=== PATIENT | male | born 1955 | race Caucasian/White ===

== ENCOUNTER 2018-04-26 10:58 | Inpatient (IN) | payer MEDICARE ==
[~2018-04-26] VITALS: Ht 180.3 cm; Wt 103.9 kg
[2018-04-26 11:40] LABS: BASOPHILS % (AUTO) 0.3 % (0.0-5.0); EOSINOPHILS % (AUTO) 1.6 % (0.0-8.0); LYMPHOCYTES % (AUTO) 14.8 % (21.0-51.0); MEAN CORPUSCULAR HGB CONC 33.1 g/dL (32.0-36.0); MEAN CORPUSCULAR VOLUME 93.8 fL (79-99); MONOCYTES % (AUTO) 8.9 % (3.0-13.0); NEUTROPHILS % (AUTO) 74.4 % (40.0-77.0); PLATELET COUNT (AUTO) 225 K/uL (130-400); RED BLOOD CELL COUNT(AUTO) 3.84 MIL/uL (4.50-6.20); RED CELL DISTRIBUTION WIDTH 13.3 % (11.0-15.5); WHITE BLOOD COUNT (AUTO) 8.2 K/uL (4.8-10.8)
[2018-04-26 11:49] LABS: CREATININE 1.5 mg/dL (0.5-1.5); POTASSIUM 4.6 mmol/L (3.5-5.1)
[2018-04-26 11:54] LABS: ALBUMIN 2.6 g/dL (3.5-5.0); BILIRUBIN,TOTAL 0.5 mg/dL (0.2-1.0); TOTAL PROTEIN, SERUM 6.3 g/dL (6.0-8.3)
[2018-04-26] MEDS ORDERED: SODIUM CHLORIDE 0.9% 1000ML 1,000 ML IV ONE ×2 (12:11→16:13)
[2018-04-26] MEDS ORDERED: LEVOFLOXACIN 750 MG/D5W 150 ML 150 ML ONE (13:32)
[2018-04-26 14:21] LABS: PROTHROMBIN TIME 10.5 SEC (9.6-11.6)
[2018-04-26] MEDS ORDERED: ACETAMINOPHEN 325 MG TAB PO PRN ×2 (14:45)
[2018-04-26] MEDS ORDERED: ONDANSETRON HCL 4 MG/2 ML VIAL IV PRN (14:45)
[2018-04-26] MEDS ORDERED: LACTULOSE 20 GM/30 ML UDCUP PO PRN (14:45)
[2018-04-26 15:13] LABS: CRP QUANTITATIVE 42.8 mg/L (0.00-9.0); MAGNESIUM 1.6 mg/dL (1.80-2.40); PHOSPHORUS 2.8 mg/dL (2.5-4.9)
[2018-04-26 15:16] LABS: HEMOGLOBIN A1C 6.6 % (4.0-6.0)
[2018-04-26] MEDS ORDERED: SODIUM CHLORIDE 3% FOR INHALATION 4 ML/AMP VIAL.NEB IH ONE (15:28)
[2018-04-26] MEDS ORDERED: CEFTRIAXONE SODIUM 1 GM ONE (16:13)
[2018-04-26] MEDS ORDERED: METHYLPREDNISOLONE SOD SUCC 40MG/ML 1ML ONE (16:13)
[2018-04-26] MEDS ORDERED: SODIUM CHLORIDE 0.9% 100 ML IV ONE (16:14)
[2018-04-26] MEDS: CEFTRIAXONE SODIUM 1 GM IV SCH (16:27)
[2018-04-26] MEDS: METHYLPREDNISOLONE SOD SUCC 125MG/2ML VIAL IV SCH ×2 (16:27→23:27)
[2018-04-26 16:49] LABS: APPEARANCE,URINE CLOUDY (CLEAR); BILIRUBIN,URINE NEGATIVE (NEGATIVE); COLOR,URINE BROWN (YELLOW); GLUCOSE, URINE (UA) NEGATIVE (NEGATIVE); KETONES,URINE NEGATIVE (NEGATIVE); LEUKOCYTE ESTERASE ,URINE SMALL (NEGATIVE); NITRATE,URINE NEGATIVE (NEGATIVE); OCCULT BLOOD,URINE LARGE (NEGATIVE); PH,URINE 5.5 (5.0-8.0); PROTEIN,URINE 30 (NEGATIVE); UROBILINOGEN,URINE 0.2 mg/dL (0.2-1.0)
[2018-04-26 17:16] VITALS: BP 164/75
[2018-04-26 17:26] LABS: BACTERIA,URINE Few /HPF (None Seen)
[2018-04-26 17:27] LABS: RBC,URINE >100 /HPF (0-1)
[2018-04-26 17:28] LABS: AMORPHOUS SEDIMENT,UR Few /LPF (None Seen); SQUAMOUS EPITHELIAL CELL,UR Few /HPF (0-2); URIC ACID CRYSTALS,URINE Few /LPF (None Seen)
[2018-04-26 17:29] LABS: MUCUS,URINE Rare LPF (None Seen)
[2018-04-26] MEDS: SODIUM CHLORIDE 0.9% 1000ML 1,000 ML IV SCH ×2 (17:33→22:40)
[2018-04-26] MEDS: AZITHROMYCIN 500MG+NS 250ML 250 ML IV SCH (17:35)
[2018-04-26] MEDS ORDERED: GABA-531 PO (17:51)
[2018-04-26] MEDS ORDERED: ATOR20TA65 PO (17:51)
[2018-04-26] MEDS ORDERED: KETO15CR2 TP (17:51)
[2018-04-26] MEDS ORDERED: TRI2515C TP (17:51)
[2018-04-26] MEDS ORDERED: LOSA50TA25 PO (17:51)
[2018-04-26] MEDS ORDERED: DOXA4TAB3 PO (17:51)
[2018-04-26] MEDS ORDERED: [UNRECOGNIZED DRUG - CODE] PO (17:51)
[2018-04-26] MEDS ORDERED: OMEP20TA25 PO (17:51)
[2018-04-26] MEDS ORDERED: BACL10TA PO (17:51)
[2018-04-26] MEDS ORDERED: SENN8.6T20 PO (17:51)
[2018-04-26] MEDS ORDERED: CITA-106 PO (17:51)
[2018-04-26] MEDS ORDERED: AEC81 PO (17:51)
[2018-04-26] MEDS ORDERED: PROM25TA7 PO (17:55)
[2018-04-26] MEDS ORDERED: ACET-2893 PO (17:55)
[2018-04-26 19:38] VITALS: BP 146/69
[2018-04-26] MEDS: IPRATROPIUM/ALBUTEROL SULFATE 3 ML SOLUTION IH SCH ×2 (19:47→23:50)
[2018-04-26] MEDS: INSULIN HUMULIN R 100 UNIT/ML 3ML SQ SCH (20:52)
[2018-04-27] VITALS (7 sets, daily range): BP systolic 126–164; BP diastolic 58–75
[2018-04-27] MEDS: IPRATROPIUM/ALBUTEROL SULFATE 3 ML SOLUTION IH SCH ×4 (02:05→21:14)
[2018-04-27 04:05] LABS: HEMATOCRIT 33.7 % (42-54); MEAN CORPUSCULAR HEMOGLOBIN 30.4 pg (27.0-33.0); MEAN CORPUSCULAR HGB CONC 32.3 g/dL (32.0-36.0); MEAN CORPUSCULAR VOLUME 94.2 fL (79-99); NUCLEATED RED BLOOD CELLS 0.1 % (0.0-0.19); PLATELET COUNT (AUTO) 174 K/uL (130-400); RED BLOOD CELL COUNT(AUTO) 3.58 MIL/uL (4.50-6.20); RED CELL DISTRIBUTION WIDTH 12.9 % (11.0-15.5); WHITE BLOOD COUNT (AUTO) 4.9 K/uL (4.8-10.8)
[2018-04-27 04:08] LABS: CREATININE 1.2 mg/dL (0.5-1.5); MAGNESIUM 1.4 mg/dL (1.80-2.40); POTASSIUM 4.2 mmol/L (3.5-5.1)
[2018-04-27 04:35] LABS: LYMPHOCYTES % (MANUAL) 4 % (22-44); MAN.DIFF COMMENT-IMPRESSION MANUAL DIFFERENTIAL; SEGMENTED NEUTROPHILS % 96 % (40-70)
[2018-04-27] MEDS: INSULIN HUMULIN R 100 UNIT/ML 3ML SQ SCH ×4 (06:23→21:53)
[2018-04-27] MEDS: METHYLPREDNISOLONE SOD SUCC 125MG/2ML VIAL IV SCH ×3 (06:23→23:38)
[2018-04-27 08:09] LABS: ABG BASE EXCESS -3.9 mmol/L (-2.0-3.0); ABG HCO3 20.3 mmol/L (21.0-28.0); ABG OXYGEN SATURATION 93.2 % (95.0-99.0); ABG PCO2 35 mmHg (35-48)
[2018-04-27 08:59] LABS: % IRON SATURATION 13.7 % (30-44)
[2018-04-27] MEDS: PANTOPRAZOLE SODIUM 40 MG TABLET.DR PO SCH (09:41)
[2018-04-27] MEDS: MAGNESIUM OXIDE 400 MG TABLET PO SCH (09:41)
[2018-04-27] MEDS: ENOXAPARIN SODIUM 40 MG/0.4 ML SYRINGE SQ SCH (09:48)
[2018-04-27] MEDS ORDERED: COMPOUND IV MISC 1 EACH IVSOLN MISC PRN (11:30)
[2018-04-27] MEDS: SODIUM CHLORIDE 0.9% 1000ML 1,000 ML IV SCH ×2 (11:37→20:49)
[2018-04-27] MEDS: AZITHROMYCIN 500MG+NS 250ML 250 ML IV SCH (14:09)
[2018-04-27] MEDS: CEFTRIAXONE SODIUM 1 GM IV SCH (14:09)
[2018-04-27] MEDS: GABAPENTIN 300 MG CAPSULE PO SCH ×2 (14:09→21:37)
[2018-04-27] MEDS: POLYETHYLENE GLYCOL 3350 17 GM POWD.PACK PO SCH (14:10)
[2018-04-27] MEDS ORDERED: TRIAMCINOLONE 0.025% 15 GM CREAM TP SCH (21:00)
[2018-04-27] MEDS: TRIAMCINOLONE 0.025% 15 GM CREAM TP SCH (21:00)
[2018-04-27] MEDS: DOCUSATE SODIUM 100 MG CAP PO SCH (21:37)
[2018-04-27] MEDS: BACLOFEN 10 MG TABLET PO SCH (21:37)
[2018-04-27] MEDS: ATORVASTATIN CALCIUM 20 MG TABLET PO SCH (21:38)
[2018-04-27] MEDS: CITALOPRAM 20 MG TABLET PO SCH (21:38)
[2018-04-27] MEDS: KETOCONAZOLE 15 GM CREAM.GM. TP SCH (21:39)
[2018-04-28] MEDS: SODIUM CHLORIDE 0.9% 1000ML 1,000 ML IV SCH ×4 (03:15→18:21)
[2018-04-28 03:21] VITALS: BP 148/74
[2018-04-28] MEDS: GUAIFENESIN-DM 200/20 MG 10 ML PO PRN ×2 (03:38→10:21)
[2018-04-28 04:10] LABS: HEMATOCRIT 31.9 % (42-54); MEAN CORPUSCULAR HEMOGLOBIN 30.9 pg (27.0-33.0); MEAN CORPUSCULAR HGB CONC 32.8 g/dL (32.0-36.0); MEAN CORPUSCULAR VOLUME 94.3 fL (79-99); PLATELET COUNT (AUTO) 249 K/uL (130-400); RED BLOOD CELL COUNT(AUTO) 3.38 MIL/uL (4.50-6.20); RED CELL DISTRIBUTION WIDTH 13.1 % (11.0-15.5); WHITE BLOOD COUNT (AUTO) 11.7 K/uL (4.8-10.8)
[2018-04-28 04:17] LABS: CREATININE 1.2 mg/dL (0.5-1.5); MAGNESIUM 1.7 mg/dL (1.80-2.40); PHOSPHORUS 2.6 mg/dL (2.5-4.9); POTASSIUM 4.4 mmol/L (3.5-5.1)
[2018-04-28 04:28] LABS: B-TYPE NATRIURETIC PEPTIDE 201 pg/mL (0-100)
[2018-04-28] MEDS: METHYLPREDNISOLONE SOD SUCC 125MG/2ML VIAL IV SCH (06:09)
[2018-04-28] MEDS: IPRATROPIUM/ALBUTEROL SULFATE 3 ML SOLUTION IH SCH ×3 (06:17→21:32)
[2018-04-28] MEDS: INSULIN HUMULIN R 100 UNIT/ML 3ML SQ SCH ×4 (06:22→21:26)
[2018-04-28 07:36] VITALS: BP 172/64
[2018-04-28] MEDS: MUCUS RELIEF DM PO SCH ×2 (09:00→20:29)
[2018-04-28] MEDS: IRON SUCROSE COMPLEX 100 MG in SODIUM CHLORIDE 0.9% 50 ML IV SCH (09:55)
[2018-04-28] MEDS: POLYETHYLENE GLYCOL 3350 17 GM POWD.PACK PO SCH (09:55)
[2018-04-28] MEDS: LOSARTAN 50 MG TABLET PO SCH (09:56)
[2018-04-28] MEDS: PANTOPRAZOLE SODIUM 40 MG TABLET.DR PO SCH (09:56)
[2018-04-28] MEDS: GABAPENTIN 300 MG CAPSULE PO SCH ×3 (09:56→21:08)
[2018-04-28] MEDS: MAGNESIUM OXIDE 400 MG TABLET PO SCH (09:57)
[2018-04-28] MEDS: DOCUSATE SODIUM 100 MG CAP PO SCH ×2 (09:57→21:08)
[2018-04-28] MEDS: BACLOFEN 10 MG TABLET PO SCH ×2 (09:57→21:09)
[2018-04-28] MEDS: ENOXAPARIN SODIUM 40 MG/0.4 ML SYRINGE SQ SCH (10:01)
[2018-04-28] MEDS: TRIAMCINOLONE 0.025% 15 GM CREAM TP SCH ×2 (10:07→21:11)
[2018-04-28] MEDS: KETOCONAZOLE 15 GM CREAM.GM. TP SCH ×2 (10:08→21:11)
[2018-04-28] MEDS ORDERED: MAGNESIUM 2GM PREMIX 50ML 50 ML IV PRN ×2 (10:30→11:00)
[2018-04-28 11:36] VITALS: BP 149/73
[2018-04-28] MEDS: AZITHROMYCIN 250 MG TABLET PO SCH (11:59)
[2018-04-28] MEDS: METHYLPREDNISOLONE SOD SUCC 40MG/ML 1ML IVP SCH ×2 (14:01→22:17)
[2018-04-28] MEDS: CEFTRIAXONE SODIUM 1 GM IV SCH (14:01)
[2018-04-28] MEDS ORDERED: METHYLPREDNISOLONE SOD SUCC 125MG/2ML VIAL IV SCH (14:45)
[2018-04-28 16:26] VITALS: BP 144/66
[2018-04-28 19:36] VITALS: BP 154/73
[2018-04-28] MEDS: CITALOPRAM 20 MG TABLET PO SCH (21:08)
[2018-04-28] MEDS: ATORVASTATIN CALCIUM 20 MG TABLET PO SCH (21:08)
[2018-04-28 23:33] VITALS: BP 150/70
[2018-04-29] MEDS: SODIUM CHLORIDE 0.9% 1000ML 1,000 ML IV SCH ×4 (01:38→22:10)
[2018-04-29] MEDS: GUAIFENESIN-DM 200/20 MG 10 ML PO PRN ×4 (01:42→23:08)
[2018-04-29 03:53] VITALS: BP 159/80
[2018-04-29 04:54] LABS: HEMATOCRIT 31.7 % (42-54); MEAN CORPUSCULAR VOLUME 93.7 fL (79-99); PLATELET COUNT (AUTO) 231 K/uL (130-400); RED BLOOD CELL COUNT(AUTO) 3.39 MIL/uL (4.50-6.20); RED CELL DISTRIBUTION WIDTH 13.1 % (11.0-15.5); WHITE BLOOD COUNT (AUTO) 12.1 K/uL (4.8-10.8)
[2018-04-29 04:59] LABS: CREATININE 1.1 mg/dL (0.5-1.5); POTASSIUM 4.3 mmol/L (3.5-5.1)
[2018-04-29 05:06] LABS: LYMPHOCYTES % (MANUAL) 6 % (22-44); MAN.DIFF COMMENT-IMPRESSION MANUAL DIFFERENTIAL; MONOCYTES % (MANUAL) 5 % (2-9); SEGMENTED NEUTROPHILS % 89 % (40-70)
[2018-04-29 05:07] LABS: PLATELET MORPHOLOGY COMMENT ADEQUATE
[2018-04-29] MEDS: METHYLPREDNISOLONE SOD SUCC 40MG/ML 1ML IVP SCH ×2 (06:40→13:17)
[2018-04-29] MEDS: IPRATROPIUM/ALBUTEROL SULFATE 3 ML SOLUTION IH SCH ×3 (07:02→23:49)
[2018-04-29] MEDS: INSULIN HUMULIN R 100 UNIT/ML 3ML SQ SCH ×4 (07:30→22:08)
[2018-04-29 07:38] VITALS: BP 179/73
[2018-04-29] MEDS: MUCUS RELIEF DM PO SCH ×2 (08:22→21:00)
[2018-04-29] MEDS: POLYETHYLENE GLYCOL 3350 17 GM POWD.PACK PO SCH (09:59)
[2018-04-29] MEDS: DOCUSATE SODIUM 100 MG CAP PO SCH ×2 (10:00→23:07)
[2018-04-29] MEDS: BACLOFEN 10 MG TABLET PO SCH ×2 (10:00→23:07)
[2018-04-29] MEDS: PANTOPRAZOLE SODIUM 40 MG TABLET.DR PO SCH (10:00)
[2018-04-29] MEDS: LOSARTAN 50 MG TABLET PO SCH (10:00)
[2018-04-29] MEDS: MAGNESIUM OXIDE 400 MG TABLET PO SCH (10:00)
[2018-04-29] MEDS: GABAPENTIN 300 MG CAPSULE PO SCH ×3 (10:00→23:11)
[2018-04-29] MEDS: IRON SUCROSE COMPLEX 100 MG in SODIUM CHLORIDE 0.9% 50 ML IV SCH (10:01)
[2018-04-29] MEDS: ENOXAPARIN SODIUM 40 MG/0.4 ML SYRINGE SQ SCH (10:03)
[2018-04-29] MEDS: AZITHROMYCIN 250 MG TABLET PO SCH (10:03)
[2018-04-29] MEDS: KETOCONAZOLE 15 GM CREAM.GM. TP SCH ×2 (10:05→22:00)
[2018-04-29] MEDS: TRIAMCINOLONE 0.025% 15 GM CREAM TP SCH ×2 (10:05→21:59)
[2018-04-29 11:31] VITALS: BP 161/69
[2018-04-29] MEDS: CEFTRIAXONE SODIUM 1 GM IV SCH (13:17)
[2018-04-29] MEDS ORDERED: LOSARTAN 50 MG TABLET PO SCH ×2 (16:30→16:45)
[2018-04-29 16:32] VITALS: BP 187/76
[2018-04-29] MEDS: BENZONATATE 100 MG CAPSULE PO PRN (16:59)
[2018-04-29 19:00] VITALS: BP 185/83
[2018-04-29] MEDS: ATORVASTATIN CALCIUM 20 MG TABLET PO SCH (23:06)
[2018-04-29] MEDS: CITALOPRAM 20 MG TABLET PO SCH (23:07)
[2018-04-29] MEDS ORDERED: HYDRALAZINE HCL 20 MG/ML VIAL ONE (23:52)
[2018-04-30] VITALS (10 sets, daily range): BP systolic 131–187; BP diastolic 63–95
[2018-04-30] MEDS ORDERED: HYDRALAZINE HCL 20 MG/ML VIAL IV PRN
[2018-04-30] MEDS: BENZONATATE 100 MG CAPSULE PO PRN (03:31)
[2018-04-30 05:08] LABS: HEMATOCRIT 33.5 % (42-54); MEAN CORPUSCULAR HEMOGLOBIN 30.8 pg (27.0-33.0); MEAN CORPUSCULAR HGB CONC 32.8 g/dL (32.0-36.0); MEAN CORPUSCULAR VOLUME 93.8 fL (79-99); PLATELET COUNT (AUTO) 254 K/uL (130-400); RED BLOOD CELL COUNT(AUTO) 3.57 MIL/uL (4.50-6.20); RED CELL DISTRIBUTION WIDTH 13.2 % (11.0-15.5); WHITE BLOOD COUNT (AUTO) 12.7 K/uL (4.8-10.8)
[2018-04-30 05:16] LABS: CREATININE 0.9 mg/dL (0.5-1.5); POTASSIUM 3.8 mmol/L (3.5-5.1)
[2018-04-30 05:52] LABS: BAND NEUTROPHILS % (MANUAL) 2 % (0-2); LYMPHOCYTES % (MANUAL) 11 % (22-44); MAN.DIFF COMMENT-IMPRESSION MANUAL DIFFERENTIAL; MONOCYTES % (MANUAL) 8 % (2-9); SEGMENTED NEUTROPHILS % 79 % (40-70)
[2018-04-30 05:53] LABS: PLATELET MORPHOLOGY COMMENT ADEQUATE
[2018-04-30] MEDS: INSULIN HUMULIN R 100 UNIT/ML 3ML SQ SCH ×4 (06:44→21:58)
[2018-04-30] MEDS: IPRATROPIUM/ALBUTEROL SULFATE 3 ML SOLUTION IH SCH ×2 (06:57→14:18)
[2018-04-30] MEDS: MUCUS RELIEF DM PO SCH ×2 (09:00→21:00)
[2018-04-30] MEDS ORDERED: PREDNISONE 20 MG TABLET PO SCH (09:00)
[2018-04-30] MEDS: KETOCONAZOLE 15 GM CREAM.GM. TP SCH ×2 (09:00→21:43)
[2018-04-30] MEDS: TRIAMCINOLONE 0.025% 15 GM CREAM TP SCH ×2 (09:00→21:43)
[2018-04-30] MEDS: POLYETHYLENE GLYCOL 3350 17 GM POWD.PACK PO SCH (09:36)
[2018-04-30] MEDS: DOCUSATE SODIUM 100 MG CAP PO SCH ×2 (09:36→21:29)
[2018-04-30] MEDS: PANTOPRAZOLE SODIUM 40 MG TABLET.DR PO SCH (09:36)
[2018-04-30] MEDS: GABAPENTIN 300 MG CAPSULE PO SCH ×3 (09:36→21:31)
[2018-04-30] MEDS: MAGNESIUM OXIDE 400 MG TABLET PO SCH (09:37)
[2018-04-30] MEDS: LOSARTAN 50 MG TABLET PO SCH (09:37)
[2018-04-30] MEDS: AZITHROMYCIN 250 MG TABLET PO SCH (09:37)
[2018-04-30] MEDS: BACLOFEN 10 MG TABLET PO SCH ×2 (09:37→21:30)
[2018-04-30] MEDS: ENOXAPARIN SODIUM 40 MG/0.4 ML SYRINGE SQ SCH (09:38)
[2018-04-30] MEDS: IRON SUCROSE COMPLEX 100 MG in SODIUM CHLORIDE 0.9% 50 ML IV SCH (09:38)
[2018-04-30] MEDS: SODIUM CHLORIDE 0.9% 1000ML 1,000 ML IV SCH (09:56)
[2018-04-30] MEDS ORDERED: FUROSEMIDE 10 MG/ML 4ML VIAL IV SCH (14:15)
[2018-04-30] MEDS: CEFTRIAXONE SODIUM 1 GM IV SCH (15:08)
[2018-04-30] MEDS: BENZONATATE 100 MG CAPSULE PO SCH ×2 (15:11→22:00)
[2018-04-30] MEDS: ATORVASTATIN CALCIUM 20 MG TABLET PO SCH (21:29)
[2018-04-30] MEDS: CITALOPRAM 20 MG TABLET PO SCH (21:30)
[2018-05-01] MEDS: IPRATROPIUM/ALBUTEROL SULFATE 3 ML SOLUTION IH SCH ×3 (00:19→13:40)
[2018-05-01] MEDS: GUAIFENESIN-DM 200/20 MG 10 ML PO PRN ×2 (00:35→09:28)
[2018-05-01 01:20] VITALS: BP 169/79
[2018-05-01 04:00] VITALS: BP 162/79
[2018-05-01 04:17] LABS: BASOPHILS % (AUTO) 0.2 % (0.0-5.0); EOSINOPHILS % (AUTO) 0.1 % (0.0-8.0); HEMATOCRIT 34.2 % (42-54); LYMPHOCYTES % (AUTO) 14.4 % (21.0-51.0); MEAN CORPUSCULAR HEMOGLOBIN 30.3 pg (27.0-33.0); MEAN CORPUSCULAR HGB CONC 32.7 g/dL (32.0-36.0); MEAN CORPUSCULAR VOLUME 92.7 fL (79-99); MONOCYTES % (AUTO) 8.9 % (3.0-13.0); NEUTROPHILS % (AUTO) 76.4 % (40.0-77.0); PLATELET COUNT (AUTO) 249 K/uL (130-400); RED BLOOD CELL COUNT(AUTO) 3.68 MIL/uL (4.50-6.20); RED CELL DISTRIBUTION WIDTH 13.5 % (11.0-15.5); WHITE BLOOD COUNT (AUTO) 10.1 K/uL (4.8-10.8)
[2018-05-01 04:23] LABS: CREATININE 1.2 mg/dL (0.5-1.5); POTASSIUM 3.7 mmol/L (3.5-5.1)
[2018-05-01 04:25] LABS: B-TYPE NATRIURETIC PEPTIDE 57 pg/mL (0-100)
[2018-05-01] MEDS: BENZONATATE 100 MG CAPSULE PO SCH ×2 (06:37→14:01)
[2018-05-01] MEDS: INSULIN HUMULIN R 100 UNIT/ML 3ML SQ SCH ×2 (06:58→11:50)
[2018-05-01 08:07] VITALS: BP 143/76
[2018-05-01] MEDS: MUCUS RELIEF DM PO SCH (09:00)
[2018-05-01] MEDS: POLYETHYLENE GLYCOL 3350 17 GM POWD.PACK PO SCH (09:17)
[2018-05-01] MEDS: BACLOFEN 10 MG TABLET PO SCH (09:18)
[2018-05-01] MEDS: DOCUSATE SODIUM 100 MG CAP PO SCH (09:20)
[2018-05-01] MEDS: GABAPENTIN 300 MG CAPSULE PO SCH ×2 (09:20→14:01)
[2018-05-01] MEDS: LOSARTAN 50 MG TABLET PO SCH (09:20)
[2018-05-01] MEDS: MAGNESIUM OXIDE 400 MG TABLET PO SCH (09:20)
[2018-05-01] MEDS: PANTOPRAZOLE SODIUM 40 MG TABLET.DR PO SCH (09:20)
[2018-05-01] MEDS: KETOCONAZOLE 15 GM CREAM.GM. TP SCH (09:21)
[2018-05-01] MEDS: TRIAMCINOLONE 0.025% 15 GM CREAM TP SCH (09:21)
[2018-05-01] MEDS: ENOXAPARIN SODIUM 40 MG/0.4 ML SYRINGE SQ SCH (09:22)
[2018-05-01] MEDS: AZITHROMYCIN 250 MG TABLET PO SCH (09:24)
[2018-05-01 11:20] VITALS: BP 164/77
[2018-05-01] MEDS: CEFTRIAXONE SODIUM 1 GM IV SCH (14:01)
== END 2018-05-01 16:27 | DRG 194 ==
LOC: EDH 10:58 → EDHIP 14:31 → 2DH 16:45
PROVIDERS: ADMIT Internal Medicine; ATTEND Internal Medicine
DX: J18.0 Bronchopneumonia, unspecified organism (principal); I69.351 Hemiplegia and hemiparesis following cerebral infarction affecting right dominant side; K92.2 Gastrointestinal hemorrhage, unspecified; E44.0 Moderate protein-calorie malnutrition; J20.9 Acute bronchitis, unspecified; I95.9 Hypotension, unspecified; R31.9 Hematuria, unspecified; E11.9 Type 2 diabetes mellitus without complications; I25.10 Atherosclerotic heart disease of native coronary artery without angina pectoris; E86.0 Dehydration; I10 Essential (primary) hypertension; E78.5 Hyperlipidemia, unspecified; E83.42 Hypomagnesemia; E78.2 Mixed hyperlipidemia; Z93.0 Tracheostomy status; Z95.1 Presence of aortocoronary bypass graft
CPT/HCPCS: 36415; 36600; 71045; 71046; 73060; 73090; 73600; 76770; 80048; 80053; 81001; 82270; 82803; 82948; 83036; 83540; 83550; 83605; 83735; 83880; 84100; 85025; 85027; 85610; 85730; 86140; 86738; 87040; 87071; 87088; 87205; 87449; 87633; 87804; 93005; 94640; 94664; 97039; 99291; A4218; A4351; J0360; J0456; J0696; J1650; J1756; J1815; J1940; J1956; J2920; J2930; J3475; J7030

== ENCOUNTER → 2018-05-16 | Outpatient (CLI) | payer MEDICARE ==
[~2018-05-16] MED LIST: ACET-2893 PO; AEC81 PO; ATOR20TA65 PO; BACL10TA PO; CITA-106 PO; DOXA4TAB3 PO; GABA-531 PO; KETO15CR2 TP; LOSA50TA25 PO; OMEP20TA25 PO; PROM25TA7 PO; SENN8.6T20 PO; TRI2515C TP; [UNRECOGNIZED DRUG - CODE] PO
== END | disposition home or self-care (01) ==
LOC: RAH 09:56
PROVIDERS: ATTEND Internal Medicine
DX: M25.511 Pain in right shoulder (principal)
CPT/HCPCS: 73200

== ENCOUNTER → 2018-09-07 | Outpatient (CLI) | payer MEDICARE ==
[~2018-09-07] MED LIST changes: -LOSA50TA25 PO; +LOSA50TA64 PO
== END | disposition home or self-care (01) ==
LOC: RAH 11:04
PROVIDERS: ATTEND Internal Medicine
DX: M77.31 Calcaneal spur, right foot (principal); I70.8 Atherosclerosis of other arteries
CPT/HCPCS: 73630

== ENCOUNTER → 2018-11-12 | Outpatient (CLI) | payer MEDICARE | END | disposition home or self-care (01) | LOC: RAH 10:59 | PROVIDERS: ATTEND Physical Medicine & Rehabilitation | DX: I73.9 Peripheral vascular disease, unspecified (principal) | CPT/HCPCS: 93925 ==

== ENCOUNTER → 2018-12-14 | Outpatient (CLI) | payer MEDICARE | END | disposition home or self-care (01) | LOC: RAH 11:30 | PROVIDERS: ATTEND Physical Medicine & Rehabilitation | DX: M54.16 Radiculopathy, lumbar region (principal) | CPT/HCPCS: 72148 ==

== ENCOUNTER → 2019-02-21 | Outpatient (CLI) | payer MEDICARE ==
[~2019-02-21] MED LIST changes: +CILO50TA PO; +FINA5TAB41 PO; +GABA600T10 PO; +LEVO5TAB13 PO
== END | disposition home or self-care (01) ==
LOC: RAH 09:53
PROVIDERS: ATTEND Physical Medicine & Rehabilitation
DX: M54.2 Cervicalgia (principal); M40.294 Other kyphosis, thoracic region
CPT/HCPCS: 72040; 72070

== ENCOUNTER 2019-02-24 12:25 | Inpatient (IN) | payer MEDICARE ==
[~2019-02-24] VITALS: Ht 172.7 cm; Wt 105.1 kg
[~2019-02-24 12:25] MED LIST changes: -CILO50TA PO; -FINA5TAB41 PO; -GABA600T10 PO; -LEVO5TAB13 PO
[2019-02-24 13:25] LABS: BASOPHILS % (AUTO) 0.3 % (0.0-5.0); EOSINOPHILS % (AUTO) 0.3 % (0.0-8.0); LYMPHOCYTES % (AUTO) 6.1 % (21.0-51.0); MEAN CORPUSCULAR HEMOGLOBIN 31.2 pg (27.0-33.0); MEAN CORPUSCULAR HGB CONC 32.6 g/dL (32.0-36.0); MEAN CORPUSCULAR VOLUME 95.7 fL (79-99); MONOCYTES % (AUTO) 7.5 % (3.0-13.0); NEUTROPHILS % (AUTO) 85.8 % (40.0-77.0); PLATELET COUNT (AUTO) 210 K/uL (130-400); RED BLOOD CELL COUNT(AUTO) 3.55 MIL/uL (4.50-6.20); RED CELL DISTRIBUTION WIDTH 13.2 % (11.0-15.5); WHITE BLOOD COUNT (AUTO) 14.3 K/uL (4.8-10.8)
[2019-02-24 13:33] LABS: CREATININE 1.8 mg/dL (0.5-1.5); POTASSIUM 4.7 mmol/L (3.5-5.1)
[2019-02-24 13:34] LABS: INR 1.03 (0.85-1.15); PARTIAL THROMBOPLASTIN TIME 24.8 SEC (26.3-35.5); PROTHROMBIN TIME 10.8 SEC (9.6-11.6)
[2019-02-24 13:38] LABS: ALBUMIN 2.6 g/dL (3.5-5.0); BILIRUBIN,TOTAL 0.6 mg/dL (0.2-1.0); TOTAL PROTEIN, SERUM 5.9 g/dL (6.0-8.3)
[2019-02-24] MEDS ORDERED: ASPIRIN 81MG TAB.CHEW ONE (13:46)
[2019-02-24] MEDS ORDERED: CEFTRIAXONE SODIUM 1 GM ONE (16:26)
[2019-02-24] MEDS ORDERED: AZITHROMYCIN 250 MG TABLET PO ONE (16:27)
[2019-02-24] MEDS ORDERED: SODIUM CHLORIDE 0.9% 1000ML 1,000 ML IV ONE (16:28)
[2019-02-24] MEDS ORDERED: SODIUM CHLORIDE 0.9% 1000ML 1,000 ML IV SCH (16:36)
[2019-02-24] MEDS ORDERED: ONDANSETRON HCL 4 MG/2 ML VIAL IV PRN (16:45)
[2019-02-24] MEDS ORDERED: DiphenhydrAMINE HCL 50 MG/ML VIAL IV PRN (16:45)
[2019-02-24] MEDS ORDERED: HYDRALAZINE HCL 20 MG/ML VIAL IV PRN (16:45)
[2019-02-24] MEDS ORDERED: ACETAMINOPHEN 325 MG TAB PO PRN ×2 (16:45)
[2019-02-24] MEDS ORDERED: DIPHENHYDRAMINE HCL 25 MG CAPSULE PO PRN (16:45)
[2019-02-24] MEDS ORDERED: AZITHROMYCIN 500MG+NS 250ML 250 ML IV SCH (17:00)
[2019-02-24] MEDS ORDERED: FINA5TAB41 PO ×2 (19:03)
[2019-02-24] MEDS ORDERED: LEVO5TAB13 PO ×2 (19:03)
[2019-02-24] MEDS ORDERED: CILO50TA PO ×2 (19:03)
[2019-02-24] MEDS ORDERED: GABA600T10 PO ×2 (19:03)
[2019-02-24 19:47] LABS: APPEARANCE,URINE CLOUDY (CLEAR); BILIRUBIN,URINE NEGATIVE (NEGATIVE); COLOR,URINE YELLOW (YELLOW); GLUCOSE, URINE (UA) NEGATIVE (NEGATIVE); KETONES,URINE NEGATIVE (NEGATIVE); LEUKOCYTE ESTERASE ,URINE MODERATE (NEGATIVE); NITRATE,URINE NEGATIVE (NEGATIVE); OCCULT BLOOD,URINE LARGE (NEGATIVE); PH,URINE 5.5 (5.0-8.0); PROTEIN,URINE 30 mg/dL (NEGATIVE); UROBILINOGEN,URINE 0.2 mg/dL (0.2-1.0)
[2019-02-24 20:01] LABS: BACTERIA,URINE Moderate /HPF (None Seen); SQUAMOUS EPITHELIAL CELL,UR Rare /HPF (0-2)
[2019-02-24 20:36] VITALS: BP 108/53
[2019-02-24] MEDS: CEFTRIAXONE SODIUM 1 GM IV SCH (23:29)
[2019-02-24] MEDS: AZITHROMYCIN 500MG+NS 250ML 250 ML IV SCH (23:29)
[2019-02-25] VITALS (8 sets, daily range): BP systolic 123–180; BP diastolic 59–84
[2019-02-25 03:48] LABS: BASOPHILS % (AUTO) 0.3 % (0.0-5.0); EOSINOPHILS % (AUTO) 1.4 % (0.0-8.0); LYMPHOCYTES % (AUTO) 11.9 % (21.0-51.0); MEAN CORPUSCULAR HEMOGLOBIN 31.1 pg (27.0-33.0); MEAN CORPUSCULAR HGB CONC 33.1 g/dL (32.0-36.0); MEAN CORPUSCULAR VOLUME 93.9 fL (79-99); MONOCYTES % (AUTO) 7.8 % (3.0-13.0); NEUTROPHILS % (AUTO) 78.6 % (40.0-77.0); PLATELET COUNT (AUTO) 197 K/uL (130-400); RED BLOOD CELL COUNT(AUTO) 3.51 MIL/uL (4.50-6.20); RED CELL DISTRIBUTION WIDTH 13.1 % (11.0-15.5); WHITE BLOOD COUNT (AUTO) 11.8 K/uL (4.8-10.8)
[2019-02-25 04:03] LABS: ALBUMIN 2.4 g/dL (3.5-5.0); BILIRUBIN,TOTAL 0.3 mg/dL (0.2-1.0); CREATININE 1.5 mg/dL (0.5-1.5); POTASSIUM 4.3 mmol/L (3.5-5.1); TOTAL PROTEIN, SERUM 5.8 g/dL (6.0-8.3)
--- NOTE | 2019-02-25 07:45 | NUR ---
AM ASSESSMENT PT LAYING IN BED, HOB ELEVATED 30 DEGREES, WATCHING TV. SPOUSE @ BEDSIDE. A/O X 3. SOB ON EXERTION. UNABLE TO LIE FLAT. NO DISTRESS NOTED. DENIES CHEST PAIN OR DISCOMFORT. DENIES PALPITATIONS. TELE: SR 70s. DENIES N/V AND/OR DIARRHEA. 0.9% NACL INFUSING @ 100 ML/HR. 16 FR ONEILL CATH PATENT & DRAINING. RT UPPER & LOWER EXTREMITY CONTRACTED/PARALYSIS, S/P STROKE '14. BEDREST. INSTRUCTED TO CALL FOR ASSISTANCE. CALL LUCIO W/IN REACH.
[2019-02-25] MEDS: FAMOTIDINE/PF 20 MG/2 ML VIAL IV SCH (08:16)
[2019-02-25] MEDS: ENOXAPARIN SODIUM 40 MG/0.4 ML SYRINGE SQ SCH (08:16)
[2019-02-25] MEDS: CEFTRIAXONE SODIUM 1 GM IV SCH ×2 (08:17→22:30)
[2019-02-25] MEDS: KETOCONAZOLE 15 GM CREAM.GM. TP SCH ×2 (09:00→21:00)
[2019-02-25] MEDS: ***HM***(Levocetirizine Dihydrochloride 5 MG) PO SCH (09:00)
--- NOTE | 2019-02-25 10:00 | NUR ---
DYSPHAGIA EVALUATION COMPLETED. Pt WITH DELAYED PHARYNGEAL RESPONSE. RECOMMEND REGULAR TEXTURE, THIN LIQUIDS; PILLS WHOLE WITH LIQUIDS; SMALL BITES AND SIPS. Addendum: 02/25/19 at 1144 by SARAH MERCADO, SPT ST Amended: Links added.
[2019-02-25] MEDS: LOSARTAN 50 MG TABLET PO SCH ×2 (10:05→22:20)
[2019-02-25] MEDS: ASPIRIN 81 MG EC TAB PO SCH (10:05)
[2019-02-25] MEDS: DOXAZOSIN MESYLATE 2 MG TABLET PO SCH ×2 (10:06→22:19)
[2019-02-25] MEDS: CILOSTAZOL 100 MG TAB PO SCH ×2 (10:07→22:19)
[2019-02-25] MEDS: SENNOSIDES 8.6 MG TABLET PO SCH (10:07)
[2019-02-25] MEDS: PANTOPRAZOLE SODIUM 40 MG TABLET.DR PO SCH (10:12)
[2019-02-25] MEDS: GABAPENTIN 300 MG CAPSULE PO SCH ×3 (10:13→22:30)
[2019-02-25] MEDS ORDERED: DEXTROSE 50%-WATER 50 ML DISP.SYRIN IV PRN (12:00)
[2019-02-25] MEDS ORDERED: GLUCAGON 1MG KIT 1 MG ML IM PRN (12:00)
--- NOTE | 2019-02-25 14:19 | NUR ---
RD Notification Pt admitted for PNA, SOB, Sepsis. Hx of DM, HTN, CAD s/p CABG. Also noted UTI, Bilateral pleural effusion as per EMR. Pt tolerating Heart Healthy Diet order as per Pt. PO intake at 75%. Recommend 30mL ProMod TID for improved pro-marian nutrition. Pt monitored labs: BUN 36, GFR 50, Glu 127, Ca 8.0, AST 8, Alb 2.4. RD to continue to monitor. Please notify RD as additional nutrition concerns arise. Thank you. Addendum: 02/25/19 at [address] Amended: Links added.
--- NOTE | 2019-02-25 14:31 | NUR ---
DC PLAN VISITED WITH PATIENT. PATIENT LIVES WITH SPOUSE. INDEPENDENT ABLE TO PERFORM ADL'S. PATIENT HAS NO SERVICES. USES A WALKER NO OTHER DME. FEELS SAFE TO RETURN HOME. Addendum: 02/25/19 at 1433 by LORETO ALMONTE RN CM Amended: Links added.
[2019-02-25] MEDS: INSULIN HUMULIN R 100 UNIT/ML 3ML SQ SCH ×2 (16:30→21:00)
[2019-02-25] MEDS: CITALOPRAM 20 MG TABLET PO SCH (22:19)
[2019-02-25] MEDS: FINASTERIDE 5 MG TABLET PO SCH (22:20)
[2019-02-25] MEDS: AZITHROMYCIN 500MG+NS 250ML 250 ML IV SCH (22:21)
[2019-02-25] MEDS: ATORVASTATIN CALCIUM 20 MG TABLET PO SCH (22:30)
[2019-02-26 03:20] VITALS: BP 142/70
[2019-02-26 03:55] LABS: BASOPHILS % (AUTO) 0.6 % (0.0-5.0); EOSINOPHILS % (AUTO) 3.9 % (0.0-8.0); HEMATOCRIT 30.8 % (42-54); LYMPHOCYTES % (AUTO) 21.2 % (21.0-51.0); MEAN CORPUSCULAR HEMOGLOBIN 31.7 pg (27.0-33.0); MEAN CORPUSCULAR HGB CONC 33.5 g/dL (32.0-36.0); MEAN CORPUSCULAR VOLUME 94.6 fL (79-99); MONOCYTES % (AUTO) 8.5 % (3.0-13.0); NEUTROPHILS % (AUTO) 65.8 % (40.0-77.0); NUCLEATED RED BLOOD CELLS 0.1 % (0.0-0.19); PLATELET COUNT (AUTO) 201 K/uL (130-400); RED BLOOD CELL COUNT(AUTO) 3.26 MIL/uL (4.50-6.20); RED CELL DISTRIBUTION WIDTH 13.1 % (11.0-15.5); WHITE BLOOD COUNT (AUTO) 7.4 K/uL (4.8-10.8)
[2019-02-26 04:13] LABS: ALBUMIN 2.2 g/dL (3.5-5.0); BILIRUBIN,TOTAL 0.2 mg/dL (0.2-1.0); CREATININE 1.2 mg/dL (0.5-1.5); MAGNESIUM 2.1 mg/dL (1.80-2.40); PHOSPHORUS 2.5 mg/dL (2.5-4.9); POTASSIUM 4.1 mmol/L (3.5-5.1); TOTAL PROTEIN, SERUM 5.6 g/dL (6.0-8.3)
[2019-02-26] MEDS: INSULIN HUMULIN R 100 UNIT/ML 3ML SQ SCH ×4 (06:32→21:00)
[2019-02-26] MEDS: PANTOPRAZOLE SODIUM 40 MG TABLET.DR PO SCH (06:35)
[2019-02-26 07:00] VITALS: BP 159/78
[2019-02-26] MEDS ORDERED: SODIUM CHLORIDE 3% FOR INHALATION 4 ML/AMP VIAL.NEB IH ONE ×2 (07:09→11:26)
[2019-02-26] MEDS: KETOCONAZOLE 15 GM CREAM.GM. TP SCH ×2 (09:00→21:00)
[2019-02-26] MEDS: ***HM***(Levocetirizine Dihydrochloride 5 MG) PO SCH (09:00)
[2019-02-26] MEDS: ASPIRIN 81 MG EC TAB PO SCH (10:12)
[2019-02-26] MEDS: CEFTRIAXONE SODIUM 1 GM IV SCH ×2 (10:12→21:59)
[2019-02-26] MEDS: CILOSTAZOL 100 MG TAB PO SCH ×2 (10:12→22:01)
[2019-02-26] MEDS: DOXAZOSIN MESYLATE 2 MG TABLET PO SCH ×2 (10:13→22:01)
[2019-02-26] MEDS: GABAPENTIN 300 MG CAPSULE PO SCH ×3 (10:13→22:01)
[2019-02-26] MEDS: LOSARTAN 50 MG TABLET PO SCH ×2 (10:13→22:01)
[2019-02-26] MEDS: FAMOTIDINE/PF 20 MG/2 ML VIAL IV SCH (10:13)
[2019-02-26] MEDS: SENNOSIDES 8.6 MG TABLET PO SCH (10:13)
[2019-02-26] MEDS: ENOXAPARIN SODIUM 40 MG/0.4 ML SYRINGE SQ SCH (10:14)
[2019-02-26 11:00] VITALS: BP 168/89
[2019-02-26 15:00] VITALS: BP 145/69
[2019-02-26] MEDS ORDERED: GUAIFENESIN SUGAR-FREE 100 MG/5 ML UDCUP PO PRN (15:45)
[2019-02-26 19:23] VITALS: BP 156/79
[2019-02-26] MEDS: AZITHROMYCIN 500MG+NS 250ML 250 ML IV SCH (22:00)
[2019-02-26] MEDS: ATORVASTATIN CALCIUM 20 MG TABLET PO SCH (22:00)
[2019-02-26] MEDS: CITALOPRAM 20 MG TABLET PO SCH (22:01)
[2019-02-26] MEDS: FINASTERIDE 5 MG TABLET PO SCH (22:02)
[2019-02-26 23:25] VITALS: BP 172/76
[2019-02-26] MEDS: BENZOCAINE/MENTH/CETYLPYRD CL 1 EACH LOZENGE MM PRN (23:50)
[2019-02-27 03:47] VITALS: BP 145/69
[2019-02-27 05:01] LABS: BASOPHILS % (AUTO) 0.3 % (0.0-5.0); EOSINOPHILS % (AUTO) 4.9 % (0.0-8.0); HEMATOCRIT 31.8 % (42-54); LYMPHOCYTES % (AUTO) 19.1 % (21.0-51.0); MEAN CORPUSCULAR HEMOGLOBIN 31.8 pg (27.0-33.0); MEAN CORPUSCULAR HGB CONC 33.9 g/dL (32.0-36.0); MEAN CORPUSCULAR VOLUME 93.8 fL (79-99); MONOCYTES % (AUTO) 8.6 % (3.0-13.0); NEUTROPHILS % (AUTO) 67.1 % (40.0-77.0); PLATELET COUNT (AUTO) 250 K/uL (130-400); RED BLOOD CELL COUNT(AUTO) 3.39 MIL/uL (4.50-6.20); WHITE BLOOD COUNT (AUTO) 5.8 K/uL (4.8-10.8)
[2019-02-27 05:15] LABS: ALBUMIN 2.2 g/dL (3.5-5.0); BILIRUBIN,TOTAL 0.2 mg/dL (0.2-1.0); CREATININE 1.1 mg/dL (0.5-1.5); POTASSIUM 4.1 mmol/L (3.5-5.1); TOTAL PROTEIN, SERUM 5.6 g/dL (6.0-8.3)
[2019-02-27] MEDS: INSULIN HUMULIN R 100 UNIT/ML 3ML SQ SCH ×4 (06:10→21:52)
[2019-02-27] MEDS: PANTOPRAZOLE SODIUM 40 MG TABLET.DR PO SCH (07:50)
[2019-02-27 08:29] VITALS: BP 145/75
[2019-02-27] MEDS: LOSARTAN 50 MG TABLET PO SCH ×2 (08:37→20:06)
[2019-02-27] MEDS: DOXAZOSIN MESYLATE 2 MG TABLET PO SCH ×2 (08:37→20:06)
[2019-02-27] MEDS: SENNOSIDES 8.6 MG TABLET PO SCH (08:37)
[2019-02-27] MEDS: ASPIRIN 81 MG EC TAB PO SCH (08:37)
[2019-02-27] MEDS: CEFTRIAXONE SODIUM 1 GM IV SCH ×2 (08:38→20:06)
[2019-02-27] MEDS: FAMOTIDINE/PF 20 MG/2 ML VIAL IV SCH (08:38)
[2019-02-27] MEDS: GABAPENTIN 300 MG CAPSULE PO SCH ×3 (08:38→20:08)
[2019-02-27] MEDS: CILOSTAZOL 100 MG TAB PO SCH ×2 (08:38→20:08)
[2019-02-27] MEDS: ENOXAPARIN SODIUM 40 MG/0.4 ML SYRINGE SQ SCH (08:41)
[2019-02-27] MEDS: ***HM***(Levocetirizine Dihydrochloride 5 MG) PO SCH (09:00)
[2019-02-27] MEDS: KETOCONAZOLE 15 GM CREAM.GM. TP SCH ×2 (10:17→20:09)
[2019-02-27 12:51] VITALS: BP 97/39
[2019-02-27 16:37] VITALS: BP 98/40
[2019-02-27 19:31] VITALS: BP 172/80
[2019-02-27] MEDS: FINASTERIDE 5 MG TABLET PO SCH (20:06)
[2019-02-27] MEDS: CITALOPRAM 20 MG TABLET PO SCH (20:07)
[2019-02-27] MEDS: ATORVASTATIN CALCIUM 20 MG TABLET PO SCH (20:07)
[2019-02-27] MEDS: AZITHROMYCIN 500MG+NS 250ML 250 ML IV SCH (20:08)
--- NOTE | 2019-02-27 22:00 | NUR ---
PT KETOCONAZOLE OINTMENT APPLIED TO GROIN AREA DUE TO REDNESS AND IRRITATION TO SITE. MEDICATIONS TAKEN DIRECTED. NO PAIN STATED. COUGHING NOTED. PRODUCTIVE PER PT, UNABLE TO ASSESS SPUTUM DETAILS. ONEILL IN PLACE. IV PATENT. CONTINUES ON IV ABTS. PT STATES NO CONCERNS AT THIS TIME. ONLY REGARDING POSSIBLE PLAN OF CARE. AAO3. ROHINI.
[2019-02-27 23:09] VITALS: BP 137/74
[2019-02-27] MEDS: BENZOCAINE/MENTH/CETYLPYRD CL 1 EACH LOZENGE MM PRN (23:51)
--- NOTE | 2019-02-28 | NUR ---
PT C/O PAIN TO ONEILL CATHETER SITE. CATHETER WAS PULLED A BIT OUT, URINE WAS NOTED IMMEDIATELY. PT STATES LESS PAIN. REDNESS TO PENIS AREA, APPLIED OINTMENT. PT STATED HE HAS TO USE PRESSURE WHEN VOIDING AND IT CAUSED PAIN WITH CATHETER IN PLACE. AWARE TO NOTIFY NURSE IF PAIN CONTINUES.
[2019-02-28 04:00] VITALS: BP 126/70
[2019-02-28] MEDS: INSULIN HUMULIN R 100 UNIT/ML 3ML SQ SCH ×2 (07:30→11:23)
[2019-02-28 07:40] VITALS: BP 140/68
[2019-02-28] MEDS: PANTOPRAZOLE SODIUM 40 MG TABLET.DR PO SCH (07:55)
[2019-02-28 08:24] LABS: BASOPHILS % (AUTO) 0.3 % (0.0-5.0); EOSINOPHILS % (AUTO) 4.6 % (0.0-8.0); HEMATOCRIT 33.1 % (42-54); LYMPHOCYTES % (AUTO) 24.1 % (21.0-51.0); MEAN CORPUSCULAR HEMOGLOBIN 31.6 pg (27.0-33.0); MEAN CORPUSCULAR HGB CONC 34.1 g/dL (32.0-36.0); MEAN CORPUSCULAR VOLUME 92.7 fL (79-99); PLATELET COUNT (AUTO) 239 K/uL (130-400); RED BLOOD CELL COUNT(AUTO) 3.57 MIL/uL (4.50-6.20); RED CELL DISTRIBUTION WIDTH 12.8 % (11.0-15.5); WHITE BLOOD COUNT (AUTO) 5.3 K/uL (4.8-10.8)
[2019-02-28 08:37] LABS: ALBUMIN 2.3 g/dL (3.5-5.0); BILIRUBIN,TOTAL 0.2 mg/dL (0.2-1.0); CREATININE 1.2 mg/dL (0.5-1.5); TOTAL PROTEIN, SERUM 5.8 g/dL (6.0-8.3)
[2019-02-28] MEDS: ***HM***(Levocetirizine Dihydrochloride 5 MG) PO SCH (09:00)
[2019-02-28] MEDS: CEFTRIAXONE SODIUM 1 GM IV SCH (11:01)
[2019-02-28] MEDS: DOXAZOSIN MESYLATE 2 MG TABLET PO SCH (11:01)
[2019-02-28] MEDS: ASPIRIN 81 MG EC TAB PO SCH (11:02)
[2019-02-28] MEDS: GABAPENTIN 300 MG CAPSULE PO SCH ×2 (11:02→14:05)
[2019-02-28] MEDS: FAMOTIDINE/PF 20 MG/2 ML VIAL IV SCH (11:02)
[2019-02-28] MEDS: CILOSTAZOL 100 MG TAB PO SCH (11:03)
[2019-02-28] MEDS: SENNOSIDES 8.6 MG TABLET PO SCH (11:05)
[2019-02-28] MEDS: LOSARTAN 50 MG TABLET PO SCH (11:06)
[2019-02-28] MEDS: ENOXAPARIN SODIUM 40 MG/0.4 ML SYRINGE SQ SCH (11:06)
[2019-02-28] MEDS: KETOCONAZOLE 15 GM CREAM.GM. TP SCH (11:08)
[2019-02-28 11:27] VITALS: BP 147/74
--- NOTE | 2019-02-28 13:30 | NUR ---
Nixon Nixon catheter discontinued as ordered by , due to void time 1929. Tolerated well.
[2019-02-28] MEDS ORDERED: CEPH-578 PO ×2 (13:33)
--- NOTE | 2019-02-28 14:55 | NUR ---
VOIDED Pt voided 50cc at 1430. Discharged as ordered by . Taken to lobby in wheelchair in no distress. Caregiver from home at bedside. All belongings given to pt. Telemetry and peripheral IV removed. Instructions given and signed.
== END 2019-02-28 15:00 | disposition home or self-care (01) | DRG 871 ==
LOC: EDH 12:25 → EDHIP 16:36 → 2AH 17:53
PROVIDERS: ADMIT Family Medicine; ATTEND Family Medicine
DX: A41.9 Sepsis, unspecified organism (principal); J18.9 Pneumonia, unspecified organism; E43 Unspecified severe protein-calorie malnutrition; N39.0 Urinary tract infection, site not specified; J98.11 Atelectasis; J90 Pleural effusion, not elsewhere classified; E87.1 Hypo-osmolality and hyponatremia; N17.9 Acute kidney failure, unspecified; E11.51 Type 2 diabetes mellitus with diabetic peripheral angiopathy without gangrene; E78.5 Hyperlipidemia, unspecified; I10 Essential (primary) hypertension; I25.10 Atherosclerotic heart disease of native coronary artery without angina pectoris; K80.20 Calculus of gallbladder without cholecystitis without obstruction; N20.0 Calculus of kidney; Z68.35 Body mass index [BMI] 35.0-35.9, adult; I69.320 Aphasia following cerebral infarction; Z95.1 Presence of aortocoronary bypass graft; Z82.3 Family history of stroke; Z82.49 Family history of ischemic heart disease and other diseases of the circulatory system
CPT/HCPCS: 36415; 71045; 71250; 72040; 72070; 74150; 78580; 80053; 81001; 82550; 82948; 83605; 83735; 83880; 84100; 84145; 84443; 84484; 85025; 85610; 85730; 87040; 87071; 87205; 87486; 87581; 87633; 87798; 87804; 92610; 93005; 94640; 97039; A4344; A9540; G0378; J0456; J0696; J1650; J1815; J3490; J7030

== ENCOUNTER → 2019-03-22 | Outpatient (CLI) | payer MEDICARE ==
[~2019-03-22] MED LIST changes: -ACET-2893 PO; +CEPH-578 PO; +CILO50TA PO; +FINA5TAB41 PO; -GABA-531 PO; +GABA600T10 PO; +IOHEXOL 350 MG/ML 100ML INFUS..BTL IV ONE; +IOHEXOL-350 50ML VIAL IV ONE; +LEVO5TAB13 PO; -PROM25TA7 PO; -[UNRECOGNIZED DRUG - CODE] PO
== END | disposition home or self-care (01) ==
LOC: RAH 09:01
PROVIDERS: ATTEND Internal Medicine Cardiovascular Disease
DX: I70.292 Other atherosclerosis of native arteries of extremities, left leg (principal); I70.201 Unspecified atherosclerosis of native arteries of extremities, right leg; I10 Essential (primary) hypertension; K80.20 Calculus of gallbladder without cholecystitis without obstruction; N20.0 Calculus of kidney; N21.0 Calculus in bladder
CPT/HCPCS: 75635; Q9967 ×2

== ENCOUNTER → 2019-10-04 | Outpatient (CLI) | payer MEDICARE ==
[~2019-10-04] MED LIST changes: -IOHEXOL 350 MG/ML 100ML INFUS..BTL IV ONE; -IOHEXOL-350 50ML VIAL IV ONE
== END | disposition home or self-care (01) ==
LOC: SHCH 15:56
PROVIDERS: ATTEND Internal Medicine Cardiovascular Disease
DX: I20.9 Angina pectoris, unspecified (principal)
CPT/HCPCS: 93306

== ENCOUNTER → 2019-10-08 | Outpatient (CLI) | payer MEDICARE ==
[~2019-10-08] MED LIST changes: +ALBU0.63 IH; +AMINOPHYLLINE 500 MG/20 ML VIAL IV ONE; +CITA20TA17 PO; +LOSA25TA41 PO; +METF-444 PO; +METO-408 PO; +OMEP20CA12 PO; +REGADENOSON 0.4 MG/5 ML PF SYG IVP SCH
[2019-10-08 11:10] VITALS: BP 77/40
[2019-10-08 11:11] VITALS: BP 87/49
[2019-10-08 11:12] VITALS: BP 94/48
[2019-10-08 11:13] VITALS: BP 98/46
--- NOTE | 2019-10-08 11:28 | NUR ---
AMINOPHYLLINE 50 MG GIVEN SLOW IV PUSH AT 1110 FOR LOW B/P. PRESSURE RETURNED TO BASELINE 2 MIN POST ADMINISTRATION OF AMINOPHYLLINE. PT HAD NO C/O DISCOMFORT OR CONCERNS.
== END | disposition home or self-care (01) ==
LOC: SHCH 09:06
PROVIDERS: ATTEND Internal Medicine Cardiovascular Disease
DX: I20.9 Angina pectoris, unspecified (principal)
CPT/HCPCS: 78452; 93017; 96374; A9500 ×2; J2785; J0280

== ENCOUNTER 2019-11-11 06:31 | Day surgery (SDC) | payer MEDICARE ==
[2019-11-08 11:10] LABS: BASOPHILS % (AUTO) 0.5 % (0.0-5.0); EOSINOPHILS % (AUTO) 2.5 % (0.0-8.0); HEMATOCRIT 39.5 % (42-54); LYMPHOCYTES % (AUTO) 20.1 % (21.0-51.0); MEAN CORPUSCULAR HEMOGLOBIN 30.6 pg (27.0-33.0); MEAN CORPUSCULAR HGB CONC 31.6 g/dL (32.0-36.0); MEAN CORPUSCULAR VOLUME 96.6 fL (79-99); MONOCYTES % (AUTO) 7.9 % (3.0-13.0); NEUTROPHILS % (AUTO) 67.6 % (40.0-77.0); PLATELET COUNT (AUTO) 235 K/uL (130-400); RED BLOOD CELL COUNT(AUTO) 4.09 MIL/uL (4.50-6.20); RED CELL DISTRIBUTION WIDTH 13.5 % (11.0-15.5); WHITE BLOOD COUNT (AUTO) 7.3 K/uL (4.8-10.8)
[2019-11-08 11:14] LABS: APPEARANCE,URINE SL CLOUDY (CLEAR); BILIRUBIN,URINE NEGATIVE (NEGATIVE); COLOR,URINE YELLOW (YELLOW); GLUCOSE, URINE (UA) NEGATIVE (NEGATIVE); KETONES,URINE NEGATIVE (NEGATIVE); LEUKOCYTE ESTERASE ,URINE LARGE (NEGATIVE); NITRATE,URINE NEGATIVE (NEGATIVE); OCCULT BLOOD,URINE LARGE (NEGATIVE); PROTEIN,URINE TRACE mg/dL (NEGATIVE); UROBILINOGEN,URINE 0.2 mg/dL (0.2-1.0)
[2019-11-08 11:16] LABS: CREATININE 1.3 mg/dL (0.5-1.5); POTASSIUM 4.9 mmol/L (3.5-5.1)
[2019-11-08 11:18] LABS: BACTERIA,URINE Few /HPF (None Seen); SQUAMOUS EPITHELIAL CELL,UR Rare /HPF (0-2); WBC,URINE >100 /HPF (0-1)
[2019-11-08 11:26] LABS: INR 0.92 (0.85-1.15); PARTIAL THROMBOPLASTIN TIME 24.6 SEC (26.3-35.5)
[2019-11-08 12:04] VITALS: BP 136/65
--- NOTE | 2019-11-08 14:40 | NUR ---
LABS UA, AND CREA REPORTED TO DR. BARKSDALE. NO FURTHER ORDERS GIVEN.
--- NOTE | 2019-11-08 15:28 | NUR ---
ATTEMPTS MADE TO INFORM DR BARKSDALE OF ABNORMAL CXR REPORT. OFFICE NUMBER SWITCHES TO VOICE MAIL. PAGED DR BARKSDALE VIA PAGER. CALLED Loraine LOPEZ [facility] PHONE AND LEFT MESSAGE FOR HER TO CALL DAYPATIENT BACK. THANK YOU
--- NOTE | 2019-11-08 16:34 | NUR ---
INFORMED VICKI SHUKLA NP REGARDING ABNORMAL CHEST XRAY. NO NEW ORDERS RECEIVED.
[2019-11-11] VITALS (8 sets, daily range): BP systolic 93–127; BP diastolic 43–64
[~2019-11-11] VITALS: Ht 168.9 cm; Wt 97.1 kg
[~2019-11-11 06:31] MED LIST changes: -AMINOPHYLLINE 500 MG/20 ML VIAL IV ONE; -CEPH-578 PO; -CITA-106 PO; -KETO15CR2 TP; -LEVO5TAB13 PO; -LOSA50TA64 PO; -OMEP20TA25 PO; -REGADENOSON 0.4 MG/5 ML PF SYG IVP SCH; -SENN8.6T20 PO; -TRI2515C TP
[2019-11-11] MEDS ORDERED: SODIUM CHLORIDE 0.9% 1000ML 1,000 ML IV ONE (08:42)
[2019-11-11] MEDS ORDERED: IOHEXOL-350 50ML VIAL IV ONE ×2 (08:52→09:45)
[2019-11-11] MEDS ORDERED: HEPARIN SODIUM 1000UNIT/ML 10ML VIAL ONE (08:52)
[2019-11-11] MEDS ORDERED: IOHEXOL 350 MG/ML 100ML INFUS..BTL IV ONE (08:52)
[2019-11-11] MEDS ORDERED: LIDOCAINE HCL 2% 20ML ONE (08:53)
[2019-11-11] MEDS ORDERED: MIDAZOLAM HCL 1 MG/ML 2ML VIAL ONE (08:53)
[2019-11-11] MEDS ORDERED: GLUCAGON 1MG KIT 1 MG ML IM PRN (10:15)
[2019-11-11] MEDS ORDERED: DEXTROSE 50%-WATER 50 ML DISP.SYRIN IV PRN (10:15)
--- NOTE | 2019-11-11 10:18 | NUR ---
DR BARKSDALE SPOKE TO WITH [facility] RESULTS AND PLAN OF CARE
--- NOTE | 2019-11-11 13:15 | NUR ---
PT AND HIS GIVEN PRINTED AND VERBAL DISCHARGE INSTRUCTIONS. VERBALIZE UNDERSTANDING. BEDREST COMPLETED. HOB ELEVATED TO POSITION OF COMFORT. NO HEMATOMA OR BLEEDING FROM RT GROIN. WILL SEND HOME AT [address] BARKSDALE
== END 2019-11-11 14:00 | disposition home or self-care (01) ==
LOC: DAH 06:31
PROVIDERS: ATTEND Internal Medicine Cardiovascular Disease
DX: I25.10 Atherosclerotic heart disease of native coronary artery without angina pectoris (principal); I10 Essential (primary) hypertension; E11.9 Type 2 diabetes mellitus without complications; I73.9 Peripheral vascular disease, unspecified; E78.5 Hyperlipidemia, unspecified; I25.2 Old myocardial infarction; Z86.73 Personal history of transient ischemic attack (TIA), and cerebral infarction without residual deficits; Z79.899 Other long term (current) drug therapy; Z87.81 Personal history of (healed) traumatic fracture; Z79.01 Long term (current) use of anticoagulants; Z79.4 Long term (current) use of insulin; Z83.3 Family history of diabetes mellitus; Z82.49 Family history of ischemic heart disease and other diseases of the circulatory system
CPT/HCPCS: 36415; 71045; 80048; 81001; 82948 ×2; 85025; 85610; 85730; 87077; 87088; 87186; 93005; 93459; A4215; A4216; A4221; A4222; A4223 ×3; A4606; A4663; C1760; C1894; J1644; J3490; J7030; Q9965; Q9967; J2250

== ENCOUNTER → 2019-12-19 | Outpatient (CLI) | payer MEDICARE ==
[~2019-12-19] MED LIST changes: +IOHEXOL 350 MG/ML 100ML INFUS..BTL IV ONE; +IOHEXOL-350 75 ML VIAL IV ONE
== END | disposition home or self-care (01) ==
LOC: RAH 09:37
PROVIDERS: ATTEND Internal Medicine Cardiovascular Disease
DX: J98.11 Atelectasis (principal); J90 Pleural effusion, not elsewhere classified; K44.9 Diaphragmatic hernia without obstruction or gangrene; N40.0 Benign prostatic hyperplasia without lower urinary tract symptoms; I70.0 Atherosclerosis of aorta; I70.203 Unspecified atherosclerosis of native arteries of extremities, bilateral legs; N32.89 Other specified disorders of bladder; R06.02 Shortness of breath; N28.1 Cyst of kidney, acquired; K42.9 Umbilical hernia without obstruction or gangrene; K80.20 Calculus of gallbladder without cholecystitis without obstruction
CPT/HCPCS: 71250; 75635; Q9967 ×2

== ENCOUNTER 2021-03-02 19:58 | Inpatient (IN) | payer MEDICARE ==
[~2021-03-02] VITALS: Ht 172.7 cm; Wt 91.9 kg
[~2021-03-02 19:58] MED LIST changes: -AEC81 PO; -ALBU0.63 IH; +CARB15DR OP; +CARB15DR3 OP; +DIPH25 PO; +FERR325T22 PO; +HYDR-4060 PO; -IOHEXOL 350 MG/ML 100ML INFUS..BTL IV ONE; -IOHEXOL-350 75 ML VIAL IV ONE; +LACT10SO9 PO; +MULT-248 PO; +NITR0.4T50 SL; +POLY17PO52 PO; +SENN8.6T32 PO; +TRAM50TA4 PO
[2021-03-02 20:51] LABS: ABG BASE EXCESS -1.2 mmol/L (-2.0-3.0); ABG HCO3 24.7 mmol/L (21.0-28.0); ABG OXYGEN SATURATION 89.6 % (95.0-99.0); ABG PCO2 45 mmHg (35-48)
[2021-03-02] MEDS ORDERED: IPRATROPIUM/ALBUTEROL SULFATE 3 ML SOLUTION IH ONE (21:00)
[2021-03-02] MEDS ORDERED: ZOSYN 3.375GM+NS 50ML 3.38 GM in 0.9%NACL 50ML 50 ML IV SCH (21:00)
[2021-03-02 21:02] LABS: BASOPHILS % (AUTO) 0.2 % (0.0-5.0); EOSINOPHILS % (AUTO) 1.8 % (0.0-8.0); LYMPHOCYTES % (AUTO) 27.1 % (21.0-51.0); MEAN CORPUSCULAR HEMOGLOBIN 30.1 pg (27.0-33.0); MEAN CORPUSCULAR HGB CONC 31.9 g/dL (32.0-36.0); MEAN CORPUSCULAR VOLUME 94.2 fL (79-99); NEUTROPHILS % (AUTO) 60.5 % (40.0-77.0); PLATELET COUNT (AUTO) 210 K/uL (130-400); RED BLOOD CELL COUNT(AUTO) 3.82 MIL/uL (4.50-6.20); RED CELL DISTRIBUTION WIDTH 14.1 % (11.0-15.5)
[2021-03-02 21:18] LABS: B-TYPE NATRIURETIC PEPTIDE 74 pg/mL (0-100)
[2021-03-02 21:23] LABS: APPEARANCE,URINE Clear (CLEAR); BILIRUBIN,URINE Negative (NEGATIVE); COLOR,URINE Yellow (YELLOW); GLUCOSE, URINE (UA) Negative (NEGATIVE); KETONES,URINE Negative (NEGATIVE); LEUKOCYTE ESTERASE ,URINE Negative (NEGATIVE); NITRATE,URINE Negative (NEGATIVE); OCCULT BLOOD,URINE Negative (NEGATIVE); PH,URINE 5.5 (5.0-8.0); PROTEIN,URINE Trace mg/dL (NEGATIVE); UROBILINOGEN,URINE 0.2 mg/dL (0.2-1.0)
[2021-03-02 21:26] LABS: ALBUMIN 2.7 g/dL (3.5-5.0); BILIRUBIN,TOTAL 0.3 mg/dL (0.2-1.0); TOTAL PROTEIN, SERUM 6.7 g/dL (6.0-8.3)
[2021-03-02] MEDS ORDERED: 0.9%NACL 50ML 50 ML IV ONE (21:28)
[2021-03-02 21:30] LABS: BACTERIA,URINE Rare /HPF (None Seen); RBC,URINE 0-1 /HPF (0-1); WBC,URINE 0-1 /HPF (0-1)
[2021-03-02 21:31] LABS: SQUAMOUS EPITHELIAL CELL,UR Few /HPF (0-2)
[2021-03-02] MEDS: ZOSYN 3.375GM +NS 50ML IV SCH (21:42)
[2021-03-02] MEDS ORDERED: LACTULOSE 20 GM/30 ML UDCUP PO PRN (22:30)
[2021-03-02] MEDS ORDERED: MAG/ALUM/SIMETH 30 ML UDCUP PO PRN (22:30)
[2021-03-02] MEDS ORDERED: ACETAMINOPHEN 325 MG TAB PO PRN (22:30)
[2021-03-02] MEDS ORDERED: ONDANSETRON 4MG INJ IV PRN (22:30)
[2021-03-02] MEDS ORDERED: LACTATED RINGERS 1000ML 1,000 ML IV SCH (22:30)
[2021-03-02] MEDS ORDERED: NITROGLYCERIN 0.4 MG SL TAB SL PRN (22:30)
[2021-03-02 22:47] LABS: HEMOGLOBIN A1C 5.8 % (4.0-6.0)
[2021-03-02] MEDS ORDERED: FINA5TAB41 PO (23:17)
[2021-03-02] MEDS ORDERED: ASPI-1197 PO (23:17)
[2021-03-02] MEDS ORDERED: METO-408 PO (23:17)
[2021-03-02] MEDS ORDERED: ATOR20TA65 PO (23:17)
[2021-03-02] MEDS ORDERED: DIPH25CA53 PO (23:17)
[2021-03-02] MEDS ORDERED: GABA600T10 PO (23:17)
[2021-03-02] MEDS ORDERED: LOSA25TA41 PO (23:17)
[2021-03-02] MEDS ORDERED: NITR0.4T50 SL (23:17)
[2021-03-02] MEDS ORDERED: DOXA2TAB2 PO (23:17)
[2021-03-02] MEDS ORDERED: METF-526 PO (23:17)
[2021-03-02] MEDS ORDERED: BACL5TAB PO (23:17)
[2021-03-02] MEDS ORDERED: OMEP40CA21 PO (23:17)
[2021-03-02] MEDS ORDERED: CITA20TA17 PO (23:17)
[2021-03-02] MEDS ORDERED: MELA1TAB28 PO (23:17)
[2021-03-02] MEDS ORDERED: SENN8.6T32 PO (23:17)
[2021-03-02] MEDS ORDERED: CILO50TA PO (23:17)
[2021-03-03] MEDS ORDERED: IOHEXOL 350 MG/ML 100ML INFUS..BTL IV ONE (00:58)
[2021-03-03] MEDS: ZOSYN 3.375GM +NS 50ML IV SCH ×3 (05:15→21:30)
[2021-03-03] MEDS: IPRATROPIUM/ALBUTEROL SULFATE 3 ML SOLUTION IH SCH ×4 (06:33→19:44)
[2021-03-03] MEDS: LOSARTAN 25 MG TABLET PO SCH (08:52)
[2021-03-03] MEDS: PANTOPRAZOLE 40 MG/VIAL IVP SCH (08:52)
[2021-03-03] MEDS: GABAPENTIN 300 MG CAPSULE PO SCH ×5 (08:52→21:31)
[2021-03-03] MEDS: ENOXAPARIN SODIUM 40 MG/0.4 ML SYRINGE SQ SCH (08:53)
[2021-03-03] MEDS ORDERED: SODIUM CHLORIDE 3% FOR INHALATION 4 ML/AMP VIAL.NEB IH ONE (09:18)
[2021-03-03] MEDS: CILOSTAZOL 100 MG TAB PO SCH ×2 (11:20→21:31)
[2021-03-03] MEDS ORDERED: 0.9%NACL 50ML 50 ML IV ONE (13:12)
[2021-03-03] MEDS ORDERED: METOPROLOL SUCCINATE 50 MG TAB.SR.24H PO SCH ×2 (21:00)
[2021-03-03] MEDS ORDERED: ATORVASTATIN 20 MG TABLET PO SCH (21:00)
[2021-03-03] MEDS: BACLOFEN 10 MG TABLET PO SCH (21:30)
[2021-03-03] MEDS: DOXAZOSIN MESYLATE 2 MG TABLET PO SCH (21:30)
[2021-03-03] MEDS: CITALOPRAM 20 MG TABLET PO SCH (21:30)
[2021-03-03] MEDS: ATORVASTATIN 20 MG TABLET PO SCH (21:30)
[2021-03-03] MEDS: FINASTERIDE 5 MG TABLET PO SCH (21:31)
[2021-03-04 00:50] VITALS: BP 135/60
[2021-03-04] MEDS: IPRATROPIUM/ALBUTEROL SULFATE 3 ML SOLUTION IH SCH ×5 (01:53→23:59)
[2021-03-04 04:00] VITALS: BP 98/47
[2021-03-04 06:03] LABS: BASOPHILS % (AUTO) 0.5 % (0.0-5.0); EOSINOPHILS % (AUTO) 4.3 % (0.0-8.0); HEMATOCRIT 32.2 % (42-54); LYMPHOCYTES % (AUTO) 35.6 % (21.0-51.0); MEAN CORPUSCULAR HEMOGLOBIN 29.6 pg (27.0-33.0); MEAN CORPUSCULAR HGB CONC 31.4 g/dL (32.0-36.0); MEAN CORPUSCULAR VOLUME 94.4 fL (79-99); NEUTROPHILS % (AUTO) 48.9 % (40.0-77.0); PLATELET COUNT (AUTO) 191 K/uL (130-400); RED BLOOD CELL COUNT(AUTO) 3.41 MIL/uL (4.50-6.20); RED CELL DISTRIBUTION WIDTH 13.8 % (11.0-15.5); WHITE BLOOD COUNT (AUTO) 4.2 K/uL (4.8-10.8)
[2021-03-04] MEDS: ZOSYN 3.375GM +NS 50ML IV SCH ×3 (06:14→22:09)
[2021-03-04 06:17] LABS: CREATININE 1.3 mg/dL (0.5-1.5); POTASSIUM 4.3 mmol/L (3.5-5.1)
[2021-03-04 08:07] VITALS: BP 97/44
[2021-03-04] MEDS: GABAPENTIN 300 MG CAPSULE PO SCH ×3 (09:00→13:07)
[2021-03-04] MEDS ORDERED: DIPHENHYDRAMINE HCL 25 MG CAPSULE PO SCH (09:00)
[2021-03-04] MEDS: PANTOPRAZOLE 40 MG/VIAL IVP SCH (09:02)
[2021-03-04] MEDS: DOXAZOSIN MESYLATE 2 MG TABLET PO SCH ×2 (09:02→22:10)
[2021-03-04] MEDS: BACLOFEN 10 MG TABLET PO SCH (09:02)
[2021-03-04] MEDS: CILOSTAZOL 100 MG TAB PO SCH ×2 (09:03→22:07)
[2021-03-04] MEDS: LOSARTAN 25 MG TABLET PO SCH (09:04)
[2021-03-04] MEDS: ENOXAPARIN SODIUM 40 MG/0.4 ML SYRINGE SQ SCH (09:04)
[2021-03-04] MEDS: ASPIRIN 81MG CHEW TAB PO SCH (09:04)
[2021-03-04 11:02] VITALS: BP 96/49
[2021-03-04] MEDS: ACETAMINOPHEN 325 MG TAB PO PRN (13:08)
[2021-03-04] MEDS ORDERED: VANCOMYCIN PROTOCOL PER PHARMACY IV PRN (16:00)
[2021-03-04 16:28] VITALS: BP 102/42
[2021-03-04] MEDS ORDERED: COMPOUND IV REFRIGERATED 1 EACH IVSOLN MISC PRN (16:30)
[2021-03-04] MEDS ORDERED: VANCOMYCIN 1.5GM/NS 250ML IV ONE ×4 (16:30→22:00)
[2021-03-04 19:00] VITALS: BP 96/48
[2021-03-04] MEDS: BACLOFEN PO SCH (21:00)
[2021-03-04] MEDS ORDERED: GABAPENTIN 100 MG CAPSULE PO SCH (21:00)
[2021-03-04] MEDS: CITALOPRAM 20 MG TABLET PO SCH (22:07)
[2021-03-04] MEDS: GABAPENTIN 100 MG CAPSULE PO SCH (22:07)
[2021-03-04] MEDS: TRAZODONE HCL 50 MG TAB PO SCH (22:07)
[2021-03-04] MEDS: ATORVASTATIN 20 MG TABLET PO SCH (22:07)
[2021-03-04] MEDS: FINASTERIDE 5 MG TABLET PO SCH (22:13)
[2021-03-05] VITALS (7 sets, daily range): BP systolic 103–149; BP diastolic 47–71
[2021-03-05 02:53] LABS: ABG HCO3 24.4 mmol/L (21.0-28.0); ABG PCO2 43 mmHg (35-48)
[2021-03-05 03:39] LABS: EOSINOPHILS % (AUTO) 3.3 % (0.0-8.0); HEMATOCRIT 32.5 % (42-54); LYMPHOCYTES % (AUTO) 27.4 % (21.0-51.0); MEAN CORPUSCULAR HEMOGLOBIN 29.2 pg (27.0-33.0); MEAN CORPUSCULAR HGB CONC 30.8 g/dL (32.0-36.0); MONOCYTES % (AUTO) 8.1 % (3.0-13.0); NEUTROPHILS % (AUTO) 60.8 % (40.0-77.0); PLATELET COUNT (AUTO) 197 K/uL (130-400); RED BLOOD CELL COUNT(AUTO) 3.42 MIL/uL (4.50-6.20); WHITE BLOOD COUNT (AUTO) 4.6 K/uL (4.8-10.8)
[2021-03-05 03:51] LABS: CARBON DIOXIDE 26 mmol/L (21-32); CHLORIDE 107 mmol/L (101-111); CREATININE 1.6 mg/dL (0.5-1.5); GLOMERULAR FILTR. RATE CALC 46 mL/min (>60); GLUCOSE,RANDOM 150 mg/dL (70-105); POTASSIUM 4.1 mmol/L (3.5-5.1); SODIUM SERUM 141 mmol/L (136-145); UREA NITROGEN, BLOOD 39 mg/dL (7-18)
[2021-03-05 03:52] LABS: AMMONIA < 10 umol/L (11-32)
[2021-03-05 04:17] LABS: B-TYPE NATRIURETIC PEPTIDE 10 pg/mL (0-100)
[2021-03-05 04:56] LABS: ERYTHROCYTE SEDIMENTATION RATE 67 MM/HR (0-20)
[2021-03-05] MEDS: ZOSYN 3.375GM +NS 50ML IV SCH (05:34)
[2021-03-05] MEDS ORDERED: VANCOMYCIN 750MG VIAL IVPB SCH (06:00)
[2021-03-05] MEDS ORDERED: 0.9% NACL 250ML 250 ML IV SCH (06:00)
[2021-03-05] MEDS: IPRATROPIUM/ALBUTEROL SULFATE 3 ML SOLUTION IH SCH ×4 (07:08→23:05)
[2021-03-05] MEDS ORDERED: SODIUM CHLORIDE 3% FOR INHALATION 4 ML/AMP VIAL.NEB IH ONE (07:22)
[2021-03-05] MEDS: DOXAZOSIN MESYLATE 2 MG TABLET PO SCH ×2 (08:40→20:14)
[2021-03-05] MEDS: METOPROLOL SUCCINATE 50 MG TAB.SR.24H PO SCH (08:42)
[2021-03-05] MEDS: CILOSTAZOL 100 MG TAB PO SCH ×2 (08:43→20:14)
[2021-03-05] MEDS: CETIRIZINE HCL 5 MG TABLET PO SCH (08:43)
[2021-03-05] MEDS: ASPIRIN 81MG CHEW TAB PO SCH (08:44)
[2021-03-05] MEDS: PANTOPRAZOLE 40 MG/VIAL IVP SCH (08:44)
[2021-03-05] MEDS: BACLOFEN PO SCH ×2 (08:44→20:15)
[2021-03-05] MEDS: GABAPENTIN 100 MG CAPSULE PO SCH ×3 (08:44→20:14)
[2021-03-05] MEDS: ENOXAPARIN SODIUM 40 MG/0.4 ML SYRINGE SQ SCH (08:45)
[2021-03-05] MEDS ORDERED: 0.9%NACL 1000ML 1,000 ML IV SCH (09:30)
[2021-03-05] MEDS ORDERED: CEFEPIME HCL 2 GM VIAL IVP SCH (09:30)
[2021-03-05] MEDS ORDERED: RENAL DOSE IV SCH (13:30)
[2021-03-05] MEDS ORDERED: LACTULOSE 20 GM/30 ML UDCUP PO ONE (14:30)
[2021-03-05] MEDS: 0.9%NACL 100ML 100 ML IV SCH (19:33)
[2021-03-05] MEDS: VANCOMYCIN 500MG+NS 100ML IVPB IV SCH (19:33)
[2021-03-05] MEDS: FAMOTIDINE 20MG VIAL IV SCH (20:13)
[2021-03-05] MEDS: CEFEPIME HCL 2 GM VIAL IVP SCH (20:13)
[2021-03-05] MEDS: FINASTERIDE 5 MG TABLET PO SCH (20:14)
[2021-03-05] MEDS: ATORVASTATIN 20 MG TABLET PO SCH (20:14)
[2021-03-05] MEDS: TRAZODONE HCL 50 MG TAB PO SCH (20:15)
[2021-03-05] MEDS: CITALOPRAM 20 MG TABLET PO SCH (20:15)
[2021-03-06 04:02] VITALS: BP 134/66
[2021-03-06] MEDS ORDERED: MAGNESIUM 2GM PREMIX 50ML 50 ML IV PRN (05:30)
[2021-03-06 05:47] LABS: BASOPHILS % (AUTO) 0.2 % (0.0-5.0); EOSINOPHILS % (AUTO) 4.8 % (0.0-8.0); HEMATOCRIT 29.3 % (42-54); LYMPHOCYTES % (AUTO) 26.6 % (21.0-51.0); MEAN CORPUSCULAR HEMOGLOBIN 29.8 pg (27.0-33.0); MEAN CORPUSCULAR HGB CONC 31.7 g/dL (32.0-36.0); MEAN CORPUSCULAR VOLUME 93.9 fL (79-99); MONOCYTES % (AUTO) 8.8 % (3.0-13.0); NEUTROPHILS % (AUTO) 59.1 % (40.0-77.0); PLATELET COUNT (AUTO) 190 K/uL (130-400); RED BLOOD CELL COUNT(AUTO) 3.12 MIL/uL (4.50-6.20); RED CELL DISTRIBUTION WIDTH 13.7 % (11.0-15.5); WHITE BLOOD COUNT (AUTO) 4.2 K/uL (4.8-10.8)
[2021-03-06 06:01] LABS: CREATININE 1.1 mg/dL (0.5-1.5); MAGNESIUM 1.9 mg/dL (1.80-2.40); POTASSIUM 3.8 mmol/L (3.5-5.1)
[2021-03-06] MEDS: IPRATROPIUM/ALBUTEROL SULFATE 3 ML SOLUTION IH SCH ×2 (06:07→10:55)
[2021-03-06] MEDS: 0.9%NACL 100ML 100 ML IV SCH ×2 (06:15→17:14)
[2021-03-06] MEDS: VANCOMYCIN 500MG+NS 100ML IVPB IV SCH ×2 (06:16→17:14)
[2021-03-06] MEDS ORDERED: 0.9%NACL 1000ML 1,000 ML IV ONE (06:43)
[2021-03-06] MEDS: 0.9%NACL 1000ML 1,000 ML IV SCH (07:18)
[2021-03-06] MEDS: GUAIFENESIN-DM 200/20 MG 10 ML PO PRN ×2 (07:19→20:05)
[2021-03-06 08:00] VITALS: BP 144/70
[2021-03-06] MEDS: METOPROLOL SUCCINATE 50 MG TAB.SR.24H PO SCH (08:38)
[2021-03-06] MEDS: CILOSTAZOL 100 MG TAB PO SCH ×2 (08:38→20:06)
[2021-03-06] MEDS: ASPIRIN 81MG CHEW TAB PO SCH (08:38)
[2021-03-06] MEDS: BACLOFEN PO SCH ×2 (08:38→20:07)
[2021-03-06] MEDS: CETIRIZINE HCL 5 MG TABLET PO SCH (08:38)
[2021-03-06] MEDS: CEFEPIME HCL 2 GM VIAL IVP SCH ×2 (08:38→20:07)
[2021-03-06] MEDS: DOXAZOSIN MESYLATE 2 MG TABLET PO SCH ×2 (08:38→20:06)
[2021-03-06] MEDS: FAMOTIDINE 20MG VIAL IV SCH ×2 (08:39→20:05)
[2021-03-06] MEDS: ENOXAPARIN SODIUM 40 MG/0.4 ML SYRINGE SQ SCH (08:40)
[2021-03-06] MEDS: GABAPENTIN 100 MG CAPSULE PO SCH ×3 (08:45→20:06)
[2021-03-06 11:51] VITALS: BP 137/64
[2021-03-06] MEDS ORDERED: IPRATROPIUM/ALBUTEROL SULFATE 3 ML SOLUTION IH STA (12:59)
[2021-03-06 16:00] VITALS: BP 141/68
[2021-03-06] MEDS: IPRATROPIUM/ALBUTEROL SULFATE 3 ML SOLUTION IH PRN (18:29)
[2021-03-06] MEDS: FINASTERIDE 5 MG TABLET PO SCH (20:06)
[2021-03-06] MEDS: ATORVASTATIN 20 MG TABLET PO SCH (20:06)
[2021-03-06] MEDS: TRAZODONE HCL 50 MG TAB PO SCH (20:06)
[2021-03-06] MEDS: CITALOPRAM 20 MG TABLET PO SCH (20:06)
[2021-03-06 20:16] VITALS: BP 135/56
[2021-03-06 23:48] VITALS: BP 150/60
[2021-03-07 03:33] VITALS: BP 138/64
[2021-03-07] MEDS: 0.9%NACL 100ML 100 ML IV SCH (05:09)
[2021-03-07] MEDS: 0.9%NACL 1000ML 1,000 ML IV SCH ×2 (05:10→11:06)
[2021-03-07] MEDS: VANCOMYCIN 500MG+NS 100ML IVPB IV SCH (05:11)
[2021-03-07 05:52] LABS: HEMATOCRIT 29.4 % (42-54); MEAN CORPUSCULAR HGB CONC 30.3 g/dL (32.0-36.0); MEAN CORPUSCULAR VOLUME 95.8 fL (79-99); RED BLOOD CELL COUNT(AUTO) 3.07 MIL/uL (4.50-6.20); RED CELL DISTRIBUTION WIDTH 13.6 % (11.0-15.5); WHITE BLOOD COUNT (AUTO) 4.1 K/uL (4.8-10.8)
[2021-03-07 06:16] LABS: CREATININE 0.9 mg/dL (0.5-1.5); MAGNESIUM 2.3 mg/dL (1.80-2.40); POTASSIUM 4.1 mmol/L (3.5-5.1)
[2021-03-07] MEDS: IPRATROPIUM/ALBUTEROL SULFATE 3 ML SOLUTION IH PRN ×3 (06:46→23:14)
[2021-03-07 08:00] VITALS: BP 126/55
[2021-03-07] MEDS: BACLOFEN PO SCH ×2 (08:37→20:18)
[2021-03-07] MEDS: ASPIRIN 81MG CHEW TAB PO SCH (08:37)
[2021-03-07] MEDS: GABAPENTIN 100 MG CAPSULE PO SCH ×3 (08:37→20:18)
[2021-03-07] MEDS: CEFEPIME HCL 2 GM VIAL IVP SCH (08:38)
[2021-03-07] MEDS: CILOSTAZOL 100 MG TAB PO SCH ×2 (08:38→20:17)
[2021-03-07] MEDS: DOXAZOSIN MESYLATE 2 MG TABLET PO SCH ×2 (08:38→20:17)
[2021-03-07] MEDS: CETIRIZINE HCL 5 MG TABLET PO SCH (08:38)
[2021-03-07] MEDS: FAMOTIDINE 20MG VIAL IV SCH ×2 (08:38→20:17)
[2021-03-07] MEDS: METOPROLOL SUCCINATE 50 MG TAB.SR.24H PO SCH (08:38)
[2021-03-07] MEDS: ENOXAPARIN SODIUM 40 MG/0.4 ML SYRINGE SQ SCH (08:40)
[2021-03-07 12:00] VITALS: BP 137/66
[2021-03-07] MEDS: MEROPENEM 1 GM VIAL IVP SCH ×2 (14:42→20:17)
[2021-03-07] MEDS: GUAIFENESIN-DM 200/20 MG 10 ML PO PRN ×2 (14:42→20:17)
[2021-03-07 16:00] VITALS: BP 123/58
[2021-03-07] MEDS: ACETAMINOPHEN 325 MG TAB PO PRN (16:04)
[2021-03-07] MEDS ORDERED: ARTIFICAL TEARS SOL 15 ML OU PRN (18:30)
[2021-03-07] MEDS: FINASTERIDE 5 MG TABLET PO SCH (20:17)
[2021-03-07] MEDS: ATORVASTATIN 20 MG TABLET PO SCH (20:17)
[2021-03-07] MEDS: CITALOPRAM 20 MG TABLET PO SCH (20:17)
[2021-03-07] MEDS: TRAZODONE HCL 50 MG TAB PO SCH (20:17)
[2021-03-07 20:23] VITALS: BP 135/67
[2021-03-07 23:54] VITALS: BP 150/54
[2021-03-08 03:25] VITALS: BP 165/58
[2021-03-08] MEDS: MEROPENEM 1 GM VIAL IVP SCH ×3 (03:54→21:42)
[2021-03-08] MEDS: 0.9%NACL 1000ML 1,000 ML IV SCH ×2 (03:54→15:42)
[2021-03-08 07:30] VITALS: BP 163/50
[2021-03-08] MEDS ORDERED: ARTIFICAL TEARS SOL 15 ML OU PRN (08:30)
[2021-03-08] MEDS ORDERED: ARTIFICAL TEARS SOL 15 ML OP PRN (08:30)
[2021-03-08] MEDS ORDERED: NITROGLYCERIN 0.4 MG SL TAB SL SCH (08:30)
[2021-03-08] MEDS: ENOXAPARIN SODIUM 40 MG/0.4 ML SYRINGE SQ SCH (09:00)
[2021-03-08] MEDS: BACLOFEN PO SCH ×2 (09:00→21:00)
[2021-03-08] MEDS: FAMOTIDINE 20MG VIAL IV SCH ×2 (10:01→21:27)
[2021-03-08] MEDS: POLYETHYLENE GLYCOL 3350 17 GM POWD.PACK PO SCH ×2 (10:01→21:31)
[2021-03-08] MEDS: METOPROLOL SUCCINATE 50 MG TAB.SR.24H PO SCH (10:02)
[2021-03-08] MEDS: MULTIVITAMIN WITH MINERALS TABLET PO SCH (10:02)
[2021-03-08] MEDS: CETIRIZINE HCL 5 MG TABLET PO SCH (10:02)
[2021-03-08] MEDS: ASPIRIN 81MG CHEW TAB PO SCH (10:02)
[2021-03-08] MEDS: GABAPENTIN 100 MG CAPSULE PO SCH ×3 (10:02→21:26)
[2021-03-08] MEDS: LOSARTAN 25 MG TABLET PO SCH (10:03)
[2021-03-08] MEDS: DOXAZOSIN MESYLATE 2 MG TABLET PO SCH ×2 (10:03→21:27)
[2021-03-08] MEDS: CILOSTAZOL 100 MG TAB PO SCH ×2 (10:03→21:27)
[2021-03-08 10:09] LABS: PROTHROMBIN TIME 10.9 SEC (9.6-11.6)
[2021-03-08 11:00] VITALS: BP 167/63
[2021-03-08 16:00] VITALS: BP 155/67
[2021-03-08 20:28] VITALS: BP 162/74
[2021-03-08] MEDS: FINASTERIDE 5 MG TABLET PO SCH (21:26)
[2021-03-08] MEDS: ATORVASTATIN 20 MG TABLET PO SCH (21:27)
[2021-03-08] MEDS: CITALOPRAM 20 MG TABLET PO SCH (21:27)
[2021-03-08] MEDS: TRAZODONE HCL 50 MG TAB PO SCH (21:31)
[2021-03-08 23:25] VITALS: BP 160/76
[2021-03-09 04:13] VITALS: BP 155/75
[2021-03-09] MEDS: MEROPENEM 1 GM VIAL IVP SCH ×2 (05:09→21:52)
[2021-03-09 07:30] VITALS: BP 137/90
[2021-03-09] MEDS: FAMOTIDINE 20MG VIAL IV SCH ×2 (09:00→21:51)
[2021-03-09] MEDS: BACLOFEN PO SCH ×2 (09:00→21:00)
[2021-03-09] MEDS: ASPIRIN 81MG CHEW TAB PO SCH (10:22)
[2021-03-09] MEDS: GABAPENTIN 100 MG CAPSULE PO SCH ×2 (10:22→21:53)
[2021-03-09] MEDS: METOPROLOL SUCCINATE 50 MG TAB.SR.24H PO SCH (10:22)
[2021-03-09] MEDS: CILOSTAZOL 100 MG TAB PO SCH ×2 (10:22→21:54)
[2021-03-09] MEDS: LOSARTAN 25 MG TABLET PO SCH (10:22)
[2021-03-09] MEDS: MULTIVITAMIN WITH MINERALS TABLET PO SCH (10:22)
[2021-03-09] MEDS: CETIRIZINE HCL 5 MG TABLET PO SCH (10:23)
[2021-03-09] MEDS: POLYETHYLENE GLYCOL 3350 17 GM POWD.PACK PO SCH ×2 (10:23→21:54)
[2021-03-09] MEDS: DOXAZOSIN MESYLATE 2 MG TABLET PO SCH ×2 (10:23→21:53)
[2021-03-09 11:00] VITALS: BP 172/90
[2021-03-09 16:00] VITALS: BP 152/53
[2021-03-09 20:35] VITALS: BP 121/67
[2021-03-09] MEDS: ATORVASTATIN 20 MG TABLET PO SCH (21:53)
[2021-03-09] MEDS: TRAZODONE HCL 50 MG TAB PO SCH (21:54)
[2021-03-09] MEDS: FINASTERIDE 5 MG TABLET PO SCH (21:54)
[2021-03-09] MEDS: CITALOPRAM 20 MG TABLET PO SCH (21:54)
[2021-03-09 23:50] VITALS: BP 138/74
[2021-03-10 03:52] VITALS: BP 128/72
[2021-03-10] MEDS: MEROPENEM 1 GM VIAL IVP SCH ×3 (06:14→21:38)
[2021-03-10 07:30] VITALS: BP 146/71
[2021-03-10] MEDS: METOPROLOL SUCCINATE 50 MG TAB.SR.24H PO SCH (08:12)
[2021-03-10] MEDS: BACLOFEN PO SCH ×2 (08:12→19:27)
[2021-03-10] MEDS: DOXAZOSIN MESYLATE 2 MG TABLET PO SCH ×2 (08:12→19:51)
[2021-03-10] MEDS: CETIRIZINE HCL 5 MG TABLET PO SCH (08:12)
[2021-03-10] MEDS: POLYETHYLENE GLYCOL 3350 17 GM POWD.PACK PO SCH ×2 (08:12→19:55)
[2021-03-10] MEDS: ASPIRIN 81MG CHEW TAB PO SCH (08:13)
[2021-03-10] MEDS: MULTIVITAMIN WITH MINERALS TABLET PO SCH (08:13)
[2021-03-10] MEDS: CILOSTAZOL 100 MG TAB PO SCH ×2 (08:13→19:51)
[2021-03-10] MEDS: LOSARTAN 25 MG TABLET PO SCH (08:14)
[2021-03-10] MEDS: FAMOTIDINE 20MG VIAL IV SCH ×2 (08:14→19:51)
[2021-03-10 08:16] LABS: ABG BASE EXCESS 0.6 mmol/L (-2.0-3.0); ABG HCO3 26.2 mmol/L (21.0-28.0); ABG OXYGEN SATURATION 91.8 % (95.0-99.0); ABG PCO2 46 mmHg (35-48)
[2021-03-10] MEDS: GABAPENTIN 100 MG CAPSULE PO SCH ×3 (08:17→19:56)
[2021-03-10 08:33] LABS: MEAN CORPUSCULAR HEMOGLOBIN 29.3 pg (27.0-33.0); MEAN CORPUSCULAR HGB CONC 32.3 g/dL (32.0-36.0); MEAN CORPUSCULAR VOLUME 90.9 fL (79-99); RED BLOOD CELL COUNT(AUTO) 3.41 MIL/uL (4.50-6.20); RED CELL DISTRIBUTION WIDTH 13.3 % (11.0-15.5); WHITE BLOOD COUNT (AUTO) 5.6 K/uL (4.8-10.8)
[2021-03-10 08:47] LABS: ALBUMIN 2.3 g/dL (3.5-5.0); BILIRUBIN,TOTAL 0.1 mg/dL (0.2-1.0); CREATININE 0.9 mg/dL (0.5-1.5); POTASSIUM 3.8 mmol/L (3.5-5.1); TOTAL PROTEIN, SERUM 5.9 g/dL (6.0-8.3)
[2021-03-10] MEDS: ENOXAPARIN SODIUM 40 MG/0.4 ML SYRINGE SQ SCH ×2 (09:22→09:25)
[2021-03-10 11:00] VITALS: BP_SYST 100; BP_SYST 154; BP_DIAS 59; BP_DIAS 67
[2021-03-10 16:00] VITALS: BP 153/54
[2021-03-10] MEDS: ATORVASTATIN 20 MG TABLET PO SCH (19:51)
[2021-03-10] MEDS: FINASTERIDE 5 MG TABLET PO SCH (19:51)
[2021-03-10] MEDS: TRAZODONE HCL 50 MG TAB PO SCH (19:51)
[2021-03-10] MEDS: CITALOPRAM 20 MG TABLET PO SCH (19:51)
[2021-03-10 19:56] VITALS: BP 146/62
[2021-03-10 23:55] VITALS: BP 117/55
[2021-03-11 04:33] VITALS: BP 133/57
[2021-03-11] MEDS: MEROPENEM 1 GM VIAL IVP SCH ×2 (05:01→14:17)
[2021-03-11 07:30] VITALS: BP 149/56
[2021-03-11] MEDS: METOPROLOL SUCCINATE 50 MG TAB.SR.24H PO SCH (07:52)
[2021-03-11] MEDS: MULTIVITAMIN WITH MINERALS TABLET PO SCH (07:53)
[2021-03-11] MEDS: LOSARTAN 25 MG TABLET PO SCH (07:53)
[2021-03-11] MEDS: GUAIFENESIN-DM 200/20 MG 10 ML PO PRN (07:53)
[2021-03-11] MEDS: ASPIRIN 81MG CHEW TAB PO SCH (07:53)
[2021-03-11] MEDS: CETIRIZINE HCL 5 MG TABLET PO SCH (07:53)
[2021-03-11] MEDS: DOXAZOSIN MESYLATE 2 MG TABLET PO SCH (07:53)
[2021-03-11] MEDS: GABAPENTIN 100 MG CAPSULE PO SCH ×2 (07:54→14:17)
[2021-03-11] MEDS: POLYETHYLENE GLYCOL 3350 17 GM POWD.PACK PO SCH (07:54)
[2021-03-11] MEDS: BACLOFEN PO SCH (07:54)
[2021-03-11] MEDS: FAMOTIDINE 20MG VIAL IV SCH (07:54)
[2021-03-11] MEDS: CILOSTAZOL 100 MG TAB PO SCH (07:55)
[2021-03-11] MEDS: ENOXAPARIN SODIUM 40 MG/0.4 ML SYRINGE SQ SCH (10:24)
[2021-03-11 11:00] VITALS: BP 140/54
== END 2021-03-11 15:50 | DRG 177 ==
LOC: EDH 19:58 → EDHIP 22:10 → OBSVTOIN 22:10 → UNDOADMOB 22:10 → INTOOBSV 22:10 → 4AH 03-04 00:29 → EDHIP 03-04 00:29
PROVIDERS: ADMIT Internal Medicine; ATTEND Internal Medicine
PROC: 5A09357 Assistance with Respiratory Ventilation, Less than 24 Consecutive Hours, Continuous Positive Airway Pressure (ICD-10-PCS; principal; 2021-03-05)
PROC: 5A09357 Assistance with Respiratory Ventilation, Less than 24 Consecutive Hours, Continuous Positive Airway Pressure (ICD-10-PCS; 2021-03-06)
PROC: 02H633Z Insertion of Infusion Device into Right Atrium, Percutaneous Approach (ICD-10-PCS; 2021-03-08)
PROC: 5A09357 Assistance with Respiratory Ventilation, Less than 24 Consecutive Hours, Continuous Positive Airway Pressure (ICD-10-PCS; 2021-03-09)
PROC: 5A09357 Assistance with Respiratory Ventilation, Less than 24 Consecutive Hours, Continuous Positive Airway Pressure (ICD-10-PCS; 2021-03-10)
DX: J15.5 Pneumonia due to Escherichia coli (principal); J96.01 Acute respiratory failure with hypoxia; I69.351 Hemiplegia and hemiparesis following cerebral infarction affecting right dominant side; J98.11 Atelectasis; R78.81 Bacteremia; Z16.12 Extended spectrum beta lactamase (ESBL) resistance; Z16.24 Resistance to multiple antibiotics; E11.51 Type 2 diabetes mellitus with diabetic peripheral angiopathy without gangrene; D64.9 Anemia, unspecified; G47.10 Hypersomnia, unspecified; B95.61 Methicillin susceptible Staphylococcus aureus infection as the cause of diseases classified elsewhere; Z20.822 Contact with and (suspected) exposure to COVID-19; K21.9 Gastro-esophageal reflux disease without esophagitis; D72.819 Decreased white blood cell count, unspecified; E11.40 Type 2 diabetes mellitus with diabetic neuropathy, unspecified; E66.9 Obesity, unspecified; E78.5 Hyperlipidemia, unspecified; E83.42 Hypomagnesemia; G47.00 Insomnia, unspecified; G47.33 Obstructive sleep apnea (adult) (pediatric); I10 Essential (primary) hypertension; K59.00 Constipation, unspecified; I25.10 Atherosclerotic heart disease of native coronary artery without angina pectoris; J30.2 Other seasonal allergic rhinitis; N40.0 Benign prostatic hyperplasia without lower urinary tract symptoms; R13.10 Dysphagia, unspecified; Z68.30 Body mass index [BMI] 30.0-30.9, adult; I25.2 Old myocardial infarction; Z74.01 Bed confinement status; Z79.899 Other long term (current) drug therapy; Z93.1 Gastrostomy status; Z87.01 Personal history of pneumonia (recurrent); Z95.1 Presence of aortocoronary bypass graft; Z82.3 Family history of stroke; Z83.3 Family history of diabetes mellitus; Z82.49 Family history of ischemic heart disease and other diseases of the circulatory system
CPT/HCPCS: 36415; 36600; 71045; 71275; 74230; 80048; 80053; 80202; 81001; 82140; 82550; 82803; 82948; 83036; 83605; 83735; 83880; 84145; 84484; 85025; 85027; 85378; 85610; 85651; 86140; 87040; 87070; 87071; 87076; 87077; 87088; 87116; 87186; 87205; 87206; 87635; 87804; 92610; 92611; 93005; 93970; 94640; 94660; C1894; C9113; C9803; G0378; J0692; J1650; J2185; J2543; J3370; J3475; J3490; J7030; J7050; Q0163; Q9967

== ENCOUNTER 2021-09-13 10:34 | Inpatient (IN) | payer MEDICARE ==
[~2021-09-13] VITALS: Ht 170.2 cm; Wt 90.3 kg
[~2021-09-13 10:34] MED LIST changes: +ASPI-1197 PO; -BACL10TA PO; +BACL5TAB PO; -DIPH25 PO; +DIPH25CA53 PO; +DOXA2TAB2 PO; -DOXA4TAB3 PO; -FERR325T22 PO; -HYDR-4060 PO; -LACT10SO9 PO; +MELA1TAB28 PO; -METF-444 PO; +METF-526 PO; -OMEP20CA12 PO; +OMEP40CA21 PO; -TRAM50TA4 PO
[2021-09-13 11:00] LABS: BASOPHILS % (AUTO) 0.2 % (0.0-5.0); EOSINOPHILS % (AUTO) 0.8 % (0.0-8.0); HEMATOCRIT 37.2 % (42-54); LYMPHOCYTES % (AUTO) 7.1 % (21.0-51.0); MEAN CORPUSCULAR HEMOGLOBIN 30.1 pg (27.0-33.0); MEAN CORPUSCULAR VOLUME 93.9 fL (79-99); MONOCYTES % (AUTO) 3.4 % (3.0-13.0); NEUTROPHILS % (AUTO) 88.1 % (40.0-77.0); PLATELET COUNT (AUTO) 227 K/uL (130-400); RED BLOOD CELL COUNT(AUTO) 3.96 MIL/uL (4.50-6.20)
[2021-09-13 11:10] LABS: CARBON DIOXIDE 24 mmol/L (21-32); CHLORIDE 103 mmol/L (101-111); CREATININE 1.4 mg/dL (0.5-1.5); GLOMERULAR FILTR. RATE CALC 54 mL/min (>60); GLUCOSE,RANDOM 152 mg/dL (70-105); POTASSIUM 4.3 mmol/L (3.5-5.1); SODIUM SERUM 136 mmol/L (136-145); UREA NITROGEN, BLOOD 41 mg/dL (7-18)
[2021-09-13 11:14] LABS: ALANINE AMINOTRANSFERASE 20 U/L (12-78); ALBUMIN 2.9 g/dL (3.5-5.0); ASPARTATE AMINOTRANSFERASE 13 U/L (10-37); BILIRUBIN,TOTAL 0.3 mg/dL (0.2-1.0); TOTAL PROTEIN, SERUM 6.7 g/dL (6.0-8.3)
[2021-09-13 11:22] LABS: LIPASE < 50 U/L (114-286)
[2021-09-13] MEDS ORDERED: MORPHINE 4 MG SYG IVP ONE (12:30)
[2021-09-13] MEDS ORDERED: ONDANSETRON 4MG INJ IVP ONE (12:30)
[2021-09-13 14:23] LABS: APPEARANCE,URINE CLOUDY (CLEAR); BILIRUBIN,URINE NEGATIVE (NEGATIVE); COLOR,URINE YELLOW (YELLOW); GLUCOSE, URINE (UA) NEGATIVE (NEGATIVE); KETONES,URINE NEGATIVE (NEGATIVE); LEUKOCYTE ESTERASE ,URINE MODERATE (NEGATIVE); NITRATE,URINE NEGATIVE (NEGATIVE); OCCULT BLOOD,URINE MODERATE (NEGATIVE); PH,URINE 8.5 (5.0-8.0); PROTEIN,URINE 100 mg/dL (NEGATIVE); UROBILINOGEN,URINE 0.2 mg/dL (0.2-1.0)
[2021-09-13 14:40] LABS: BACTERIA,URINE Moderate /HPF (None Seen)
[2021-09-13 14:41] LABS: SQUAMOUS EPITHELIAL CELL,UR Rare /HPF (0-2); TRIPLE PHOSPHATE CRYSTAL,UR Few /LPF (None Seen)
[2021-09-13] MEDS ORDERED: NITROGLYCERIN 0.4 MG SL TAB SL PRN (16:30)
[2021-09-13] MEDS ORDERED: MAG/ALUM/SIMETH 30 ML UDCUP PO PRN (16:30)
[2021-09-13] MEDS ORDERED: MORPHINE 2 MG SYG IV PRN (16:30)
[2021-09-13] MEDS ORDERED: DEXTROSE 50%-WATER 50 ML DISP.SYRIN IV PRN (16:30)
[2021-09-13] MEDS ORDERED: GUAIFENESIN-DM 200/20 MG 10 ML PO PRN (16:30)
[2021-09-13] MEDS ORDERED: DIPHENHYDRAMINE HCL 25 MG CAPSULE PO PRN (16:30)
[2021-09-13] MEDS: INSULIN HUMULIN R 100 UNIT/ML 3ML SQ SCH ×2 (16:30→21:00)
[2021-09-13] MEDS ORDERED: LACTULOSE 20 GM/30 ML UDCUP PO PRN (16:30)
[2021-09-13] MEDS ORDERED: GLUCAGON 1MG KIT 1 MG ML IM PRN (16:30)
[2021-09-13] MEDS: CEFTRIAXONE 1G VIAL IV SCH (16:39)
[2021-09-13] MEDS ORDERED: IOHEXOL 350 MG/ML 100ML INFUS..BTL IV ONE (18:27)
[2021-09-13] MEDS ORDERED: BACL10TA PO (18:42)
[2021-09-13] MEDS ORDERED: DOXA4TAB3 PO (18:42)
[2021-09-13] MEDS: ONDANSETRON 4MG INJ IV PRN (20:19)
[2021-09-13] MEDS: FAMOTIDINE 20MG VIAL IV SCH (20:19)
[2021-09-13 21:13] LABS: INR 1.02 (0.85-1.15); PROTHROMBIN TIME 11.1 SEC (9.6-11.6)
[2021-09-13 23:45] VITALS: BP 110/55
[2021-09-13] MEDS: ACETAMINOPHEN 325 MG TAB PO PRN (23:53)
[2021-09-14 04:00] VITALS: BP 115/57
[2021-09-14] MEDS: INSULIN HUMULIN R 100 UNIT/ML 3ML SQ SCH ×4 (06:49→20:11)
[2021-09-14 07:54] VITALS: BP 141/63
[2021-09-14] MEDS: FAMOTIDINE 20MG VIAL IV SCH ×2 (08:31→20:30)
[2021-09-14] MEDS ORDERED: IOHEXOL 350 MG/ML 100ML INFUS..BTL IV ONE (09:18)
[2021-09-14 12:00] VITALS: BP 153/66
[2021-09-14 16:00] VITALS: BP 175/75
[2021-09-14] MEDS: CEFTRIAXONE 1G VIAL IV SCH (16:42)
[2021-09-14] MEDS: ACETAMINOPHEN 325 MG TAB PO PRN (19:33)
[2021-09-14 20:12] VITALS: BP 158/66
[2021-09-15] VITALS (7 sets, daily range): BP systolic 120–158; BP diastolic 50–81
[2021-09-15] MEDS ORDERED: ACETAMINOPHEN WITH CODEINE 1 TAB TAB PO PRN ×2
[2021-09-15 04:44] LABS: BASOPHILS % (AUTO) 0.2 % (0.0-5.0); EOSINOPHILS % (AUTO) 0.4 % (0.0-8.0); HEMATOCRIT 33.7 % (42-54); LYMPHOCYTES % (AUTO) 7.7 % (21.0-51.0); MEAN CORPUSCULAR HEMOGLOBIN 29.9 pg (27.0-33.0); MEAN CORPUSCULAR VOLUME 93.4 fL (79-99); MONOCYTES % (AUTO) 9.2 % (3.0-13.0); NEUTROPHILS % (AUTO) 81.9 % (40.0-77.0); PLATELET COUNT (AUTO) 180 K/uL (130-400); RED BLOOD CELL COUNT(AUTO) 3.61 MIL/uL (4.50-6.20); RED CELL DISTRIBUTION WIDTH 14.3 % (11.0-15.5); WHITE BLOOD COUNT (AUTO) 9.4 K/uL (4.8-10.8)
[2021-09-15 05:03] LABS: % IRON SATURATION 3.7 % (30-44)
[2021-09-15 05:19] LABS: CREATININE 1.8 mg/dL (0.5-1.5); POTASSIUM 4.4 mmol/L (3.5-5.1)
[2021-09-15] MEDS: INSULIN HUMULIN R 100 UNIT/ML 3ML SQ SCH ×4 (07:30→20:17)
[2021-09-15] MEDS: FAMOTIDINE 20MG VIAL IV SCH ×2 (08:05→20:28)
[2021-09-15] MEDS: POTASSIUM BICARB/CIT AC 25 MEQ TABLET.EFF PO SCH ×2 (10:27→20:27)
[2021-09-15] MEDS: DOXAZOSIN MESYLATE 2 MG TABLET PO SCH ×2 (10:27→20:27)
[2021-09-15] MEDS: HYDROCHLOROTHIAZIDE 25 MG TABLET PO SCH (10:27)
[2021-09-15] MEDS: BISACODYL 10 MG SUPP.RECT RC SCH ×2 (10:53→20:38)
[2021-09-15] MEDS: ONDANSETRON 4MG INJ IV PRN (11:44)
[2021-09-15] MEDS ORDERED: FOLIC ACID 1 MG TABLET PO ONE (14:00)
[2021-09-15] MEDS ORDERED: COMPOUND IV MISC 1 EACH IVSOLN MISC PRN ×2 (14:00→15:00)
[2021-09-15] MEDS: GABAPENTIN 300 MG CAPSULE PO SCH ×2 (15:23→20:28)
[2021-09-15] MEDS: CYANOCOBALAMIN (VITAMIN B-12) 1,000 MCG TABLET PO SCH (15:27)
[2021-09-15] MEDS: IRON SUCROSE COMPLEX 300 MG in 0.9% NACL 250ML 250 ML IV SCH (15:28)
[2021-09-15] MEDS: CEFTRIAXONE 1G VIAL IV SCH (17:19)
[2021-09-15] MEDS ORDERED: FOLIC ACID 1 MG TABLET ONE (17:21)
[2021-09-15] MEDS: KETOROLAC 30MG VIAL (30MG/ML) IVP PRN (17:48)
[2021-09-15] MEDS: BACLOFEN 10 MG TABLET PO SCH (20:27)
[2021-09-15] MEDS: CITALOPRAM 20 MG TABLET PO SCH (20:27)
[2021-09-15] MEDS: BALSAM PERU/CASTOR OIL 60 GM TUBE TP SCH (21:00)
[2021-09-15] MEDS ORDERED: METFORMIN HCL 500 MG TAB.SR.24H PO SCH (21:00)
[2021-09-16 04:29] VITALS: BP 132/57
[2021-09-16] MEDS: INSULIN HUMULIN R 100 UNIT/ML 3ML SQ SCH ×2 (06:19→11:30)
[2021-09-16 08:00] VITALS: BP 187/71
[2021-09-16] MEDS: FAMOTIDINE 20MG VIAL IV SCH ×2 (08:52→20:21)
[2021-09-16] MEDS: LOSARTAN 25 MG TABLET PO SCH (09:00)
[2021-09-16] MEDS: BISACODYL 10 MG SUPP.RECT RC SCH ×2 (09:00→20:22)
[2021-09-16] MEDS: DOXAZOSIN MESYLATE 2 MG TABLET PO SCH ×2 (09:00→20:22)
[2021-09-16] MEDS: BACLOFEN 10 MG TABLET PO SCH ×2 (09:00→20:22)
[2021-09-16] MEDS: GABAPENTIN 300 MG CAPSULE PO SCH ×3 (09:00→20:22)
[2021-09-16] MEDS: CYANOCOBALAMIN (VITAMIN B-12) 1,000 MCG TABLET PO SCH (09:00)
[2021-09-16] MEDS: HYDROCHLOROTHIAZIDE 25 MG TABLET PO SCH (09:00)
[2021-09-16] MEDS: POTASSIUM BICARB/CIT AC 25 MEQ TABLET.EFF PO SCH ×2 (09:00→20:22)
[2021-09-16] MEDS: FOLIC ACID 1 MG TABLET PO SCH (09:00)
[2021-09-16] MEDS ORDERED: ATORVASTATIN 20 MG TABLET PO SCH (09:00)
[2021-09-16] MEDS: FINASTERIDE 5 MG TABLET PO SCH (09:00)
[2021-09-16] MEDS: BALSAM PERU/CASTOR OIL 60 GM TUBE TP SCH ×3 (10:53→20:22)
[2021-09-16 16:00] VITALS: BP 144/51
[2021-09-16] MEDS ORDERED: LIDOCAINE HCL 400MG/20ML VIAL ONE (16:18)
[2021-09-16] MEDS ORDERED: IODIXANOL 320 MG/ML 100 ML VIAL ONE (16:21)
[2021-09-16] MEDS ORDERED: MIDAZOLAM HCL 1 MG/ML 2ML VIAL ONE (16:24)
[2021-09-16] MEDS ORDERED: FENTANYL CITRATE PF 50 MCG/1 ML 2ML VIAL ONE (16:25)
[2021-09-16] MEDS: CEFTRIAXONE 1G VIAL IV SCH (17:46)
[2021-09-16] MEDS: IRON SUCROSE COMPLEX 300 MG in 0.9% NACL 250ML 250 ML IV SCH (17:47)
[2021-09-16] MEDS: KETOROLAC 30MG VIAL (30MG/ML) IVP PRN (17:49)
[2021-09-16] MEDS: ONDANSETRON 4MG INJ IV PRN (19:09)
[2021-09-16 19:17] VITALS: BP 116/54
[2021-09-16 20:17] VITALS: BP 118/59
[2021-09-16] MEDS: CITALOPRAM 20 MG TABLET PO SCH (20:21)
[2021-09-16] MEDS ORDERED: ONDANSETRON 4MG INJ IVP ONE (23:00)
[2021-09-16 23:39] VITALS: BP 108/59
[2021-09-17 04:35] VITALS: BP 114/43
[2021-09-17 05:23] LABS: BASOPHILS % (AUTO) 0.2 % (0.0-5.0); EOSINOPHILS % (AUTO) 0.2 % (0.0-8.0); HEMATOCRIT 29.6 % (42-54); MEAN CORPUSCULAR HEMOGLOBIN 29.8 pg (27.0-33.0); MEAN CORPUSCULAR HGB CONC 32.8 g/dL (32.0-36.0); MEAN CORPUSCULAR VOLUME 90.8 fL (79-99); MONOCYTES % (AUTO) 9.1 % (3.0-13.0); NEUTROPHILS % (AUTO) 82.7 % (40.0-77.0); PLATELET COUNT (AUTO) 216 K/uL (130-400); RED BLOOD CELL COUNT(AUTO) 3.26 MIL/uL (4.50-6.20); RED CELL DISTRIBUTION WIDTH 14.3 % (11.0-15.5); WHITE BLOOD COUNT (AUTO) 10.4 K/uL (4.8-10.8)
[2021-09-17 05:44] LABS: MAGNESIUM 1.9 mg/dL (1.80-2.40); PHOSPHORUS 3.8 mg/dL (2.5-4.9); POTASSIUM 5.4 mmol/L (3.5-5.1)
[2021-09-17 08:00] VITALS: BP 132/82
[2021-09-17] MEDS: FAMOTIDINE 20MG VIAL IV SCH (08:07)
[2021-09-17] MEDS: POTASSIUM BICARB/CIT AC 25 MEQ TABLET.EFF PO SCH (08:07)
[2021-09-17] MEDS: BACLOFEN 10 MG TABLET PO SCH (08:07)
[2021-09-17] MEDS: LOSARTAN 25 MG TABLET PO SCH (08:08)
[2021-09-17] MEDS: FINASTERIDE 5 MG TABLET PO SCH (08:08)
[2021-09-17] MEDS: GABAPENTIN 300 MG CAPSULE PO SCH ×2 (08:08→15:59)
[2021-09-17] MEDS: FOLIC ACID 1 MG TABLET PO SCH (08:08)
[2021-09-17] MEDS: HYDROCHLOROTHIAZIDE 25 MG TABLET PO SCH (08:08)
[2021-09-17] MEDS: CYANOCOBALAMIN (VITAMIN B-12) 1,000 MCG TABLET PO SCH (08:08)
[2021-09-17] MEDS: DOXAZOSIN MESYLATE 2 MG TABLET PO SCH (08:08)
[2021-09-17] MEDS: BALSAM PERU/CASTOR OIL 60 GM TUBE TP SCH ×2 (08:09→16:00)
[2021-09-17] MEDS: BISACODYL 10 MG SUPP.RECT RC SCH (08:16)
[2021-09-17] MEDS ORDERED: HYDROMORPHONE 0.5 MG SYG (0.5MG/0.5ML) IVP PRN (09:30)
[2021-09-17] MEDS ORDERED: 0.9%NACL 1000ML 1,000 ML IV SCH ×2 (09:30→14:00)
[2021-09-17] MEDS ORDERED: KAYEXALATE 15GM/60ML PO SCH ×2 (10:00→14:00)
[2021-09-17 12:00] VITALS: BP 141/61
[2021-09-17] MEDS: CEFTRIAXONE 1G VIAL IV SCH (15:59)
[2021-09-17] MEDS: IRON SUCROSE COMPLEX 300 MG in 0.9% NACL 250ML 250 ML IV SCH (15:59)
[2021-09-17 16:00] VITALS: BP 122/49
[2021-09-17] MEDS ORDERED: ATORVASTATIN 20 MG TABLET PO SCH (21:00)
[2021-09-18] MEDS ORDERED: POTASSIUM BICARB/CIT AC 25 MEQ TABLET.EFF PO SCH (09:00)
[2021-09-24] MEDS ORDERED: ERGOCALCIFEROL (VITAMIN D2) 50,000 UNIT CAPSULE PO SCH (10:11)
== END 2021-09-17 19:35 | DRG 690 ==
LOC: EDH 10:34 → EDHIP 16:29 → 3AH 23:25
PROVIDERS: ADMIT Internal Medicine; ATTEND Internal Medicine
PROC: 0T9030Z Drainage of Right Kidney with Drainage Device, Percutaneous Approach (ICD-10-PCS; principal; 2021-09-16)
DX: N13.6 Pyonephrosis (principal); I69.351 Hemiplegia and hemiparesis following cerebral infarction affecting right dominant side; N17.9 Acute kidney failure, unspecified; K80.20 Calculus of gallbladder without cholecystitis without obstruction; N40.0 Benign prostatic hyperplasia without lower urinary tract symptoms; I10 Essential (primary) hypertension; D50.9 Iron deficiency anemia, unspecified; E55.9 Vitamin D deficiency, unspecified; E53.8 Deficiency of other specified B group vitamins; E11.9 Type 2 diabetes mellitus without complications; E78.5 Hyperlipidemia, unspecified; K21.9 Gastro-esophageal reflux disease without esophagitis; I25.10 Atherosclerotic heart disease of native coronary artery without angina pectoris; S71.001A Unspecified open wound, right hip, initial encounter; Z79.899 Other long term (current) drug therapy; Z99.3 Dependence on wheelchair; Z95.1 Presence of aortocoronary bypass graft; Z96.649 Presence of unspecified artificial hip joint; Z87.01 Personal history of pneumonia (recurrent); X58.XXXA Exposure to other specified factors, initial encounter; Y93.89 Activity, other specified; Y92.89 Other specified places as the place of occurrence of the external cause; Y99.8 Other external cause status
CPT/HCPCS: 10030; 36415; 50432; 71045; 74018; 74176; 74400; 76770; 80048; 80053; 81001; 82306; 82607; 82728; 82746; 82948; 83540; 83550; 83690; 83735; 83930; 83970; 84100; 84132; 84145; 84153; 84484; 85025; 85045; 85610; 87071; 87077; 87088; 87186; 87205; 99156; 99157; C1729; C1769; C1894; G0378; J0696; J1644; J1756; J1885; J2250; J2270; J2405; J3010; J3490; J7050; Q9967

== ENCOUNTER → 2021-11-10 | Outpatient (CLI) | payer MEDICARE ==
[~2021-11-10] MED LIST changes: -BACL5TAB PO; -CARB15DR OP; -CARB15DR3 OP; -DIPH25CA53 PO; +DIPH25TA20 PO; -DOXA2TAB2 PO; +DOXA4TAB3 PO; +LEVO500T90 PO; -MELA1TAB28 PO; -METF-526 PO; -MULT-248 PO; -NITR0.4T50 SL; -POLY17PO52 PO; +SENN8.6T20 PO; -SENN8.6T32 PO; +TERB30CR8 TP
== END | disposition home or self-care (01) ==
LOC: RAH 13:40
PROVIDERS: ATTEND Urology
DX: S37.011A Minor contusion of right kidney, initial encounter (principal); N20.0 Calculus of kidney; X58.XXXA Exposure to other specified factors, initial encounter; Y93.89 Activity, other specified; Y92.89 Other specified places as the place of occurrence of the external cause; Y99.8 Other external cause status
CPT/HCPCS: 74018; 76100

== ENCOUNTER 2022-05-02 13:30 | Emergency (ER) | payer MEDICARE ==
[~2022-05-02] VITALS: Ht 170.2 cm; Wt 87.5 kg
[~2022-05-02 13:30] MED LIST changes: -ASPI-1197 PO; -CILO50TA PO; +CILO50TA2 PO; -LEVO500T90 PO; -LOSA25TA41 PO; +MELA3CAP2 PO; +NITR0.4T50 SL; -TERB30CR8 TP
[2022-05-02 14:19] LABS: BASOPHILS % (AUTO) 0.2 % (0.0-5.0); EOSINOPHILS % (AUTO) 2.3 % (0.0-8.0); HEMATOCRIT 40.2 % (42-54); LYMPHOCYTES % (AUTO) 27.1 % (21.0-51.0); MEAN CORPUSCULAR HEMOGLOBIN 31.2 pg (27.0-33.0); MEAN CORPUSCULAR HGB CONC 32.1 g/dL (32.0-36.0); MEAN CORPUSCULAR VOLUME 97.3 fL (79-99); MONOCYTES % (AUTO) 7.3 % (3.0-13.0); NEUTROPHILS % (AUTO) 62.6 % (40.0-77.0); PLATELET COUNT (AUTO) 247 K/uL (130-400); RED BLOOD CELL COUNT(AUTO) 4.13 MIL/uL (4.50-6.20); RED CELL DISTRIBUTION WIDTH 13.1 % (11.0-15.5); WHITE BLOOD COUNT (AUTO) 6.5 K/uL (4.8-10.8)
[2022-05-02 14:45] LABS: ALBUMIN 2.9 g/dL (3.5-5.0); POTASSIUM 3.9 mmol/L (3.5-5.1); TOTAL PROTEIN, SERUM 6.7 g/dL (6.0-8.3)
[2022-05-02] MEDS ORDERED: DEXAMETHASONE SOD PHOSPHATE 4 MG/ML 1ML VIAL IV STA (16:14)
[2022-05-02] MEDS ORDERED: DOXY100C5 PO (16:25)
[2022-05-02] MEDS ORDERED: FLUT16H NASAL (16:25)
[2022-05-02 16:35] VITALS: BP 165/71
== END 2022-05-02 17:22 | disposition home or self-care (01) ==
LOC: EDH 13:30
DX: J32.9 Chronic sinusitis, unspecified (principal); I10 Essential (primary) hypertension; E11.9 Type 2 diabetes mellitus without complications; E78.00 Pure hypercholesterolemia, unspecified; N41.9 Inflammatory disease of prostate, unspecified; I63.9 Cerebral infarction, unspecified; Z20.822 Contact with and (suspected) exposure to COVID-19; Z79.899 Other long term (current) drug therapy
CPT/HCPCS: 99285; 84484; 80053; 83880; 85025; 87040 ×2; 87804 ×2; 83605; 36415; 87635; 71045; 96374; 93005; J1100; C9803

== ENCOUNTER → 2022-08-16 | Outpatient (CLI) | payer MEDICARE ==
[~2022-08-16] MED LIST changes: +DOXY100C5 PO; +FLUT16H NASAL
[2022-08-16 16:22] LABS: ABG BASE EXCESS 5.8 mmol/L (-2.0-3.0); ABG HCO3 28.7 mmol/L (21.0-28.0); ABG OXYGEN SATURATION 97.2 % (95.0-99.0); ABG PCO2 36 mmHg (35-48)
== END | disposition home or self-care (01) ==
LOC: LAB 15:36
PROVIDERS: ATTEND Internal Medicine Pulmonary Disease
DX: J98.4 Other disorders of lung (principal)
CPT/HCPCS: 36600; 82803

== ENCOUNTER → 2022-11-18 | Outpatient (CLI) | payer MEDICARE | END | disposition home or self-care (01) | LOC: RAH 13:34 | PROVIDERS: ATTEND Urology | DX: M47.815 Spondylosis without myelopathy or radiculopathy, thoracolumbar region (principal); N20.0 Calculus of kidney | CPT/HCPCS: 74018; 76100 ==

== ENCOUNTER → 2022-12-12 | Outpatient (CLI) | payer MEDICARE | END | disposition home or self-care (01) | LOC: SHCH 09:36 | PROVIDERS: ATTEND Internal Medicine Cardiovascular Disease | DX: I08.0 Rheumatic disorders of both mitral and aortic valves (principal); I25.10 Atherosclerotic heart disease of native coronary artery without angina pectoris; Z95.1 Presence of aortocoronary bypass graft | CPT/HCPCS: 93306 ==

== ENCOUNTER → 2023-01-20 | Outpatient (CLI) | payer MEDICARE | END | disposition home or self-care (01) | LOC: RAH 11:52 | PROVIDERS: ATTEND Urology | DX: N20.0 Calculus of kidney (principal); K80.20 Calculus of gallbladder without cholecystitis without obstruction | CPT/HCPCS: 74176 ==

== ENCOUNTER → 2023-01-23 | Outpatient (CLI) | payer MEDICARE | END | disposition home or self-care (01) | LOC: RAH 13:52 | PROVIDERS: ATTEND Urology | DX: N20.0 Calculus of kidney (principal); M47.815 Spondylosis without myelopathy or radiculopathy, thoracolumbar region | CPT/HCPCS: 74018; 76100 ==

== ENCOUNTER 2023-12-19 10:43 | Emergency (ER) | payer MEDICARE ==
[~2023-12-19] VITALS: Ht 167.6 cm; Wt 104.3 kg
[2023-12-19 10:45] VITALS: BP 146/62; RESP 23
[2023-12-19 11:00] VITALS: PULSE 61; O2SAT 100
[2023-12-19 12:01] LABS: BASOPHILS # (AUTO) 0.02 K/uL (0.00-0.20); BASOPHILS % (AUTO) 0.3 % (0.0-5.0); EOSINOPHILS # (AUTO) 0.23 K/uL (0.00-0.70); EOSINOPHILS % (AUTO) 3.7 % (0.0-8.0); HEMATOCRIT 31.7 % (42-54); IMMATURE GRANULOCYTE ABSOLUTE 0.02 K/uL (0-1); LYMPHOCYTES # (AUTO) 2.5 K/uL (1.0-4.8); LYMPHOCYTES % (AUTO) 40.5 % (21.0-51.0); MEAN CORPUSCULAR HEMOGLOBIN 28.4 pg (27.0-33.0); MEAN CORPUSCULAR HGB CONC 32.8 g/dL (32.0-36.0); MEAN CORPUSCULAR VOLUME 86.6 fL (79-99); MONOCYTES # (AUTO) 0.5 K/uL (0.1-1.0); MONOCYTES % (AUTO) 7.3 % (3.0-13.0); NEUTROPHILS # (AUTO) 2.9 K/uL (1.8-7.7); NEUTROPHILS % (AUTO) 47.9 % (40.0-77.0); PLATELET COUNT (AUTO) 236 K/uL (130-400); RED BLOOD CELL COUNT(AUTO) 3.66 MIL/uL (4.50-6.20); RED CELL DISTRIBUTION WIDTH 14.6 % (11.0-15.5); WHITE BLOOD COUNT (AUTO) 6.2 K/uL (4.8-10.8)
[2023-12-19 12:08] LABS: CREATININE 1.2 mg/dL (0.5-1.3); POTASSIUM 4.3 mmol/L (3.5-5.1)
[2023-12-19 12:41] LABS: ABG BASE EXCESS 1.6 mmol/L (-2.0-3.0); ABG HCO3 23.1 mmol/L (21.0-28.0); ABG PCO2 29 mmHg (35-48); ABG PH 7.527 (7.35-7.450); DEVICE COMMENT LBOSCAR; PO2, ARTERIAL BG < 45.0 mmHg (83.0-108.0); VENT MODE, BG AC (ROOM AIR)
[2023-12-19 12:49] LABS: ABG BASE EXCESS 0.9 mmol/L (-2.0-3.0); ABG HCO3 21.4 mmol/L (21.0-28.0); ABG OXYGEN SATURATION 99.5 % (95.0-99.0); ABG PCO2 25 mmHg (35-48); ABG PH 7.554 (7.35-7.450); DEVICE COMMENT LROSCAR; PO2, ARTERIAL BG 201.5 mmHg (83.0-108.0); VENT MODE, BG AC (ROOM AIR)
== END 2023-12-19 15:33 | disposition home or self-care (01) ==
LOC: EDH 10:43
DX: J95.03 Malfunction of tracheostomy stoma (principal); E11.9 Type 2 diabetes mellitus without complications; I10 Essential (primary) hypertension; Z95.1 Presence of aortocoronary bypass graft; Z95.5 Presence of coronary angioplasty implant and graft; Z98.890 Other specified postprocedural states
CPT/HCPCS: 36415; 36600; 71045; 80048; 82803; 85025; 94002

== ENCOUNTER → 2024-01-16 | Outpatient (CLI) | payer MEDICARE ==
[~2024-01-16] MED LIST changes: -ATOR20TA65 PO; -CILO50TA2 PO; -CITA20TA17 PO; -DIPH25TA20 PO; -DOXA4TAB3 PO; -DOXY100C5 PO; -FINA5TAB41 PO; -FLUT16H NASAL; -GABA600T10 PO; +IOHEXOL-350 75 ML VIAL IV ONE; -MELA3CAP2 PO; -METO-408 PO; -NITR0.4T50 SL; -OMEP40CA21 PO; -SENN8.6T20 PO
== END | disposition home or self-care (01) ==
LOC: RAH 10:02
PROVIDERS: ATTEND Internal Medicine Cardiovascular Disease
DX: I70.203 Unspecified atherosclerosis of native arteries of extremities, bilateral legs (principal); I70.0 Atherosclerosis of aorta
CPT/HCPCS: 75635; Q9967

== ENCOUNTER 2024-02-12 19:15 | Emergency (ER) | payer MEDICARE ==
[~2024-02-12] VITALS: Ht 170.2 cm; Wt 97.5 kg
[2024-02-12 20:16] LABS: BASOPHILS # (AUTO) 0.03 K/uL (0.00-0.20); BASOPHILS % (AUTO) 0.5 % (0.0-5.0); EOSINOPHILS # (AUTO) 0.19 K/uL (0.00-0.70); EOSINOPHILS % (AUTO) 3.1 % (0.0-8.0); HEMATOCRIT 33.7 % (42-54); IMMATURE GRANULOCYTE ABSOLUTE 0.04 K/uL (0-1); LYMPHOCYTES # (AUTO) 2.1 K/uL (1.0-4.8); LYMPHOCYTES % (AUTO) 34.5 % (21.0-51.0); MEAN CORPUSCULAR HEMOGLOBIN 29.7 pg (27.0-33.0); MEAN CORPUSCULAR HGB CONC 33.2 g/dL (32.0-36.0); MEAN CORPUSCULAR VOLUME 89.4 fL (79-99); MONOCYTES # (AUTO) 0.5 K/uL (0.1-1.0); MONOCYTES % (AUTO) 7.4 % (3.0-13.0); NEUTROPHILS # (AUTO) 3.3 K/uL (1.8-7.7); NEUTROPHILS % (AUTO) 53.8 % (40.0-77.0); PLATELET COUNT (AUTO) 311 K/uL (130-400); RED BLOOD CELL COUNT(AUTO) 3.77 MIL/uL (4.50-6.20); RED CELL DISTRIBUTION WIDTH 14.2 % (11.0-15.5); WHITE BLOOD COUNT (AUTO) 6.1 K/uL (4.8-10.8)
[2024-02-12 20:24] LABS: CREATININE 1.1 mg/dL (0.5-1.3); POTASSIUM 4.4 mmol/L (3.5-5.1)
[2024-02-12 20:27] LABS: URIC ACID 6.1 mg/dL (2.6-7.2)
[2024-02-12] MEDS ORDERED: CLIN-141 PO (21:43)
[2024-02-12] MEDS ORDERED: ACET-2079 PO (21:43)
[2024-02-12] MEDS: CLINDAMYCIN 150 MG CAP PO ONE (22:16)
[2024-02-12 22:17] VITALS: BP 158/68; PULSE 58; RESP 20; TEMP 98.3; O2SAT 99
[2024-02-12] MEDS: ketOROlac 60 MG VIAL (30MG/ML) IM ONE (22:17)
== END 2024-02-12 23:05 | disposition home or self-care (01) ==
LOC: EDH 19:15
DX: L03.031 Cellulitis of right toe (principal); E11.9 Type 2 diabetes mellitus without complications; E78.00 Pure hypercholesterolemia, unspecified; I11.9 Hypertensive heart disease without heart failure; Z86.73 Personal history of transient ischemic attack (TIA), and cerebral infarction without residual deficits; Z79.899 Other long term (current) drug therapy; Z98.890 Other specified postprocedural states
CPT/HCPCS: 99284; 84550; 80048; 85025; 87040; 83605; 36415; 73630; 96372; J1885

== ENCOUNTER → 2024-03-21 | Outpatient (CLI) | payer MEDICARE ==
[~2024-03-21] MED LIST changes: +ACET-2079 PO; +CLIN-141 PO; -IOHEXOL-350 75 ML VIAL IV ONE
== END | disposition home or self-care (01) ==
LOC: WHH 11:22
PROVIDERS: ATTEND Internal Medicine Cardiovascular Disease
DX: E11.621 Type 2 diabetes mellitus with foot ulcer (principal); L97.511 Non-pressure chronic ulcer of other part of right foot limited to breakdown of skin; E78.00 Pure hypercholesterolemia, unspecified; Z86.73 Personal history of transient ischemic attack (TIA), and cerebral infarction without residual deficits; Z79.899 Other long term (current) drug therapy; Z98.890 Other specified postprocedural states
CPT/HCPCS: 93923

== ENCOUNTER 2024-10-11 22:17 | Inpatient (IN) | payer MEDICARE, MEDICAID ==
[~2024-10-11] VITALS: Ht 167.6 cm; Wt 113.4 kg
--- NOTE | 2024-10-11 22:48 | ERN ---
ED Note History of Present Illness Stated Complaint: SOB, DISCOLORED TOES Chief Complaint: Multiple Complaints Time Seen by MD: 22:22 Dictation: This is a 69-year-old male with a chronic trach since 2022 and a PEG tube was brought to the ER with shortness of breath for the past 1 week and also cold sweats. He has had discoloration of the toes and drainage from the right foot toes even in the past and this has been going on since February 2024. They also reported nausea and emesis once. No fever chills or rigors but does say cold sweats. Temperature 98.6 pulse 73 respirations 20 blood pressure 125/64 pulse oximetry 97% on room air Chronic medical problems include history of CVA with right-sided weakness, diabetes mellitus, hypertension, CAD status post CABG, peripheral arterial dis ease, hypercholesterolemia, trach and PEG Allergies: Coded Allergies: No Known Drug Allergies (Verified Allergy, Unknown, 04/26/18) Home Meds Active Scripts Acetaminophen with Codeine (Acetaminophen-Cod #3 Tablet) 300 Mg-30 Mg Tablet, 1 TAB PO Q4H PRN for MODERATE TO SEVERE PAIN, #15 TAB Prov:KELSIE DONATO [employer] 02/12/24 Clindamycin HCl (Clindamycin HCl) 300 Mg Capsule, 1 CAP PO QID for 10 Days, #40 CAP 0 Refills Prov:KELSIE DONATO [employer] 02/12/24 Past Medical History Past Medical History: CVA, Diabetes-Type II, High Cholesterol, Heart Disease, Hypertension Additional Past Medical Hx: RIGHT SIDE WEAKNESS, PAD, TRACH Surgical History: CABG, Other Surgical History Other: TRACH; TRIPLE BYPASS, Social History: Negative, Lives with family RN Note Reviewed/Agreed w/PFSH: Yes Review of System Dictation Constitutional: Negative for fever, positive for chills, and denied weight loss Eyes: Negative for injury, pain,redness, and discharge ENT: Negative for injury,pain or swelling Cardiovascular: Negative for chest pain, palpitations, and edema Respiratory: Positive for shortness of breath, cough, and wheezing, Abdomen/GI: Negative for abdominal pain, positive for nausea, vomiting, denied diarrhea, and constipation Back: Negative for injury and pain : Negative for injury, bleeding and discharge MS/Extremity: Negative for injury and deformity Skin: Negative for rash, and discoloration Neuro: Negative for headache, weakness, numbness, tingling, and seizure Psych: Negative for suicide ideation, homicidal ideation, and hallucinations Initial Vital Sign VS Vital Signs Date Time Temp Pulse Resp B/P (MAP) Pulse Ox O2 Delivery O2 Flow Rate FiO2 10/11/24 22:19 98.6 73 20 125/64 97 Ventilator 70.0 10/11/24 23:32 100 Physical Exam Dictation General: awake, alert, NAD Head/Face: Normocephalic, atraumatic Eyes: PERRL, EOMI, vision at baseline ENT: oral cavity clear, TMs clear, no signs of infection Neck: Trachea midline, supple, no nuchal rigidity Cardiovascular: RRR, normal S1/S2, No MRGs, no JVD Respiratory: CTAB, no respiratory distress, No rales or wheezes Abdomen: Soft, non-tender, non-distended, normal bowel sounds, no guarding or rebound. Skin: Warm, dry, normal turgor, no rash MS/Extremity: Pulses equal, no cyanosis, neurovascular intact, FROM Neuro: COAx4, GCS 15, strength 5/5, CN 2-12 intact, normal cerebellar exam, normal gait, Psych: Normal behavior, mood, and affect normal Extremities-trace edema without any palpable cords, Homans sign is negative Results (Laboratory/Radiology) Laboratory/Radiology Laboratory Tests Test 10/11/24 23:04 10/11/24 23:23 10/12/24 01:32 10/12/24 01:43 Blood Gas Specimen Type Arterial Arterial Blood pH 7.494 (7.350-7.450) Arterial Blood Partial Pressure CO2 31 mmHg (35-48) L Arterial Blood Partial Pressure O2 308.2 mmHg (83.0-108.0) Arterial Blood HCO3 22.9 mmol/L (21.0-28.0) Arterial Blood Oxygen Saturation 99.3 % (94.0-98.0) H Arterial Blood Base Excess 0.1 mmol/L (-2.0-3.0) Hemoglobin (Blood Gas) 9.5 g/dL (13.5-17.5) L Sodium (Blood Gas) 130 MMOL/L (136-145) L Bedside Potassium (Blood Gas) 4.3 MMOL/L (3.4-4.5) Bedside Chloride (Blood Gas) 97 MMOL/L (98-107) L Bedside Glucose (Blood Gas) 310 MG/DL (65-95) H Bedside Ionized Calcium (Blood Gas) 1.11 MMOL/L (1.15-1.33) L Bedside Lactic Acid (Blood Gas) 2.21 MMOL/L (0.36-0.75) H Blood Gas Temperature 37.0 CELSIUS (35.5-37.0) Blood Gas Respiration Rate 10.0 min. Blood Gas Vent Mode AC (ROOM AIR) FiO2 28.0 % Blood Gas Tidal Volume 460 ml Blood Gas PEEP 5 cm H2O Blood Gas Specimen Comment LEFT RAD White Blood Count 9.5 K/uL (4.8-10.8) 9.0 K/uL (4.8-10.8) Red Blood Count 3.54 MIL/uL (4.50-6.20) L 3.43 MIL/uL (4.50-6.20) L Hemoglobin 8.9 g/dL (14.0-18.0) L 8.7 g/dL (14.0-18.0) L Hematocrit 27.7 % (42-54) L 27.3 % (42-54) L Mean Corpuscular Volume 78.2 fL (79-99) L 79.6 fL (79-99) Mean Corpuscular Hemoglobin 25.1 pg (27.0-33.0) L 25.4 pg (27.0-33.0) L Mean Corpuscular Hemoglobin Concent 32.1 g/dL (32.0-36.0) 31.9 g/dL (32.0-36.0) L Red Cell Distribution Width 16.2 % (11.0-15.5) H 16.3 % (11.0-15.5) H Platelet Count 321 K/uL (130-400) 299 K/uL (130-400) Mean Platelet Volume 9.7 fL (7.5-10.5) 9.7 fL (7.5-10.5) Immature Granulocyte % (Auto) 2.0 % (0-1) H 1.6 % (0-1) H Neutrophils (%) (Auto) 68.0 % (40.0-77.0) 87.9 % (40.0-77.0) H Lymphocytes (%) (Auto) 23.0 % (21.0-51.0) 6.6 % (21.0-51.0) L Monocytes (%) (Auto) 4.8 % (3.0-13.0) 3.1 % (3.0-13.0) Eosinophils (%) (Auto) 1.8 % (0.0-8.0) 0.7 % (0.0-8.0) Basophils (%) (Auto) 0.4 % (0.0-5.0) 0.1 % (0.0-5.0) Neutrophils # (Auto) 6.5 K/uL (1.8-7.7) 7.9 K/uL (1.8-7.7) H Lymphocytes # (Auto) 2.2 K/uL (1.0-4.8) 0.6 K/uL (1.0-4.8) L Monocytes # (Auto) 0.5 K/uL (0.1-1.0) 0.3 K/uL (0.1-1.0) Eosinophils # (Auto) 0.17 K/uL (0.00-0.70) 0.06 K/uL (0.00-0.70) Basophils # (Auto) 0.04 K/uL (0.00-0.20) 0.01 K/uL (0.00-0.20) Absolute Immature Granulocyte (auto 0.19 K/uL (0-1) 0.14 K/uL (0-1) Nucleated Red Blood Cells 0.0 % (0.0-0.19) 0.0 % (0.0-0.19) Sodium Level 135 mmol/L (136-145) L 133 mmol/L (136-145) L Potassium Level 4.2 mmol/L (3.5-5.1) 4.4 mmol/L (3.5-5.1) Chloride Level 98 mmol/L (101-111) L 98 mmol/L (101-111) L Carbon Dioxide Level 28 mmol/L (21-32) 24 mmol/L (21-32) Blood Urea Nitrogen 37 mg/dL (7-18) H 36 mg/dL (7-18) H Creatinine 1.7 mg/dL (0.5-1.3) H 1.7 mg/dL (0.5-1.3) H Glomerular Filtration Rate Calc 43 mL/min (>90) 43 mL/min (>90) Random Glucose 327 mg/dL (70-105) H 344 mg/dL (70-105) H Total Calcium 8.7 mg/dL (8.5-10.1) 8.5 mg/dL (8.5-10.1) Total Creatine Kinase 76 U/L (21-232) # Troponin I High Sensitivity 7.8 ng/L (4-75) B-Type Natriuretic Peptide 41 pg/mL (0-100) Urine Color LIGHT-YELLOW (YELLOW) Urine Appearance CLOUDY (CLEAR) H Urine pH 5.5 (5.0-8.0) Urine Specific [place] 1.017 (1.001-1.031) Urine Protein 10 mg/dL (NEGATIVE) H Urine Glucose (UA) >=1000 mg/dL (NEGATIVE) H Urine Ketones NEGATIVE mg/dL (NEGATIVE) Urine Occult Blood NEGATIVE (NEGATIVE) Urine Nitrate NEGATIVE (NEGATIVE) Urine Bilirubin NEGATIVE mg/dL (NEGATIVE) Urine Urobilinogen 0.2 mg/dL (0.2-1.0) Urine Leukocyte Esterase 250 Marita/uL (NEGATIVE) H Urine RBC 0-1 /HPF (0-1) Urine WBC 51-100 /HPF (0-1) H Urine Squamous Epithelial Cells RARE /HPF (0-2) Urine Bacteria MOD /HPF (None Seen) Urine Random Creatinine 101.79 mg/dL (30-135) Urine Random Sodium 44 mmol/l (40-220) White Cell Morphology Comment See comments Prothrombin Time 10.9 SEC (9.6-11.6) Prothromb Time International Ratio 1.03 (0.85-1.15) Activated Partial Thromboplast Time 23.9 SEC (26.3-35.5) L Hemoglobin A1c 10.0 % (4.0-6.0) H Estimated Average Glucose (eAG) 240 mg/dL (70-126) H Phosphorus Level 2.8 mg/dL (2.5-4.9) Magnesium Level 1.70 mg/dL (1.80-2.40) L Labs Reviewed?: Yes ED Course ED Course Orders Procedure Category Date Status Time Arterial Blood Gas RT 10/11/24 Transmitted 22:43 O2 Nc Keep Sats CPOE 10/11/24 Transmitted Greater 92% 22:43 Notify Md: Spo2 < 88% CPOE 10/11/24 Transmitted 22:43 Cbc With Differential LAB 10/11/24 Complete 22:43 B-Type Natriuretic LAB 10/11/24 Complete Peptide 22:43 Cardiac Panel LAB 10/11/24 Complete 22:43 Chest 1vw RAD 10/11/24 Taken 22:43 12 Lead Ekg Tracing- EKG 10/11/24 Logged Technical 22:43 0.9%Nacl 1000ml (Ns PHA 10/11/24 In Process 1000ml) 23:00 Ipratropium/Albuterol PHA 10/11/24 Complete Neb (Duoneb) 23:00 Methylprednisolone PHA 10/11/24 Complete Succ 125mg (Solu-Medr 23:00 Basic Metabolic Panel LAB 10/11/24 Complete 22:43 Arterial Blood Gas LAB 10/11/24 Complete Arterial + 23:04 Hydromorphone 0.5mg PHA 10/12/24 Complete Syg (Dilaudid 0.5mg 00:00 Zosyn 3.375gm+Ns 50ml PHA 10/12/24 Complete (Zosyn 3.375gm+Ns 00:00 Foot Limited 2vws Rt RAD 10/11/24 Taken 23:57 Edm Admit Bridge Order ADM 10/12/24 Transmitted 00:07 Admit Orders ADM 10/12/24 Transmitted 00:16 Activity: Bed Rest CPOE 10/12/24 Transmitted 00:55 Apply Knee High Teds CPOE 10/12/24 Transmitted 00:55 Apply Scds CPOE 10/12/24 Transmitted 00:55 Condition: CPOE 10/12/24 Transmitted 00:55 Daily Weights CPOE 10/12/24 Transmitted 00:55 I&O Q Shift CPOE 10/12/24 Transmitted 00:55 Npo Except For Meds CPOE 10/12/24 Transmitted 00:55 Nurse To Enter Home CPOE 10/12/24 Transmitted Medication 00:55 Oxygen By Nc/Pulse Ox CPOE 10/12/24 Transmitted 00:55 Telemetry Monitoring CPOE 10/12/24 Transmitted 00:55 Vital Signs(Adult CPOE 10/12/24 Transmitted Hospitalist) 00:[address] 10/12/24 Transmitted 00:55 Us Arterial Bilat Low US 10/12/24 Logged Ext Dupl 00:55 Critcal Care Consult CONPHYSVC 10/12/24 Transmitted 00:55 Basic Metabolic Panel LAB 10/12/24 Complete 04:00 Cbc With Differential LAB 10/12/24 Complete 04:00 Magnesium LAB 10/12/24 Complete 04:00 Phosphorus LAB 10/12/24 Complete 04:00 Urinalysis Profile LAB 10/12/24 Complete 00:55 Urine Creatinine LAB 10/12/24 Complete Random 00:55 Urine Sodium,Random LAB 10/12/24 Complete 00:55 Osmolality Urine LAB 10/12/24 In Process 00:55 Lactated Ringers PHA 10/12/24 In Process 1000ml (Lactated 01:00 Heparin 5,000 Unit PHA 10/12/24 In Process Vial (Heparin 5,000 U 09:00 Acetaminophen 325 Tab PHA 10/12/24 In Process (Tylenol 325mg Tab 01:00 Ipratropium/Albuterol PHA 10/12/24 In Process Neb (Duoneb) 06:00 Pantoprazole 40mg Inj PHA 10/12/24 In Process (Protonix 40mg Inj 09:00 Ondansetron 4mg Inj PHA 10/12/24 In Process (Zofran 4mg Inj) 01:00 Hydralazine 20mg Inj PHA 10/12/24 In Process (Apresoline 20mg In 01:00 Ceftriaxone 1g Vial PHA 10/12/24 Complete (Rocephine 1g Inj) 09:00 Doxycycline 100mg+Ns PHA 10/12/24 In Process 250ml (Doxycycline 01:00 Blood Cult AVIS 10/12/24 In Process 00:55 Respiratory Cult AVIS 10/12/24 In Process W/Gram Stain 00:55 Initiate SALIMA 10/12/24 In Process Hyperglycemia Protoco 01:02 Insulin Regular, PHA 10/12/24 In Process Human 3ml (Humulin R 07:30 Hemoglobin A1c LAB 10/12/24 Complete 04:00 Morphine 2mg Syg PHA 10/12/24 In Process (Morphine 2mg Syg) 01:30 Culture Urine AVIS 10/12/24 In Process 01:48 Cardiology Consult CONPHYSVC 10/12/24 Transmitted 08:00 Methylprednisolone PHA 10/12/24 In Process Succ 40mg (Solu-Medro 08:00 Respiratory RT 10/12/24 Transmitted Communication 02:07 Zosyn 3.375gm+Ns 50ml PHA 10/12/24 In Process (Zosyn 3.375gm+Ns 08:00 Aspirin 81mg Chew Tab PHA 10/12/24 In Process (Aspirin 81mg Chew 09:00 Clopidogrel 75mg Tab PHA 10/12/24 In Process (Plavix 75mg) 09:00 Atorvastatin 40mg PHA 10/12/24 In Process (Lipitor 40mg) 21:00 Place Picc Line CPOE 10/12/24 Transmitted 03:33 Pt And Ptt LAB 10/12/24 Complete 03:33 Current Medications Medications (Trade) Dose Ordered Sig/[place] Route PRN Reason Start Time Stop Time Status Last Admin Dose Admin Albuterol (DUOneb) 1 udvial ONCE ONCE IH 10/11/24 23:00 10/11/24 23:01 DC 10/11/24 22:52 Hydromorphone HCl (DiLAUDid 0.5MG INJ) 0.5 mg ONCE ONCE IVP 10/12/24 00:00 10/12/24 00:01 DC 10/12/24 00:19 Methylprednisolone Sodium Succinate (Solu-medROL 125MG) 125 mg ONCE ONCE IVP 10/11/24 23:00 10/11/24 23:01 DC 10/11/24 23:18 Piperacillin Sod/ Tazobactam Sod (Zosyn 3.375gm+NS 50ml) 3.375 gm ONCE ONCE IV 10/12/24 00:00 10/12/24 00:01 DC 10/12/24 00:19 Sodium Chloride 1,000 ml @ 125 mls/hr ONCE ONCE IV 10/11/24 23:00 10/12/24 06:59 10/11/24 23:19 Vital Signs Date Time Temp Pulse Resp B/P (MAP) Pulse Ox O2 Delivery O2 Flow Rate FiO2 10/12/24 03:29 64 19 10/12/24 02:14 70 24 127/49 98 10/12/24 01:43 66 20 148/69 100 Ventilator+ 0 100 10/12/24 00:43 72 22 142/56 99 Ventilator+ 0 100 10/11/24 23:32 73 19 133/56 100 Ventilator+ 15 100 10/11/24 23:12 101 16 10/11/24 22:59 109 16 10/11/24 22:19 98.6 73 20 125/64 97 Ventilator 70.0 We will perform diagnostic labs, advanced imaging and administer medications a ccording to the patient's complaint. Once the results are available, will review and personally interpreted the labs to rule out any acute life- threatening emergency the trach require immediate intervention and treatment. I will then re-evaluate the patient after treatment and diagnostic exams have return to determine whether the patient requires any further testing, can safely be discharged home or need further admission to hospital for additional treatment and evaluation. Labs reviewed CBC showed a hemoglobin of 8.9, BNP 7 was significant for a BUN and creatinine of 37 and 1.7 glucose is 327. ABG showed a pH of 7.49 pCO2 of 31 PO2 of 308. Chest x-ray showed left basilar chronic changes with pleural reaction. In view of increased cough sputum and secretions with also gangrenous changes of the right foot patient likely has sepsis related to either 1 of them. His diabetes is poorly controlled and considering all the multiple issues going on I recommended admission to the hospital to intensive care unit for further management Patient was accepted by Lefty Vásquez, mid-level provider for hospitalist group for admission and further management. Medical Decision Making MDM MDM: Differential diagnosis: Possible pneumonitis,, sepsis from gangrene of the right foot, Rationale: Tests considered and ordered secondary to shared decision making include: labs, ECG and radiology Previous outside records reviewed: Old ER visits. Risk of complication and/or morbidity or mortality of patient management: None Medications-Per medication reconciliation Need for hospitalization: Patient does meet criteria for hospitalization. Need for emergency major/minor surgery: No There are no social concerns with this patient. Prescription drug management Prescriptions will include symptomatic care Patient's prior external medical records from other ER visits were reviewed by me as indicated. Prior testing and results from previous visits were reviewed. Prior tests were taken into account with medical decision making and resource utilization, independent historian/historians were used to obtain complete medical history. I independently interpreted the test that were performed, results were reviewed by me and considered findings on radiology if ordered. Medical management and examination interpretation discussions were had by me with other qualified healthcare professionals as indicated for the patient's care. DX & DISP Disposition: Inpatient Departure Impression: Primary Impression: Acute and chronic respiratory failure with hypercapnia Additional Impressions: Ventilator dependence, Sepsis, Pneumonitis, Gangrene of right foot, Acute kidney injury, Type 2 diabetes mellitus with hyperglycemia, Chronic respiratory failure requiring continuous mechanical ventilation through tracheostomy Condition: Stable Additional Instructions: Patient was informed of all the diagnostic labs and procedures conducted in the emergency room today and demonstrated understanding of the results. I personally reviewed and interpreted all the diagnostic exams performed in the ER today. The patient will be admitted to the hospital for further treatment and evaluation. Disposition-admit to facility Condition-stable/guarded Course-uncertain at this time Pain status-decreased Assessment-exam unchanged Admission Certification- I certify that the patients status is appropriate and is based on my best clinical judgment and the patient's condition as documented in the medical records Referrals: DK LOFTON MD (PCP) SHITAL ODOM MD October 11, 2024 22:48
[2024-10-11] MEDS: IpraTROPium/alBUTERol SULFATE 3 ML SOLUTION IH ONE (22:52)
[2024-10-11 22:59] VITALS: PULSE 109; RESP 16
[2024-10-11 23:06] LABS: ABG BASE EXCESS 0.1 mmol/L (-2.0-3.0); ABG HCO3 22.9 mmol/L (21.0-28.0); ABG OXYGEN SATURATION 99.3 % (94.0-98.0); ABG PCO2 31 mmHg (35-48); ABG PH 7.494 (7.350-7.450); CARBON MONOXIDE 0.3 % (0.5-1.5); DEVICE COMMENT LEFT RAD; HHb 0.7; PO2, ARTERIAL BG 308.2 mmHg (83.0-108.0); VENT MODE, BG AC (ROOM AIR)
[2024-10-11 23:12] VITALS: PULSE 101; RESP 16; O2SAT 98
--- NOTE | 2024-10-11 23:13 | NUR ---
patient arrived on home vent via trach shiley 6.0 on the following settings AC R-10, Vt-460, +5, 2LPM bleed in 02
[2024-10-11] MEDS: Solu-medROL 125MG VIAL IVP ONE (23:18)
[2024-10-11] MEDS: 0.9%NACL 1000ML 1,000 ML IV ONE (23:19)
[2024-10-11 23:29] LABS: BASOPHILS # (AUTO) 0.04 K/uL (0.00-0.20); BASOPHILS % (AUTO) 0.4 % (0.0-5.0); EOSINOPHILS # (AUTO) 0.17 K/uL (0.00-0.70); EOSINOPHILS % (AUTO) 1.8 % (0.0-8.0); HEMATOCRIT 27.7 % (42-54); IMMATURE GRANULOCYTE ABSOLUTE 0.19 K/uL (0-1); LYMPHOCYTES # (AUTO) 2.2 K/uL (1.0-4.8); MEAN CORPUSCULAR HEMOGLOBIN 25.1 pg (27.0-33.0); MEAN CORPUSCULAR HGB CONC 32.1 g/dL (32.0-36.0); MEAN CORPUSCULAR VOLUME 78.2 fL (79-99); MONOCYTES # (AUTO) 0.5 K/uL (0.1-1.0); MONOCYTES % (AUTO) 4.8 % (3.0-13.0); NEUTROPHILS # (AUTO) 6.5 K/uL (1.8-7.7); PLATELET COUNT (AUTO) 321 K/uL (130-400); RED BLOOD CELL COUNT(AUTO) 3.54 MIL/uL (4.50-6.20); RED CELL DISTRIBUTION WIDTH 16.2 % (11.0-15.5); WHITE BLOOD COUNT (AUTO) 9.5 K/uL (4.8-10.8)
[2024-10-11 23:37] LABS: CREATININE 1.7 mg/dL (0.5-1.3); POTASSIUM 4.2 mmol/L (3.5-5.1)
[2024-10-11 23:58] LABS: B-TYPE NATRIURETIC PEPTIDE 41 pg/mL (0-100)
[2024-10-12] VITALS (37 sets, daily range): BP systolic 101–172; BP diastolic 41–78; PULSE 51–79; RESP 11–24; TEMP 97.8–98.5; O2SAT 97–100
--- NOTE | 2024-10-12 00:17 | HP ---
History of Present Illness Reason for Visit: sob Referring MD: self History of Present Illness Mr. Preciado is a 69-year-old male that was seen and examined today on 10/12/2024. Patient is unable to provide health history. Patient's Liseth is at bedside and able to provide the following information. Patient was brought to the emergency department with a chief complaint of shortness of breath. Onset was one week ago. Location is to lungs. Duration is on and off. Character is described as, "like the event is not helping."There was no alleviating factors. Symptoms are aggravated by physical activity. also reports associated right foot pain. Patient has had gangrene since February 2024. Patient has been evaluated by Cardiology Service, Dr. Childress and was told that there were not a candidate for revascularization. Patient has a nephew who is a sql server architect in [place] and he recommended a sql server architect in [place] who attempted revascularization using a pedal approach about two months ago but this did not help. There was also a different doctor who tried a revascularization from a jugular approach but that did not help. states that there has been a recommendation for [id number] amputation but she prefers to try and save her 's limb. Today in the emergency department BUN is 37 , creatinine 1.7, GFR 43, urinalysis positive for leukocyte esterase and WBCs 50 1-100 per high-powered microscopy field. Emergency room physician recommended that patient be admitted with a diagnosis of acute on chronic respiratory failure. Past Medical History Patient History: Cardiovascular disease FATHER, Completed stroke FATHER, ADDITIONAL PAST MEDICAL HISTORY: CVA with right-sided hemiparesis, diabetes mellitus type 2, hypertension, renal insufficiency, CAD, GERD, BPH, PAD] SOCIAL HISTORY: [Patient denies history of smoking or tobacco use. Patient denies alcohol use. Patient denies recreational drug use. Patient lives in a single family residence that he owns together with his lately. Patient requires assistance with his ADLs. Patient has good access to health care through his insurance. Patient denies difficulty paying his bills. 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 Dyspnea, Edema, Lt Headedness, Other Gastrointestinal: No: Nausea, Vomiting, Abdominal Pain, Diarrhea, Constipation, Melena, Hematochezia, Other Genitourinary: No Dysuria, No Frequency, No Incontinence, No Hematuria, No Retention, No Other Musculoskeletal: foot pain; No: other, neck pain, shoulder pain, arm pain, back pain, hand pain, leg pain Skin: No Urticaria, No Rash, No Other Neurological: Weakness; No: Numbness, Incoordination, Change in speech, Confusion, Seizures, Other Allergies: Coded Allergies: No Known Drug Allergies (Verified Allergy, Unknown, 04/26/18) Scheduled Atorvastatin Calcium (Atorvastatin Calcium), 1 TAB PO DAILY, (Reported) Cilostazol (Cilostazol), 50 MG PO BID, (Reported) Citalopram Hydrobromide (Citalopram HBr), 20 MG PO HS, (Reported) Doxazosin Mesylate (Doxazosin Mesylate), 1 TAB PO BID, (Reported) Finasteride (Finasteride), 1 TAB PO DAILY, (Reported) Furosemide (Furosemide), 1 TAB PO DAILY, (Reported) Gabapentin (Gabapentin), 1 TAB PO TID, (Reported) Magnesium Oxide (Magnesium Oxide), 1 TAB PO DAILY, (Reported) Meloxicam (Meloxicam), 1 TAB PO DAILY, (Reported) Metformin HCl (Metformin HCl), 500 MG PO DAILY, (Reported) Metoprolol Succinate (Metoprolol Succinate), 1 TAB PO DAILY, (Reported) Omeprazole (Omeprazole), 1 CAP PO DAILY, (Reported) Potassium Citrate (Potassium Citrate ER), 10 MEQ PO TID, (Reported) Discontinued Medications Acetaminophen with Codeine (Acetaminophen-Cod #3 Tablet), 1 TAB PO Q4H PRN for MODERATE TO SEVERE PAIN Clindamycin HCl (Clindamycin HCl), 1 CAP PO QID Exam Vital Signs Vital Signs Date Time Temp Pulse Resp B/P (MAP) Pulse Ox O2 Delivery O2 Flow Rate FiO2 5/16/25 23:32 73 19 133/56 100 Ventilator+ 15 100 10/11/24 22:19 98.6 General Appearance: Alert, Oriented X3, Cooperative, moderate distress HEENT: Atraumatic, EOMI Respiratory: Other (Tracheostomy status, positive bilateral rhonchi) Cardiovascular: Normal S1, Normal S2 Abdominal: Normal bowel sounds, Soft, No tenderness Extremities: Other (+1 pitting edema to bilateral lower extremities) Skin: Other (Positive gangrene to distal phalanges right foot) Neuro: Other (Right-sided hemiparesis) Psych/Mental Status: Mental status NL, Mood NL, Thoughts/Content NL Assessment/Plan ASSESSMENT: [ Acute on chronic respiratory failure, POA Tracheostomy status, POA Right foot gangrene, POA Peripheral artery disease, POA Urinary tract infection, POA Acute kidney injury, POA on 02/12/2024 creatinine 1.1, today creatinine 1.7 Uncontrolled Diabetes mellitius type2, POA Suspected pneumonia, POA Hypertension CKD History of CVA with the right-sided hemiparesis] PLAN: [ Admit patient to intensive care unit as inpatient status. Place patient on telemetry monitoring. Patient will be followed by critical care service. Acute on chronic respiratory failure, tracheostomy status: DuoNebs every 6 hours. Patient received Solu-[id number] mg IV times. Continue Solu-Medrol 40 mg IV every8 hours. Patient will be followed by critical care team/pulmonology. Mechanical ventilation per pulmonology recommendations. Tracheostomy care per nursing/RT routine Suspected pneumonia: Obtain sputum culture, follow up with the results. Empiric antibiotic therapy with Zosyn. Right foot gangrene, peripheral artery disease: Consult cardiology service for evaluation and recommendations. Obtain arterial ultrasound of bilateral lower extremities, follow up with the r esults. Start aspirin and Plavix and atorvastatin Urinary tract infection: Start empiric antibiotic therapy with Zosyn as mentioned above. Check urine culture, follow up with the results. Acute kidney injury: Calculate FENA Check urine sodium, creatinine, osmolality Avoid nephrotoxic agents when possible Renally dose all medications when possible Consider consulting Nephrology service if any worsening renal function or evidence of ATN. Monitor patient's labs. Weight patient daily. Monitor intake and output. Diabetes mellitus type 2: Check hemoglobin A1c in a.m. Glucometer checks a.c. 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 For now, Hydralazine 10 mg IV every 4 hours for systolic blood pressure greater than 160 mmHg GI prophylaxis, Protonix DVT prophylaxis, heparin Critical Care Time: I spent ___ 51___ minutes of critical care time with the patient. I reviewed lab work, change the patient's medication, and coordinated protocol in the ev ent of tachycardia or desaturation. The patient status remains unchanged. ADVANCED CARE PLANNING 1. Which of the following were discussed? Hospice Care - Yes Therapeutic options - Yes Advance Directives - Yes- patient states that his is in charge of his health care decisions. Other discussions - 2. Discussed with who? Patient and his , Liseth 3. Voluntary nature of this service was explained to the patient? Yes 4. Amount of time spent - ___ 16 minutes ____ 5. Reviewed by Physician? (if this service was performed by NPP) Yes This document was generated in part using voice recognition software, occasional wrong word or sound alike substitutions may have occurred due to the inherent limitations of voice recognition software. Read the chart carefully and recognize using context, where the substitutions have occurred. Although every effort was made to edit the content, retail planning manager and typing errors may occur ADDENDUM: ATTENDING PHYSICIAN ATTESTATION: [facility] I have independently seen, reviewed the chart and made my own assessment of the patient. See my addendum for updates to the midlevel's medical plan MD LEANDRO Sommers [facility] October 12, 2024 00:17 JESSICA LONDONO MD October 12, 2024 11:16
[2024-10-12] MEDS: ZOSYN 3.375GM +NS 50ML IV ONE (00:19)
[2024-10-12] MEDS: hydroMORPHone 0.5 MG SYG (0.5MG/0.5ML) IVP ONE (00:19)
[2024-10-12] MEDS ORDERED: ondanSETRON 4MG INJ IV PRN (01:00)
[2024-10-12] MEDS: LACTATED RINGERS 1000ML 1,000 ML IV SCH (01:41)
[2024-10-12 01:43] LABS: APPEARANCE,URINE CLOUDY (CLEAR); BILIRUBIN,URINE NEGATIVE (NEGATIVE); COLOR,URINE LIGHT-YELLOW (YELLOW); CREATININE,URINE RANDOM 101.79 mg/dL (30-135); GLUCOSE, URINE (UA) >=1000 mg/dL (NEGATIVE); KETONES,URINE NEGATIVE (NEGATIVE); LEUKOCYTE ESTERASE ,URINE 250 Leu/uL (NEGATIVE); NITRATE,URINE NEGATIVE (NEGATIVE); OCCULT BLOOD,URINE NEGATIVE (NEGATIVE); PH,URINE 5.5 (5.0-8.0); PROTEIN,URINE 10 mg/dL (NEGATIVE); UROBILINOGEN,URINE 0.2 mg/dL (0.2-1.0)
[2024-10-12 01:48] LABS: ADD UA MICROSCOPIC YES
[2024-10-12 01:50] LABS: BACTERIA,URINE MOD /HPF (None Seen); MUCUS,URINE RARE LPF (None Seen); RBC,URINE 0-1 /HPF (0-1); SQUAMOUS EPITHELIAL CELL,UR RARE /HPF (0-2); WBC,URINE 51-100 /HPF (0-1)
[2024-10-12 01:53] LABS: BASOPHILS # (AUTO) 0.01 K/uL (0.00-0.20); BASOPHILS % (AUTO) 0.1 % (0.0-5.0); EOSINOPHILS # (AUTO) 0.06 K/uL (0.00-0.70); EOSINOPHILS % (AUTO) 0.7 % (0.0-8.0); HEMATOCRIT 27.3 % (42-54); IMMATURE GRANULOCYTE ABSOLUTE 0.14 K/uL (0-1); LYMPHOCYTES # (AUTO) 0.6 K/uL (1.0-4.8); LYMPHOCYTES % (AUTO) 6.6 % (21.0-51.0); MEAN CORPUSCULAR HEMOGLOBIN 25.4 pg (27.0-33.0); MEAN CORPUSCULAR HGB CONC 31.9 g/dL (32.0-36.0); MEAN CORPUSCULAR VOLUME 79.6 fL (79-99); MONOCYTES # (AUTO) 0.3 K/uL (0.1-1.0); MONOCYTES % (AUTO) 3.1 % (3.0-13.0); NEUTROPHILS # (AUTO) 7.9 K/uL (1.8-7.7); NEUTROPHILS % (AUTO) 87.9 % (40.0-77.0); PLATELET COUNT (AUTO) 299 K/uL (130-400); RED BLOOD CELL COUNT(AUTO) 3.43 MIL/uL (4.50-6.20); RED CELL DISTRIBUTION WIDTH 16.3 % (11.0-15.5)
[2024-10-12 02:07] LABS: CREATININE 1.7 mg/dL (0.5-1.3); MAGNESIUM 1.7 mg/dL (1.80-2.40); PHOSPHORUS 2.8 mg/dL (2.5-4.9); POTASSIUM 4.4 mmol/L (3.5-5.1)
--- NOTE | 2024-10-12 02:14 | NUR ---
Patient arriving to the ICU from ER.
--- NOTE | 2024-10-12 02:56 | NUR ---
Patients IV is infiltrated. Will not be able to give iv meds until another IV is obtained.
--- NOTE | 2024-10-12 03:30 | NUR ---
Contacted COURTNEY petersen from [facility] and informed him of new consult. Informed him of patient infiltrated iv access that was discontinued. IV antibiotics have not been given due to no iv access. Informed him that we attempted to start iv access but patient is a difficult stick. Informed provider of patient is utilizing vent from home. Provider ordered routine PICC line insertion, and a stat ptt/pt. measurement supervisor DJ informed and she will be contacting the information technology associate PICC line insertion service.
--- NOTE | 2024-10-12 03:48 | NUR ---
Ning from lab called and informed of stat ptt/pt Addendum: 10/12/24 at 0505 by JARVIS GUARDADO RN RN eSvero called ning from lab and informed her of stat ptt/pt
[2024-10-12 03:50] LABS: INR 1.03 (0.85-1.15); PROTHROMBIN TIME 10.9 SEC (9.6-11.6)
[2024-10-12 03:52] LABS: PARTIAL THROMBOPLASTIN TIME 23.9 SEC (26.3-35.5)
[2024-10-12] MEDS: DOXYCYCLINE 100MG+NS 250ML 250 ML IV SCH (04:10)
[2024-10-12] MEDS: IpraTROPium/alBUTERol SULFATE 3 ML SOLUTION IH SCH (06:05)
[2024-10-12] MEDS: hydrALAZine 20MG/ML VIAL IV PRN (06:51)
--- NOTE | 2024-10-12 07:02 | NUR ---
pt requested that txt be given through aerosol mask
[2024-10-12] MEDS ORDERED: METO-408 PO (08:24)
[2024-10-12] MEDS ORDERED: POTA15TA11 PO (08:24)
[2024-10-12] MEDS ORDERED: METF-444 PO (08:24)
[2024-10-12] MEDS ORDERED: DOXA2TAB2 PO (08:24)
[2024-10-12] MEDS ORDERED: MAGN400T53 PO (08:24)
[2024-10-12] MEDS ORDERED: OMEP20CA12 PO (08:24)
[2024-10-12] MEDS ORDERED: CILO50TA2 PO (08:24)
[2024-10-12] MEDS ORDERED: FINA5TAB41 PO (08:24)
[2024-10-12] MEDS ORDERED: GABA-1405 PO (08:24)
[2024-10-12] MEDS ORDERED: MELO-108 PO (08:24)
[2024-10-12] MEDS ORDERED: FURO20TA4 PO (08:24)
[2024-10-12] MEDS ORDERED: CITA-107 PO (08:24)
[2024-10-12] MEDS ORDERED: ATOR20TA65 PO (08:24)
[2024-10-12 08:34] LABS: CREATININE 1.4 mg/dL (0.5-1.3); MAGNESIUM 1.6 mg/dL (1.80-2.40); POTASSIUM 4.7 mmol/L (3.5-5.1)
--- NOTE | 2024-10-12 08:40 | NUR ---
Dr. Hou notified of home medications entered, pending MD review.
--- NOTE | 2024-10-12 08:40 | HMCIMG ---
FRONTAL CHEST RADIOGRAPH INDICATION: picc line placement COMPARISON: 10/11/2024 FINDINGS/IMPRESSION: monitor technician leads overlie the field of view. Tip of left PICC extends to the left axilla, but then courses back into the left arm. Remainder of the study is unchanged.
--- NOTE | 2024-10-12 08:54 | HMCIMG ---
PORTABLE CHEST RADIOGRAPH INDICATION: Dyspnea/SOB COMPARISON: 12/19/2023 FINDINGS: Image is somewhat underexposed, but the radiologic examination is still believed to be of reasonable diagnostic quality. Stable tracheostomy tube. Median sternotomy wires are in appropriate alignment. Shallow inspiration. Heart size is normal. The pulmonary vascularity and yosi appear normal. No evidence for consolidation. Left costophrenic angle is blunted. No pneumothorax detected. IMPRESSION: Shallow inspiration. Small left pleural effusion.
--- NOTE | 2024-10-12 08:56 | HMCIMG ---
RIGHT FOOT RADIOGRAPHS -2 VIEWS INDICATION: Gangrenous changes COMPARISON: None FINDINGS: AP, lateral views. No acute fracture or subluxation identified. No evidence for periosteal reaction, cortical erosive changes, or any abnormal subperiosteal bone resorption. Midfoot alignment is well maintained. Subcentimeter plantar calcaneal spur. Arterial wall calcific plaque. IMPRESSION: No evidence for fracture or osteomyelitis.
[2024-10-12] MEDS ORDERED: cefTRIAXone 1G VIAL IVPB SCH (09:00)
--- NOTE | 2024-10-12 09:26 | HMCIMG ---
ULTRASOUND ARTERIAL DUPLEX LOWER EXTREMITY, BILATERAL INDICATION: Peripheral vascular disease TECHNIQUE: Routine grayscale, color Doppler, and power Doppler ultrasound of the bilateral lower extremity arteries were obtained. COMPARISON: 11/12/2018 FINDINGS: Velocities in cm/sec. RIGHT: SLEEVE TURNER: 40 SFA: Prox 33, Mid 29, Distal 44 Popliteal: 31 proximally and 35 distally Anterior Tibial: 33 distally Posterior Tibial: 42 Dorsalis Pedis: 13 Monophasic flow along the right lower extremity arterial system. LEFT: SLEEVE TURNER: 64 SFA: Prox 33, Mid 416, Distal 230 Popliteal: 138 proximally and 85 distally Anterior Tibial: 51 distally Posterior Tibial: 19 Dorsalis Pedis: 22 Monophasic flow along the left lower extremity arterial system. Extensive calcific plaque along both lower extremity arterial system calle. IMPRESSION: Greater than 80% stenosis involving the mid left SFA and 50-80% involving the distal left SFA. Monophasic flow along the bilateral lower extremity arterial systems. Parameters as reported.
--- NOTE | 2024-10-12 09:41 | EKG ---
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
[2024-10-12] MEDS: INSULIN humuLIN R 100 UNIT/ML 3ML SQ SCH (09:42)
[2024-10-12] MEDS: HEParin 5,000 UNIT VIAL SQ SCH (09:43)
[2024-10-12] MEDS: INSULIN GLARgine 100 UNITS/ML 10 ML VIAL SQ SCH (09:43)
[2024-10-12] MEDS: ASPIRIN 81MG CHEW TAB PO SCH (09:45)
[2024-10-12] MEDS: cloPIDOgrel 75MG TAB PO SCH (09:45)
[2024-10-12] MEDS: PANTOPrazole 40 MG/VIAL IV SCH (09:45)
[2024-10-12] MEDS: ZOSYN 3.375GM +NS 50ML IV SCH (09:49)
[2024-10-12] MEDS: MAGNESIUM 2GM PREMIX 50ML 50 ML IV PRN (09:49)
[2024-10-12] MEDS: Solu-medROL 40MG VIAL IVP SCH (09:49)
[2024-10-12] MEDS: GABAPENTIN 300 MG CAPSULE PO SCH (13:20)
--- NOTE | 2024-10-12 14:01 | CONS ---
[facility] CONSULTATION NOTE Date Patient Seen: October 12, 2024 Time of Visit: 13:57 Supervising Physician: Dr. Dewitt Reason for Consultation: Acute on chronic respiratory failure Primary Care Physician: David Turner MD Outpatient Specialists: [ ] Inpatient Consults: [ ] PROBLEM LIST: Acute on chronic hypoxemic respiratory failure status post tracheostomy creation in the past, POA sputum culture positive for rare Gram-positive rods. Right foot gangrene, POA Peripheral artery disease, POA Urinary tract infection, POA Acute kidney injury, POA on 02/12/2024 creatinine 1.1, today creatinine 1.7 Uncontrolled Diabetes mellitius type2, POA HgA1c 10.0 Suspected pneumonia, POA Hypertension CKD History of CVA with the right-sided hemiparesis HPI: This is a 69-year-old male who has past medical history that is significant for CVA with right-sided hemiparesis, diabetes mellitus type 2, hypertension, renal insufficiency, CAD, GERD, BPH, PAD. 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 Of note, the patient has a tracheostomy in place due to chronic respiratory failure after his CVA. There was also report of right foot pain as the patient has gangrenous changes to the right foot distal aspect that has been ongoing since February of 2024. Based on the report, the patient has been seen in the outpatient setting by Cardiology Services Dr. Acuña and was deemed not a candidate for revascularization. The patient has a nephew who is a ballistics professor in [place] and he recommended a ballistics professor in [place] who attempted revascularization using a pedal approach about two months ago but this did not help, there was also a different doctor who tried a revascularization from a jugular approach but that did not help. Further recommendations for management was a right AKA to which the has refused and is wanting to continue trying saving the limb. The patient was brought into the ICU and critical Care/Pulmonary team was consulted for further respiratory management. At the time of my visit, the patient was lying in bed. The staff nurse reports thick and tenacious sputum and requiring multiple suctioning. No other complaint. PAST MEDICAL HX: see above PAST SURGICAL HX: noncontributory SOCIAL HISTORY: No tobacco, ETOH, or illicit drug use Coded Allergies: No Known Drug Allergies (Verified Allergy, Unknown, 04/26/18) REVIEW OF SYSTEMS: 12 point ROS reviewed with patient. Pertinent positives mentioned above. Otherwise negative. PHYSICAL EXAM: GENERAL: alert, weak, awake oriented x 3 HEENT: EOMI, Sclera non icteric, moist mucosa NECK: Supple, no JVD, trachea midline LUNGS: Diminished breath sounds bilaterally. No wheezes HEART: Regular rate and rhythm. Normal S1 and S2, without murmurs ABD: Abdomen soft, nontender. Bowel sounds present EXT: No clubbing cyanosis or edema NEURO: Alert and oriented to person, follows commands Vital Signs (last 8hr) Date Time Temp Pulse Resp B/P (MAP) Pulse Ox O2 Delivery O2 Flow Rate FiO2 10/12/24 12:00 98.4 60 17 121/53 97 Ventilator 28 10/12/24 11:02 67 18 10/12/24 11:00 69 22 140/59 97 Ventilator 28 10/12/24 10:00 69 22 146/58 96 Ventilator 28 10/12/24 09:10 74 20 10/12/24 09:00 77 22 142/63 100 Ventilator 28 10/12/24 08:00 98 Ventilator+ 28 10/12/24 08:00 79 22 164/67 97 Ventilator 28 10/12/24 07:44 97.9 78 17 144/68 98 Ventilator 28 10/12/24 07:00 77 16 161/67 98 Ventilator 28 10/12/24 06:09 65 18 10/12/24 06:09 64 19 LABS: Hematology Labs: Test 10/12/24 01:43 Range/Units White Blood Count 9.0 4.8-10.8 K/uL Red Blood Count 3.43 L 4.50-6.20 MIL/uL Hemoglobin 8.7 L 14.0-18.0 g/dL Hematocrit 27.3 L 42-54 % Mean Corpuscular Volume 79.6 79-99 fL Mean Corpuscular Hemoglobin 25.4 L 27.0-33.0 pg Mean Corpuscular Hemoglobin Concent 31.9 L 32.0-36.0 g/dL Red Cell Distribution Width 16.3 H 11.0-15.5 % Platelet Count 299 130-400 K/uL Mean Platelet Volume 9.7 7.5-10.5 fL Immature Granulocyte % (Auto) 1.6 H 0-1 % Neutrophils (%) (Auto) 87.9 H 40.0-77.0 % Lymphocytes (%) (Auto) 6.6 L 21.0-51.0 % Monocytes (%) (Auto) 3.1 3.0-13.0 % Eosinophils (%) (Auto) 0.7 0.0-8.0 % Basophils (%) (Auto) 0.1 0.0-5.0 % Neutrophils # (Auto) 7.9 H 1.8-7.7 K/uL Lymphocytes # (Auto) 0.6 L 1.0-4.8 K/uL Monocytes # (Auto) 0.3 0.1-1.0 K/uL Eosinophils # (Auto) 0.06 0.00-0.70 K/uL Basophils # (Auto) 0.01 0.00-0.20 K/uL Absolute Immature Granulocyte (auto 0.14 0-1 K/uL Nucleated Red Blood Cells 0.0 0.0-0.19 % White Cell Morphology Comment See comments Chemistry Labs: Test 10/12/24 11:29 10/12/24 07:32 10/12/24 01:43 10/11/24 23:23 Range/Units Whole Blood Glucose 386 H 70-110 MG/DL Sodium Level 132 L 136-145 mmol/L Potassium Level 4.7 3.5-5.1 mmol/L Chloride Level 97 L 101-111 mmol/L Carbon Dioxide Level 24 21-32 mmol/L Blood Urea Nitrogen 35 H 7-18 mg/dL Creatinine 1.4 H 0.5-1.3 mg/dL Glomerular Filtration Rate Calc 54 >90 mL/min Random Glucose 400 *H 70-105 mg/dL Lactic Acid Level 1.7 0.8-2.5 mmol/L Total Calcium 8.5 8.5-10.1 mg/dL Magnesium Level 1.60 L 1.80-2.40 mg/dL Total Creatine Kinase 55 # 21-232 U/L Hemoglobin A1c 10.0 H 4.0-6.0 % Estimated Average Glucose (eAG) 240 H 70-126 mg/dL Phosphorus Level 2.8 2.5-4.9 mg/dL Troponin I High Sensitivity 7.8 4-75 ng/L B-Type Natriuretic Peptide 41 0-100 pg/mL Coagulation Labs: Test 10/12/24 01:43 Range/Units Prothrombin Time 10.9 9.6-11.6 SEC Prothromb Time International Ratio 1.03 0.85-1.15 Activated Partial Thromboplast Time 23.9 L 26.3-35.5 SEC DIAGNOSTICS / RADIOLOGY RESULTS: [ ] PLAN Critical Care/Pulmonary team was consulted for respiratory management. Currently, the patient is in his assigned room and is to home vent. He will continue on DuoNeb treatment. We will also start the patient on 3% saline inhalation. We will continue steroid therapy as ordered. The patient will continue antibiotic course with Zosyn and doxy combination. We will defer further right lower extremity gangrenous changes to the Cardiology team who has been consulted and we will hold on surgical consultation at this time given the spouse is reluctant to undergo amputation. We will monitor the patient's progress and response to management. We will continue to provide general supportive care, GI and DVT prophylaxis. Further orders per attending MD and hospital course. NEURO: Minimize central acting medications as possible. Fall Precautions. Well lighted room through the day and minimize interruptions through the night to prevent acute delirium. PULMONARY: Supplemental 02 as needed Titrate Fio2 to keep Spo2 > or = 90% DuoNebs and CPT as needed IS hourly while awake for pulmonary hygiene Out of bed to chair as tolerated VAP Bundle Vent/BIPAP Settings: Tracheostomy on home vent CARDIOVASCULAR: Follow hemodynamics. Titrate vasopressor to keep MAP >65 or systolic blood pressure >95mmHg DIPS: None LINES: PIV's GI & NUTRITION: Continue nutritional support Aspirations precautions Prokinetic agents and laxatives as needed KIDNEYS & ELECTROLYTES: Strict monitoring of intake and output Daily weights Avoid nephrotoxic agents Monitor electrolytes and replace as needed Goal urine output of 30mL/hr or 0.5mL/kg/hr Urine output: [ ] Fluid Balance: [ ] ENDOCRINE: Maintain blood glucose between 100-180 at all times. Insulin sliding scale for blood glucose management INFECTIOUS DISEASE: Trend temperature. Acosta-culture if febrile. Micro: Sputum Antibiotics: Zosyn and doxy HEMATOLOGY & COAGULATION: Monitor H&H. Keep Hgb > 7 Transfuse 1 unit of PRBC for Hgb < 7 Transfuse 1 pack of platelets of platelets < 20, 000 Watch for any signs and symptoms of bleeding SKIN: Pressure ulcer prevention per facility protocol Rehab: PT/OT Prophylaxis: GI: Pepcid DVT: Lovenox Code Status: Full Resuscitation Disposition:ICU Other: I personally spent 40 minutes of critical care time in treatment of this patient. This includes patient management, time at bedside, time reviewing tests, labs, appropriate images and studies, documentation, and patient care coordination. This time excludes separately billable procedures. Case was discussed and seen with my supervising physician. The above plan was formulated and agreed upon. LUCA HARTLEY NP October 12, 2024 14:01
--- NOTE | 2024-10-12 15:18 | NUR ---
Offered patient to change position in bed, patient refused to be turned at this time. Nurse Rose educated patient on pressure ulcer prevention and encouraged turning q2h to prevent further skin breakdown. Patient continued to refused, charge nurse Roxana aware.
--- NOTE | 2024-10-12 16:21 | NUR ---
DCP: INITIAL ASSESSMENT Patient lives with ex-spouse, Liseth Preciado. He has no home health but does have PHC with [facility] X 42 hours. Son is his provider. DME: jaylon-walker, ventilator, wheelchair. Patient needs help with ADLs and doesn't drive. PCP is Dr. David Turner. Pharmacy is [facility] located on [address] in [place]. Patient's spouse voiced no safety concerns regarding returning home and states they has no difficulty with housing or buying food. DCP is home. Addendum: 10/12/24 at 1624 by NANCY ROLDAN Amended: Links added.
--- NOTE | 2024-10-12 16:31 | CONS ---
Laboratory: [ ] Hematology Labs: Test 10/12/24 01:43 Range/Units White Blood Count 9.0 4.8-10.8 K/uL Red Blood Count 3.43 L 4.50-6.20 MIL/uL Hemoglobin 8.7 L 14.0-18.0 g/dL Hematocrit 27.3 L 42-54 % Mean Corpuscular Volume 79.6 79-99 fL Mean Corpuscular Hemoglobin 25.4 L 27.0-33.0 pg Mean Corpuscular Hemoglobin Concent 31.9 L 32.0-36.0 g/dL Red Cell Distribution Width 16.3 H 11.0-15.5 % Platelet Count 299 130-400 K/uL Mean Platelet Volume 9.7 7.5-10.5 fL Immature Granulocyte % (Auto) 1.6 H 0-1 % Neutrophils (%) (Auto) 87.9 H 40.0-77.0 % Lymphocytes (%) (Auto) 6.6 L 21.0-51.0 % Monocytes (%) (Auto) 3.1 3.0-13.0 % Eosinophils (%) (Auto) 0.7 0.0-8.0 % Basophils (%) (Auto) 0.1 0.0-5.0 % Neutrophils # (Auto) 7.9 H 1.8-7.7 K/uL Lymphocytes # (Auto) 0.6 L 1.0-4.8 K/uL Monocytes # (Auto) 0.3 0.1-1.0 K/uL Eosinophils # (Auto) 0.06 0.00-0.70 K/uL Basophils # (Auto) 0.01 0.00-0.20 K/uL Absolute Immature Granulocyte (auto 0.14 0-1 K/uL Nucleated Red Blood Cells 0.0 0.0-0.19 % White Cell Morphology Comment See comments Chemistry Labs: Test 10/12/24 15:38 10/12/24 07:32 10/12/24 01:43 10/11/24 23:23 Range/Units Whole Blood Glucose 259 H 70-110 MG/DL Sodium Level 132 L 136-145 mmol/L Potassium Level 4.7 3.5-5.1 mmol/L Chloride Level 97 L 101-111 mmol/L Carbon Dioxide Level 24 21-32 mmol/L Blood Urea Nitrogen 35 H 7-18 mg/dL Creatinine 1.4 H 0.5-1.3 mg/dL Glomerular Filtration Rate Calc 54 >90 mL/min Random Glucose 400 *H 70-105 mg/dL Lactic Acid Level 1.7 0.8-2.5 mmol/L Total Calcium 8.5 8.5-10.1 mg/dL Magnesium Level 1.60 L 1.80-2.40 mg/dL Total Creatine Kinase 55 # 21-232 U/L Hemoglobin A1c 10.0 H 4.0-6.0 % Estimated Average Glucose (eAG) 240 H 70-126 mg/dL Phosphorus Level 2.8 2.5-4.9 mg/dL Troponin I High Sensitivity 7.8 4-75 ng/L B-Type Natriuretic Peptide 41 0-100 pg/mL Coagulation Labs: Test 10/12/24 01:43 Range/Units Prothrombin Time 10.9 9.6-11.6 SEC Prothromb Time International Ratio 1.03 0.85-1.15 Activated Partial Thromboplast Time 23.9 L 26.3-35.5 SEC ATTESTATION BY PHYSICIAN I have seen and examined the patient, reviewed the above documentation, participated in medical decision making, made necessary modifications, and agree with the treatment plan as documented by my mid-level provider above. MD NATASHA Mensah JAMES R MD October 12, 2024 16:31
--- NOTE | 2024-10-12 16:50 | CONS ---
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 Onset one week ago. Aggravated by physical activity. Also the patient is endorsing right foot pain, the patient recently underwent peripheral angiogram with the attempt at revascularization by a bundle cutter in [facility]. The patient was previously seen by and was told that he was not a candidate for revascularization. Per 's statement she received recommendations for [id number] amputation but has been hesitant. The patient was brought to the ICU and critical Care/Pulmonary team was consulted for further respiratory management. The patient underwent arterial Doppler ultrasounds that revealed monophasic waveform bilaterally infrapopliteal. Cardiology was consulted for further assessment of peripheral arterial disease ] Past Medical History: [ Refer to chart] Past Surgical History: [ Refer to HPI] Family History: [ Refer to HPI] Social History: [Refer to HPI ] Habits: [Never] smoker. [Denies] alcohol consumption. [Denies] illicit drug use Review of Systems: Review of 12 point systems was negative set per HPI Physical Examination: GENERAL: [No acute distress.] HEAD: [Normal with no signs of head trauma.] EYES: [PERRLA, EOMI, conjunctiva and sclera normal.] ENT: [Hearing grossly intact, normal oropharynx.] NECK: [Supple without JVD. There is no tenderness, lymphadenopathy, or masses. No thyromegaly. Normal carotid upstrokes without bruits.] LUNGS: [Clear breath sounds bilaterally. No wheezes, or rhonchi.] HEART: [Normal rate and rhythm. Normal S1 and S2 without mumurs, gallop or rub.] VASC: [Peripheral pulses +2 bilaterally.] ABD: [Bowel sounds normal, soft, nontender, no masses, no organomegaly. No audible bruits.] : [Not examined] LYMPH: [No lymphadenopathy noted.] Extremities: Other (+1 pitting edema to bilateral lower extremities) Skin: Other (Positive gangrene to distal phalanges right foot) NEURO: [Awake, alert, and oriented x3. No focal sensory or strength deficits noted.] Vital Signs (last 8hr) Date Time Temp Pulse Resp B/P (MAP) Pulse Ox O2 Delivery O2 Flow Rate FiO2 10/12/24 16:00 97.9 56 18 166/70 99 Ventilator 28 10/12/24 15:50 51 18 10/12/24 15:00 53 11 129/57 98 Ventilator 28 10/12/24 14:00 56 19 166/68 99 Ventilator 28 10/12/24 13:00 64 15 131/51 97 Ventilator 28 10/12/24 12:30 58 18 10/12/24 12:00 98.4 60 17 121/53 97 Ventilator 28 10/12/24 11:02 67 18 10/12/24 11:00 69 22 140/59 97 Ventilator 28 10/12/24 10:00 69 22 146/58 96 Ventilator 28 10/12/24 09:10 74 20 10/12/24 09:00 77 22 142/63 100 Ventilator 28 Laboratory: [ ] Hematology Labs: Test 10/12/24 01:43 Range/Units White Blood Count 9.0 4.8-10.8 K/uL Red Blood Count 3.43 L 4.50-6.20 MIL/uL Hemoglobin 8.7 L 14.0-18.0 g/dL Hematocrit 27.3 L 42-54 % Mean Corpuscular Volume 79.6 79-99 fL Mean Corpuscular Hemoglobin 25.4 L 27.0-33.0 pg Mean Corpuscular Hemoglobin Concent 31.9 L 32.0-36.0 g/dL Red Cell Distribution Width 16.3 H 11.0-15.5 % Platelet Count 299 130-400 K/uL Mean Platelet Volume 9.7 7.5-10.5 fL Immature Granulocyte % (Auto) 1.6 H 0-1 % Neutrophils (%) (Auto) 87.9 H 40.0-77.0 % Lymphocytes (%) (Auto) 6.6 L 21.0-51.0 % Monocytes (%) (Auto) 3.1 3.0-13.0 % Eosinophils (%) (Auto) 0.7 0.0-8.0 % Basophils (%) (Auto) 0.1 0.0-5.0 % Neutrophils # (Auto) 7.9 H 1.8-7.7 K/uL Lymphocytes # (Auto) 0.6 L 1.0-4.8 K/uL Monocytes # (Auto) 0.3 0.1-1.0 K/uL Eosinophils # (Auto) 0.06 0.00-0.70 K/uL Basophils # (Auto) 0.01 0.00-0.20 K/uL Absolute Immature Granulocyte (auto 0.14 0-1 K/uL Nucleated Red Blood Cells 0.0 0.0-0.19 % White Cell Morphology Comment See comments Chemistry Labs: Test 10/12/24 15:38 10/12/24 07:32 10/12/24 01:43 10/11/24 23:23 Range/Units Whole Blood Glucose 259 H 70-110 MG/DL Sodium Level 132 L 136-145 mmol/L Potassium Level 4.7 3.5-5.1 mmol/L Chloride Level 97 L 101-111 mmol/L Carbon Dioxide Level 24 21-32 mmol/L Blood Urea Nitrogen 35 H 7-18 mg/dL Creatinine 1.4 H 0.5-1.3 mg/dL Glomerular Filtration Rate Calc 54 >90 mL/min Random Glucose 400 *H 70-105 mg/dL Lactic Acid Level 1.7 0.8-2.5 mmol/L Total Calcium 8.5 8.5-10.1 mg/dL Magnesium Level 1.60 L 1.80-2.40 mg/dL Total Creatine Kinase 55 # 21-232 U/L Hemoglobin A1c 10.0 H 4.0-6.0 % Estimated Average Glucose (eAG) 240 H 70-126 mg/dL Phosphorus Level 2.8 2.5-4.9 mg/dL Troponin I High Sensitivity 7.8 4-75 ng/L B-Type Natriuretic Peptide 41 0-100 pg/mL Coagulation Labs: Test 10/12/24 01:43 Range/Units Prothrombin Time 10.9 9.6-11.6 SEC Prothromb Time International Ratio 1.03 0.85-1.15 Activated Partial Thromboplast Time 23.9 L 26.3-35.5 SEC Diagnostics / Radiology: [Copy/Paste Echos/Imaging Report here] Assessment: [Acute on chronic respiratory failure, POA Tracheostomy status, POA Right foot gangrene, POA Peripheral artery disease, POA Urinary tract infection, POA Acute kidney injury, POA on 02/12/2024 creatinine 1.1, today creatinine 1.7 Uncontrolled Diabetes mellitius type2, POA Suspected pneumonia, POA Hypertension CKD History of CVA with the right-sided hemiparesis] ] Plan: [ #PAD The patient presented to the emergency department endorsing shortness of breath with underlying right foot pain The patient was initially seen by Dr. Childress and start her clinic and was determined to not be a candidate for revascularization The patient underwent peripheral angiogram will attempted revascularization by a bundle cutter [place] two months ago Arterial lower extremity Doppler ultrasound revealed greater than 80% stenosis involving the mid left SFA and 50-80% involving the distal left SFA, monophasic flow along the bilateral lower extremity arterial systems Remarkable lab results with a creatinine 1.4, A1c 10%, troponin negative x1, BNP41 Continue aspirin 81 mg daily Plavix 75 mg daily and atorvastatin 40 mg daily We will have Dr Childress assess the patient on monday for further recommendations of PAD # hypertension Blood pressure is averaging 150s Currently denying any cardiac symptoms or anginal equivalents Prior 2D echocardiogram from 2022 EF 55-60% with no wall motion or valvular abnormalities grade 1 diastolic dysfunction , pending repeat Echo, for now due to pulmonary edema on CXR, stop IVFs Continue Toprol-XL 25 mg daily Treat pain prn morphine Thank you for this consult cardiology will continue to follow along iQan zaragoza MD ATTESTATION BY PHYSICIAN I have seen and examined the patient, reviewed the above documentation, participated in medical decision making, made necessary modifications, and agree with the treatment plan as documented by my mid-level provider above. MD NATASHA Abdi DANIELLE M MD October 12, 2024 16:50
[2024-10-12] MEDS: morPHINE 2 MG SYG IVP PRN (17:04)
[2024-10-12] MEDS: SODIUM CHLORIDE 3% FOR INHALATION 4 ML/AMP VIAL.NEB IH SCH (18:15)
[2024-10-12] MEDS: DOXAZOSIN MESYLATE 2 MG TABLET PO SCH (21:11)
[2024-10-12] MEDS: citaLOPram 20 MG TABLET PO SCH (21:11)
[2024-10-12] MEDS: CILOstazol 100 MG TAB PO SCH (21:14)
[2024-10-12] MEDS: atorVAStatin 40 MG TABLET PO SCH (21:26)
[2024-10-13] VITALS (33 sets, daily range): BP systolic 97–164; BP diastolic 25–110; PULSE 50–91; RESP 13–147; TEMP 98–98.5; O2SAT 98–100
[2024-10-13 08:14] LABS: MEAN CORPUSCULAR HGB CONC 32.4 g/dL (32.0-36.0); MEAN CORPUSCULAR VOLUME 77.2 fL (79-99); PLATELET COUNT (AUTO) 341 K/uL (130-400); RED BLOOD CELL COUNT(AUTO) 3.24 MIL/uL (4.50-6.20); RED CELL DISTRIBUTION WIDTH 16.4 % (11.0-15.5); WHITE BLOOD COUNT (AUTO) 10.4 K/uL (4.8-10.8)
[2024-10-13 08:22] LABS: MAGNESIUM 2.1 mg/dL (1.80-2.40)
[2024-10-13] MEDS: finaSTERide 5 MG TABLET PO SCH (08:59)
[2024-10-13] MEDS: metOPROLol sucCINATE 25 MG TAB.SR.24H PO SCH (08:59)
--- NOTE | 2024-10-13 11:03 | NUR ---
CTA ABD AORTA RUNOFF EXAM ON HOLD: PER NURSE, WILL BRING PATIENT AFTER 2PM. PT ON VENT.
--- NOTE | 2024-10-13 11:58 | PN ---
[facility] CARDIOLOGY PROGRESS NOTE Date Patient Seen: October 13, 2024 Time of Visit: 11:54 Interval History: [No acute events overnight. The patient is endorsing right foot [id number] pain, we observe right necrotic digits. The patient will be assessed tomorrow morning by Dr. Childress ] Physical Examination: GENERAL: [No acute distress.] HEAD: [Normal with no signs of head trauma.] EYES: [PERRLA, EOMI, conjunctiva and sclera normal.] ENT: [Hearing grossly intact, normal oropharynx.] NECK: [Supple without JVD. There is no tenderness, lymphadenopathy, or masses. No thyromegaly. Normal carotid upstrokes without bruits.] LUNGS: [Clear breath sounds bilaterally. No wheezes, or rhonchi.] HEART: [Normal rate and rhythm. Normal S1 and S2 without mumurs, gallop or rub.] VASC: [Peripheral pulses +2 bilaterally.] ABD: [Bowel sounds normal, soft, nontender, no masses, no organomegaly. No audible bruits.] : [Not examined] LYMPH: [No lymphadenopathy noted.] Extremities: Other (+1 pitting edema to bilateral lower extremities) Skin: Other (Positive gangrene to distal phalanges right foot) NEURO: [Awake, alert, and oriented x3. No focal sensory or strength deficits noted.] Laboratory: [ ] Hematology Labs: Test 10/13/24 07:59 10/12/24 01:43 Range/Units White Blood Count 10.4 4.8-10.8 K/uL Red Blood Count 3.24 L 4.50-6.20 MIL/uL Hemoglobin 8.1 L 14.0-18.0 g/dL Hematocrit 25.0 L 42-54 % Mean Corpuscular Volume 77.2 L 79-99 fL Mean Corpuscular Hemoglobin 25.0 L 27.0-33.0 pg Mean Corpuscular Hemoglobin Concent 32.4 32.0-36.0 g/dL Red Cell Distribution Width 16.4 H 11.0-15.5 % Platelet Count 341 130-400 K/uL Mean Platelet Volume 10.0 7.5-10.5 fL Nucleated Red Blood Cells 0.0 0.0-0.19 % Red Blood Cell Morphology See comments Immature Granulocyte % (Auto) 1.6 H 0-1 % Neutrophils (%) (Auto) 87.9 H 40.0-77.0 % Lymphocytes (%) (Auto) 6.6 L 21.0-51.0 % Monocytes (%) (Auto) 3.1 3.0-13.0 % Eosinophils (%) (Auto) 0.7 0.0-8.0 % Basophils (%) (Auto) 0.1 0.0-5.0 % Neutrophils # (Auto) 7.9 H 1.8-7.7 K/uL Lymphocytes # (Auto) 0.6 L 1.0-4.8 K/uL Monocytes # (Auto) 0.3 0.1-1.0 K/uL Eosinophils # (Auto) 0.06 0.00-0.70 K/uL Basophils # (Auto) 0.01 0.00-0.20 K/uL Absolute Immature Granulocyte (auto 0.14 0-1 K/uL White Cell Morphology Comment See comments Chemistry Labs: Test 10/13/24 11:39 10/13/24 07:59 10/12/24 07:32 10/12/24 01:43 Range/Units Whole Blood Glucose 409 #*H 70-110 MG/DL Bedside Glucose Comment Notified Nurse Sodium Level 131 L 136-145 mmol/L Potassium Level 4.0 3.5-5.1 mmol/L Chloride Level 99 L 101-111 mmol/L Carbon Dioxide Level 24 21-32 mmol/L Blood Urea Nitrogen 30 H 7-18 mg/dL Creatinine 1.0 0.5-1.3 mg/dL Glomerular Filtration Rate Calc 81 >90 mL/min Random Glucose 324 H 70-105 mg/dL Total Calcium 8.0 L 8.5-10.1 mg/dL Magnesium Level 2.10 1.80-2.40 mg/dL Lactic Acid Level 1.7 0.8-2.5 mmol/L Total Creatine Kinase 55 # 21-232 U/L Hemoglobin A1c 10.0 H 4.0-6.0 % Estimated Average Glucose (eAG) 240 H 70-126 mg/dL Phosphorus Level 2.8 2.5-4.9 mg/dL Test 10/11/24 23:23 Range/Units Troponin I High Sensitivity 7.8 4-75 ng/L B-Type Natriuretic Peptide 41 0-100 pg/mL Coagulation Labs: Test 10/12/24 01:43 Range/Units Prothrombin Time 10.9 9.6-11.6 SEC Prothromb Time International Ratio 1.03 0.85-1.15 Activated Partial Thromboplast Time 23.9 L 26.3-35.5 SEC Diagnostics / Radiology: [Copy/Paste Echos/Imaging Report here] Impression and Plan: [Acute on chronic respiratory failure, POA Tracheostomy status, POA Right foot gangrene, POA Peripheral artery disease, POA Urinary tract infection, POA Acute kidney injury, POA on 02/12/2024 creatinine 1.1, today creatinine 1.7 Uncontrolled Diabetes mellitius type2, POA Suspected pneumonia, POA Hypertension CKD History of CVA with the right-sided hemiparesis] ] Plan: [ #PAD The patient presented to the emergency department endorsing shortness of breath with underlying right foot pain The patient was initially seen by Dr. Childress and start her clinic and was determined to not be a candidate for revascularization The patient underwent peripheral angiogram will attempted revascularization by a pit hoist operator [place] two months ago Arterial lower extremity Doppler ultrasound revealed greater than 80% stenosis involving the mid left SFA and 50-80% involving the distal left SFA, monophasic flow along the bilateral lower extremity arterial systems Remarkable lab results with a creatinine 1.4, A1c 10%, troponin negative x1, BNP41 Continue aspirin 81 mg daily Plavix 75 mg daily and atorvastatin 40 mg daily Order an abdominal CTA with lower extremity runoff to further assess the patient's anatomy We will have Dr Childress assess the patient on monday for further recomm endations of PAD # hypertension Blood pressure is averaging 150s Currently denying any cardiac symptoms or anginal equivalents Prior 2D echocardiogram from 2022 EF 55-60% with no wall motion or valvular abnormalities grade 1 diastolic dysfunction , pending repeat Echo, for now due to pulmonary edema on CXR, stop IVFs Continue Toprol-XL 25 mg daily Treat pain prn morphine Thank you for this consult cardiology will continue to follow along ATTESTATION BY PHYSICIAN I have seen and examined the patient, reviewed the above documentation, participated in medical decision making, made necessary modifications, and agree with the treatment plan as documented by my mid-level provider above. MD NATASHA Mensah JAMES R MD October 13, 2024 11:58
[2024-10-13] MEDS: INSULIN humuLIN R 100 UNIT/ML 3ML SQ SCH ×2 (11:59→15:55)
--- NOTE | 2024-10-13 12:47 | PN ---
[facility] PROGRESS NOTE Date of Service: October 13, 2024 Time of Service: 12:38 SUBJECTIVE: 10/13 patient seen at bedside, no acute events overnight. Blood culture is positive in 1/2 bottles likely contaminant, we will follow up with cultures and sensitivities. Echocardiogram pending, we will follow up. Patient to be assessed for possible angiogram tomorrow by Cardiology. Continue with empiric antibiotics. Blood sugar elevated, sliding scale increased to high sensitivity and glargine increased to 20 units twice daily, we will continue to monitor blood sugars. REVIEW OF SYSTEMS CONSTITUTIONAL: Denies fevers, chills, or night sweats. No unintentional weight loss reported. NEUROLOGICAL: Denies headache, amaurosis fugax, motor weakness, sensory deficit, vertigo/spinning sensation, gait abnormalities, or tremors. ENT: No hearing loss, otalgia, otorrhea, rhinitis, rhinorrhea, hoarseness, or sore throat. CARDIOVASCULAR: Denies any exertional angina, dyspnea on exertion, orthopnea, paroxysmal nocturnal dyspnea, palpitations, life-threatening arrhythmias, claudication. PULMONARY: Denies any shortness of breath, cough, phlegm/sputum, hemoptysis, pleuritic chest pain. SLEEP: Denies morning headaches, daytime somnolence or napping. Denies difficulty falling asleep, staying asleep, waking from sleep. Denies knowledge of snoring. GASTROINTESTINAL: Denies any type of dysphagia to either liquids or solids. Denies nausea, vomiting, pyrosis, early satiety, abdominal pain, diarrhea, constipation, or changes in stool consistency or caliber. Denies coffee-ground emesis, hematemesis, hematochezia, or melanotic stools. GENITOURINARY: Denies frequency, urgency, nocturia, hematuria or incontinence (Storage/Irritative symptoms.) Low urinary stream, straining to void, urinary intermittency or hesitancy, splitting of the voiding stream, terminal dribbling. ENDOCRINOLOGIC: Denies polyuria, polydipsia, polyphagia or heat/cold intolerances. HEMATOLOGIC: Denies thrombophilia/previous clots, or coagulopathy/bleeding disorders. ONCOLOGIC: Denies personal history of malignancy. DERMATOLOGIC: Denies rashes or pruritus. PSYCHIATRIC: Denies any suicidal or homicidal ideation. Denies hallucinations. PHYSICAL EXAM GENERAL APPEARANCE: The patient is awake, alert, and oriented, in no acute cardiopulmonary distress. NEUROLOGICAL: Cranial nerves II-XII grossly intact. Motor is 5/5 in bilateral upper and lower extremities proximal to distal. No sensory deficits. HEENT: Face is symmetric. Pupils are equal and reactive. Extraocular movements are intact. NECK: Supple. No JVD. No thyromegaly. No submental, submandibular, pre- /postauricular, occipital or supraclavicular lymphadenopathy. CHEST: Normal chest expansion. No Telemetry. LUNGS: Absence of any rales, rhonchi or any wheezing. CARDIOVASCULAR: Regular. S1 and S2 normal. No appreciable rubs, murmurs or gallops. ABDOMEN: Soft, nontender, and nondistended. There is no rebound, voluntary guarding, or rigidity. : Deferred. No Nixon. EXTREMITIES: Non-edematous and not cyanotic. No clubbing. Good capillary refill. SKIN: No skin breakdown. Vital Signs (last 8hr) Date Time Temp Pulse Resp B/P (MAP) Pulse Ox O2 Delivery O2 Flow Rate FiO2 10/13/24 12:00 98 Ventilator+ 28 10/13/24 12:00 98.1 68 24 114/56 98 Ventilator 28 10/13/24 11:02 61 18 10/13/24 11:00 61 19 113/76 99 Ventilator 28 10/13/24 10:00 66 147 127/58 98 Ventilator 28 10/13/24 09:00 62 18 10/13/24 09:00 61 22 148/72 99 Ventilator 28 10/13/24 08:00 98.2 63 22 138/55 99 Ventilator 28 10/13/24 08:00 98 Ventilator+ 28 10/13/24 06:44 65 23 149/65 100 Ventilator 28 10/13/24 06:18 55 18 10/13/24 06:17 55 18 10/13/24 05:44 65 29 157/110 100 Ventilator 10/13/24 04:44 98.4 50 13 158/71 100 Ventilator 28 LABS: Laboratory: Test 10/13/24 11:39 10/13/24 07:59 10/12/24 07:32 10/12/24 01:43 Range/Units Whole Blood Glucose 409 #*H 70-110 MG/DL Bedside Glucose Comment Notified Nurse White Blood Count 10.4 4.8-10.8 K/uL Red Blood Count 3.24 L 4.50-6.20 MIL/uL Hemoglobin 8.1 L 14.0-18.0 g/dL Hematocrit 25.0 L 42-54 % Mean Corpuscular Volume 77.2 L 79-99 fL Mean Corpuscular Hemoglobin 25.0 L 27.0-33.0 pg Mean Corpuscular Hemoglobin Concent 32.4 32.0-36.0 g/dL Red Cell Distribution Width 16.4 H 11.0-15.5 % Platelet Count 341 130-400 K/uL Mean Platelet Volume 10.0 7.5-10.5 fL Nucleated Red Blood Cells 0.0 0.0-0.19 % Red Blood Cell Morphology See comments Sodium Level 131 L 136-145 mmol/L Potassium Level 4.0 3.5-5.1 mmol/L Chloride Level 99 L 101-111 mmol/L Carbon Dioxide Level 24 21-32 mmol/L Blood Urea Nitrogen 30 H 7-18 mg/dL Creatinine 1.0 0.5-1.3 mg/dL Glomerular Filtration Rate Calc 81 >90 mL/min Random Glucose 324 H 70-105 mg/dL Total Calcium 8.0 L 8.5-10.1 mg/dL Magnesium Level 2.10 1.80-2.40 mg/dL Lactic Acid Level 1.7 0.8-2.5 mmol/L Total Creatine Kinase 55 # 21-232 U/L Immature Granulocyte % (Auto) 1.6 H 0-1 % Neutrophils (%) (Auto) 87.9 H 40.0-77.0 % Lymphocytes (%) (Auto) 6.6 L 21.0-51.0 % Monocytes (%) (Auto) 3.1 3.0-13.0 % Eosinophils (%) (Auto) 0.7 0.0-8.0 % Basophils (%) (Auto) 0.1 0.0-5.0 % Neutrophils # (Auto) 7.9 H 1.8-7.7 K/uL Lymphocytes # (Auto) 0.6 L 1.0-4.8 K/uL Monocytes # (Auto) 0.3 0.1-1.0 K/uL Eosinophils # (Auto) 0.06 0.00-0.70 K/uL Basophils # (Auto) 0.01 0.00-0.20 K/uL Absolute Immature Granulocyte (auto 0.14 0-1 K/uL White Cell Morphology Comment See comments Prothrombin Time 10.9 9.6-11.6 SEC Prothromb Time International Ratio 1.03 0.85-1.15 Activated Partial Thromboplast Time 23.9 L 26.3-35.5 SEC Hemoglobin A1c 10.0 H 4.0-6.0 % Estimated Average Glucose (eAG) 240 H 70-126 mg/dL Phosphorus Level 2.8 2.5-4.9 mg/dL Test 10/12/24 01:32 10/11/24 23:23 10/11/24 23:04 Range/Units Urine Color LIGHT-YELLOW YELLOW Urine Appearance CLOUDY H CLEAR Urine pH 5.5 5.0-8.0 Urine Specific [place] 1.017 1.001-1.031 Urine Protein 10 H NEGATIVE mg/dL Urine Glucose (UA) >=1000 H NEGATIVE mg/dL Urine Ketones NEGATIVE NEGATIVE mg/dL Urine Occult Blood NEGATIVE NEGATIVE Urine Nitrate NEGATIVE NEGATIVE Urine Bilirubin NEGATIVE NEGATIVE mg/dL Urine Urobilinogen 0.2 0.2-1.0 mg/dL Urine Leukocyte Esterase 250 H NEGATIVE Marita/uL Urine RBC 0-1 0-1 /HPF Urine WBC 51-100 H 0-1 /HPF Urine Squamous Epithelial Cells RARE 0-2 /HPF Urine Bacteria MOD None Seen /HPF Urine Random Creatinine 101.79 30-135 mg/dL Urine Random Sodium 44 40-220 mmol/l Troponin I High Sensitivity 7.8 4-75 ng/L B-Type Natriuretic Peptide 41 0-100 pg/mL Blood Gas Specimen Type Arterial Arterial Blood pH 7.494 H 7.350-7.450 Arterial Blood Partial Pressure CO2 31 L 35-48 mmHg Arterial Blood Partial Pressure O2 308.2 *H 83.0-108.0 mmHg Arterial Blood HCO3 22.9 21.0-28.0 mmol/L Arterial Blood Oxygen Saturation 99.3 H 94.0-98.0 % Arterial Blood Base Excess 0.1 -2.0-3.0 mmol/L Hemoglobin (Blood Gas) 9.5 L 13.5-17.5 g/dL Sodium (Blood Gas) 130 L 136-145 MMOL/L Bedside Potassium (Blood Gas) 4.3 3.4-4.5 MMOL/L Bedside Chloride (Blood Gas) 97 L 98-107 MMOL/L Bedside Glucose (Blood Gas) 310 H 65-95 MG/DL Bedside Ionized Calcium (Blood Gas) 1.11 L 1.15-1.33 MMOL/L Bedside Lactic Acid (Blood Gas) 2.21 H 0.36-0.75 MMOL/L Blood Gas Temperature 37.0 35.5-37.0 CELSIUS Blood Gas Respiration Rate 10.0 min. Blood Gas Vent Mode AC ROOM AIR FiO2 28.0 % Blood Gas Tidal Volume 460 ml Blood Gas PEEP 5 cm H2O Blood Gas Specimen Comment LEFT RAD Current Medications Medications (Trade) Dose Ordered Sig/[place] Route PRN Reason Start Time Stop Time Status Last Admin Dose Admin Acetaminophen (TYLenol 325MG TAB) 650 mg Q4H PRN PO MILD PAIN (1-3) 10/12/24 01:00 11/11/24 00:59 Albuterol (DUOneb) 1 UDVIAL [id number] IH 10/12/24 06:00 11/11/24 05:59 10/13/24 11:01 1 UDVIAL Aspirin (Aspirin 81mg Chew Tab) 81 mg DAILY PO 10/12/24 09:00 11/11/24 08:59 10/13/24 08:59 81 MG Atorvastatin Calcium (LIPItor 40MG) 40 mg HS PO 10/12/24 21:00 11/11/24 20:59 10/12/24 21:26 40 MG Ceftriaxone Sodium (ROCEphine 1G INJ) 1 gm Q24H IVPB 10/12/24 09:00 10/12/24 02:17 DC Cilostazol (PLETal 100MG TAB) 50 mg BID PO 10/12/24 21:00 11/11/24 20:59 10/13/24 09:00 50 MG Citalopram Hydrobromide (CeleXA 20MG TAB) 20 mg HS PO 10/12/24 21:00 11/11/24 20:59 10/12/24 21:11 20 MG Clopidogrel Bisulfate (plaVIX 75MG) 75 mg DAILY PO 10/12/24 09:00 11/11/24 08:59 10/13/24 09:00 75 MG Doxazosin Mesylate (Doxazosin Mesylate) 2 mg BID PO 10/12/24 21:00 11/11/24 20:59 10/13/24 09:00 2 MG Doxycycline Hyclate 250 ml @ 125 mls/hr Q12H IV 10/12/24 01:00 10/22/24 00:59 10/13/24 11:57 125 MLS/HR Finasteride (PROscar 5 MG TAB) 5 mg DAILY PO 10/13/24 09:00 11/12/24 08:59 10/13/24 08:59 5 MG Gabapentin (NEURontin 300 MG CAP) 600 mg TID PO 10/12/24 14:00 11/11/24 13:59 10/13/24 08:59 600 MG Heparin Sodium (Porcine) (HEParin 5,000 UNIT VIAL) 5,000 unit BID SQ 10/12/24 09:00 11/11/24 08:59 10/13/24 09:01 5,000 UNIT Hydralazine HCl (APRESOLine 20MG INJ) 10 mg Q6H PRN IV For:SBP above 160;DBP above 90 10/12/24 01:00 11/11/24 00:59 10/12/24 17:23 10 MG Insulin Glargine (LANtus 100 UNITS/ML 10 ML VIAL) 15 units BID@0730,2100 SQ 10/12/24 07:30 10/13/24 12:31 DC 10/13/24 07:16 15 UNITS Insulin Glargine (LANtus 100 UNITS/ML 10 ML VIAL) 20 units BID@0730,2100 SQ 10/13/24 21:00 11/12/24 20:59 Insulin Human Regular (humuLIN R 100 UNIT/ML 3ML) INSULIN SLIDING SCAL... ACHS SQ 10/12/24 07:30 10/13/24 10:03 DC 10/13/24 07:15 4 UNIT Insulin Human Regular (humuLIN R 100 UNIT/ML 3ML) INSULIN SLIDING SCAL... ACHS SQ 10/13/24 11:30 11/12/24 11:29 10/13/24 11:59 16 UNIT Lactated Ringer's 1,000 ml @ 150 mls/hr Q6H40M IV 10/12/24 01:00 10/12/24 17:01 DC 10/12/24 12:21 150 MLS/HR Magnesium Sulfate 50 ml @ 0 mls/hr PROTOCOL PRN IV MAGNESIUM PROTOCOL 10/12/24 10:00 11/11/24 09:59 10/12/24 09:49 25 MLS/HR Methylprednisolone Sodium Succinate (Solu-medROL 40MG) 40 mg Q8H IVP 10/12/24 08:00 11/11/24 07:59 10/13/24 08:59 40 MG Metoprolol Succinate (TopROL XL) 25 mg DAILY PO 10/13/24 09:00 11/12/24 08:59 10/13/24 08:59 25 MG Morphine Sulfate (morPHINE 2MG SYG) 2 mg Q4H PRN IVP SEVERE PAIN (7-10) 10/12/24 01:30 10/19/24 01:29 10/13/24 10:13 2 MG Ondansetron HCl (zoFRAN 4MG INJ) 4 mg Q6H PRN IV NAUSEA/VOMITING 10/12/24 01:00 11/11/24 00:59 Pantoprazole Sodium (PROTonix 40MG INJ) 40 mg DAILY IV 10/12/24 09:00 11/11/24 08:59 10/13/24 08:59 40 MG Piperacillin Sod/ Tazobactam Sod (Zosyn 3.375gm+NS 50ml) 3.375 gm Q8H IV 10/12/24 08:00 10/22/24 07:59 10/13/24 08:59 3.375 GM Sodium Chloride (Sodium Chloride 3% Inh) 4 ML [id number] IH 10/12/24 14:00 11/11/24 13:59 10/13/24 11:01 4 ML DIAGNOSTICS / RADIOLOGY: [ ] ASSESSMENT: Acute on chronic respiratory failure, POA Tracheostomy status, POA Right foot gangrene, POA Peripheral artery disease, POA Urinary tract infection, POA Acute kidney injury, POA on 02/12/2024 creatinine 1.1, today creatinine 1.7 Uncontrolled Diabetes mellitius type2, POA Suspected pneumonia, POA Hypertension CKD History of CVA with the right-sided hemiparesis PLAN: Vent management per pulmonology P.r.n. pain management Increase sliding scale to high sensitivity Increase glargine to 20 units twice daily Continue hypoglycemia protocol Continue metoprolol 25 mg Q 24 hours Continue cilostazol 50 mg twice daily Continue doxazosin 2 mg b.i.d. Continue atorvastatin 40 mg daily Continue gabapentin 600 mg 3 times daily Continue aspirin 81 mg Q 24 hours Continue Plavix 75 mg Q 24 hours And use Zosyn Q 8 hours Continue doxycycline 100 mg twice daily Continue methylprednisone 40 mg t.i.d. Cardiology consulted for vascular workup Pulmonology consulted appreciate recommendations Podiatry consulted appreciate recommendations Disposition: Pending improvement in clinical status, Cardiology workup for vascular, Podiatry recommendations Greater than 35 minutes ICU time spent in care of this patient JESSICA LONDONO MD October 13, 2024 12:47
--- NOTE | 2024-10-13 13:18 | NUR ---
Blood glucose 465 Repeat blood glucose of 465, Dr. Dewitt made aware, gave new orders for lantus 25 BID first dose now and increase sliding scale to #2.
[2024-10-13] MEDS: INSULIN GLARgine 100 UNITS/ML 10 ML VIAL SQ SCH (13:32)
--- NOTE | 2024-10-13 16:15 | PN ---
[facility] PROGRESS NOTE Date Patient Seen: October 13, 2024 Time of Visit: 16:12 Supervising Physician: Dr. Dewitt Primary Care Physician: David Turner MD Outpatient Specialists: [ ] Inpatient Consults: [ ] PROBLEM LIST: Acute on chronic hypoxemic respiratory failure status post tracheostomy creation in the past, POA sputum culture positive for rare Gram-positive rods. Right foot gangrene, POA Peripheral artery disease, POA Urinary tract infection, POA Acute kidney injury, POA on 02/12/2024 creatinine 1.1, today creatinine 1.7 Uncontrolled Diabetes mellitius type2, POA HgA1c 10.0 Suspected pneumonia, POA Hypertension CKD History of CVA with the right-sided hemiparesis INTERVAL HISTORY: 10/13/2024: At the time of my evaluation, the patient was lying in bed. The staff nurse reports no acute events overnight. copier technician was present at the bedside performing the requested 2D echo. On the monitor, the patient is normotensive eupneic and with normal heart rate. He remains on home ventilator. Laboratory data was notable for low sodium of 131, chloride of 99 and a blood glucose in the 400s. Sputum, Blood and urine cultures currently in progress the patient continues on antibiotic coverage with Zosyn and doxycycline. For respiratory management, the patient continues on home ventilator support. He remains on bronchodilator therapy, steroid therapy and was started on hypertonic saline nebulization. no other complaint. REVIEW OF SYSTEMS: 12 point ROS reviewed with patient. Pertinent positives mentioned above. Otherwise negative. PHYSICAL EXAM: GENERAL: Alert, weak, awake oriented x 3 HEENT: EOMI, Sclera non icteric, moist mucosa NECK: Supple, no JVD, trachea midline LUNGS: Diminished breath sounds bilaterally. No wheezes HEART: Regular rate and rhythm. Normal S1 and S2, without murmurs ABD: Abdomen soft, nontender. Bowel sounds present EXT: Right foot distal aspect with dry necrosis. No clubbing cyanosis or edema NEURO: Alert and oriented to person, follows commands Vital Signs (last 8hr) Date Time Temp Pulse Resp B/P (MAP) Pulse Ox O2 Delivery O2 Flow Rate FiO2 10/13/24 15:00 56 16 109/46 99 Ventilator 28 10/13/24 14:00 62 19 97/49 99 Ventilator 28 10/13/24 13:00 91 21 111/45 99 Ventilator 28 10/13/24 12:00 98 Ventilator+ 28 10/13/24 12:00 98.1 68 24 114/56 98 Ventilator 28 10/13/24 11:02 61 18 10/13/24 11:00 61 19 113/76 99 Ventilator 28 10/13/24 10:00 66 14 127/58 98 Ventilator 28 10/13/24 09:00 62 18 10/13/24 09:00 61 22 148/72 99 Ventilator 28 LABS: Hematology Labs: Test 10/13/24 07:59 10/12/24 01:43 Range/Units White Blood Count 10.4 4.8-10.8 K/uL Red Blood Count 3.24 L 4.50-6.20 MIL/uL Hemoglobin 8.1 L 14.0-18.0 g/dL Hematocrit 25.0 L 42-54 % Mean Corpuscular Volume 77.2 L 79-99 fL Mean Corpuscular Hemoglobin 25.0 L 27.0-33.0 pg Mean Corpuscular Hemoglobin Concent 32.4 32.0-36.0 g/dL Red Cell Distribution Width 16.4 H 11.0-15.5 % Platelet Count 341 130-400 K/uL Mean Platelet Volume 10.0 7.5-10.5 fL Nucleated Red Blood Cells 0.0 0.0-0.19 % Red Blood Cell Morphology See comments Immature Granulocyte % (Auto) 1.6 H 0-1 % Neutrophils (%) (Auto) 87.9 H 40.0-77.0 % Lymphocytes (%) (Auto) 6.6 L 21.0-51.0 % Monocytes (%) (Auto) 3.1 3.0-13.0 % Eosinophils (%) (Auto) 0.7 0.0-8.0 % Basophils (%) (Auto) 0.1 0.0-5.0 % Neutrophils # (Auto) 7.9 H 1.8-7.7 K/uL Lymphocytes # (Auto) 0.6 L 1.0-4.8 K/uL Monocytes # (Auto) 0.3 0.1-1.0 K/uL Eosinophils # (Auto) 0.06 0.00-0.70 K/uL Basophils # (Auto) 0.01 0.00-0.20 K/uL Absolute Immature Granulocyte (auto 0.14 0-1 K/uL White Cell Morphology Comment See comments Chemistry Labs: Test 10/13/24 15:34 10/13/24 07:59 10/12/24 07:32 10/12/24 01:43 Range/Units Whole Blood Glucose 460 *H 70-110 MG/DL Bedside Glucose Comment Notified Nurse Sodium Level 131 L 136-145 mmol/L Potassium Level 4.0 3.5-5.1 mmol/L Chloride Level 99 L 101-111 mmol/L Carbon Dioxide Level 24 21-32 mmol/L Blood Urea Nitrogen 30 H 7-18 mg/dL Creatinine 1.0 0.5-1.3 mg/dL Glomerular Filtration Rate Calc 81 >90 mL/min Random Glucose 324 H 70-105 mg/dL Total Calcium 8.0 L 8.5-10.1 mg/dL Magnesium Level 2.10 1.80-2.40 mg/dL Lactic Acid Level 1.7 0.8-2.5 mmol/L Total Creatine Kinase 55 # 21-232 U/L Hemoglobin A1c 10.0 H 4.0-6.0 % Estimated Average Glucose (eAG) 240 H 70-126 mg/dL Phosphorus Level 2.8 2.5-4.9 mg/dL Test 10/11/24 23:23 Range/Units Troponin I High Sensitivity 7.8 4-75 ng/L B-Type Natriuretic Peptide 41 0-100 pg/mL Coagulation Labs: Test 10/12/24 01:43 Range/Units Prothrombin Time 10.9 9.6-11.6 SEC Prothromb Time International Ratio 1.03 0.85-1.15 Activated Partial Thromboplast Time 23.9 L 26.3-35.5 SEC DIAGNOSTICS / RADIOLOGY RESULTS: [ ] PLAN Critical Care/Pulmonary team was consulted for respiratory management. Currently, the patient is in his assigned room and is to home vent. He will continue on DuoNeb treatment. We will also start the patient on 3% saline inhalation. We will continue steroid therapy as ordered. The patient will continue antibiotic course with Zosyn and doxy combination. We will defer further right lower extremity gangrenous changes to the Cardiology team who has been consulted and we will hold on surgical consultation at this time given the spouse is reluctant to undergo amputation. We will monitor the patient's progress and response to management. We will continue to provide general supportive care, GI and DVT prophylaxis. Further orders per attending MD and hospital course. 10/13/2024: For now, going to continue current management for the patient. We will continue antibiotic therapy, bronchodilator therapy and steroid dose with oxygen supplementation via home vent. Because of the hypoglycemic events which is steroid induced, I am going to decrease the steroids to 40 q.12. We will adjust long-acting insulin therapy increasing the Lantus to 25 units b.i.d.. Prior to admission, the patient has had multiple interventions to the right lower extremity and has been deemed not a candidate for revascularization procedures. Arterial lower extremity Doppler ultrasound revealed greater than 80% stenosis involving the mid left SFA and 50-80% involving the distal left SFA, monophasic flow along the bilateral lower extremity arterial systems. Based on the findings, and after discussing the case with the de alcoholizer, the only available option for this patient would be amputation. Recommended an abdominal CTA with lower extremity runoff to further assess the patient's anatomy. We will monitor the patient's progress and response to management. We will follow the recommendation of the treating specialist. We will continue to provide general supportive care, GI and DVT prophylaxis. Further orders per attending MD and hospital course. NEURO: Minimize central acting medications as possible. Fall Precautions. Well lighted room through the day and minimize interruptions through the night to prevent acute delirium. PULMONARY: Supplemental 02 as needed Titrate Fio2 to keep Spo2 > or = 90% DuoNebs and CPT as needed IS hourly while awake for pulmonary hygiene Out of bed to chair as tolerated VAP Bundle Vent/BIPAP Settings: Tracheostomy on home vent CARDIOVASCULAR: Follow hemodynamics. Titrate vasopressor to keep MAP >65 or systolic blood pressure >95mmHg DIPS: None LINES: PIV's GI & NUTRITION: Continue nutritional support Aspirations precautions Prokinetic agents and laxatives as needed KIDNEYS & ELECTROLYTES: Strict monitoring of intake and output Daily weights Avoid nephrotoxic agents Monitor electrolytes and replace as needed Goal urine output of 30mL/hr or 0.5mL/kg/hr Urine output: [ ] Fluid Balance: [ ] ENDOCRINE: Maintain blood glucose between 100-180 at all times. Insulin sliding scale for blood glucose management INFECTIOUS DISEASE: Trend temperature. Acosta-culture if febrile. Micro: Sputum Antibiotics: Zosyn and doxy HEMATOLOGY & COAGULATION: Monitor H&H. Keep Hgb > 7 Transfuse 1 unit of PRBC for Hgb < 7 Transfuse 1 pack of platelets of platelets < 20, 000 Watch for any signs and symptoms of bleeding SKIN: Pressure ulcer prevention per facility protocol Rehab: PT/OT Prophylaxis: GI: Pepcid DVT: Lovenox Code Status: Full Resuscitation Disposition:ICU Other: I personally spent 40 minutes of critical care time in treatment of this patient. This includes patient management, time at bedside, time reviewing tests, labs, appropriate images and studies, documentation, and patient care coordination. This time excludes separately billable procedures. Case was discussed and seen with my supervising physician. The above plan was formulated and agreed upon. LUCA HARTLEY VARNISH COOKER October 13, 2024 16:15
[2024-10-13] MEDS ORDERED: IOHEXOL-350 75 ML VIAL IV ONE (16:17)
[2024-10-13] MEDS ORDERED: IOHEXOL-350 50ML VIAL IV ONE (16:17)
[2024-10-13 16:45] LABS: CREATININE 1.5 mg/dL (0.5-1.3); POTASSIUM 4.1 mmol/L (3.5-5.1)
--- NOTE | 2024-10-13 16:58 | HMCSR ---
APPROVED REPORT EXAM: Two-dimensional and M-mode echocardiogram with Doppler and color Doppler. Study Details: HTN , CVA , CABG , Diabts M , PAD , HLD INDICATION ICD: chf 2D Dimensions RVDd4.4 cmLVEF(%)85.9 (>50%)LVED Vol(simp.)117.5 mL IVSd1.4 (0.7-1.1cm)FS(%)55 %LVES Vol(simp.)51.7 mL LVDd5.0 (3.8-5.6cm)LA (2D)5.2 (1.6-4.0cm)LVEF(%, simp.)56 % PWd1.1 (0.7-1.1cm)Ao Root(2D)3.5 (2.0-3.7cm)LA ESV INDEX (4CH)68.00 mL/m2 IVSs1.7 cmLVOT diam1.7 (1.8-2.4cm)LA ESV INDEX (2CH)35.32 mL/m2 LVDs2.2 (2.5-4.0cm)LA ESV INDEX (BP)37.34 mL/m2 PWs1.7 cm Deformation Strain Apical 4-15.0 % Apical 2-12.0 % Apical 3-11.8 % Global Strain-13.0 % M-Mode Dimensions EPSS1.3 cm LA (MM)5.8 (1.6-4.0cm) Ao Root(MM)3.4 (2.0-3.7cm) Aortic Valve AoV Vmax2.9 m/Arelis Peak GR33.0 mmHgLVOT Vmax1.1 m/s AoV VTI0.7 mAo Mean GR17.3 mmHgLVOT VTI0.29 m LIZETT (VMAX)0.91 cm2AVA (VTI) 1.0 cm2 Mitral Valve MV E [id number] cm/sDECEL Imkb161 ms MV A Moce047.5 cm/s E/A ratio1.0 TDI E/E' Rleuyv66.4E/E' Uzkglgj61.2 Medial E' Peak V4.60 cm/sLateral E' Peak V6.16 cm/s Pulmonary Valve PV Vmax1.1 m/sPV VTI0.26 mPV Mean GR2.6 mmHg PV Peak GR4.8 mmHg Tricuspid Valve TR Vmax2.4 m/sRVSP23.9 mmHg TR Peak GR23.9 mmHg Left Ventricle Left ventricular cavity size is normal. Mild concentric left ventricular hypertrophy. LVEF is 50-55%. Stage II, diastolic dysfunction. Right Ventricle The right ventricle is midly enlarged. Right ventricular systolic function is moderately reduced. Atria The left atrium is mildly dilated. The right atrium size is normal. Aortic Valve Aortic valve leaflets are thickened and calcified and is not well visualized. No aortic regurgitation is present. There is mild to moderate valvular aortic stenosis PV 2.9 m/s, LIZETT 1 cm2 Mitral Valve There is mitral annular calcification. There is no mitral valve regurgitation noted. Appears stenotic , but no pressure gradient obtained. Tricuspid Valve The tricuspid valve leaflets are mildly thickened. mild tricuspid regurgitation. Pulmonic Valve Pulmonic valve is not well visualized. There is no pulmonic valvular regurgitation. Great Vessels The aortic root is normal in size. The ascending aorta is normal in size. IVC not well visualized. Pericardium Not visaulized Conclusion Left ventricular cavity size is normal. Mild concentric left ventricular hypertrophy. LVEF is 50-55%. Stage II, diastolic dysfunction. The right ventricle is midly enlarged. Right ventricular systolic function is moderately reduced. The left atrium is mildly dilated. The right atrium size is normal. Mitral vlave heavily calcified and appears to be stenotic, recommend to repeat and obtain doppler madie luation for pressure gradient and MVA and velocity. Aortic valve leaflets are thickened and calcified and is not well visualized. There is mild to moderate valvular aortic stenosis PV 2.9 m/s, LIZETT 1 cm2 mild tricuspid regurgitation.
--- NOTE | 2024-10-13 17:40 | NUR ---
Blood glucose 449. Dr. Hou updated on current blood glucose and interventions performed today for glucose management. Current finger stick glucose 449, as per Dr. Hou, no one time dose provided. Continue ac/hs glucose checks, orders carried out.
[2024-10-13] MEDS ORDERED: SIMETHICONE 80 MG TAB.CHEW PO PRN (21:00)
[2024-10-13] MEDS ORDERED: INSULIN GLARgine 100 UNITS/ML 10 ML VIAL SQ SCH (21:00)
[2024-10-14] VITALS (36 sets, daily range): BP systolic 102–155; BP diastolic 36–67; PULSE 49–78; RESP 12–40; TEMP 97.5–98.3; O2SAT 98–100
--- NOTE | 2024-10-14 08:25 | HMCIMG ---
Exam Type: CT angiogram abdomen and pelvis and lower extremities run-off with contrast Exam Type: CT ANGIO ABD AORTA W RUNOFF Clinical Information: PAD Comparison: None Technique: Routine helical scanning at 5mm collimation through the abdomen and pelvis after contrast administration. In addition, sagittal and coronary formations of the abdomen pelvis and surface rendering three-dimensional reconstructions of the abdominal aorta and the bilateral lower extremity arterial system were performed. Findings: Status post CABG. Coronary arterial and cardiac valvular calcifications. Moderate size hiatal hernia. The vascular examination is is abnormal. Extensive atheromatous disease of the common iliac arteries, superficial femoral arteries and popliteal arteries is seen. On the right side, coronal disease is significant, with occlusion of the anterior tibial artery and interosseous artery above the ankle level, with minimal flow to a severely diseased and narrowed posterior tibial artery with minimal plantar arch flow. On the left side, proximal disease is similar but the posterior tibial artery is intact and provides the runoff. There is no aortic aneurysm. There is no dissection. There is no extravasation to suggest laceration or rupture. No evidence of nephro or ureterolithiasis is found. No hydronephrosis or ureteral dilatation is seen. Bilateral renal atrophy seen. Inferior vena cava filter in place. The visualized portion of the spleen is unremarkable. It is not enlarged. The pancreas shows normal anatomy. It is not fatty replaced. It shows no lesions. The pancreatic duct is not dilated. There is evidence of cholelithiasis. No evidence of acute or chronic inflammation is seen. The adrenal glands are unremarkable. There is no enlargement. No lesions are noted. The visualized portion of the liver is unremarkable. It shows no focal masses. The appendix is unremarkable. It shows no evidence of inflammation. No appendicolith is seen. The small bowel is unremarkable. There is no evidence of dilatation to suggest obstruction. No evidence of adynamic ileus is seen. There is no small bowel wall thickening to suggest enteritis. The colon is unremarkable. The urinary bladder is unremarkable. There is no wall thickening to suggest tumor or inflammation. There are no intraluminal calculi. There are no diverticula. There is no evidence of chronic bladder outlet obstruction. There is no evidence of urinary bladder distention to suggest urinary retention. The prostate is enlarged. Status post right hip surgery. The bony and vascular structures are unremarkable for the patient's age. IMPRESSION: Extensive peripheral vascular disease, with worse involvement on the right side. Please note that the right foot demonstrates soft tissue ulcers and possible tendinosis changes. Other findings as described This study was performed using dose reduction techniques to include automated exposure control and/or adjustment of the mA and/or kV according to patient size.
--- NOTE | 2024-10-14 08:30 | PN ---
[facility] CARDIOLOGY PROGRESS NOTE Cardiology note dictated for Simona Taylor MD Date Patient Seen: October 14, 2024 Interval History: The patient endorsed RLE discomfort not decreased with Morphine and would like to try another pain medication. He also admits to chronic orthopnea but currently denies shortness of breath. Physical Examination: GENERAL: No acute distress. HEAD: Normal with no signs of head trauma. EYES: PERRLA, EOMI, conjunctiva and sclera normal. NECK: Supple without JVD. Trach with ventilator. LUNGS: Coarse breath sounds bilaterally with expiratory wheezing. HEART: Normal rate and rhythm. Normal S1 and S2 without murmurs, gallop or rub. VASC: Peripheral pulses +2 bilaterally. EXT: Rt hand contracture. Right foot 1st-5th digits with dry gangrene. NEURO: Awake, alert, and oriented x3. No focal neurological deficits noted. Laboratory: Hematology Labs: Test 10/13/24 07:59 Range/Units White Blood Count 10.4 4.8-10.8 K/uL Red Blood Count 3.24 L 4.50-6.20 MIL/uL Hemoglobin 8.1 L 14.0-18.0 g/dL Hematocrit 25.0 L 42-54 % Mean Corpuscular Volume 77.2 L 79-99 fL Mean Corpuscular Hemoglobin 25.0 L 27.0-33.0 pg Mean Corpuscular Hemoglobin Concent 32.4 32.0-36.0 g/dL Red Cell Distribution Width 16.4 H 11.0-15.5 % Platelet Count 341 130-400 K/uL Mean Platelet Volume 10.0 7.5-10.5 fL Nucleated Red Blood Cells 0.0 0.0-0.19 % Red Blood Cell Morphology See comments Chemistry Labs: Test 10/13/24 17:16 10/13/24 16:13 10/13/24 07:59 Range/Units Whole Blood Glucose 449 *H 70-110 MG/DL Bedside Glucose Comment Notified Nurse Sodium Level 135 L 136-145 mmol/L Potassium Level 4.1 3.5-5.1 mmol/L Chloride Level 101 101-111 mmol/L Carbon Dioxide Level 22 21-32 mmol/L Blood Urea Nitrogen 38 H 7-18 mg/dL Creatinine 1.5 H 0.5-1.3 mg/dL Glomerular Filtration Rate Calc 50 >90 mL/min Random Glucose 510 #*H 70-105 mg/dL Total Calcium 7.9 L 8.5-10.1 mg/dL Magnesium Level 2.10 1.80-2.40 mg/dL Diagnostics / Radiology: 2D Echocardiogram on 10/13/2024 Conclusion Left ventricular cavity size is normal. Mild concentric left ventricular hypertrophy. LVEF is 50-55%. Stage II, diastolic dysfunction. The right ventricle is midly enlarged. Right ventricular systolic function is moderately reduced. The left atrium is mildly dilated. The right atrium size is normal. Mitral vlave heavily calcified and appears to be stenotic, recommend to repeat and obtain doppler evaluation for pressure gradient and MVA and velocity. Aortic valve leaflets are thickened and calcified and is not well visualized. There is mild to moderate valvular aortic stenosis PV 2.9 m/s, LIZETT 1 cm2 mild tricuspid regurgitation. 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 Childress on 04/05/2024 and deemed to not be a candidate for revascularization or surgical intervention due to hemorrhagic CVAs x2 (2013 and 2021), that developed in the setting of antiplatelet therapy (Aspirin). He was also not a candidate for hyperbaric oxygen therapy due to tracheostomy and oxygen dependence. The patient underwent peripheral angiogram will attempted revascularization by a guillotine operator [place] two months ago Arterial lower extremity Doppler ultrasound revealed greater than 80% stenosis involving the mid left SFA and 50-80% involving the distal left SFA, monophasic flow along the bilateral lower extremity arterial systems Remarkable lab results with a creatinine 1.4, A1c 10%, troponin negative x1, BNP41 Continue aspirin 81 mg daily, Plavix 75 mg daily, and atorvastatin 40 mg daily Abdominal CTA with lower extremity runoff on 10/13/2024 with an occlusion of the right anterior tibial artery and interosseous artery above the ankle level, with minimal flow to a severely diseased and narrowed posterior tibial artery with minimal plantar arch flow. On the left side, proximal disease is similar but the posterior tibial artery is intact and provides the runoff. -Due to a history of hemorrhagic CVAs while on antiplatelet therapy, the patient is not a candidate for peripheral intervention -Will discontinue Aspirin and Plavix and he will continue on monotherapy with Cilostazol -Recommend podiatry consult -As there is nothing we can offer for the patient, cardiology will sign-off. # Hypertension Blood pressure is averaging 150s Currently denying any cardiac symptoms or anginal equivalents Prior 2D echocardiogram from 2022 EF 55-60% with no wall motion or valvular abnormalities, grade 1 diastolic dysfunction, for now due to pulmonary edema on CXR, stop IVFs 2D Echo on 10/13/2024 with an EF of 50-55%, stage II, diastolic dysfunction, Mitral valve heavily calcified and appears to be stenotic, recommend to repeat and obtain Doppler evaluation for pressure gradient and MVA and velocity, mild to moderate valvular aortic stenosis PV 2.9 m/s, LIZETT 1 cm2 Continue Toprol-XL 25 mg daily Treat pain prn morphine AMARILIS WONG October 14, 2024 08:30
[2024-10-14 08:36] LABS: HEMATOCRIT 26.2 % (42-54); MEAN CORPUSCULAR HEMOGLOBIN 25.3 pg (27.0-33.0); MEAN CORPUSCULAR HGB CONC 30.9 g/dL (32.0-36.0); MEAN CORPUSCULAR VOLUME 81.9 fL (79-99); PLATELET COUNT (AUTO) 268 K/uL (130-400); RED CELL DISTRIBUTION WIDTH 17.2 % (11.0-15.5); WHITE BLOOD COUNT (AUTO) 7.2 K/uL (4.8-10.8)
[2024-10-14 08:47] LABS: CREATININE 1.4 mg/dL (0.5-1.3); POTASSIUM 3.8 mmol/L (3.5-5.1)
[2024-10-14 09:04] LABS: LYMPHOCYTES % (MANUAL) 17 % (22-44); MAN.DIFF COMMENT-IMPRESSION MANUAL DIFFERENTIAL; MONOCYTES % (MANUAL) 5 % (2-9); PLATELET MORPHOLOGY COMMENT ADEQUATE; SEGMENTED NEUTROPHILS % 78 % (40-70); TOTAL CELLS COUNTED 100; WBC MORPHOLOGY HYPERSEGMENT NEUT 1+
[2024-10-14] MEDS: Solu-medROL 40MG VIAL IVP SCH (09:23)
--- NOTE | 2024-10-14 11:26 | PN ---
[facility] PROGRESS NOTE Date of Service: October 14, 2024 Time of Service: 11:17 SUBJECTIVE: Mr. Preciado is a 69-year-old male that was seen and examined 10/12/2024. Patient is unable to provide health history. Patient's Liseth at bedside and able to provide the following information. Patient was brought to the emergency department with a chief complaint of shortness of breath. Onset was one week ago. also reported associated right foot pain. Patient has had gangrene since February 2024. Patient has been evaluated by Cardiology Service, Dr. Childress and was told that he was not a candidate for revascularization. Patient has a nephew who is a rehab director occupational therapist in [place] and he recommended a rehab director occupational therapist in [place] who attempted revascularization using a pedal approach about two months ago but this did not help. There was also a different doctor who tried a revascularization from a jugular approach but that did not help. stated that there has been a recommendation for [id number] amputation but she prefers to try and save her 's limb. In the emergency department BUN is 37 , creatinine 1.7, GFR 43, urinalysis positive for leukocyte esterase and WBCs 50 1-100 per high-powered microscopy field. Emergency room physician recommended that patient be admitted with a diagnosis of acute on chronic respiratory failure. 10/13 patient seen at bedside, no acute events overnight. Blood culture is positive in 1/2 bottles likely contaminant, we will follow up with cultures and sensitivities. Echocardiogram pending, we will follow up. Patient to be assessed for possible angiogram tomorrow by Cardiology. Continue with empiric antibiotics. Blood sugar elevated, sliding scale increased to high sensitivity and glargine increased to 20 units twice daily, we will continue to monitor blood sugars. 10/14 patient is seen and examined, BP 124/54, heart rate of 58, laboratory data shows a hemoglobin of 8.1, hematocrit 26.2. CMP with sodium 138, potassium 3.8, BUN of 41, creatinine of 1.4. Septic workup with the sputum expectorated Serratia marcescens, urine culture for E coli, blood culture positive 1/2 bottles. Gram-positive cocci, final identification still pending. REVIEW OF SYSTEMS CONSTITUTIONAL: Denies fevers, chills, or night sweats. No unintentional weight loss reported. NEUROLOGICAL: Denies headache, amaurosis fugax, motor weakness, sensory deficit, vertigo/spinning sensation, gait abnormalities, or tremors. ENT: No hearing loss, otalgia, otorrhea, rhinitis, rhinorrhea, hoarseness, or sore throat. CARDIOVASCULAR: Denies any exertional angina, dyspnea on exertion, orthopnea, paroxysmal nocturnal dyspnea, palpitations, life-threatening arrhythmias, claudication. PULMONARY: Denies any shortness of breath, cough, phlegm/sputum, hemoptysis, pleuritic chest pain. SLEEP: Denies morning headaches, daytime somnolence or napping. Denies difficulty falling asleep, staying asleep, waking from sleep. Denies knowledge of snoring. GASTROINTESTINAL: Denies any type of dysphagia to either liquids or solids. Denies nausea, vomiting, pyrosis, early satiety, abdominal pain, diarrhea, constipation, or changes in stool consistency or caliber. Denies coffee-ground emesis, hematemesis, hematochezia, or melanotic stools. GENITOURINARY: Denies frequency, urgency, nocturia, hematuria or incontinence (Storage/Irritative symptoms.) Low urinary stream, straining to void, urinary intermittency or hesitancy, splitting of the voiding stream, terminal dribbling. ENDOCRINOLOGIC: Denies polyuria, polydipsia, polyphagia or heat/cold intolerances. HEMATOLOGIC: Denies thrombophilia/previous clots, or coagulopathy/bleeding dis orders. ONCOLOGIC: Denies personal history of malignancy. DERMATOLOGIC: Denies rashes or pruritus. PSYCHIATRIC: Denies any suicidal or homicidal ideation. Denies hallucinations. PHYSICAL EXAM GENERAL APPEARANCE: No acute distress NEUROLOGICAL: Cranial nerves II-XII grossly intact. Motor is 5/5 in bilateral upper and lower extremities proximal to distal. No sensory deficits. HEENT: Face is symmetric. Pupils are equal and reactive. Extraocular movements are intact. NECK: Supple. No JVD. No thyromegaly. No submental, submandibular, pre- /postauricular, occipital or supraclavicular lymphadenopathy. CHEST: Normal chest expansion. No Telemetry. LUNGS: Absence of any rales, rhonchi or any wheezing. CARDIOVASCULAR: Regular. S1 and S2 normal. No appreciable rubs, murmurs or gallops. ABDOMEN: Soft, nontender, and nondistended. There is no rebound, voluntary guarding, or rigidity. : Deferred. No Nixon. EXTREMITIES: Non-edematous and not cyanotic. No clubbing. Good capillary refill. SKIN: No skin breakdown. Vital Signs (last 8hr) Date Time Temp Pulse Resp B/P (MAP) Pulse Ox O2 Delivery O2 Flow Rate FiO2 10/14/24 10:00 58 24 124/54 100 Ventilator 28 10/14/24 09:17 58 28 10/14/24 09:00 59 23 106/53 99 Ventilator 28 10/14/24 08:00 98 Ventilator+ 28 10/14/24 08:00 98.2 65 21 116/50 99 Ventilator 28 10/14/24 07:00 55 22 128/54 99 Ventilator 10/14/24 06:50 53 23 10/14/24 06:43 53 28 10/14/24 06:38 54 22 10/14/24 06:00 51 21 118/51 100 Ventilator 28 10/14/24 05:00 55 22 136/54 100 Ventilator 28 10/14/24 04:00 98.2 49 14 102/36 99 Ventilator 28 10/14/24 04:00 98 Ventilator+ 28 LABS: Laboratory: Test 10/14/24 08:26 10/14/24 08:23 10/13/24 17:16 Range/Units White Blood Count 7.2 4.8-10.8 K/uL Red Blood Count 3.20 L 4.50-6.20 MIL/uL Hemoglobin 8.1 L 14.0-18.0 g/dL Hematocrit 26.2 L 42-54 % Mean Corpuscular Volume 81.9 79-99 fL Mean Corpuscular Hemoglobin 25.3 L 27.0-33.0 pg Mean Corpuscular Hemoglobin Concent 30.9 L 32.0-36.0 g/dL Red Cell Distribution Width 17.2 H 11.0-15.5 % Platelet Count 268 130-400 K/uL Mean Platelet Volume 10.9 H 7.5-10.5 fL Segmented Neutrophils % 78 H 40-70 % Lymphocytes % (Manual) 17 L 22-44 % Monocytes % (Manual) 5 2-9 % Nucleated Red Blood Cells 0.0 0.0-0.19 % Differential Comment MANUAL DIFFERENTIAL White Cell Morphology Comment HYPERSEGMENT NEUT 1+ Platelet Morphology Comment ADEQUATE Red Blood Cell Morphology See comments Sodium Level 138 136-145 mmol/L Potassium Level 3.8 3.5-5.1 mmol/L Chloride Level 104 101-111 mmol/L Carbon Dioxide Level 21 21-32 mmol/L Blood Urea Nitrogen 41 H 7-18 mg/dL Creatinine 1.4 H 0.5-1.3 mg/dL Glomerular Filtration Rate Calc 54 >90 mL/min Random Glucose 123 #H 70-105 mg/dL Total Calcium 7.9 L 8.5-10.1 mg/dL Magnesium Level 2.00 1.80-2.40 mg/dL Whole Blood Glucose 121 #H 70-110 MG/DL Bedside Glucose Comment Notified Nurse Current Medications Medications (Trade) Dose Ordered Sig/[place] Route PRN Reason Start Time Stop Time Status Last Admin Dose Admin Acetaminophen (TYLenol 325MG TAB) 650 mg Q4H PRN PO MILD PAIN (1-3) 10/12/24 01:00 11/11/24 00:59 Albuterol (DUOneb) 1 UDVIAL [id number] IH 10/12/24 06:00 11/11/24 05:59 10/14/24 06:38 1 UDVIAL Aspirin (Aspirin 81mg Chew Tab) 81 mg DAILY PO 10/12/24 09:00 11/11/24 08:59 10/14/24 09:23 81 MG Atorvastatin Calcium (LIPItor 40MG) 40 mg HS PO 10/12/24 21:00 11/11/24 20:59 10/13/24 20:30 40 MG Ceftriaxone Sodium (ROCEphine 1G INJ) 1 gm Q24H IVPB 10/12/24 09:00 10/12/24 02:17 DC Cilostazol (PLETal 100MG TAB) 50 mg BID PO 10/12/24 21:00 11/11/24 20:59 10/14/24 09:22 50 MG Citalopram Hydrobromide (CeleXA 20MG TAB) 20 mg HS PO 10/12/24 21:00 11/11/24 20:59 10/13/24 20:29 20 MG Clopidogrel Bisulfate (plaVIX 75MG) 75 mg DAILY PO 10/12/24 09:00 11/11/24 08:59 10/14/24 09:23 75 MG Doxazosin Mesylate (Doxazosin Mesylate) 2 mg BID PO 10/12/24 21:00 11/11/24 20:59 10/13/24 20:29 2 MG Doxycycline Hyclate 250 ml @ 125 mls/hr Q12H IV 10/12/24 01:00 10/22/24 00:59 10/13/24 23:35 125 MLS/HR Finasteride (PROscar 5 MG TAB) 5 mg DAILY PO 10/13/24 09:00 11/12/24 08:59 10/14/24 09:23 5 MG Gabapentin (NEURontin 300 MG CAP) 600 mg TID PO 10/12/24 14:00 11/11/24 13:59 10/14/24 09:23 600 MG Heparin Sodium (Porcine) (HEParin 5,000 UNIT VIAL) 5,000 unit BID SQ 10/12/24 09:00 11/11/24 08:59 10/14/24 09:28 5,000 UNIT Hydralazine HCl (APRESOLine 20MG INJ) 10 mg Q6H PRN IV For:SBP above 160;DBP above 90 10/12/24 01:00 11/11/24 00:59 10/12/24 17:23 10 MG Insulin Glargine (LANtus 100 UNITS/ML 10 ML VIAL) 15 units BID@0730,2100 SQ 10/12/24 07:30 10/13/24 12:31 DC 10/13/24 07:16 15 UNITS Insulin Glargine (LANtus 100 UNITS/ML 10 ML VIAL) 20 units BID@0730,2100 SQ 10/13/24 21:00 10/13/24 13:18 DC Insulin Glargine (LANtus 100 UNITS/ML 10 ML VIAL) 25 units BID@0730,2100 SQ 10/13/24 13:30 11/12/24 13:29 10/14/24 09:28 25 UNITS Insulin Human Regular (humuLIN R 100 UNIT/ML 3ML) INSULIN SLIDING SCAL... ACHS SQ 10/12/24 07:30 10/13/24 10:03 DC 10/13/24 07:15 4 UNIT Insulin Human Regular (humuLIN R 100 UNIT/ML 3ML) INSULIN SLIDING SCAL... ACHS SQ 10/13/24 11:30 10/13/24 13:18 DC 10/13/24 11:59 16 UNIT Insulin Human Regular (humuLIN R 100 UNIT/ML 3ML) INSULIN SLIDING SCAL... ACHS SQ 10/13/24 16:30 11/12/24 16:29 10/13/24 20:32 16 UNIT Lactated Ringer's 1,000 ml @ 150 mls/hr Q6H40M IV 10/12/24 01:00 10/12/24 17:01 DC 10/12/24 12:21 150 MLS/HR Magnesium Sulfate 50 ml @ 0 mls/hr PROTOCOL PRN IV MAGNESIUM PROTOCOL 10/12/24 10:00 11/11/24 09:59 10/12/24 09:49 25 MLS/HR Methylprednisolone Sodium Succinate (Solu-medROL 40MG) 40 mg Q12H IVP 10/14/24 09:00 11/11/24 07:59 10/14/24 09:23 40 MG Methylprednisolone Sodium Succinate (Solu-medROL 40MG) 40 mg Q8H IVP 10/12/24 08:00 10/13/24 16:40 DC 10/13/24 08:59 40 MG Metoprolol Succinate (TopROL XL) 25 mg DAILY PO 10/13/24 09:00 11/12/24 08:59 10/13/24 08:59 25 MG Morphine Sulfate (morPHINE 2MG SYG) 2 mg Q4H PRN IVP SEVERE PAIN (7-10) 10/12/24 01:30 10/19/24 01:29 10/14/24 07:20 2 MG Ondansetron HCl (zoFRAN 4MG INJ) 4 mg Q6H PRN IV NAUSEA/VOMITING 10/12/24 01:00 11/11/24 00:59 Pantoprazole Sodium (PROTonix 40MG INJ) 40 mg DAILY IV 10/12/24 09:00 11/11/24 08:59 10/14/24 09:23 40 MG Piperacillin Sod/ Tazobactam Sod (Zosyn 3.375gm+NS 50ml) 3.375 gm Q8H IV 10/12/24 08:00 10/22/24 07:59 10/14/24 09:23 3.375 GM Simethicone (Mylicon) 80 mg Q8H PRN PO GI GAS 10/13/24 21:00 11/12/24 20:59 Sodium Chloride (Sodium Chloride 3% Inh) 4 ML S5UMIZE IH 10/12/24 14:00 11/11/24 13:59 10/14/24 06:38 4 ML DIAGNOSTICS / RADIOLOGY: [ ] Echocardiogram: Conclusion Left ventricular cavity size is normal. Mild concentric left ventricular hypertrophy. LVEF is 50-55%. Stage II, diastolic dysfunction. The right ventricle is midly enlarged. Right ventricular systolic function is moderately reduced. The left atrium is mildly dilated. The right atrium size is normal. Mitral vlave heavily calcified and appears to be stenotic, recommend to repeat and obtain doppler evaluation for pressure gradient and MVA and velocity. Aortic valve leaflets are thickened and calcified and is not well visualized. There is mild to moderate valvular aortic stenosis PV 2.9 m/s, LIZETT 1 cm2 mild tricuspid regurgitation. ASSESSMENT: Acute on chronic respiratory failure, POA Tracheostomy status, POA Sputum culture positive for Serratia marcescens, POA Right foot gangrene, POA Peripheral artery disease, POA Urinary tract infection, secondary to E coli POA Acute kidney injury, POA on 02/12/2024 creatinine 1.1, today creatinine 1.7 Uncontrolled Diabetes mellitius type2, POA Suspected pneumonia, POA Hypertension CKD History of CVA with the right-sided hemiparesis PLAN: Patient remains admitted to the ICU Critical care consultation requested, input noted and appreciated Patient with a history of acute or chronic hypoxemic respiratory failure status post tracheostomy creation in the past, with the sputum culture positive for Serratia marcescens. Continue the patient on broad-spectrum IV antibiotics. Continue the patient on Solu-Medrol 40 mg IV q.12 hours Remains on home ventilator Continue bronchodilators per RT. Cardiology input noted and appreciated, due to a history of hemorrhagic CVA while on antiplatelet therapy, the patient is not a candidate for peripheral intervention, has been and Plavix discontinued, continue only monotherapy with cilostazol. Continue Toprol-XL 25 mg daily The patient was seen by Dr. Childress on 04/05/2024 and deemed to not be a miriam te for revascularization or surgical intervention due to hemorrhagic CVAs x2 (2013 and 2021), that developed in the setting of antiplatelet therapy (Aspirin). He was also not a candidate for hyperbaric oxygen therapy due to tracheostomy and oxygen dependence. NEURO: Minimize central acting medications as possible. Fall Precautions. Well lighted room through the day and minimize interruptions through the night to prevent acute delirium. PULMONARY: Supplemental 02 as needed BiPAP as necessary, for respiratory distress Titrate Fio2 to keep Spo2 > or = 90% DuoNebs and CPT as needed IS hourly while awake for pulmonary hygiene prn Out of bed to chair as tolerated Maintain aspiration precautions at all times CARDIOVASCULAR: Follow hemodynamics. Vital signs per facility protocol GI & NUTRITION: Continue nutritional support Aspirations precautions Prokinetic agents and laxatives as needed KIDNEYS & ELECTROLYTES: Strict monitoring of intake and output Daily weights Avoid nephrotoxic agents Monitor electrolytes and replace as needed Goal urine output of 30mL/hr or 0.5mL/kg/hr Medications to be dosed according to renal function. Avoid contrast if possible ENDOCRINE: Maintain blood glucose between 100-180 at all times. Insulin sliding scale for blood glucose management Hypoglycemia and hyperglycemia protocol in place INFECTIOUS DISEASE: Trend temperature, WBC and procalcitonin level Follow cultures, deescalate antibiotics as soon as possible. Panculture if new onset fever HEMATOLOGY & COAGULATION: Monitor H&H. Keep Hgb > 7 Transfuse 1 unit of PRBC for Hgb < 7 Transfuse 1 pack of platelets of platelets < 20, 000 Watch for any signs and symptoms of bleeding SKIN: Pressure ulcer prevention per facility protocol Specialty mattress as needed ORTHO/REHAB Continue PT/OT PRN: MEDICATIONS Tylenol 650 mg po every 4 hrs for fever zofran 4 mg IV every 6 hrs for n/v Hydralazine 5 mg IV every 4 hrs systolic pressure > 160 bowel regiment: lactulose 20 gm PO BID PRN constipation Supportive measures: Continue GI and DVT prophylaxis Disposition: Pending improvement in clinical condition All questions answered time spent: > 35 min DORCAS DE LEON MD October 14, 2024 11:26
--- NOTE | 2024-10-14 13:01 | PN ---
[facility] PROGRESS NOTE Date Patient Seen: October 14, 2024 Time of Visit: 13:01 Supervising Physician: Dr. Hidalgo Primary Care Physician: David Turner MD Outpatient Specialists: [ ] Inpatient Consults: [ ] PROBLEM LIST: Acute on chronic hypoxemic respiratory failure status post tracheostomy creation in the past, POA sputum culture positive for rare Gram-positive rods. Right foot gangrene, POA Severe Peripheral artery disease, POA Urinary tract infection, POA Acute kidney injury, POA on 02/12/2024 creatinine 1.1, today creatinine 1.7 Uncontrolled Diabetes mellitius type2, POA HgA1c 10.0 Suspected pneumonia, POA Hypertension CKD History of CVA with the right-sided hemiparesis INTERVAL HISTORY: 10/13/2024: At the time of my evaluation, the patient was lying in bed. The staff nurse reports no acute events overnight. division order technician was present at the bedside performing the requested 2D echo. On the monitor, the patient is normotensive eupneic and with normal heart rate. He remains on home ventilator. Laboratory data was notable for low sodium of 131, chloride of 99 and a blood glucose in the 400s. Sputum, Blood and urine cultures currently in progress the patient continues on antibiotic coverage with Zosyn and doxycycline. For respiratory management, the patient continues on home ventilator support. He remains on bronchodilator therapy, steroid therapy and was started on hypertonic saline nebulization. No other complaint. 10/14/2024: At the time of my evaluation, the patient was lying in bed. The patient remains on oxygen supplementation via home vent. Vital sign parameters showed no major changes. Laboratory data was notable for an improving renal function and blood glucose trends. Urine culture resulted positive for E coli pansensitive, blood culture is pending final results as well as sputum culture. No new imaging for review today. Currently, the patient continues on antibiotic therapy with IV Zosyn, doxycycline and steroid therapy. No other complaint. REVIEW OF SYSTEMS: 12 point ROS reviewed with patient. Pertinent positives mentioned above. Otherwise negative. PHYSICAL EXAM: GENERAL: Alert, weak, awake oriented x 3 HEENT: EOMI, Sclera non icteric, moist mucosa NECK: Supple, no JVD, trachea midline LUNGS: Diminished breath sounds bilaterally. No wheezes HEART: Regular rate and rhythm. Normal S1 and S2, without murmurs ABD: Abdomen soft, nontender. Bowel sounds present EXT: Right foot distal aspect with dry necrosis. No clubbing cyanosis or edema NEURO: Alert and oriented to person, follows commands Vital Signs (last 8hr) Date Time Temp Pulse Resp B/P (MAP) Pulse Ox O2 Delivery O2 Flow Rate FiO2 10/14/24 12:38 67 28 10/14/24 11:17 56 18 10/14/24 10:00 58 24 124/54 100 Ventilator 28 10/14/24 09:17 58 28 10/14/24 09:00 59 23 106/53 99 Ventilator 28 10/14/24 08:00 98 Ventilator+ 28 10/14/24 08:00 98.2 65 21 116/50 99 Ventilator 28 10/14/24 07:00 55 22 128/54 99 Ventilator 28 10/14/24 06:50 53 23 10/14/24 06:43 53 28 10/14/24 06:38 54 22 10/14/24 06:00 51 21 118/51 100 Ventilator 28 LABS: Hematology Labs: Test 10/14/24 08:26 Range/Units White Blood Count 7.2 4.8-10.8 K/uL Red Blood Count 3.20 L 4.50-6.20 MIL/uL Hemoglobin 8.1 L 14.0-18.0 g/dL Hematocrit 26.2 L 42-54 % Mean Corpuscular Volume 81.9 79-99 fL Mean Corpuscular Hemoglobin 25.3 L 27.0-33.0 pg Mean Corpuscular Hemoglobin Concent 30.9 L 32.0-36.0 g/dL Red Cell Distribution Width 17.2 H 11.0-15.5 % Platelet Count 268 130-400 K/uL Mean Platelet Volume 10.9 H 7.5-10.5 fL Segmented Neutrophils % 78 H 40-70 % Lymphocytes % (Manual) 17 L 22-44 % Monocytes % (Manual) 5 2-9 % Nucleated Red Blood Cells 0.0 0.0-0.19 % Differential Comment MANUAL DIFFERENTIAL White Cell Morphology Comment HYPERSEGMENT NEUT 1+ Platelet Morphology Comment ADEQUATE Red Blood Cell Morphology See comments Chemistry Labs: Test 10/14/24 11:28 10/14/24 08:26 10/13/24 17:16 Range/Units Whole Blood Glucose 189 #H 70-110 MG/DL Sodium Level 138 136-145 mmol/L Potassium Level 3.8 3.5-5.1 mmol/L Chloride Level 104 101-111 mmol/L Carbon Dioxide Level 21 21-32 mmol/L Blood Urea Nitrogen 41 H 7-18 mg/dL Creatinine 1.4 H 0.5-1.3 mg/dL Glomerular Filtration Rate Calc 54 >90 mL/min Random Glucose 123 #H 70-105 mg/dL Total Calcium 7.9 L 8.5-10.1 mg/dL Magnesium Level 2.00 1.80-2.40 mg/dL Bedside Glucose Comment Notified Nurse DIAGNOSTICS / RADIOLOGY RESULTS: [ ] PLAN Critical Care/Pulmonary team was consulted for respiratory management. Currently, the patient is in his assigned room and is to home vent. He will continue on DuoNeb treatment. We will also start the patient on 3% saline inhalation. We will continue steroid therapy as ordered. The patient will continue antibiotic course with Zosyn and doxy combination. We will defer further right lower extremity gangrenous changes to the Cardiology team who has been consulted and we will hold on surgical consultation at this time given the spouse is reluctant to undergo amputation. We will monitor the patient's progress and response to management. We will continue to provide general supportive care, GI and DVT prophylaxis. Further orders per attending MD and hospital course. 10/13/2024: For now, going to continue current management for the patient. We will continue antibiotic therapy, bronchodilator therapy and steroid dose with oxygen supplementation via home vent. Because of the hypoglycemic events which is steroid induced, I am going to decrease the steroids to 40 q.12. We will adjust long-acting insulin therapy increasing the Lantus to 25 units b.i.d.. Prior to admission, the patient has had multiple interventions to the right lower extremity and has been deemed not a candidate for revascularization procedures. Arterial lower extremity Doppler ultrasound revealed greater than 80% stenosis involving the mid left SFA and 50-80% involving the distal left SFA, monophasic flow along the bilateral lower extremity arterial systems. Based on the findings, and after discussing the case with the manager architectural, the only available option for this patient would be amputation. Recommended an abdominal CTA with lower extremity runoff to further assess the patient's anatomy. We will monitor the patient's progress and response to management. We will follow the recommendation of the treating specialist. We will continue to provide general supportive care, GI and DVT prophylaxis. Further orders per attending MD and hospital course. 10/14/2024: For now, going to continue current management for the patient. He will remain on oxygen supplementation per home vent. We will continue antibiotic therapy based on microbiology data and wound care. I had an at length discussion with the patient regarding the appearance of his right toes which has been agreed on multiple times that they are not salvageable. The patient is open to discussion with the orthopedic surgeon. We will consult the orthopedic surgeon for evaluation and possible amputation. We will monitor the patient's progress and response to management. We will continue to provide general supportive care, GI and DVT prophylaxis. Further orders per attending MD and hospital course. NEURO: Minimize central acting medications as possible. Fall Precautions. Well lighted room through the day and minimize interruptions through the night to prevent acute delirium. PULMONARY: Supplemental 02 as needed Titrate Fio2 to keep Spo2 > or = 90% DuoNebs and CPT as needed IS hourly while awake for pulmonary hygiene Out of bed to chair as tolerated VAP Bundle Vent/BIPAP Settings: Tracheostomy on home vent CARDIOVASCULAR: Follow hemodynamics. Titrate vasopressor to keep MAP >65 or systolic blood pressure >95mmHg DIPS: None LINES: PIV's GI & NUTRITION: Continue nutritional support Aspirations precautions Prokinetic agents and laxatives as needed KIDNEYS & ELECTROLYTES: Strict monitoring of intake and output Daily weights Avoid nephrotoxic agents Monitor electrolytes and replace as needed Goal urine output of 30mL/hr or 0.5mL/kg/hr Urine output: [ ] Fluid Balance: [ ] ENDOCRINE: Maintain blood glucose between 100-180 at all times. Insulin sliding scale for blood glucose management INFECTIOUS DISEASE: Trend temperature. Acosta-culture if febrile. Micro: Sputum Antibiotics: Zosyn and doxy HEMATOLOGY & COAGULATION: Monitor H&H. Keep Hgb > 7 Transfuse 1 unit of PRBC for Hgb < 7 Transfuse 1 pack of platelets of platelets < 20, 000 Watch for any signs and symptoms of bleeding SKIN: Pressure ulcer prevention per facility protocol Rehab: PT/OT Prophylaxis: GI: Pepcid DVT: Lovenox Code Status: Full Resuscitation Disposition:ICU Other: I personally spent 40 minutes of critical care time in treatment of this patient. This includes patient management, time at bedside, time reviewing tests, labs, appropriate images and studies, documentation, and patient care coordination. This time excludes separately billable procedures. Case was discussed and seen with my supervising physician. The above plan was formulated and agreed upon. LUCA HARTLEY NP October 14, 2024 13:01
--- NOTE | 2024-10-14 14:15 | NUR ---
[facility] Consult: Patient assessed by wound healing team. See wound assessment. Assessment and recommendations provided to primary nurse. Education provided. Addendum: 10/16/24 at 0931 by GIOVANNA PRESTON RN RN/ Amended: Links added.
--- NOTE | 2024-10-14 15:30 | NUR ---
BEDSIDE SWALLOW EVAL COMPLETED. No s/s of aspiration. Recommend regular solids (however, patient downgraded to soft & bite sized solids due to requiring feeding assistance), thin liquids and pills whole 1 per swallow as tolerated. Compensatory strategies: 1. sit upright during oral intake 2. small bites/sips 3. slow oral intake 4. feeding assistance. FRAUD MANAGER reviewed results and recommendations with patient and nurse Milton. FRAUD MANAGER educated patient on risks and consequences of aspiration. Speech therapy not warranted at this time. All questions answered. Addendum: 10/14/[address] [facility] Amended: Links added.
--- NOTE | 2024-10-14 16:59 | CONS ---
CONSULTATION NOTE Date of Service: October 14, 2024 Reason for Consultation: right foot gangrene Requesting Physician: PERCY Rose HISTORY OF PRESENT ILLNESS: 69-year-old male with a history of poorly controlled DM, CAD s/p 2vCABG, respiratory failure status post trach on home ventilator, chronic kidney disease, hypertension, CVA x2 with right-sided hemiparesis and peripheral artery disease. Patient has been suffering with the appearance of gangrene in the right foot since February of 2024. He was evaluated by the [facility] and told that he is not a candidate for revascularization. He has since been seen by two other manager media that of tried antegrade and retrograde revascularization. Most recently he had a procedure two months ago in [place]. Here he has had a CT angiogram with runoff that showed occlusion of the right anterior tibial artery and interosseous artery above the level of the ankle with a severely narrowed posterior tibial artery. He also had repeat echocardiogram during this hospitalization that showed an EF of 50-55% and aortic valve stenosis with LIZETT 1 centimeter squared. Patient reports that his has power of trust and estates attorney. REVIEW OF SYSTEMS CONSTITUTIONAL: Denies fever, chills, or fatigue. HEAD/FACE: No signs of trauma. EENT: Denies eye pain, blurred vision, double vision, or light sensitivity. RESPIRATORY: trached CARDIOVASCULAR: Denies chest pain, palpitation, syncope GASTROINTESTINAL/ABDOMINAL: Denies abdominal pain, constipation, diarrhea, nausea or vomiting GENITOURINARY: Denies dysuria or hematuria. MUSCULOSKELETAL: Reports right foot pain INTEGUMENTARY: Denies rash or itchiness NEUROLOGICAL/PSYCH: Denies anxiety, depression, heat or cold intolerance. PAST MEDICAL HISTORY: Uncontrolled diabetes, A1c 10 Chronic kidney disease Hypertension CVA x2 with right-sided hemiparesis Respiratory failure status post trach Coronary artery disease status post two vessel CABG Peripheral arterial disease PAST SURGICAL HISTORY: CABG Cystoscopy and lithotripsy Tracheostomy PEG placement and subsequent removal Right hip nail PAST SOCIAL HISTORY: Negative x3, lives with the , utilizes home ventilator FAMILY HISTORY: [place] Coded Allergies: No Known Drug Allergies (Verified Allergy, Unknown, 04/26/18) PHYSICAL EXAM EYES: Anicteric. HENT: moist Oral mucosa NECK: Supple, trach present LUNGS: on ventilator CARDIOVASCULAR: regular rate ABDOMEN: Distended CENTRAL NERVOUS SYSTEM: Awake, alert, oriented x 3. Mild deficits. SKIN: Dry gangrene present over the forefoot involving the toes in the right foot. Erythema over the dorsum of the foot extending proximally as well as over the plantar aspect of the foot. LYMPHATICS: No peripheral lymphadenopathy MUSCULOSKELETAL: Right lower extremity with dry gangrene over the forefoot and erythema proximally over dorsal and plantar aspect of the foot. Nonpalpable DP and PT. Skin warm to touch proximally both anteriorly and posteriorly. Skin is mildly cooler distally over the lower leg ankle to touch over the foot. EXTREMITIES: No cyanosis or clubbing in the other three extremities BACK: Deferred GENITOURINARY: Deferred Vital Sign (Last 24 Hours) 10/12/24 10/14/24 10/14/24 10/14/24 01:43 08:00 13:00 15:43 Temp 98.2 Pulse 66 Resp 19 B/P (MAP) 136/62 Pulse Ox 100 O2 Delivery Ventilator O2 Flow Rate 0 FiO2 28 Intake & Output (last 24hrs) 10/13/24 10/13/24 10/14/24 15:00 23:00 07:00 Intake Total 790.0 ml 462.5 ml 675.0 ml Output Total 400 ml 400 ml Balance 790.0 ml 62.5 ml 275.0 ml LABS: Laboratory: Test 10/14/24 16:14 10/14/24 08:26 10/13/24 17:16 Range/Units Whole Blood Glucose 302 #H 70-110 MG/DL White Blood Count 7.2 4.8-10.8 K/uL Red Blood Count 3.20 L 4.50-6.20 MIL/uL Hemoglobin 8.1 L 14.0-18.0 g/dL Hematocrit 26.2 L 42-54 % Mean Corpuscular Volume 81.9 79-99 fL Mean Corpuscular Hemoglobin 25.3 L 27.0-33.0 pg Mean Corpuscular Hemoglobin Concent 30.9 L 32.0-36.0 g/dL Red Cell Distribution Width 17.2 H 11.0-15.5 % Platelet Count 268 130-400 K/uL Mean Platelet Volume 10.9 H 7.5-10.5 fL Segmented Neutrophils % 78 H 40-70 % Lymphocytes % (Manual) 17 L 22-44 % Monocytes % (Manual) 5 2-9 % Nucleated Red Blood Cells 0.0 0.0-0.19 % Differential Comment MANUAL DIFFERENTIAL White Cell Morphology Comment HYPERSEGMENT NEUT 1+ Platelet Morphology Comment ADEQUATE Red Blood Cell Morphology See comments Sodium Level 138 136-145 mmol/L Potassium Level 3.8 3.5-5.1 mmol/L Chloride Level 104 101-111 mmol/L Carbon Dioxide Level 21 21-32 mmol/L Blood Urea Nitrogen 41 H 7-18 mg/dL Creatinine 1.4 H 0.5-1.3 mg/dL Glomerular Filtration Rate Calc 54 >90 mL/min Random Glucose 123 #H 70-105 mg/dL Total Calcium 7.9 L 8.5-10.1 mg/dL Magnesium Level 2.00 1.80-2.40 mg/dL Bedside Glucose Comment Notified Nurse DIAGNOSTICS / RADIOLOGY: CT angio with runoff: The vascular examination is is abnormal. Extensive atheromatous disease of the common iliac arteries, superficial femoral arteries and popliteal arteries is seen. On the right side, coronal disease is significant, with occlusion of the anterior tibial artery and interosseous artery above the ankle level, with minimal flow to a severely diseased and narrowed posterior tibial artery with minimal plantar arch flow. On the left side, proximal disease is similar but the posterior tibial artery is intact and provides the runoff. IMPRESSION: Extensive peripheral vascular disease, with worse involvement on the right side. Please note that the right foot demonstrates soft tissue ulcers and possible tendinosis changes. Other findings as described. -Dr. Travis Lazar Two views of the right foot with [place] sclerosis seen in the anterior tibial artery. Bony structures appear normal but positioning is suboptimal. ASSESSMENT: 69-year-old male with multiple medical comorbidities including poorly controlled diabetes and peripheral arterial disease presenting with painful right foot gangrene PLAN: I discussed with the patient that he does have severely limited blood flow distally that would prevent us from being able to perform any sort of amputation below the ankle with good expectations of healing. We discussed that we could perform a [id number] amputation with his clinical findings and imaging suggestive of improve chances of healing compared to transmetatarsal amputation level. I did discuss with him that there is a chance the below-knee amputation we will not heal and we will have to consider going more proximal. At this point the patient reports that he is agreeable to undergoing a right below-knee amputation. He states that his spouse has power of trust and estates attorney since his stroke has left him with some limitations of mental functions. I have explained to the patient that I will be in clinic all day tomorrow, but I can consider performing a right below-knee amputation Monday if he/POA desires. PETRA HANSEN MD October 14, 2024 16:59
[2024-10-14] MEDS: BALSAM PERU/CASTOR OIL 60 GM TUBE TP SCH (20:37)
[2024-10-14] MEDS: acetaMINOPHEN 325 MG TAB PO PRN (21:31)
[2024-10-15] VITALS (37 sets, daily range): BP systolic 122–220; BP diastolic 36–87; PULSE 54–72; RESP 12–25; TEMP 97.8–98.8; O2SAT 98–100
[2024-10-15] MEDS: hydroMORPHone 1 MG INJ IVP PRN (03:33)
[2024-10-15 04:09] LABS: HEMATOCRIT 23.9 % (42-54); MEAN CORPUSCULAR HEMOGLOBIN 25.6 pg (27.0-33.0); MEAN CORPUSCULAR HGB CONC 32.2 g/dL (32.0-36.0); MEAN CORPUSCULAR VOLUME 79.4 fL (79-99); RED BLOOD CELL COUNT(AUTO) 3.01 MIL/uL (4.50-6.20); RED CELL DISTRIBUTION WIDTH 17.1 % (11.0-15.5); WHITE BLOOD COUNT (AUTO) 7.9 K/uL (4.8-10.8)
[2024-10-15 04:32] LABS: ALBUMIN 1.7 g/dL (3.5-5.0); BILIRUBIN,TOTAL 0.2 mg/dL (0.2-1.0); CREATININE 1.4 mg/dL (0.5-1.3); MAGNESIUM 1.8 mg/dL (1.80-2.40); POTASSIUM 4.3 mmol/L (3.5-5.1); TOTAL PROTEIN, SERUM 5.4 g/dL (6.0-8.3)
[2024-10-15] MEDS ORDERED: 0.9%NACL 50ML IV SCH (05:45)
[2024-10-15] MEDS ORDERED: CALCIUM GLUC 1GM/10ML VIAL IVPB SCH (05:45)
[2024-10-15] MEDS: CALCIUM GLUC 1GM 2 GM in 0.9%NACL 100ML 100 ML IV SCH (05:51)
[2024-10-15] MEDS ORDERED: CALCIUM GLUC 1GM 1 GM in 0.9%NACL 100ML 100 ML IV SCH (06:00)
--- NOTE | 2024-10-15 09:07 | PN ---
[facility] PROGRESS NOTE Date of Service: October 15, 2024 Time of Service: 09:02 SUBJECTIVE: Mr. Preciado is a 69-year-old male that was seen and examined 10/12/2024. Patient is unable to provide health history. Patient's Liseth at bedside and able to provide the following information. Patient was brought to the emergency department with a chief complaint of shortness of breath. Onset was one week ago. also reported associated right foot pain. Patient has had gangrene since February 2024. Patient has been evaluated by Cardiology Service, Dr. Childress and was told that he was not a candidate for revascularization. Patient has a nephew who is a warehouse administrative assistant in [place] and he recommended a warehouse administrative assistant in [place] who attempted revascularization using a pedal approach about two months ago but this did not help. There was also a different doctor who tried a revascularization from a jugular approach but that did not help. stated that there has been a recommendation for [id number]-[id number]-[id number] amputation but she prefers to try and save her 's limb. In the emergency department BUN is 37 , creatinine 1.7, GFR 43, urinalysis positive for leukocyte esterase and WBCs 50 1-100 per high-powered microscopy field. Emergency room physician recommended that patient be admitted with a diagnosis of acute on chronic respiratory failure. 10/13 patient seen at bedside, no acute events overnight. Blood culture is positive in 1/2 bottles likely contaminant, we will follow up with cultures and sensitivities. Echocardiogram pending, we will follow up. Patient to be assessed for possible angiogram tomorrow by Cardiology. Continue with empiric antibiotics. Blood sugar elevated, sliding scale increased to high sensitivity and glargine increased to 20 units twice daily, we will continue to monitor blood sugars. 10/14 patient is seen and examined, BP 124/54, heart rate of 58, laboratory data shows a hemoglobin of 8.1, hematocrit 26.2. CMP with sodium 138, potassium 3.8, BUN of 41, creatinine of 1.4. Septic workup with the sputum expectorated Serratia marcescens, urine culture for E coli, blood culture positive 1/2 bottles. Gram-positive cocci, final identification still pending. 10/15 patient is seen in the ICU, remains hemodynamically stable, BP 141/58, hea rt rate of 56, on home ventilator, FiO2 28%, saturating 99%. Patient awake, following commands. Hemoglobin of 7.7 with a hematocrit 23.9, no signs of active bleeding, we will do serial CBC q.6 hours, transfuse 1 unit of PRBC if hemoglobin less than seven. Septic workup with the sputum expectorated Serratia marcescens, urine culture for E coli, blood culture positive 1/2 bottles. I could contamination. Patient evaluated by Podiatry, patient in agreement for right [id number]-[id number] amputation to the right side. Per Podiatry, possible right qqysd-oeb-deaz amputation Monday. REVIEW OF SYSTEMS CONSTITUTIONAL: Denies fevers, chills, or night sweats. No unintentional weight loss reported. NEUROLOGICAL: Denies headache, amaurosis fugax, motor weakness, sensory deficit, vertigo/spinning sensation, gait abnormalities, or tremors. ENT: No hearing loss, otalgia, otorrhea, rhinitis, rhinorrhea, hoarseness, or sore throat. CARDIOVASCULAR: Denies any exertional angina, dyspnea on exertion, orthopnea, paroxysmal nocturnal dyspnea, palpitations, life-threatening arrhythmias, claudication. PULMONARY: Denies any shortness of breath, cough, phlegm/sputum, hemoptysis, pleuritic chest pain. SLEEP: Denies morning headaches, daytime somnolence or napping. Denies difficulty falling asleep, staying asleep, waking from sleep. Denies knowledge of snoring. GASTROINTESTINAL: Denies any type of dysphagia to either liquids or solids. Denies nausea, vomiting, pyrosis, early satiety, abdominal pain, diarrhea, constipation, or changes in stool consistency or caliber. Denies coffee-ground emesis, hematemesis, hematochezia, or melanotic stools. GENITOURINARY: Denies frequency, urgency, nocturia, hematuria or incontinence (Storage/Irritative symptoms.) Low urinary stream, straining to void, urinary intermittency or hesitancy, splitting of the voiding stream, terminal dribbling. ENDOCRINOLOGIC: Denies polyuria, polydipsia, polyphagia or heat/cold intolerances. HEMATOLOGIC: Denies thrombophilia/previous clots, or coagulopathy/bleeding disorders. ONCOLOGIC: Denies personal history of malignancy. DERMATOLOGIC: Denies rashes or pruritus. PSYCHIATRIC: Denies any suicidal or homicidal ideation. Denies hallucinations. PHYSICAL EXAM GENERAL APPEARANCE: No acute distress NEUROLOGICAL: Cranial nerves II-XII grossly intact. Motor is 5/5 in bilateral upper and lower extremities proximal to distal. No sensory deficits. HEENT: Face is symmetric. Pupils are equal and reactive. Extraocular movements are intact. NECK: Supple. No JVD. No thyromegaly. No submental, submandibular, pre- /postauricular, occipital or supraclavicular lymphadenopathy. CHEST: Normal chest expansion. No Telemetry. LUNGS: Absence of any rales, rhonchi or any wheezing. CARDIOVASCULAR: Regular. S1 and S2 normal. No appreciable rubs, murmurs or gallops. ABDOMEN: Soft, nontender, and nondistended. There is no rebound, voluntary guarding, or rigidity. : Deferred. No Nixon. EXTREMITIES: Non-edematous and not cyanotic. No clubbing. Good capillary refill. SKIN: No skin breakdown. Vital Signs (last 8hr) Date Time Temp Pulse Resp B/P (MAP) Pulse Ox O2 Delivery O2 Flow Rate FiO2 10/15/24 06:21 55 28 10/15/24 06:18 55 21 10/15/24 06:00 56 23 141/58 99 Ventilator 28 10/15/24 05:00 54 14 122/46 100 Ventilator 28 10/15/24 04:00 100 Ventilator+ 28 10/15/24 04:00 97.9 62 22 145/58 100 Ventilator 28 10/15/24 03:48 61 28 10/15/24 03:00 69 13 155/47 100 Ventilator 28 10/15/24 02:00 62 21 123/36 99 Ventilator 28 LABS: Laboratory: Test 10/15/24 04:01 10/14/24 20:30 10/14/24 08:26 10/13/24 17:16 Range/Units White Blood Count 7.9 4.8-10.8 K/uL Red Blood Count 3.01 L 4.50-6.20 MIL/uL Hemoglobin 7.7 L 14.0-18.0 g/dL Hematocrit 23.9 L 42-54 % Mean Corpuscular Volume 79.4 79-99 fL Mean Corpuscular Hemoglobin 25.6 L 27.0-33.0 pg Mean Corpuscular Hemoglobin Concent 32.2 32.0-36.0 g/dL Red Cell Distribution Width 17.1 H 11.0-15.5 % Platelet Count 368 # 130-400 K/uL Mean Platelet Volume 10.0 7.5-10.5 fL Nucleated Red Blood Cells 0.0 0.0-0.19 % Sodium Level 135 L 136-145 mmol/L Potassium Level 4.3 3.5-5.1 mmol/L Chloride Level 103 101-111 mmol/L Carbon Dioxide Level 20 L 21-32 mmol/L Blood Urea Nitrogen 38 H 7-18 mg/dL Creatinine 1.4 H 0.5-1.3 mg/dL Glomerular Filtration Rate Calc 54 >90 mL/min Random Glucose 288 #H 70-105 mg/dL Total Calcium 6.9 L 8.5-10.1 mg/dL Magnesium Level 1.80 1.80-2.40 mg/dL Total Bilirubin 0.2 0.2-1.0 mg/dL Aspartate Amino Transf (AST/SGOT) 13 10-37 U/L Alanine Aminotransferase (ALT/SGPT) 24 12-78 U/L Alkaline Phosphatase 108 50-136 U/L Total Protein 5.4 L 6.0-8.3 g/dL Albumin 1.7 L 3.5-5.0 g/dL Whole Blood Glucose 293 H 70-110 MG/DL Segmented Neutrophils % 78 H 40-70 % Lymphocytes % (Manual) 17 L 22-44 % Monocytes % (Manual) 5 2-9 % Differential Comment MANUAL DIFFERENTIAL White Cell Morphology Comment HYPERSEGMENT NEUT 1+ Platelet Morphology Comment ADEQUATE Red Blood Cell Morphology See comments Bedside Glucose Comment Notified Nurse Current Medications Medications (Trade) Dose Ordered Sig/[place] Route PRN Reason Start Time Stop Time Status Last Admin Dose Admin Acetaminophen (TYLenol 325MG TAB) 650 mg Q4H PRN PO MILD PAIN (1-3) 10/12/24 01:00 11/11/24 00:59 10/14/24 21:31 650 MG Albuterol (DUOneb) 1 UDVIAL [id number] IH 10/12/24 06:00 11/11/24 05:59 10/15/24 06:29 1 UDVIAL Aspirin (Aspirin 81mg Chew Tab) 81 mg DAILY PO 10/12/24 09:00 10/14/24 11:17 DC 10/14/24 09:23 81 MG Atorvastatin Calcium (LIPItor 40MG) 40 mg HS PO 10/12/24 21:00 11/11/24 20:59 10/14/24 20:22 40 MG Calcium Gluconate (Calcium Gluc 1gm Vial) 1 gm PROTOCOL IVPB 10/15/24 05:45 10/15/24 05:46 DC Calcium Gluconate 1 gm/Sodium Chloride 100 ml @ 0 mls/hr PROTOCOL IV 10/15/24 06:00 11/14/24 05:59 Calcium Gluconate 2 gm/Sodium Chloride 100 ml @ 0 mls/hr PROTOCOL IV 10/15/24 06:00 11/14/24 05:59 10/15/24 05:51 100 MLS/HR Ceftriaxone Sodium (ROCEphine 1G INJ) 1 gm Q24H IVPB 10/12/24 09:00 10/12/24 02:17 DC Cilostazol (PLETal 100MG TAB) 50 mg BID PO 10/12/24 21:00 11/11/24 20:59 10/15/24 08:07 50 MG Citalopram Hydrobromide (CeleXA 20MG TAB) 20 mg HS PO 10/12/24 21:00 11/11/24 20:59 10/14/24 20:16 20 MG Clopidogrel Bisulfate (plaVIX 75MG) 75 mg DAILY PO 10/12/24 09:00 10/14/24 11:17 DC 10/14/24 09:23 75 MG Doxazosin Mesylate (Doxazosin Mesylate) 2 mg BID PO 10/12/24 21:00 11/11/24 20:59 10/15/24 08:05 2 MG Doxycycline Hyclate 250 ml @ 125 mls/hr Q12H IV 10/12/24 01:00 10/22/24 00:59 10/15/24 00:10 125 MLS/HR Finasteride (PROscar 5 MG TAB) 5 mg DAILY PO 10/13/24 09:00 11/12/24 08:59 10/15/24 08:07 5 MG Gabapentin (NEURontin 300 MG CAP) 600 mg TID PO 10/12/24 14:00 11/11/24 13:59 10/14/24 20:15 600 MG Heparin Sodium (Porcine) (HEParin 5,000 UNIT VIAL) 5,000 unit BID SQ 10/12/24 09:00 11/11/24 08:59 10/15/24 08:14 5,000 UNIT Hydralazine HCl (APRESOLine 20MG INJ) 10 mg Q6H PRN IV For:SBP above 160;DBP above 90 10/12/24 01:00 11/11/24 00:59 10/12/24 17:23 10 MG Hydromorphone HCl (DiLAUDid 1MG INJ) 1 mg Q3H3 PRN IVP SEVERE PAIN (7-10) 10/14/24 20:00 10/19/24 19:59 10/15/24 08:27 1 MG Insulin Glargine (LANtus 100 UNITS/ML 10 ML VIAL) 15 units BID@0730,2100 SQ 10/12/24 07:30 10/13/24 12:31 DC 10/13/24 07:16 15 UNITS Insulin Glargine (LANtus 100 UNITS/ML 10 ML VIAL) 20 units BID@0730,2100 SQ 10/13/24 21:00 10/13/24 13:18 DC Insulin Glargine (LANtus 100 UNITS/ML 10 ML VIAL) 25 units BID@0730,2100 SQ 10/13/24 13:30 11/12/24 13:29 10/15/24 06:19 25 UNITS Insulin Human Regular (humuLIN R 100 UNIT/ML 3ML) INSULIN SLIDING SCAL... ACHS SQ 10/12/24 07:30 10/13/24 10:03 DC 10/13/24 07:15 4 UNIT Insulin Human Regular (humuLIN R 100 UNIT/ML 3ML) INSULIN SLIDING SCAL... ACHS SQ 10/13/24 11:30 10/13/24 13:18 DC 10/13/24 11:59 16 UNIT Insulin Human Regular (humuLIN R 100 UNIT/ML 3ML) INSULIN SLIDING SCAL... ACHS SQ 10/13/24 16:30 11/12/24 16:29 10/15/24 06:18 14 UNIT Lactated Ringer's 1,000 ml @ 150 mls/hr Q6H40M IV 10/12/24 01:00 10/12/24 17:01 DC 10/12/24 12:21 150 MLS/HR Magnesium Sulfate 50 ml @ 0 mls/hr PROTOCOL PRN IV MAGNESIUM PROTOCOL 10/12/24 10:00 6/16/25 09:59 10/12/24 09:49 25 MLS/HR Methylprednisolone Sodium Succinate (Solu-medROL 40MG) 40 mg Q12H IVP 10/14/24 09:00 11/11/24 07:59 10/15/24 08:05 40 MG Methylprednisolone Sodium Succinate (Solu-medROL 40MG) 40 mg Q8H IVP 10/12/24 08:00 10/13/24 16:40 DC 10/13/24 08:59 40 MG Metoprolol Succinate (TopROL XL) 25 mg DAILY PO 10/13/24 09:00 11/12/24 08:59 10/15/24 08:07 25 MG Morphine Sulfate (morPHINE 2MG SYG) 2 mg Q4H PRN IVP SEVERE PAIN (7-10) 10/12/24 01:30 10/14/24 20:00 DC 10/14/24 19:59 2 MG Ondansetron HCl (zoFRAN 4MG INJ) 4 mg Q6H PRN IV NAUSEA/VOMITING 10/12/24 01:00 11/11/24 00:59 Pantoprazole Sodium (PROTonix 40MG INJ) 40 mg DAILY IV 10/12/24 09:00 11/11/24 08:59 10/15/24 08:05 40 MG Piperacillin Sod/ Tazobactam Sod (Zosyn 3.375gm+NS 50ml) 3.375 gm Q8H IV 10/12/24 08:00 10/22/24 07:59 10/15/24 08:01 3.375 GM Simethicone (Mylicon) 80 mg Q8H PRN PO GI GAS 10/13/24 21:00 11/12/24 20:59 Sodium Chloride (NS 50ml) 50 ml AD IV 10/15/24 05:45 10/15/24 05:46 DC Sodium Chloride (Sodium Chloride 3% Inh) 4 ML [id number] IH 10/12/24 14:00 11/11/24 13:59 10/14/24 23:36 4 ML Wound Care/ Dressing Products (Venelex Ointment) APPLY DIRECTED TID TP 10/14/24 21:00 11/13/24 20:59 10/14/24 20:37 1 GM DIAGNOSTICS / RADIOLOGY: [ ] ASSESSMENT: Acute on chronic respiratory failure, POA Tracheostomy status, POA Sputum culture positive for Serratia marcescens, POA Right foot gangrene, POA Peripheral artery disease, POA Urinary tract infection, secondary to E coli POA Acute kidney injury, POA on 02/12/2024 creatinine 1.1, today creatinine 1.7 Uncontrolled Diabetes mellitius type2, POA Suspected pneumonia, POA Hypertension CKD History of CVA with the right-sided hemiparesis PLAN: Patient remains admitted to the ICU Critical care consultation requested, input noted and appreciated Patient with a history of acute or chronic hypoxemic respiratory failure status post tracheostomy creation in the past, with the sputum culture positive for Serratia marcescens. Continue the patient on broad-spectrum IV antibiotics. Continue the patient on Solu-Medrol 40 mg IV q.12 hours Remains on home ventilator Continue bronchodilators per RT. Cardiology input noted and appreciated, due to a history of hemorrhagic CVA while on antiplatelet therapy, the patient is not a candidate for peripheral intervention, has been and Plavix discontinued, continue only monotherapy with cilostazol. Continue Toprol-XL 25 mg daily The patient was seen by Dr. Childress on 04/05/2024 and deemed to not be a candidate for revascularization or surgical intervention due to hemorrhagic CVAs x2 (2013 and 2021), that developed in the setting of antiplatelet therapy (Aspirin). He was also not a candidate for hyperbaric oxygen therapy due to tracheostomy and oxygen dependence. Hemoglobin of 7.7 with a hematocrit 23.9, no signs of active bleeding, we will do serial CBC q.6 hours, transfuse 1 unit of PRBC if hemoglobin less than seven. Septic workup with the sputum expectorated Serratia marcescens, urine culture for E coli, blood culture positive 1/2 bottles. Possible contamination. Patient evaluated by Podiatry, patient in agreement for right vlzbk-mtu-dkhy amputation to the right side. Per Podiatry, possible right txbnx-udk-ifud amputation Monday. NEURO: Minimize central acting medications as possible. Fall Precautions. Well lighted room through the day and minimize interruptions through the night to prevent acute delirium. PULMONARY: Supplemental 02 as needed BiPAP as necessary, for respiratory distress Titrate Fio2 to keep Spo2 > or = 90% DuoNebs and CPT as needed IS hourly while awake for pulmonary hygiene prn Out of bed to chair as tolerated Maintain aspiration precautions at all times CARDIOVASCULAR: Follow hemodynamics. Vital signs per facility protocol GI & NUTRITION: Continue nutritional support Aspirations precautions Prokinetic agents and laxatives as needed KIDNEYS & ELECTROLYTES: Strict monitoring of intake and output Daily weights Avoid nephrotoxic agents Monitor electrolytes and replace as needed Goal urine output of 30mL/hr or 0.5mL/kg/hr Medications to be dosed according to renal function. Avoid contrast if possible ENDOCRINE: Maintain blood glucose between 100-180 at all times. Insulin sliding scale for blood glucose management Hypoglycemia and hyperglycemia protocol in place INFECTIOUS DISEASE: Trend temperature, WBC and procalcitonin level Follow cultures, deescalate antibiotics as soon as possible. Panculture if new onset fever HEMATOLOGY & COAGULATION: Monitor H&H. Keep Hgb > 7 Transfuse 1 unit of PRBC for Hgb < 7 Transfuse 1 pack of platelets of platelets < 20, 000 Watch for any signs and symptoms of bleeding SKIN: Pressure ulcer prevention per facility protocol Specialty mattress as needed ORTHO/REHAB Continue PT/OT PRN: MEDICATIONS Tylenol 650 mg po every 4 hrs for fever zofran 4 mg IV every 6 hrs for n/v Hydralazine 5 mg IV every 4 hrs systolic pressure > 160 bowel regiment: lactulose 20 gm PO BID PRN constipation Supportive measures: Continue GI and DVT prophylaxis Disposition: Pending improvement in clinical condition All questions answered time spent: > 35 min DORCAS DE LEON MD October 15, 2024 09:07
--- NOTE | 2024-10-15 10:32 | PN ---
[facility] PROGRESS NOTE Date Patient Seen: October 15, 2024 Time of Visit: 10:32 Supervising Physician: Esteban EVERETT MD Primary Care Physician: David Turner MD Outpatient Specialists: [ ] Inpatient Consults: [ ] PROBLEM LIST: Bactremia + staphylococcus Hominis Acute on chronic hypoxemic respiratory failure status post tracheostomy creation in the past, POA sputum culture + for Haemophilus Influenza, Serratia Marcescens Dry Right foot gangrene, POA pending RT BKA Peripheral artery disease, POA Acute complicated cystitis, +E coli POA Acute kidney injury, POA on 02/12/2024 creatinine 1.1, today creatinine 1.7 Uncontrolled Diabetes mellitius type2, POA HgA1c 10.0 Suspected pneumonia, POA Hypertension CKD History of CVA with the right-sided hemiparesis INTERVAL HISTORY: Per RN no major over night events today, she reports pt has not had a BM and placed bowel regimen orders. He is pending BKA of Rt lower extremity possibly for tomorrow by DR Gaviria. Toes are black and dry gangrene noted to rt foot. He is hemodynamically stable and is off pressors but ICU status due to Hx of chronically vent dependent with ventilator from home via trach. He appears to be pleasant AAOx3. no complains from pt at this time. He is saturating 100% with fio2 of 28%. urine output 770/day with a balance of + 655ml. CBC unremark able similar to yesterday, Chemistry similar to yesterday, He is growing staphylococcus Hominis in the blood, will consult ID due to bacteremia, UTI and pneumonia with multiple organisms. REVIEW OF SYSTEMS: 12 point ROS reviewed with patient. Pertinent positives mentioned above. Otherwise negative. PHYSICAL EXAM: GENERAL: Alert, weak, awake oriented x 3 HEENT: EOMI, Sclera non icteric, moist mucosa NECK: Supple, no JVD, trachea midline LUNGS: Diminished breath sounds bilaterally. No wheezes HEART: Regular rate and rhythm. Normal S1 and S2, without murmurs ABD: Abdomen soft, nontender. Bowel sounds present EXT: Right foot distal aspect with dry necrosis. No clubbing cyanosis or edema NEURO: Alert and oriented to person, follows commands Vital Signs (last 8hr) Date Time Temp Pulse Resp B/P (MAP) Pulse Ox O2 Delivery O2 Flow Rate FiO2 10/15/24 09:48 55 28 10/15/24 07:15 100 Ventilator+ 28 10/15/24 06:21 55 28 10/15/24 06:18 55 21 10/15/24 06:00 56 23 141/58 99 Ventilator 28 10/15/24 05:00 54 14 122/46 100 Ventilator 28 10/15/24 04:00 100 Ventilator+ 28 10/15/24 04:00 97.9 62 22 145/58 100 Ventilator 28 10/15/24 03:48 61 28 10/15/24 03:00 69 13 155/47 100 Ventilator 28 LABS: Hematology Labs: Test 10/15/24 04:01 10/14/24 08:26 Range/Units White Blood Count 7.9 4.8-10.8 K/uL Red Blood Count 3.01 L 4.50-6.20 MIL/uL Hemoglobin 7.7 L 14.0-18.0 g/dL Hematocrit 23.9 L 42-54 % Mean Corpuscular Volume 79.4 79-99 fL Mean Corpuscular Hemoglobin 25.6 L 27.0-33.0 pg Mean Corpuscular Hemoglobin Concent 32.2 32.0-36.0 g/dL Red Cell Distribution Width 17.1 H 11.0-15.5 % Platelet Count 368 # 130-400 K/uL Mean Platelet Volume 10.0 7.5-10.5 fL Nucleated Red Blood Cells 0.0 0.0-0.19 % Segmented Neutrophils % 78 H 40-70 % Lymphocytes % (Manual) 17 L 22-44 % Monocytes % (Manual) 5 2-9 % Differential Comment MANUAL DIFFERENTIAL White Cell Morphology Comment HYPERSEGMENT NEUT 1+ Platelet Morphology Comment ADEQUATE Red Blood Cell Morphology See comments Chemistry Labs: Test 10/15/24 04:01 10/14/24 20:30 10/13/24 17:16 Range/Units Sodium Level 135 L 136-145 mmol/L Potassium Level 4.3 3.5-5.1 mmol/L Chloride Level 103 101-111 mmol/L Carbon Dioxide Level 20 L 21-32 mmol/L Blood Urea Nitrogen 38 H 7-18 mg/dL Creatinine 1.4 H 0.5-1.3 mg/dL Glomerular Filtration Rate Calc 54 >90 mL/min Random Glucose 288 #H 70-105 mg/dL Total Calcium 6.9 L 8.5-10.1 mg/dL Magnesium Level 1.80 1.80-2.40 mg/dL Total Bilirubin 0.2 0.2-1.0 mg/dL Aspartate Amino Transf (AST/SGOT) 13 10-37 U/L Alanine Aminotransferase (ALT/SGPT) 24 12-78 U/L Alkaline Phosphatase 108 50-136 U/L Total Protein 5.4 L 6.0-8.3 g/dL Albumin 1.7 L 3.5-5.0 g/dL Whole Blood Glucose 293 H 70-110 MG/DL Bedside Glucose Comment Notified Nurse DIAGNOSTICS / RADIOLOGY RESULTS: [ ] PLAN Home vent ( Continue) pending BKA by DR Gaviria Consult ID due to bacteremia monitor for fevers continues wound care per WC team Bowel regimen ABG in am NEURO: Minimize central acting medications as possible. Fall Precautions. Well lighted room through the day and minimize interruptions through the night to prevent acute delirium. PULMONARY: Supplemental 02 as needed Titrate Fio2 to keep Spo2 > or = 90% DuoNebs and CPT as needed IS hourly while awake for pulmonary hygiene Out of bed to chair as tolerated VAP Bundle Vent/BIPAP Settings: Tracheostomy on home vent CARDIOVASCULAR: Follow hemodynamics. Titrate vasopressor to keep MAP >65 or systolic blood pressure >95mmHg DIPS: None LINES: PIV's GI & NUTRITION: Continue nutritional support Aspirations precautions Prokinetic agents and laxatives as needed KIDNEYS & ELECTROLYTES: Strict monitoring of intake and output Daily weights Avoid nephrotoxic agents Monitor electrolytes and replace as needed Goal urine output of 30mL/hr or 0.5mL/kg/hr Urine output: [ ] Fluid Balance: [ ] ENDOCRINE: Maintain blood glucose between 100-180 at all times. Insulin sliding scale for blood glucose management INFECTIOUS DISEASE: Trend temperature. Acosta-culture if febrile. Micro: Sputum Antibiotics: Zosyn and doxy HEMATOLOGY & COAGULATION: Monitor H&H. Keep Hgb > 7 Transfuse 1 unit of PRBC for Hgb < 7 Transfuse 1 pack of platelets of platelets < 20, 000 Watch for any signs and symptoms of bleeding SKIN: Pressure ulcer prevention per facility protocol Rehab: PT/OT Prophylaxis: GI: Pepcid DVT: Lovenox Code Status: Full Resuscitation Disposition:ICU Other: I personally spent 40 minutes of critical care time in treatment of this patient. This includes patient management, time at bedside, time reviewing tests, labs, appropriate images and studies, documentation, and patient care coordination. This time excludes separately billable procedures. Case was discussed and seen with my supervising physician. The above plan was formulated and agreed upon. ATTESTATION BY PHYSICIAN I reviewed the documentation, medical decision making, and treatment plan as noted by the mid-level provider above. I agree with the findings and plan of care. Esteban Everett MD, [employer] CLERK October 15, 2024 10:32
[2024-10-15] MEDS: LACTULOSE 20 GM/30 ML UDCUP PO PRN (10:44)
[2024-10-15 14:32] LABS: HEMATOCRIT 24.5 % (42-54); MEAN CORPUSCULAR HEMOGLOBIN 25.8 pg (27.0-33.0); MEAN CORPUSCULAR HGB CONC 32.7 g/dL (32.0-36.0); RED BLOOD CELL COUNT(AUTO) 3.1 MIL/uL (4.50-6.20); RED CELL DISTRIBUTION WIDTH 17.4 % (11.0-15.5); WHITE BLOOD COUNT (AUTO) 9.3 K/uL (4.8-10.8)
[2024-10-15] MEDS: BisaCODYL 10 MG SUPP.RECT RC ONE (18:27)
[2024-10-15 21:25] LABS: HEMATOCRIT 24.5 % (42-54); MEAN CORPUSCULAR HEMOGLOBIN 25.7 pg (27.0-33.0); MEAN CORPUSCULAR HGB CONC 31.8 g/dL (32.0-36.0); MEAN CORPUSCULAR VOLUME 80.6 fL (79-99); RED BLOOD CELL COUNT(AUTO) 3.04 MIL/uL (4.50-6.20); RED CELL DISTRIBUTION WIDTH 17.4 % (11.0-15.5); WHITE BLOOD COUNT (AUTO) 9.3 K/uL (4.8-10.8)
[2024-10-16] VITALS (61 sets, daily range): BP systolic 90–181; BP diastolic 42–111; PULSE 48–79; RESP 12–43; TEMP 97.4–98.7; O2SAT 97–100
[2024-10-16 04:02] LABS: HEMATOCRIT 25.4 % (42-54); MEAN CORPUSCULAR HEMOGLOBIN 25.4 pg (27.0-33.0); MEAN CORPUSCULAR HGB CONC 31.9 g/dL (32.0-36.0); MEAN CORPUSCULAR VOLUME 79.6 fL (79-99); NUCLEATED RED BLOOD CELLS 0.2 % (0.0-0.19); RED BLOOD CELL COUNT(AUTO) 3.19 MIL/uL (4.50-6.20); RED CELL DISTRIBUTION WIDTH 17.5 % (11.0-15.5); WHITE BLOOD COUNT (AUTO) 10.1 K/uL (4.8-10.8)
[2024-10-16 04:14] LABS: INR 1.08 (0.85-1.15); PROTHROMBIN TIME 11.4 SEC (9.6-11.6)
[2024-10-16 04:32] LABS: ALBUMIN 2.1 g/dL (3.5-5.0); BILIRUBIN,TOTAL 0.4 mg/dL (0.2-1.0); CREATININE 1.3 mg/dL (0.5-1.3); POTASSIUM 5.1 mmol/L (3.5-5.1); TOTAL PROTEIN, SERUM 6.3 g/dL (6.0-8.3)
[2024-10-16 05:02] LABS: ABG BASE EXCESS -2.9 mmol/L (-2.0-3.0); ABG HCO3 20.7 mmol/L (21.0-28.0); ABG OXYGEN SATURATION 98.2 % (94.0-98.0); ABG PCO2 31 mmHg (35-48); ABG PH 7.438 (7.350-7.450); CARBON MONOXIDE 0.3 % (0.5-1.5); HHb 1.8; VENT MODE, BG AC (ROOM AIR)
[2024-10-16] MEDS: polyETHYLene GLYCol 3350 17 GM POWD.PACK PO SCH (08:25)
[2024-10-16] MEDS ORDERED: LIDOCAINE PF 100MG/5ML (2%) SYRINGE 5ML ONE (09:29)
[2024-10-16] MEDS ORDERED: ondanSETRON 4MG INJ ONE (09:29)
[2024-10-16] MEDS ORDERED: GLYCOPYRROLATE 0.2 MG/ML 5 ML VIAL ONE (09:30)
[2024-10-16] MEDS ORDERED: SUCCINYLCHOLINE CHLORIDE 20 MG/ML 10 ML VIAL ONE (09:30)
[2024-10-16] MEDS ORDERED: FENTanyl CITRate PF 50 MCG/1 ML 2ML VIAL ONE (09:30)
[2024-10-16] MEDS ORDERED: rocuRONium bROMide 10MG/1ML 5ML VL ONE (09:30)
[2024-10-16] MEDS ORDERED: dexaMETHasone SOD PHOSPHATE 10MG/ML 1ML VIAL ONE (09:30)
[2024-10-16] MEDS ORDERED: proPOFol 10 MG/ML 20ML VIAL IV ONE (09:30)
[2024-10-16] MEDS ORDERED: NEOSTIGMINE METHYLSULFATE 1MG/ML IV ONE (09:30)
[2024-10-16] MEDS ORDERED: MIDAZOLAM HCL 1 MG/ML 2ML VIAL ONE (09:35)
[2024-10-16] MEDS ORDERED: NOREPINEPHRINE BITARTRATE 1 MG/1 ML ML IV ONE (09:36)
[2024-10-16] MEDS ORDERED: ketaMINE 50MG/ML SYRINGE 50 MG/ML DISP.SYRIN ONE (09:45)
[2024-10-16] MEDS ORDERED: ALBUMIN (HUMAN) 5% 250 ML IV ONE (09:46)
[2024-10-16] MEDS ORDERED: EPINEPHrine 1MG/10ML(1:10,000) 0.1 MG/ML SYG ONE (09:51)
--- NOTE | 2024-10-16 10:07 | NUR ---
OR- RT BKA ANESTHESIA & OR PERSONNEL AT BEDSIDE GETTING PATIENT READY FOR TRANSFER TO OR DEPT FOR RT BKA.
--- NOTE | 2024-10-16 10:43 | HMCIMG ---
CHEST 1VW HISTORY: Vent dependent COMPARISON: 10/12/2024 FINDINGS: A frontal projection of the chest was obtained. Mild bilateral pulmonary infiltrates are seen may be related to mild pulmonary vascular congestion with possible superimposed pneumonitis. Sternotomy endotracheal tube is seen with distal tip at 3 cm above soledad. All the lines and tubes are again seen in place. No evidence of aortic calcification is seen. IMPRESSION: 1. Bilateral pulmonary infiltrates are seen suggestive of pulmonary vascular congestion with possible superimposed pneumonitis.
--- NOTE | 2024-10-16 10:50 | PN ---
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 He he is in the likely stable and no pressors. Continues on home ventilator. CBC with some improvement two H&H 8.1/ 25.4 and platelet count of 195 K. ABG shows a pH of 7.43 pCO2 of 31 PO2 of 115 and bicarb 20.7. Kidney function has improved with creatinine 1.3 and GFR 59 glucose 180 mg/dL. Albumin of 2.1. Right BKA today per . REVIEW OF SYSTEMS: General: No malaise or fever. Neurological: No fainting episodes or seizures. HEENT: No nasal congestion or nasal secretion. Respiratory: No cough, shortness of breath, or wheezing Cardiac: No chest pain or palpitations. Gastrointestinal: No vomiting or diarrhea. Genitourinary: No dysuria hematuria. Skin: No rashes or lesions. Hematological: No bruises or bleeding. Musculoskeletal: yes for rt foot paraesthesia and black discoloration Psychiatric: No depression or panic attacks. PHYSICAL EXAM: GENERAL: Alert, weak, awake oriented x 3 HEENT: EOMI, Sclera non icteric, moist mucosa NECK: Supple, no JVD, trachea midline LUNGS: Diminished breath sounds bilaterally. No wheezes HEART: Regular rate and rhythm. Normal S1 and S2, without murmurs ABD: Abdomen soft, nontender. Bowel sounds present EXT: Right foot distal aspect with dry necrosis. No clubbing cyanosis or edema NEURO: Alert and oriented to person, follows commands Vital Signs (last 8hr) Date Time Temp Pulse Resp B/P (MAP) Pulse Ox O2 Delivery O2 Flow Rate FiO2 10/16/24 10:00 58 21 110/60 99 Ventilator 28 10/16/24 09:00 67 22 101/57 98 Ventilator 28 10/16/24 08:23 99 Ventilator+ 10/16/24 08:00 79 15 181/77 98 Ventilator 28 10/16/24 07:30 97.9 64 12 152/63 99 Ventilator 28 10/16/24 07:00 69 19 163/52 99 Ventilator 28 10/16/24 06:52 66 16 147/62 97 Ventilator 28 10/16/24 06:44 73 19 90/43 96 Ventilator 28 10/16/24 06:30 65 28 10/16/24 06:27 61 19 10/16/24 06:14 63 19 166/81 99 Ventilator 28 10/16/24 05:44 59 12 145/60 100 Ventilator 28 10/16/24 05:14 62 17 166/66 99 Ventilator 28 10/16/24 04:45 76 23 161/95 98 Ventilator 28 10/16/24 04:14 73 17 176/69 99 Ventilator 28 10/16/24 04:00 100 Ventilator+ 10/16/24 04:00 98.2 10/16/24 03:44 72 19 147/51 98 Ventilator 28 10/16/24 03:14 76 12 158/63 99 Ventilator 28 LABS: Hematology Labs: Test 10/16/24 03:49 Range/Units White Blood Count 10.1 4.8-10.8 K/uL Red Blood Count 3.19 L 4.50-6.20 MIL/uL Hemoglobin 8.1 L 14.0-18.0 g/dL Hematocrit 25.4 L 42-54 % Mean Corpuscular Volume 79.6 79-99 fL Mean Corpuscular Hemoglobin 25.4 L 27.0-33.0 pg Mean Corpuscular Hemoglobin Concent 31.9 L 32.0-36.0 g/dL Red Cell Distribution Width 17.5 H 11.0-15.5 % Platelet Count 195 # 130-400 K/uL Mean Platelet Volume 10.5 7.5-10.5 fL Nucleated Red Blood Cells 0.2 H 0.0-0.19 % Chemistry Labs: Test 10/16/24 03:49 10/15/24 19:51 Range/Units Sodium Level 139 136-145 mmol/L Potassium Level 5.1 3.5-5.1 mmol/L Chloride Level 106 101-111 mmol/L Carbon Dioxide Level 20 L 21-32 mmol/L Blood Urea Nitrogen 40 H 7-18 mg/dL Creatinine 1.3 0.5-1.3 mg/dL Glomerular Filtration Rate Calc 59 >90 mL/min Random Glucose 183 H 70-105 mg/dL Total Calcium 8.5 8.5-10.1 mg/dL Magnesium Level 2.00 1.80-2.40 mg/dL Total Bilirubin 0.4 # 0.2-1.0 mg/dL Aspartate Amino Transf (AST/SGOT) 31 10-37 U/L Alanine Aminotransferase (ALT/SGPT) 36 # 12-78 U/L Alkaline Phosphatase 118 50-136 U/L Total Protein 6.3 6.0-8.3 g/dL Albumin 2.1 #L 3.5-5.0 g/dL Whole Blood Glucose 292 H 70-110 MG/DL Bedside Glucose Comment Notified Nurse Coagulation Labs: Test 10/16/24 05:00 10/16/24 03:49 Range/Units Activated Partial Thromboplast Time 21.1 L 26.3-35.5 SEC Prothrombin Time 11.4 9.6-11.6 SEC Prothromb Time International Ratio 1.08 0.85-1.15 DIAGNOSTICS / RADIOLOGY RESULTS: [IMAGING REPORT Signed PATIENT: ILANA GOFF MR#: [id number] : 1955 SEX: M AGE: 69 LOCATION: [facility] ORDER 2300 STATUS: ADM IN REPORT#: [id number] SERVICE 0600 REASON: vent dependent ORDERING PHYSICIAN: FISH WHITT PROCEDURE: CXR1VW - CHEST 1VW CHEST 1VW HISTORY: Vent dependent COMPARISON: 10/12/2024 FINDINGS: A frontal projection of the chest was obtained. Mild bilateral pulmonary infiltrates are seen may be related to mild pulmonary vascular congestion with possible superimposed pneumonitis. Sternotomy endotracheal tube is seen with distal tip at 3 cm above soledad. All the lines and tubes are again seen in place. No evidence of aortic calcification is seen. IMPRESSION: 1. Bilateral pulmonary infiltrates are seen suggestive of pulmonary vascular congestion with possible superimposed pneumonitis. DICTATED BY: JONES HOOVER MD DATE: 10/16/24 1040 ELECTRONICALLY SIGNED BY: JONES HOOVER MD DATE: 10/16/24 1043 ] PLAN Home vent ( Continue) pending BKA by DR Gaviria for today Consult ID due to bacteremia monitor for fevers continues wound care per WC team Bowel regimen NEURO: Minimize central acting medications as possible. Fall Precautions. Well lighted room through the day and minimize interruptions through the night to prevent acute delirium. PULMONARY: Supplemental 02 as needed Titrate Fio2 to keep Spo2 > or = 90% DuoNebs and CPT as needed IS hourly while awake for pulmonary hygiene Out of bed to chair as tolerated VAP Bundle Vent/BIPAP Settings: Tracheostomy on home vent CARDIOVASCULAR: Follow hemodynamics. Titrate vasopressor to keep MAP >65 or systolic blood pressure >95mmHg DIPS: None LINES: PIV's GI & NUTRITION: Continue nutritional support Aspirations precautions Prokinetic agents and laxatives as needed KIDNEYS & ELECTROLYTES: Strict monitoring of intake and output Daily weights Avoid nephrotoxic agents Monitor electrolytes and replace as needed Goal urine output of 30mL/hr or 0.5mL/kg/hr Urine output: [ ] Fluid Balance: [ ] ENDOCRINE: Maintain blood glucose between 100-180 at all times. Insulin sliding scale for blood glucose management INFECTIOUS DISEASE: Trend temperature. Acosta-culture if febrile. Micro: Sputum Antibiotics: Zosyn and doxy HEMATOLOGY & COAGULATION: Monitor H&H. Keep Hgb > 7 Transfuse 1 unit of PRBC for Hgb < 7 Transfuse 1 pack of platelets of platelets < 20, 000 Watch for any signs and symptoms of bleeding SKIN: Pressure ulcer prevention per facility protocol Rehab: PT/OT Prophylaxis: GI: Pepcid DVT: Lovenox Code Status: Full Resuscitation Disposition:ICU Other: I personally spent 35 minutes of critical care time in treatment of this patient ATTESTATION BY PHYSICIAN I reviewed the documentation, medical decision making, and treatment plan as noted by the mid-level provider above. I agree with the findings and plan of care. Esteban Hidalgo MD, NELLY J ARNP October 16, 2024 10:50
--- NOTE | 2024-10-16 13:34 | OP ---
Operative Note: DATE OF PROCEDURE: 10/16/24 SURGEON: PETRA HANSEN MD TEACHER LEARNING DISABLED: David Pastor ANESTHESIA: General ANESTHESIOLOGIST/MARKETING STRATEGY LEAD: Dioni Cuevas PREOPERATIVE DIAGNOSIS: Right foot gangrene POSTOPERATIVE DIAGNOSIS: Right foot gangrene PROCEDURE: Right Below-knee amputation ESTIMATED BLOOD LOSS: 100 cc INDICATIONS: 69-year-old male with right foot gangrene who has undergone multiple attempts at revascularization without success. CTA showed limited flow distal to the ankle. I discussed with the patient the risks, benefits, and alternatives to undergoing right below-knee amputation including that we may not have healing at this level. The patient voluntarily agreed to undergo the aforementioned procedure. DESCRIPTION OF PROCEDURE: Patient was properly identified in the preoperative holding area. Surgical site marking was verified and surgery consent reviewed. The patient was then taken to the operating room and placed in supine position on the OR table. After induction of general anesthesia, preoperative antibiotics were given, all bony prominences were well-padded, and a well padded tourniquet was applied but not inflated at this time. The right lower extremity was then prepped and draped in usual sterile fashion. Surgical timeout was done verifying correct surgery, side, site, and location to be performed. We then began the procedure by elevating the limb for exsanguination and inflating our tourniquet to 250mmHg. We then made a fishmouth style circu mferential incision with a long posterior flap at a level approximately 12cm distal to the tibial tubercle. Here, we came down sharply to the bone anteriorly and came through the fascia circumferentially. Using a periosteal elevator, we elevated the soft tissue off of the tibia circumferentially. We then performed our tibial osteotomy with an oscillating saw. At this point, we placed Marium clamps across the anterior neurovascular bundle and came sharply through the remaining anterior and lateral tissues to identify the fibula. We performed our fibular osteotomy at a level approximately 2 cm proximal to the tibia and bevelled this cut laterally. We then applied traction on the resected portion with a bone hook, came sharply through the remaining soft tissue posteriorly leaving a long flap, and passed the limb off the back table as a specimen. Next, we tied off the neurovascular bundles using a #1 Vicryl and removed the Marium clamps. Hemostasis was further achieved with hemostats and then the vessels were tied off one at a time using #1 Vicryl. The anterior tibia cut was bevelled 45 degrees. At this point, we bevelled the remaining edges of our cut using the saw blade in a feathering fashion. Then, we thoroughly irrigated out the wound with normal saline. Further hemostasis was achieved as needed. We began to fashion our flaps resecting excess tissue as needed. We then closed the anterior and posterior fascia together in two layers with the deep posterior fascia using #1 Vicryl. The subcutaneous tissue was closed with 2-0 Vicryl and suze were applied to the skin. A sterile dressing was then applied. The tourniquet was deflated. The patient was then placed into a knee immobilizer. The patient was then awakened from anesthesia and taken to the recovery room in stable condition. PETRA HANSEN MD October 16, 2024 13:33
--- NOTE | 2024-10-16 14:12 | PN ---
[facility] PROGRESS NOTE Date of Service: October 16, 2024 Time of Service: 14:08 SUBJECTIVE: Mr. Preicado is a 69-year-old male that was seen and examined 10/12/2024. Patient is unable to provide health history. Patient's Liseth at bedside and able to provide the following information. Patient was brought to the emergency department with a chief complaint of shortness of breath. Onset was one week ago. also reported associated right foot pain. Patient has had gangrene since February 2024. Patient has been evaluated by Cardiology Service, Dr. Childress and was told that he was not a candidate for revascularization. Patient has a nephew who is a recruitment coordinator in [place] and he recommended a recruitment coordinator in [place] who attempted revascularization using a pedal approach about two months ago but this did not help. There was also a different doctor who tried a revascularization from a jugular approach but that did not help. stated that there has been a recommendation for [id number] amputation but she prefers to try and save her 's limb. In the emergency department BUN is 37 , creatinine 1.7, GFR 43, urinalysis positive for leukocyte esterase and WBCs 50 1-100 per high-powered microscopy field. Emergency room physician recommended that patient be admitted with a diagnosis of acute on chronic respiratory failure. 10/13 patient seen at bedside, no acute events overnight. Blood culture is positive in 1/2 bottles likely contaminant, we will follow up with cultures and sensitivities. Echocardiogram pending, we will follow up. Patient to be assessed for possible angiogram tomorrow by Cardiology. Continue with empiric antibiotics. Blood sugar elevated, sliding scale increased to high sensitivity and glargine increased to 20 units twice daily, we will continue to monitor blood sugars. 10/14 patient is seen and examined, BP 124/54, heart rate of 58, laboratory data shows a hemoglobin of 8.1, hematocrit 26.2. CMP with sodium 138, potassium 3.8, BUN of 41, creatinine of 1.4. Septic workup with the sputum expectorated Serratia marcescens, urine culture for E coli, blood culture positive 1/2 bottles. Gram-positive cocci, final identification still pending. 10/15 patient is seen in the ICU, remains hemodynamically stable, BP 141/58, hea rt rate of 56, on home ventilator, FiO2 28%, saturating 99%. Patient awake, following commands. Hemoglobin of 7.7 with a hematocrit 23.9, no signs of active bleeding, we will do serial CBC q.6 hours, transfuse 1 unit of PRBC if hemoglobin less than seven. Septic workup with the sputum expectorated Serratia marcescens, urine culture for E coli, blood culture positive 1/2 bottles. Likely contamination. Patient evaluated by Podiatry, patient in agreement for right [id number] amputation to the right side. Per Podiatry, possible right [id number] amputation Monday. 10/16 patient is seen and examined, BP 154/69, afebrile, on ventilator saturating 99%. CBC with a hemoglobin 8.1, hematocrit 25.4, WBC 10.1, platelet count 195. CMP shows a sodium 139, potassium 5.1, BUN of 40, creatinine 1.3. Bicarbonate of 20 on the CMP, ABG reviewed, pH 7.43, pCO2 31, PO2 115, bicarb of 20.7. Scheduled for right poijm-onr-[id number] amputation by public health nutritionist. Results of blood cultures reviewed, positive for Staphylococcus hominis, ID consultation requested, we will follow input and recommendation. REVIEW OF SYSTEMS CONSTITUTIONAL: Denies fevers, chills, or night sweats. No unintentional weight loss reported. NEUROLOGICAL: Denies headache, amaurosis fugax, motor weakness, sensory deficit, vertigo/spinning sensation, gait abnormalities, or tremors. ENT: No hearing loss, otalgia, otorrhea, rhinitis, rhinorrhea, hoarseness, or sore throat. CARDIOVASCULAR: Denies any exertional angina, dyspnea on exertion, orthopnea, paroxysmal nocturnal dyspnea, palpitations, life-threatening arrhythmias, claudication. PULMONARY: Denies any shortness of breath, cough, phlegm/sputum, hemoptysis, pleuritic chest pain. SLEEP: Denies morning headaches, daytime somnolence or napping. Denies difficulty falling asleep, staying asleep, waking from sleep. Denies knowledge of snoring. GASTROINTESTINAL: Denies any type of dysphagia to either liquids or solids. Denies nausea, vomiting, pyrosis, early satiety, abdominal pain, diarrhea, constipation, or changes in stool consistency or caliber. Denies coffee-ground emesis, hematemesis, hematochezia, or melanotic stools. GENITOURINARY: Denies frequency, urgency, nocturia, hematuria or incontinence (Storage/Irritative symptoms.) Low urinary stream, straining to void, urinary intermittency or hesitancy, splitting of the voiding stream, terminal dribbling. ENDOCRINOLOGIC: Denies polyuria, polydipsia, polyphagia or heat/cold intolerances. HEMATOLOGIC: Denies thrombophilia/previous clots, or coagulopathy/bleeding disorders. ONCOLOGIC: Denies personal history of malignancy. DERMATOLOGIC: Denies rashes or pruritus. PSYCHIATRIC: Denies any suicidal or homicidal ideation. Denies hallucinations. PHYSICAL EXAM GENERAL APPEARANCE: No acute distress NEUROLOGICAL: Cranial nerves II-XII grossly intact. Motor is 5/5 in bilateral upper and lower extremities proximal to distal. No sensory deficits. HEENT: Face is symmetric. Pupils are equal and reactive. Extraocular movements are intact. NECK: Supple. No JVD. No thyromegaly. No submental, submandibular, pre- /postauricular, occipital or supraclavicular lymphadenopathy. CHEST: Normal chest expansion. No Telemetry. LUNGS: Absence of any rales, rhonchi or any wheezing. CARDIOVASCULAR: Regular. S1 and S2 normal. No appreciable rubs, murmurs or gallops. ABDOMEN: Soft, nontender, and nondistended. There is no rebound, voluntary guarding, or rigidity. : Deferred. No Nixon. EXTREMITIES: Non-edematous and not cyanotic. No clubbing. Good capillary refill. SKIN: No skin breakdown. Vital Signs (last 8hr) Date Time Temp Pulse Resp B/P (MAP) Pulse Ox O2 Delivery O2 Flow Rate FiO2 10/16/24 13:00 59 18 154/69 99 Ventilator 4.0 36 10/16/24 12:27 62 28 10/16/24 12:14 99 Ventilator+ 4 36 10/16/24 12:06 97.3 67 18 135/61 99 Ventilator 4.0 36 10/16/24 10:00 58 21 110/60 99 Ventilator 28 10/16/24 09:00 67 22 101/57 98 Ventilator 28 10/16/24 08:23 99 Ventilator+ 28 10/16/24 08:00 79 15 181/77 98 Ventilator 28 10/16/24 07:30 97.9 64 12 152/63 99 Ventilator 28 10/16/24 07:00 69 19 163/52 99 Ventilator 28 10/16/24 06:52 66 16 147/62 97 Ventilator 28 10/16/24 06:44 73 19 90/43 96 Ventilator 28 10/16/24 06:30 65 28 10/16/24 06:27 61 19 10/16/24 06:14 63 19 166/81 99 Ventilator 28 LABS: Laboratory: Test 10/16/24 12:07 10/16/24 05:00 10/16/24 03:49 10/15/24 19:51 Range/Units Whole Blood Glucose 158 H 70-110 MG/DL Activated Partial Thromboplast Time 21.1 L 26.3-35.5 SEC Blood Gas Specimen Type Arterial Arterial Blood pH 7.438 7.350-7.450 Arterial Blood Partial Pressure CO2 31 L 35-48 mmHg Arterial Blood Partial Pressure O2 115.0 H 83.0-108.0 mmHg Arterial Blood HCO3 20.7 L 21.0-28.0 mmol/L Arterial Blood Oxygen Saturation 98.2 H 94.0-98.0 % Arterial Blood Base Excess -2.9 L -2.0-3.0 mmol/L Hemoglobin (Blood Gas) 9.0 L 13.5-17.5 g/dL Sodium (Blood Gas) 135 L 136-145 MMOL/L Bedside Potassium (Blood Gas) 4.4 3.4-4.5 MMOL/L Bedside Chloride (Blood Gas) 106 98-107 MMOL/L Bedside Glucose (Blood Gas) 186 H 65-95 MG/DL Bedside Ionized Calcium (Blood Gas) 1.16 1.15-1.33 MMOL/L Bedside Lactic Acid (Blood Gas) 1.44 H 0.36-0.75 MMOL/L Blood Gas Temperature 37.0 35.5-37.0 CELSIUS Blood Gas Respiration Rate 10.0 min. Blood Gas Vent Mode AC ROOM AIR FiO2 28.0 % Blood Gas Tidal Volume 460 ml Blood Gas PEEP 5 cm H2O Blood Gas Specimen Comment LR,RN MANNY White Blood Count 10.1 4.8-10.8 K/uL Red Blood Count 3.19 L 4.50-6.20 MIL/uL Hemoglobin 8.1 L 14.0-18.0 g/dL Hematocrit 25.4 L 42-54 % Mean Corpuscular Volume 79.6 79-99 fL Mean Corpuscular Hemoglobin 25.4 L 27.0-33.0 pg Mean Corpuscular Hemoglobin Concent 31.9 L 32.0-36.0 g/dL Red Cell Distribution Width 17.5 H 11.0-15.5 % Platelet Count 195 # 130-400 K/uL Mean Platelet Volume 10.5 7.5-10.5 fL Nucleated Red Blood Cells 0.2 H 0.0-0.19 % Prothrombin Time 11.4 9.6-11.6 SEC Prothromb Time International Ratio 1.08 0.85-1.15 Sodium Level 139 136-145 mmol/L Potassium Level 5.1 3.5-5.1 mmol/L Chloride Level 106 101-111 mmol/L Carbon Dioxide Level 20 L 21-32 mmol/L Blood Urea Nitrogen 40 H 7-18 mg/dL Creatinine 1.3 0.5-1.3 mg/dL Glomerular Filtration Rate Calc 59 >90 mL/min Random Glucose 183 H 70-105 mg/dL Total Calcium 8.5 8.5-10.1 mg/dL Magnesium Level 2.00 1.80-2.40 mg/dL Total Bilirubin 0.4 # 0.2-1.0 mg/dL Aspartate Amino Transf (AST/SGOT) 31 10-37 U/L Alanine Aminotransferase (ALT/SGPT) 36 # 12-78 U/L Alkaline Phosphatase 118 50-136 U/L Total Protein 6.3 6.0-8.3 g/dL Albumin 2.1 #L 3.5-5.0 g/dL Bedside Glucose Comment Notified Nurse Current Medications Medications (Trade) Dose Ordered Sig/[place] Route PRN Reason Start Time Stop Time Status Last Admin Dose Admin Acetaminophen (TYLenol 325MG TAB) 650 mg Q4H PRN PO MILD PAIN (1-3) 10/12/24 01:00 11/11/24 00:59 10/14/24 21:31 650 MG Albuterol (DUOneb) 1 UDVIAL [id number] IH 10/12/24 06:00 11/11/24 05:59 10/16/24 06:27 1 UDVIAL Aspirin (Aspirin 81mg Chew Tab) 81 mg DAILY PO 10/12/24 09:00 10/14/24 11:17 DC 10/14/24 09:23 81 MG Atorvastatin Calcium (LIPItor 40MG) 40 mg HS PO 10/12/24 21:00 11/11/24 20:59 10/15/24 20:22 40 MG Calcium Gluconate (Calcium Gluc 1gm Vial) 1 gm PROTOCOL IVPB 10/15/24 05:45 10/15/24 05:46 DC Calcium Gluconate 1 gm/Sodium Chloride 100 ml @ 0 mls/hr PROTOCOL IV 10/15/24 06:00 11/14/24 05:59 Calcium Gluconate 2 gm/Sodium Chloride 100 ml @ 0 mls/hr PROTOCOL IV 10/15/24 06:00 11/14/24 05:59 10/15/24 05:51 100 MLS/HR Ceftriaxone Sodium (ROCEphine 1G INJ) 1 gm Q24H IVPB 10/12/24 09:00 10/12/24 02:17 DC Cilostazol (PLETal 100MG TAB) 50 mg BID PO 10/12/24 21:00 10/15/24 22:41 DC 10/15/24 20:22 50 MG Citalopram Hydrobromide (CeleXA 20MG TAB) 20 mg HS PO 10/12/24 21:00 11/11/24 20:59 10/15/24 20:22 20 MG Clopidogrel Bisulfate (plaVIX 75MG) 75 mg DAILY PO 10/12/24 09:00 10/14/24 11:17 DC 10/14/24 09:23 75 MG Doxazosin Mesylate (Doxazosin Mesylate) 2 mg BID PO 10/12/24 21:00 11/11/24 20:59 10/16/24 08:26 2 MG Doxycycline Hyclate 250 ml @ 125 mls/hr Q12H IV 10/12/24 01:00 10/22/24 00:59 10/16/24 12:24 125 MLS/HR Finasteride (PROscar 5 MG TAB) 5 mg DAILY PO 10/13/24 09:00 11/12/24 08:59 10/16/24 08:26 5 MG Gabapentin (NEURontin 300 MG CAP) 600 mg TID PO 10/12/24 14:00 11/11/24 13:59 10/16/24 08:26 600 MG Heparin Sodium (Porcine) (HEParin 5,000 UNIT VIAL) 5,000 unit BID SQ 10/12/24 09:00 10/16/24 08:23 DC 10/15/24 20:23 5,000 UNIT Hydralazine HCl (APRESOLine 20MG INJ) 10 mg Q6H PRN IV For:SBP above 160;DBP above 90 10/12/24 01:00 11/11/24 00:59 10/15/24 23:47 10 MG Hydromorphone HCl (DiLAUDid 1MG INJ) 1 mg Q3H3 PRN IVP SEVERE PAIN (7-10) 10/14/24 20:00 10/19/24 19:59 10/16/24 07:04 1 MG Insulin Glargine (LANtus 100 UNITS/ML 10 ML VIAL) 15 units BID@0730,2100 SQ 10/12/24 07:30 10/13/24 12:31 DC 10/13/24 07:16 15 UNITS Insulin Glargine (LANtus 100 UNITS/ML 10 ML VIAL) 20 units BID@0730,2100 SQ 10/13/24 21:00 10/13/24 13:18 DC Insulin Glargine (LANtus 100 UNITS/ML 10 ML VIAL) 25 units BID@0730,2100 SQ 10/13/24 13:30 11/12/24 13:29 10/15/24 20:24 25 UNITS Insulin Human Regular (humuLIN R 100 UNIT/ML 3ML) INSULIN SLIDING SCAL... ACHS SQ 10/12/24 07:30 10/13/24 10:03 DC 10/13/24 07:15 4 UNIT Insulin Human Regular (humuLIN R 100 UNIT/ML 3ML) INSULIN SLIDING SCAL... ACHS SQ 10/13/24 11:30 10/13/24 13:18 DC 10/13/24 11:59 16 UNIT Insulin Human Regular (humuLIN R 100 UNIT/ML 3ML) INSULIN SLIDING SCAL... ACHS SQ 10/13/24 16:30 11/12/24 16:29 10/15/24 20:24 14 UNIT Lactated Ringer's 1,000 ml @ 150 mls/hr Q6H40M IV 10/12/24 01:00 10/12/24 17:01 DC 10/12/24 12:21 150 MLS/HR Lactulose (Constulose 20gm/ 30ml Udcup) 20 gm BID PRN PO CONSTIPATION 10/15/24 10:30 11/14/24 10:29 10/15/24 10:44 20 GM Magnesium Sulfate 50 ml @ 0 mls/hr PROTOCOL PRN IV MAGNESIUM PROTOCOL 10/12/24 10:00 11/11/24 09:59 10/12/24 09:49 25 MLS/HR Methylprednisolone Sodium Succinate (Solu-medROL 40MG) 40 mg Q12H IVP 10/14/24 09:00 11/11/24 07:59 10/16/24 08:25 40 MG Methylprednisolone Sodium Succinate (Solu-medROL 40MG) 40 mg Q8H IVP 10/12/24 08:00 10/13/24 16:40 DC 10/13/24 08:59 40 MG Metoprolol Succinate (TopROL XL) 25 mg DAILY PO 10/13/24 09:00 11/12/24 08:59 10/16/24 08:26 25 MG Morphine Sulfate (morPHINE 2MG SYG) 2 mg Q4H PRN IVP SEVERE PAIN (7-10) 10/12/24 01:30 10/14/24 20:00 DC 10/14/24 19:59 2 MG Ondansetron HCl (zoFRAN 4MG INJ) 4 mg Q6H PRN IV NAUSEA/VOMITING 10/12/24 01:00 11/11/24 00:59 Pantoprazole Sodium (PROTonix 40MG INJ) 40 mg DAILY IV 10/12/24 09:00 11/11/24 08:59 10/16/24 08:25 40 MG Piperacillin Sod/ Tazobactam Sod (Zosyn 3.375gm+NS 50ml) 3.375 gm Q8H IV 10/12/24 08:00 10/22/24 07:59 10/16/24 08:25 3.375 GM Polyethylene Glycol (MIRalax 3350 17 GM POWD.PACK) 17 gm DAILY PO 10/16/24 09:00 11/15/24 08:59 10/16/24 08:25 17 GM Simethicone (Mylicon) 80 mg Q8H PRN PO GI GAS 10/13/24 21:00 11/12/24 20:59 Sodium Chloride (NS 50ml) 50 ml AD IV 10/15/24 05:45 10/15/24 05:46 DC Sodium Chloride (Sodium Chloride 3% Inh) 4 ML [id number] IH 10/12/24 14:00 11/11/24 13:59 10/16/24 06:29 4 ML Wound Care/ Dressing Products (Venelex Ointment) APPLY DIRECTED TID TP 10/14/24 21:00 11/13/24 20:59 10/16/24 13:25 1 GM DIAGNOSTICS / RADIOLOGY: [ ] ASSESSMENT: Sepsis, POA, Blood culture positive for Staphylococcus hominis. Acute on chronic respiratory failure, POA Tracheostomy status, POA Sputum culture positive for Serratia marcescens of UC influenza, POA Right foot gangrene, POA Peripheral artery disease, POA Urinary tract infection, secondary to E coli POA Acute kidney injury, POA on 02/12/2024 creatinine 1.1, today creatinine 1.7 Uncontrolled Diabetes mellitius type2, POA Suspected pneumonia, POA Hypertension CKD History of CVA with the right-sided hemiparesis PLAN: Patient remains admitted to the ICU Critical care consultation requested, input noted and appreciated Patient with a history of acute or chronic hypoxemic respiratory failure status post tracheostomy creation in the past, with the sputum culture positive for Serratia marcescens. Patient now with bacteremia secondary to Staphylococcus hominis, ID consultation requested, we will follow input and recommendation. Continue the patient on broad-spectrum IV antibiotics. Patient is scheduled for right [id number] amputation today. NEURO: Minimize central acting medications as possible. Fall Precautions. Well lighted room through the day and minimize interruptions through the night to prevent acute delirium. PULMONARY: Supplemental 02 as needed BiPAP as necessary, for respiratory distress Titrate Fio2 to keep Spo2 > or = 90% DuoNebs and CPT as needed IS hourly while awake for pulmonary hygiene prn Out of bed to chair as tolerated Maintain aspiration precautions at all times CARDIOVASCULAR: Follow hemodynamics. Vital signs per facility protocol GI & NUTRITION: Continue nutritional support Aspirations precautions Prokinetic agents and laxatives as needed KIDNEYS & ELECTROLYTES: Strict monitoring of intake and output Daily weights Avoid nephrotoxic agents Monitor electrolytes and replace as needed Goal urine output of 30mL/hr or 0.5mL/kg/hr Medications to be dosed according to renal function. Avoid contrast if possible ENDOCRINE: Maintain blood glucose between 100-180 at all times. Insulin sliding scale for blood glucose management Hypoglycemia and hyperglycemia protocol in place INFECTIOUS DISEASE: Trend temperature, WBC and procalcitonin level Follow cultures, deescalate antibiotics as soon as possible. Panculture if new onset fever HEMATOLOGY & COAGULATION: Monitor H&H. Keep Hgb > 7 Transfuse 1 unit of PRBC for Hgb < 7 Transfuse 1 pack of platelets of platelets < 20, 000 Watch for any signs and symptoms of bleeding SKIN: Pressure ulcer prevention per facility protocol Specialty mattress as needed ORTHO/REHAB Continue PT/OT PRN: MEDICATIONS Tylenol 650 mg po every 4 hrs for fever zofran 4 mg IV every 6 hrs for n/v Hydralazine 5 mg IV every 4 hrs systolic pressure > 160 bowel regiment: lactulose 20 gm PO BID PRN constipation Supportive measures: Continue GI and DVT prophylaxis Disposition: Pending improvement in clinical condition All questions answered time spent: > 35 min DORCAS DE LEON MD October 16, 2024 14:12
[2024-10-16] MEDS ORDERED: DIPH25CA85 PO (20:30)
[2024-10-17] VITALS (30 sets, daily range): BP systolic 115–172; BP diastolic 41–89; PULSE 49–71; RESP 11–35; TEMP 98.1–99; O2SAT 97–100
[2024-10-17] MEDS: DiphenhydrAMINE HCL 25 MG CAPSULE PO ONE (03:08)
--- NOTE | 2024-10-17 03:48 | NUR ---
Report care endorsed to Erick GREER, report given at this time.
[2024-10-17 03:52] LABS: BASOPHILS # (AUTO) 0.01 K/uL (0.00-0.20); BASOPHILS % (AUTO) 0.1 % (0.0-5.0); HEMATOCRIT 23.2 % (42-54); IMMATURE GRANULOCYTE ABSOLUTE 0.36 K/uL (0-1); LYMPHOCYTES # (AUTO) 0.6 K/uL (1.0-4.8); MEAN CORPUSCULAR HEMOGLOBIN 25.7 pg (27.0-33.0); MEAN CORPUSCULAR HGB CONC 32.3 g/dL (32.0-36.0); MEAN CORPUSCULAR VOLUME 79.5 fL (79-99); MONOCYTES # (AUTO) 0.6 K/uL (0.1-1.0); MONOCYTES % (AUTO) 5.8 % (3.0-13.0); NEUTROPHILS # (AUTO) 8.9 K/uL (1.8-7.7); NEUTROPHILS % (AUTO) 84.7 % (40.0-77.0); NUCLEATED RED BLOOD CELLS 0.3 % (0.0-0.19); PLATELET COUNT (AUTO) 372 K/uL (130-400); RED BLOOD CELL COUNT(AUTO) 2.92 MIL/uL (4.50-6.20); RED CELL DISTRIBUTION WIDTH 17.9 % (11.0-15.5); WHITE BLOOD COUNT (AUTO) 10.5 K/uL (4.8-10.8)
[2024-10-17 04:10] LABS: BILIRUBIN,TOTAL 0.3 mg/dL (0.2-1.0); CREATININE 1.2 mg/dL (0.5-1.3); MAGNESIUM 1.8 mg/dL (1.80-2.40); POTASSIUM 4.2 mmol/L (3.5-5.1); TOTAL PROTEIN, SERUM 5.1 g/dL (6.0-8.3)
--- NOTE | 2024-10-17 11:27 | PN ---
[facility] PROGRESS NOTE Date of Service: October 17, 2024 Time of Service: 11:25 SUBJECTIVE: Mr. Preciado is a 69-year-old male that was seen and examined 10/12/2024. Patient is unable to provide health history. Patient's Liseth at bedside and able to provide the following information. Patient was brought to the emergency department with a chief complaint of shortness of breath. Onset was one week ago. also reported associated right foot pain. Patient has had gangrene since February 2024. Patient has been evaluated by Cardiology Service, Dr. Childress and was told that he was not a candidate for revascularization. Patient has a nephew who is a picking machine operator in [place] and he recommended a picking machine operator in [place] who attempted revascularization using a pedal approach about two months ago but this did not help. There was also a different doctor who tried a revascularization from a jugular approach but that did not help. stated that there has been a recommendation for ubdze-akh-elyf amputation but she prefers to try and save her 's limb. In the emergency department BUN is 37 , creatinine 1.7, GFR 43, urinalysis positive for leukocyte esterase and WBCs 50 1-100 per high-powered microscopy field. Emergency room physician recommended that patient be admitted with a diagnosis of acute on chronic respiratory failure. 10/13 patient seen at bedside, no acute events overnight. Blood culture is positive in 1/2 bottles likely contaminant, we will follow up with cultures and sensitivities. Echocardiogram pending, we will follow up. Patient to be assessed for possible angiogram tomorrow by Cardiology. Continue with empiric antibiotics. Blood sugar elevated, sliding scale increased to high sensitivity and glargine increased to 20 units twice daily, we will continue to monitor blood sugars. 10/14 patient is seen and examined, BP 124/54, heart rate of 58, laboratory data shows a hemoglobin of 8.1, hematocrit 26.2. CMP with sodium 138, potassium 3.8, BUN of 41, creatinine of 1.4. Septic workup with the sputum expectorated Serratia marcescens, urine culture for E coli, blood culture positive 1/2 bottles. Gram-positive cocci, final identification still pending. 10/15 patient is seen in the ICU, remains hemodynamically stable, BP 141/58, hea rt rate of 56, on home ventilator, FiO2 28%, saturating 99%. Patient awake, following commands. Hemoglobin of 7.7 with a hematocrit 23.9, no signs of active bleeding, we will do serial CBC q.6 hours, transfuse 1 unit of PRBC if hemoglobin less than seven. Septic workup with the sputum expectorated Serratia marcescens, urine culture for E coli, blood culture positive 1/2 bottles. Likely contamination. Patient evaluated by Podiatry, patient in agreement for right wzpxz-tai-yqsp amputation to the right side. Per Podiatry, possible right nkfaa-rnb-ferw amputation Monday. 10/16 patient is seen and examined, BP 154/69, afebrile, on ventilator saturating 99%. CBC with a hemoglobin 8.1, hematocrit 25.4, WBC 10.1, platelet count 195. CMP shows a sodium 139, potassium 5.1, BUN of 40, creatinine 1.3. Bicarbonate of 20 on the CMP, ABG reviewed, pH 7.43, pCO2 31, PO2 115, bicarb of 20.7. Scheduled for right fvoyy-bbm-dgol amputation by manager transportation. Results of blood cultures reviewed, positive for Staphylococcus hominis, ID consultation requested, we will follow input and recommendation. 10/17 patient is seen and examined at bedside, case discussed with the RN, no acute events overnight, patient alert and oriented, following commands, he is watching TV, remains hemodynamically stable. Hemoglobin 7.5, hematocrit 23.2. The patient is status post right hpbwv-hgw-kcis amputation yesterday, tolerated the procedure well. He is currently getting IV antibiotics. REVIEW OF SYSTEMS CONSTITUTIONAL: Denies fevers, chills, or night sweats. No unintentional weight loss reported. NEUROLOGICAL: Denies headache, amaurosis fugax, motor weakness, sensory deficit, vertigo/spinning sensation, gait abnormalities, or tremors. ENT: No hearing loss, otalgia, otorrhea, rhinitis, rhinorrhea, hoarseness, or sore throat. CARDIOVASCULAR: Denies any exertional angina, dyspnea on exertion, orthopnea, paroxysmal nocturnal dyspnea, palpitations, life-threatening arrhythmias, claudication. PULMONARY: Denies any shortness of breath, cough, phlegm/sputum, hemoptysis, pleuritic chest pain. SLEEP: Denies morning headaches, daytime somnolence or napping. Denies difficulty falling asleep, staying asleep, waking from sleep. Denies knowledge of snoring. GASTROINTESTINAL: Denies any type of dysphagia to either liquids or solids. Denies nausea, vomiting, pyrosis, early satiety, abdominal pain, diarrhea, constipation, or changes in stool consistency or caliber. Denies coffee-ground e mesis, hematemesis, hematochezia, or melanotic stools. GENITOURINARY: Denies frequency, urgency, nocturia, hematuria or incontinence (Storage/Irritative symptoms.) Low urinary stream, straining to void, urinary intermittency or hesitancy, splitting of the voiding stream, terminal dribbling. ENDOCRINOLOGIC: Denies polyuria, polydipsia, polyphagia or heat/cold intolerances. HEMATOLOGIC: Denies thrombophilia/previous clots, or coagulopathy/bleeding disorders. ONCOLOGIC: Denies personal history of malignancy. DERMATOLOGIC: Denies rashes or pruritus. PSYCHIATRIC: Denies any suicidal or homicidal ideation. Denies hallucinations. PHYSICAL EXAM GENERAL APPEARANCE: No acute distress NEUROLOGICAL: Cranial nerves II-XII grossly intact. Motor is 5/5 in bilateral upper and lower extremities proximal to distal. No sensory deficits. HEENT: Face is symmetric. Pupils are equal and reactive. Extraocular movements are intact. NECK: Supple. No JVD. No thyromegaly. No submental, submandibular, pre- /postauricular, occipital or supraclavicular lymphadenopathy. CHEST: Normal chest expansion. No Telemetry. LUNGS: Absence of any rales, rhonchi or any wheezing. CARDIOVASCULAR: Regular. S1 and S2 normal. No appreciable rubs, murmurs or gallops. ABDOMEN: Soft, nontender, and nondistended. There is no rebound, voluntary guarding, or rigidity. : Deferred. No Nixon. EXTREMITIES: Non-edematous and not cyanotic. No clubbing. Good capillary refill. SKIN: No skin breakdown. Vital Signs (last 8hr) Date Time Temp Pulse Resp B/P (MAP) Pulse Ox O2 Delivery O2 Flow Rate FiO2 10/17/24 09:35 58 28 10/17/24 06:34 64 16 10/17/24 06:30 64 19 10/17/24 06:30 58 28 10/17/24 05:14 49 13 127/42 100 Ventilator 4.0 36 10/17/24 04:44 50 11 118/50 99 Ventilator 4.0 36 10/17/24 04:14 51 12 129/49 99 Ventilator 4.0 36 10/17/24 04:00 100 Ventilator+ 4 36 LABS: Laboratory: Test 10/17/24 06:32 10/17/24 03:27 10/16/24 05:00 10/16/24 03:49 Range/Units Whole Blood Glucose 191 H 70-110 MG/DL White Blood Count 10.5 4.8-10.8 K/uL Red Blood Count 2.92 L 4.50-6.20 MIL/uL Hemoglobin 7.5 L 14.0-18.0 g/dL Hematocrit 23.2 L 42-54 % Mean Corpuscular Volume 79.5 79-99 fL Mean Corpuscular Hemoglobin 25.7 L 27.0-33.0 pg Mean Corpuscular Hemoglobin Concent 32.3 32.0-36.0 g/dL Red Cell Distribution Width 17.9 H 11.0-15.5 % Platelet Count 372 # 130-400 K/uL Mean Platelet Volume 9.9 7.5-10.5 fL Immature Granulocyte % (Auto) 3.4 H 0-1 % Neutrophils (%) (Auto) 84.7 H 40.0-77.0 % Lymphocytes (%) (Auto) 6.0 L 21.0-51.0 % Monocytes (%) (Auto) 5.8 3.0-13.0 % Eosinophils (%) (Auto) 0.0 0.0-8.0 % Basophils (%) (Auto) 0.1 0.0-5.0 % Neutrophils # (Auto) 8.9 H 1.8-7.7 K/uL Lymphocytes # (Auto) 0.6 L 1.0-4.8 K/uL Monocytes # (Auto) 0.6 0.1-1.0 K/uL Eosinophils # (Auto) 0.00 0.00-0.70 K/uL Basophils # (Auto) 0.01 0.00-0.20 K/uL Absolute Immature Granulocyte (auto 0.36 0-1 K/uL Nucleated Red Blood Cells 0.3 H 0.0-0.19 % Sodium Level 139 136-145 mmol/L Potassium Level 4.2 3.5-5.1 mmol/L Chloride Level 108 101-111 mmol/L Carbon Dioxide Level 20 L 21-32 mmol/L Blood Urea Nitrogen 40 H 7-18 mg/dL Creatinine 1.2 0.5-1.3 mg/dL Glomerular Filtration Rate Calc 65 >90 mL/min Random Glucose 211 H 70-105 mg/dL Total Calcium 7.6 L 8.5-10.1 mg/dL Magnesium Level 1.80 1.80-2.40 mg/dL Total Bilirubin 0.3 # 0.2-1.0 mg/dL Aspartate Amino Transf (AST/SGOT) 19 10-37 U/L Alanine Aminotransferase (ALT/SGPT) 33 12-78 U/L Alkaline Phosphatase 96 50-136 U/L Total Protein 5.1 L 6.0-8.3 g/dL Albumin 2.0 L 3.5-5.0 g/dL Activated Partial Thromboplast Time 21.1 L 26.3-35.5 SEC Blood Gas Specimen Type Arterial Arterial Blood pH 7.438 7.350-7.450 Arterial Blood Partial Pressure CO2 31 L 35-48 mmHg Arterial Blood Partial Pressure O2 115.0 H 83.0-108.0 mmHg Arterial Blood HCO3 20.7 L 21.0-28.0 mmol/L Arterial Blood Oxygen Saturation 98.2 H 94.0-98.0 % Arterial Blood Base Excess -2.9 L -2.0-3.0 mmol/L Hemoglobin (Blood Gas) 9.0 L 13.5-17.5 g/dL Sodium (Blood Gas) 135 L 136-145 MMOL/L Bedside Potassium (Blood Gas) 4.4 3.4-4.5 MMOL/L Bedside Chloride (Blood Gas) 106 98-107 MMOL/L Bedside Glucose (Blood Gas) 186 H 65-95 MG/DL Bedside Ionized Calcium (Blood Gas) 1.16 1.15-1.33 MMOL/L Bedside Lactic Acid (Blood Gas) 1.44 H 0.36-0.75 MMOL/L Blood Gas Temperature 37.0 35.5-37.0 CELSIUS Blood Gas Respiration Rate 10.0 min. Blood Gas Vent Mode AC ROOM AIR FiO2 28.0 % Blood Gas Tidal Volume 460 ml Blood Gas PEEP 5 cm H2O Blood Gas Specimen Comment LR,RN MANNY Prothrombin Time 11.4 9.6-11.6 SEC Prothromb Time International Ratio 1.08 0.85-1.15 Test 10/15/24 19:51 Range/Units Bedside Glucose Comment Notified Nurse Current Medications Medications (Trade) Dose Ordered Sig/[place] Route PRN Reason Start Time Stop Time Status Last Admin Dose Admin Acetaminophen (TYLenol 325MG TAB) 650 mg Q4H PRN PO MILD PAIN (1-3) 10/12/24 01:00 11/11/24 00:59 10/14/24 21:31 650 MG Albuterol (DUOneb) 1 UDVIAL [id number] IH 10/12/24 06:00 11/11/24 05:59 10/17/24 11:17 1 UDVIAL Aspirin (Aspirin 81mg Chew Tab) 81 mg DAILY PO 10/12/24 09:00 10/14/24 11:17 DC 10/14/24 09:23 81 MG Atorvastatin Calcium (LIPItor 40MG) 40 mg HS PO 10/12/24 21:00 11/11/24 20:59 10/16/24 20:08 40 MG Calcium Gluconate (Calcium Gluc 1gm Vial) 1 gm PROTOCOL IVPB 10/15/24 05:45 10/15/24 05:46 DC Calcium Gluconate 1 gm/Sodium Chloride 100 ml @ 0 mls/hr PROTOCOL IV 10/15/24 06:00 11/14/24 05:59 Calcium Gluconate 2 gm/Sodium Chloride 100 ml @ 0 mls/hr PROTOCOL IV 10/15/24 06:00 11/14/24 05:59 10/15/24 05:51 100 MLS/HR Ceftriaxone Sodium (ROCEphine 1G INJ) 1 gm Q24H IVPB 10/12/24 09:00 10/12/24 02:17 DC Cilostazol (PLETal 100MG TAB) 50 mg BID PO 10/12/24 21:00 10/15/24 22:41 DC 10/15/24 20:22 50 MG Citalopram Hydrobromide (CeleXA 20MG TAB) 20 mg HS PO 10/12/24 21:00 11/11/24 20:59 10/16/24 20:09 20 MG Clopidogrel Bisulfate (plaVIX 75MG) 75 mg DAILY PO 10/12/24 09:00 10/14/24 11:17 DC 10/14/24 09:23 75 MG Diphenhydramine HCl (BENAdryl CAP) 25 mg HS PO 10/17/24 21:00 11/16/24 20:59 Doxazosin Mesylate (Doxazosin Mesylate) 2 mg BID PO 10/12/24 21:00 11/11/24 20:59 10/17/24 08:54 2 MG Doxycycline Hyclate 250 ml @ 125 mls/hr Q12H IV 10/12/24 01:00 10/22/24 00:59 10/17/24 00:53 125 MLS/HR Ferrous Sulfate (Ferrous Sulfate Liq) 300 mg BID PO 10/17/24 21:00 11/16/24 20:59 Finasteride (PROscar 5 MG TAB) 5 mg DAILY PO 10/13/24 09:00 11/12/24 08:59 10/17/24 08:54 5 MG Gabapentin (NEURontin 300 MG CAP) 600 mg TID PO 10/12/24 14:00 11/11/24 13:59 10/17/24 08:54 600 MG Heparin Sodium (Porcine) (HEParin 5,000 UNIT VIAL) 5,000 unit BID SQ 10/12/24 09:00 10/16/24 08:23 DC 10/15/24 20:23 5,000 UNIT Hydralazine HCl (APRESOLine 20MG INJ) 10 mg Q6H PRN IV For:SBP above 160;DBP above 90 10/12/24 01:00 11/11/24 00:59 10/15/24 23:47 10 MG Hydromorphone HCl (DiLAUDid 1MG INJ) 1 mg Q3H3 PRN IVP SEVERE PAIN (7-10) 10/14/24 20:00 10/19/24 19:59 10/17/24 10:21 1 MG Insulin Glargine (LANtus 100 UNITS/ML 10 ML VIAL) 15 units BID@0730,2100 SQ 10/12/24 07:30 10/13/24 12:31 DC 10/13/24 07:16 15 UNITS Insulin Glargine (LANtus 100 UNITS/ML 10 ML VIAL) 20 units BID@0730,2100 SQ 10/13/24 21:00 10/13/24 13:18 DC Insulin Glargine (LANtus 100 UNITS/ML 10 ML VIAL) 25 units BID@0730,2100 SQ 10/13/24 13:30 11/12/24 13:29 10/17/24 06:38 25 UNITS Insulin Human Regular (humuLIN R 100 UNIT/ML 3ML) INSULIN SLIDING SCAL... ACHS SQ 10/12/24 07:30 10/13/24 10:03 DC 10/13/24 07:15 4 UNIT Insulin Human Regular (humuLIN R 100 UNIT/ML 3ML) INSULIN SLIDING SCAL... ACHS SQ 10/13/24 11:30 10/13/24 13:18 DC 10/13/24 11:59 16 UNIT Insulin Human Regular (humuLIN R 100 UNIT/ML 3ML) INSULIN SLIDING SCAL... ACHS SQ 10/13/24 16:30 11/12/24 16:29 10/17/24 06:38 6 UNIT Lactated Ringer's 1,000 ml @ 150 mls/hr Q6H40M IV 10/12/24 01:00 10/12/24 17:01 DC 10/12/24 12:21 150 MLS/HR Lactulose (Constulose 20gm/ 30ml Udcup) 20 gm BID PRN PO CONSTIPATION 10/15/24 10:30 11/14/24 10:29 10/15/24 10:44 20 GM Magnesium Sulfate 50 ml @ 0 mls/hr PROTOCOL PRN IV MAGNESIUM PROTOCOL 10/12/24 10:00 11/11/24 09:59 10/12/24 09:49 25 MLS/HR Methylprednisolone Sodium Succinate (Solu-medROL 40MG) 40 mg Q12H IVP 10/14/24 09:00 11/11/24 07:59 10/17/24 08:55 40 MG Methylprednisolone Sodium Succinate (Solu-medROL 40MG) 40 mg Q8H IVP 10/12/24 08:00 10/13/24 16:40 DC 10/13/24 08:59 40 MG Metoprolol Succinate (TopROL XL) 25 mg DAILY PO 10/13/24 09:00 11/12/24 08:59 Hold 10/16/24 08:26 25 MG Morphine Sulfate (morPHINE 2MG SYG) 2 mg Q4H PRN IVP SEVERE PAIN (7-10) 10/12/24 01:30 10/14/24 20:00 DC 10/14/24 19:59 2 MG Ondansetron HCl (zoFRAN 4MG INJ) 4 mg Q6H PRN IV NAUSEA/VOMITING 10/12/24 01:00 11/11/24 00:59 Pantoprazole Sodium (PROTonix 40MG INJ) 40 mg DAILY IV 10/12/24 09:00 11/11/24 08:59 10/17/24 08:54 40 MG Piperacillin Sod/ Tazobactam Sod (Zosyn 3.375gm+NS 50ml) 3.375 gm Q8H IV 10/12/24 08:00 10/22/24 07:59 10/17/24 08:54 3.375 GM Polyethylene Glycol (MIRalax 3350 17 GM POWD.PACK) 17 gm DAILY PO 10/16/24 09:00 11/15/24 08:59 10/17/24 09:07 17 GM Simethicone (Mylicon) 80 mg Q8H PRN PO GI GAS 10/13/24 21:00 11/12/24 20:59 Sodium Chloride (NS 50ml) 50 ml AD IV 10/15/24 05:45 10/15/24 05:46 DC Sodium Chloride (Sodium Chloride 3% Inh) 4 ML [id number] IH 10/12/24 14:00 11/11/24 13:59 10/17/24 11:17 4 ML Wound Care/ Dressing Products (Venelex Ointment) APPLY DIRECTED TID TP 10/14/24 21:00 11/13/24 20:59 10/17/24 09:09 1 GM DIAGNOSTICS / RADIOLOGY: [ ] ASSESSMENT: Sepsis, POA, Blood culture positive for Staphylococcus hominis. Acute on chronic respiratory failure, POA Tracheostomy status, POA Sputum culture positive for Serratia marcescens of UC influenza, POA Right foot gangrene, POA Status post right snown-zbl-zsgg amputation 10/16/2024 Peripheral artery disease, POA Urinary tract infection, secondary to E coli POA Acute kidney injury, POA on 02/12/2024 creatinine 1.1, today creatinine 1.7 Uncontrolled Diabetes mellitius type2, POA Suspected pneumonia, POA Hypertension CKD History of CVA with the right-sided hemiparesis PLAN: Patient remains admitted to the ICU Critical care consultation requested, input noted and appreciated Patient with a history of acute or chronic hypoxemic respiratory failure status post tracheostomy creation in the past, with the sputum culture positive for Serratia marcescens. Patient now with bacteremia secondary to Staphylococcus hominis, ID consultation requested, continue to follow input and recommendation Continue the patient on broad-spectrum IV antibiotics. Patient is status post right clpyp-mdn-lmte amputation, continue pain medication with the adjustment as needed Follow CBC in a.m., transfuse 1 unit of blood if hemoglobin less than seven NEURO: Minimize central acting medications as possible. Fall Precautions. Well lighted room through the day and minimize interruptions through the night to prevent acute delirium. PULMONARY: Supplemental 02 as needed BiPAP as necessary, for respiratory distress Titrate Fio2 to keep Spo2 > or = 90% DuoNebs and CPT as needed IS hourly while awake for pulmonary hygiene prn Out of bed to chair as tolerated Maintain aspiration precautions at all times CARDIOVASCULAR: Follow hemodynamics. Vital signs per facility protocol GI & NUTRITION: Continue nutritional support Aspirations precautions Prokinetic agents and laxatives as needed KIDNEYS & ELECTROLYTES: Strict monitoring of intake and output Daily weights Avoid nephrotoxic agents Monitor electrolytes and replace as needed Goal urine output of 30mL/hr or 0.5mL/kg/hr Medications to be dosed according to renal function. Avoid contrast if possible ENDOCRINE: Maintain blood glucose between 100-180 at all times. Insulin sliding scale for blood glucose management Hypoglycemia and hyperglycemia protocol in place INFECTIOUS DISEASE: Trend temperature, WBC and procalcitonin level Follow cultures, deescalate antibiotics as soon as possible. Panculture if new onset fever HEMATOLOGY & COAGULATION: Monitor H&H. Keep Hgb > 7 Transfuse 1 unit of PRBC for Hgb < 7 Transfuse 1 pack of platelets of platelets < 20, 000 Watch for any signs and symptoms of bleeding SKIN: Pressure ulcer prevention per facility protocol Specialty mattress as needed ORTHO/REHAB Continue PT/OT PRN: MEDICATIONS Tylenol 650 mg po every 4 hrs for fever zofran 4 mg IV every 6 hrs for n/v Hydralazine 5 mg IV every 4 hrs systolic pressure > 160 bowel regiment: lactulose 20 gm PO BID PRN constipation Supportive measures: Continue GI and DVT prophylaxis Disposition: Pending improvement in clinical condition All questions answered time spent: > 35 min DORCAS DE LEON MD October 17, 2024 11:27
--- NOTE | 2024-10-17 15:00 | NUR ---
Dilaudid administration undone @1353, accidentally scanned twice.
--- NOTE | 2024-10-17 15:38 | PN ---
INFECTIOUS DISEASE PROGRESS NOTE Date of Service: October 17, 2024 SUBJECTIVE: This is 69-year-old male patient who was seen and examined at bedside in room 217. Patient is tracheostomy and PEG tube status. Patient is afebrile, temperature is 98.4 and a WBC of 10.5. Patient's final urine culture results came back positive for E coli and the sputum culture results came back positive for Haemophilus influenza and Serratia marcescens. Patient will continue on Zosyn and doxycycline. No other issues reported by nursing. PHYSICAL EXAM EYES: Anicteric. Pupils equal and reactive. HENT: No oral thrush seen, moist Oral mucosa. NECK: Supple, no JVD or thyromegaly. Tracheostomy status. LUNGS: Good air entry. No rales, no rhonchi. Tracheostomy status. CARDIOVASCULAR: S1, S2 regular. No murmur heard. ABDOMEN: Soft, non tender, bowel sounds present, no organomegaly. Peg tube status. CENTRAL NERVOUS SYSTEM: Awake, alert, oriented x 3. SKIN: No rashes, no swelling. LYMPHATICS: No peripheral lymphadenopathy. MUSCULOSKELETAL: No joint swelling, erythema or tenderness. EXTREMITIES: No cyanosis or clubbing. S/P right BKA. BACK: No deformity, no pressure ulcer. GENITOURINARY: No dysuria or hematuria. Vital Sign (Last 12 Hours) 10/17/24 10/17/24 10/17/24 10/17/24 04:00 04:14 04:44 05:14 Pulse 51 50 49 Resp 12 11 13 B/P (MAP) 129/49 118/50 127/42 Pulse Ox 100 99 99 100 O2 Delivery Ventilator+ Ventilator Ventilator Ventilator O2 Flow Rate 4 4.0 4.0 4.0 FiO2 36 36 36 36 10/17/24 10/17/24 10/17/24 10/17/24 06:30 06:30 06:34 08:00 Temp 98.4 Pulse 58 64 64 61 Resp 19 16 16 B/P (MAP) 147/51 Pulse Ox 98 O2 Delivery Ventilator O2 Flow Rate 4.0 FiO2 28 28 10/17/24 10/17/24 10/17/24 10/17/24 08:00 09:00 09:35 10:00 Pulse 57 58 53 Resp 16 14 B/P (MAP) 122/51 130/51 Pulse Ox 98 98 99 O2 Delivery Ventilator+ Ventilator Ventilator O2 Flow Rate 4 4.0 4.0 FiO2 36 28 28 28 10/17/24 10/17/24 10/17/24 10/17/24 11:00 12:00 12:20 12:23 Temp 98.6 Pulse 56 71 60 60 Resp 21 35 13 B/P (MAP) 143/54 126/58 Pulse Ox 98 98 O2 Delivery Ventilator Ventilator O2 Flow Rate 4.0 4.0 FiO2 28 28 28 10/17/24 10/17/24 15:02 15:04 Pulse 63 62 Resp 22 FiO2 28 Intake & Output (last 24hrs) 10/16/24 10/16/24 10/17/24 15:00 23:00 07:00 Intake Total 300.0 ml 530.0 ml 306.0 ml Output Total 400 ml 800 ml Balance 300.0 ml 130.0 ml -494.0 ml LABS: Laboratory: Test 10/17/24 11:39 10/17/24 03:27 10/16/24 05:00 10/16/24 03:49 Range/Units Whole Blood Glucose 213 H 70-110 MG/DL White Blood Count 10.5 4.8-10.8 K/uL Red Blood Count 2.92 L 4.50-6.20 MIL/uL Hemoglobin 7.5 L 14.0-18.0 g/dL Hematocrit 23.2 L 42-54 % Mean Corpuscular Volume 79.5 79-99 fL Mean Corpuscular Hemoglobin 25.7 L 27.0-33.0 pg Mean Corpuscular Hemoglobin Concent 32.3 32.0-36.0 g/dL Red Cell Distribution Width 17.9 H 11.0-15.5 % Platelet Count 372 # 130-400 K/uL Mean Platelet Volume 9.9 7.5-10.5 fL Immature Granulocyte % (Auto) 3.4 H 0-1 % Neutrophils (%) (Auto) 84.7 H 40.0-77.0 % Lymphocytes (%) (Auto) 6.0 L 21.0-51.0 % Monocytes (%) (Auto) 5.8 3.0-13.0 % Eosinophils (%) (Auto) 0.0 0.0-8.0 % Basophils (%) (Auto) 0.1 0.0-5.0 % Neutrophils # (Auto) 8.9 H 1.8-7.7 K/uL Lymphocytes # (Auto) 0.6 L 1.0-4.8 K/uL Monocytes # (Auto) 0.6 0.1-1.0 K/uL Eosinophils # (Auto) 0.00 0.00-0.70 K/uL Basophils # (Auto) 0.01 0.00-0.20 K/uL Absolute Immature Granulocyte (auto 0.36 0-1 K/uL Nucleated Red Blood Cells 0.3 H 0.0-0.19 % Sodium Level 139 136-145 mmol/L Potassium Level 4.2 3.5-5.1 mmol/L Chloride Level 108 101-111 mmol/L Carbon Dioxide Level 20 L 21-32 mmol/L Blood Urea Nitrogen 40 H 7-18 mg/dL Creatinine 1.2 0.5-1.3 mg/dL Glomerular Filtration Rate Calc 65 >90 mL/min Random Glucose 211 H 70-105 mg/dL Total Calcium 7.6 L 8.5-10.1 mg/dL Magnesium Level 1.80 1.80-2.40 mg/dL Total Bilirubin 0.3 # 0.2-1.0 mg/dL Aspartate Amino Transf (AST/SGOT) 19 10-37 U/L Alanine Aminotransferase (ALT/SGPT) 33 12-78 U/L Alkaline Phosphatase 96 50-136 U/L Total Protein 5.1 L 6.0-8.3 g/dL Albumin 2.0 L 3.5-5.0 g/dL Activated Partial Thromboplast Time 21.1 L 26.3-35.5 SEC Blood Gas Specimen Type Arterial Arterial Blood pH 7.438 7.350-7.450 Arterial Blood Partial Pressure CO2 31 L 35-48 mmHg Arterial Blood Partial Pressure O2 115.0 H 83.0-108.0 mmHg Arterial Blood HCO3 20.7 L 21.0-28.0 mmol/L Arterial Blood Oxygen Saturation 98.2 H 94.0-98.0 % Arterial Blood Base Excess -2.9 L -2.0-3.0 mmol/L Hemoglobin (Blood Gas) 9.0 L 13.5-17.5 g/dL Sodium (Blood Gas) 135 L 136-145 MMOL/L Bedside Potassium (Blood Gas) 4.4 3.4-4.5 MMOL/L Bedside Chloride (Blood Gas) 106 98-107 MMOL/L Bedside Glucose (Blood Gas) 186 H 65-95 MG/DL Bedside Ionized Calcium (Blood Gas) 1.16 1.15-1.33 MMOL/L Bedside Lactic Acid (Blood Gas) 1.44 H 0.36-0.75 MMOL/L Blood Gas Temperature 37.0 35.5-37.0 CELSIUS Blood Gas Respiration Rate 10.0 min. Blood Gas Vent Mode AC ROOM AIR FiO2 28.0 % Blood Gas Tidal Volume 460 ml Blood Gas PEEP 5 cm H2O Blood Gas Specimen Comment LR,RN MANNY Prothrombin Time 11.4 9.6-11.6 SEC Prothromb Time International Ratio 1.08 0.85-1.15 Test 10/15/24 19:51 Range/Units Bedside Glucose Comment Notified Nurse DIAGNOSTICS / RADIOLOGY: PATIENT: ILANA GOFF ACCT: [id number] LOC: [facility] U: [id number] AGE/SX: 69/M ROOM: [facility] RE10/12/[address]: JESSICA LONDONO MD : 1955 BED: 1 DIS: STATUS: ADM IN TLOC: SPEC: [id number] MAINOR: 10/12/24 STATUS: COMP REQ: [id number] RECD: 10/12/[address]: VALERIA REEVES [facility] SOURCE: [facility] ENTR: 10/12/[address]: JESSICA LONDONO MD [facility]: CLEAN CAT PRUDENCE BRINK MD, JULIO A MD ORDERED: AERO ID & SENS Procedure Result Demetri Date-Time AEROBIC ID & SENSITIVITIES Final 10/14/24-9655 MRL COLONY DESCRIPTION: DAY 1: COLONY COUNT: >100,000 CFU/ML GRAM NEGATIVE RODS IDENTIFICATION AND SENSITIVITY TO FOLLOW ESCHERICHIA COLI E COLI M.I.C. RX --------- ---- AMPICILLIN <=8 S AZTREONAM <=4 S CEFAZOLIN <=2 S CEFTAZIDIME/AVIBACTAM <=8 S GENTAMICIN <=2 S LEVOFLOXACIN <=0.5 S NITROFURANTOIN <=32 S MEROPENEM <=1 S PIPERACILLIN/TAZOBACTAM <=8 S TRIMETHOPRIM/SUFLAMETHOXAZOLE <=2/38 S PATIENT: ILANA GOFF ACCT: [id number] LOC: [facility] U: [id number] AGE/SX: 69/M ROOM: [facility] RE10/12/[address]: JESSICA LONDONO MD : 1955 BED: 1 DIS: STATUS: ADM IN TLOC: SPEC: [id number] MAINOR: 10/12/24 STATUS: COMP REQ: [id number] RECD: 10/12/[address]: VALERIA REEVES SOURCE: [facility] ENTR: 10/12/24-101 [facility] DR: JESSICA LONDONO MD [facility]: PRUDENCE CHAVEZ MD, JULIO A MD ORDERED: RESP CULTURE Procedure Result Demetri Date-Time ---- -------- GRAM STAIN Final 10/12/24-1144 [facility] GRAM STAIN RESULT: GOOD SPECIMEN [ <10 SEC's/LPF and >25 PMN's/LPF ] RARE GRAM POSITIVE RODS RESPIRATORY CULTURE Final 10/15/24-0800 [facility] COLONY DESCRIPTION: REPORT 1: 2+ ORAL MACKENZIE ; STUDIES TO CONTINUE 1+ GRAM NEGATIVE RODS IDENTIFICATION AND SENSITIVITY TO FOLLOW REPORT 2: STUDIES TO CONTINUE REPORT 3: 2+ GRAM NEGATIVE COCCOBACCILI POSSIBLE HAEMOPHILUS SPECIES . IDENTIFICATION AND SENSITIVITY TO FOLLOW HAEMOPHILUS INFLUENZAE I SERRATIA MARCESCENS SER LUDIVINA M.I.C. RX --------- ---- AZTREONAM <=4 S CEFTAZIDIME <=1 S CEFTAZIDIME/AVIBACTAM <=8 S GENTAMICIN <=2 S LEVOFLOXACIN <=0.5 S MEROPENEM >8 R PIPERACILLIN/TAZOBACTAM <=8 S TRIMETHOPRIM/SUFLAMETHOXAZOLE <=2/38 S ASSESSMENT: Urinary tract infection with E coli. Staphylococcus hominis bacteremia which is a contaminant. Pneumonia with Haemophilus influenzae and Serratia marcescens. Right foot gangrene, status post right BKA on 10/16/2024. Anemia. Acute renal failure resolving. Diabetes mellitus. PLAN: Continue Zosyn. Continue doxycycline. Continue antidiabetics. Continue GI prophylaxis. Continue steroids. Continue oxygen support. Continue nutritional support. Patient will be referred to [facility]. We will repeat blood cultures. This case was reviewed and discussed with my supervising physician and the above assessment and plan was formulated and agreed upon. ATTESTATION BY PHYSICIAN I have seen and examined the patient. I reviewed the documentation, medical decision making, and treatment plan as noted by the mid-level provider above. I agree with the findings and plan of care. KEIRA MCCRARY MD, MIRTA L [facility] October 17, 2024 15:38
--- NOTE | 2024-10-17 19:18 | PN ---
[facility] PROGRESS NOTE Date Patient Seen: October 17, 2024 Time of Visit: 11:30 Supervising Physician: Esteban EVERETT MD Primary Care Physician: David Turner MD Outpatient Specialists: [ ] Inpatient Consults: [ ] PROBLEM LIST: Bacteremia + staphylococcus Hominis Acute on chronic hypoxemic respiratory failure status post tracheostomy creation in the past, POA sputum culture + for Haemophilus Influenza, Serratia Marcescens Dry Right foot gangrene, POA S/P RT BKA on 10/16/24 Peripheral artery disease, POA Acute complicated cystitis, +E coli POA Acute kidney injury, POA on 02/12/2024 creatinine 1.1, today creatinine 1.7 Uncontrolled Diabetes mellitius type2, POA HgA1c 10.0 Suspected pneumonia, POA Hypertension CKD History of CVA with the right-sided hemiparesis INTERVAL HISTORY: Day 1Hgb 7.5, Cr 1.2, Neutrophils trending down 84.7. s/p Rt BKA. Per RN no major over night events today. Dressing clean bronwyn and intact. anitha warp in p lace.he has been afebrile with T max of 98.6 and T low of 97.3. Hr has been Sinus rona 40-50 hold BB for now. He is saturating well 93% on his baseline home vent settings. We will continue antibiotics per ID. Urine ouput 1.2 L balance -70ml. Chest XR Bilateral pulmonary infiltrates are seen suggestive of pulmonary vascular congestion with possible superimposed pneumonitis.On echo LVEF is 50-55%. Pt will need prolonged recovery, Case management has been consulted per primary team for LTAC placement. REVIEW OF SYSTEMS: General: No malaise or fever. Neurological: No fainting episodes or seizures. HEENT: No nasal congestion or nasal secretion. Respiratory: No cough, shortness of breath, or wheezing Cardiac: No chest pain or palpitations. Gastrointestinal: No vomiting or diarrhea. Genitourinary: No dysuria hematuria. Skin: No rashes or lesions. Hematological: No bruises or bleeding. Musculoskeletalno pain to lower extremities. Psychiatric: No depression or panic attacks. PHYSICAL EXAM: GENERAL: Alert, weak, awake oriented x 3 HEENT: EOMI, Sclera non icteric, moist mucosa NECK: Supple, no JVD, trachea midline LUNGS: Diminished breath sounds bilaterally. No wheezes HEART: Regular rate and rhythm. Normal S1 and S2, without murmurs ABD: Abdomen soft, nontender. Bowel sounds present EXT:RT lower extremity s/p rt GURVINDER dressing clean dry and intact. NEURO: Alert and oriented to person, follows commands Vital Signs (last 8hr) Date Time Temp Pulse Resp B/P (MAP) Pulse Ox O2 Delivery O2 Flow Rate FiO2 10/17/24 16:00 99.0 64 32 143/69 93 Ventilator 4.0 28 10/17/24 15:04 62 28 10/17/24 15:02 63 22 10/17/24 12:23 60 13 10/17/24 12:20 60 28 10/17/24 12:00 98.6 71 35 126/58 98 Ventilator 4.0 28 LABS: Hematology Labs: Test 10/17/24 03:27 Range/Units White Blood Count 10.5 4.8-10.8 K/uL Red Blood Count 2.92 L 4.50-6.20 MIL/uL Hemoglobin 7.5 L 14.0-18.0 g/dL Hematocrit 23.2 L 42-54 % Mean Corpuscular Volume 79.5 79-99 fL Mean Corpuscular Hemoglobin 25.7 L 27.0-33.0 pg Mean Corpuscular Hemoglobin Concent 32.3 32.0-36.0 g/dL Red Cell Distribution Width 17.9 H 11.0-15.5 % Platelet Count 372 # 130-400 K/uL Mean Platelet Volume 9.9 7.5-10.5 fL Immature Granulocyte % (Auto) 3.4 H 0-1 % Neutrophils (%) (Auto) 84.7 H 40.0-77.0 % Lymphocytes (%) (Auto) 6.0 L 21.0-51.0 % Monocytes (%) (Auto) 5.8 3.0-13.0 % Eosinophils (%) (Auto) 0.0 0.0-8.0 % Basophils (%) (Auto) 0.1 0.0-5.0 % Neutrophils # (Auto) 8.9 H 1.8-7.7 K/uL Lymphocytes # (Auto) 0.6 L 1.0-4.8 K/uL Monocytes # (Auto) 0.6 0.1-1.0 K/uL Eosinophils # (Auto) 0.00 0.00-0.70 K/uL Basophils # (Auto) 0.01 0.00-0.20 K/uL Absolute Immature Granulocyte (auto 0.36 0-1 K/uL Nucleated Red Blood Cells 0.3 H 0.0-0.19 % Chemistry Labs: Test 10/17/24 16:25 10/17/24 03:27 10/15/24 19:51 Range/Units Whole Blood Glucose 252 H 70-110 MG/DL Sodium Level 139 136-145 mmol/L Potassium Level 4.2 3.5-5.1 mmol/L Chloride Level 108 101-111 mmol/L Carbon Dioxide Level 20 L 21-32 mmol/L Blood Urea Nitrogen 40 H 7-18 mg/dL Creatinine 1.2 0.5-1.3 mg/dL Glomerular Filtration Rate Calc 65 >90 mL/min Random Glucose 211 H 70-105 mg/dL Total Calcium 7.6 L 8.5-10.1 mg/dL Magnesium Level 1.80 1.80-2.40 mg/dL Total Bilirubin 0.3 # 0.2-1.0 mg/dL Aspartate Amino Transf (AST/SGOT) 19 10-37 U/L Alanine Aminotransferase (ALT/SGPT) 33 12-78 U/L Alkaline Phosphatase 96 50-136 U/L Total Protein 5.1 L 6.0-8.3 g/dL Albumin 2.0 L 3.5-5.0 g/dL Bedside Glucose Comment Notified Nurse Coagulation Labs: Test 10/16/24 05:00 10/16/24 03:49 Range/Units Activated Partial Thromboplast Time 21.1 L 26.3-35.5 SEC Prothrombin Time 11.4 9.6-11.6 SEC Prothromb Time International Ratio 1.08 0.85-1.15 DIAGNOSTICS / RADIOLOGY RESULTS: [ ] PLAN Home vent ( Continue) pending BKA by DR Gaviria for today Consult ID due to bacteremia monitor for fevers continues wound care per WC team Bowel regimen NEURO: Minimize central acting medications as possible. Fall Precautions. Well lighted room through the day and minimize interruptions through the night to prevent acute delirium. PULMONARY: Supplemental 02 as needed Titrate Fio2 to keep Spo2 > or = 90% DuoNebs and CPT as needed IS hourly while awake for pulmonary hygiene Out of bed to chair as tolerated VAP Bundle Vent/BIPAP Settings: Tracheostomy on home vent CARDIOVASCULAR: Follow hemodynamics. Titrate vasopressor to keep MAP >65 or systolic blood pressure >95mmHg DIPS: None LINES: PIV's GI & NUTRITION: Continue nutritional support Aspirations precautions Prokinetic agents and laxatives as needed KIDNEYS & ELECTROLYTES: Strict monitoring of intake and output Daily weights Avoid nephrotoxic agents Monitor electrolytes and replace as needed Goal urine output of 30mL/hr or 0.5mL/kg/hr Urine output: [ ] Fluid Balance: [ ] ENDOCRINE: Maintain blood glucose between 100-180 at all times. Insulin sliding scale for blood glucose management INFECTIOUS DISEASE: Trend temperature. Acosta-culture if febrile. Micro: Sputum Antibiotics: Zosyn and doxy HEMATOLOGY & COAGULATION: Monitor H&H. Keep Hgb > 7 Transfuse 1 unit of PRBC for Hgb < 7 Transfuse 1 pack of platelets of platelets < 20, 000 Watch for any signs and symptoms of bleeding SKIN: Pressure ulcer prevention per facility protocol Rehab: PT/OT Prophylaxis: GI: Pepcid DVT: Lovenox Code Status: Full Resuscitation Disposition:Case management for LTAC placement. Other: I personally spent 35 minutes of critical care time in treatment of this patient ATTESTATION BY PHYSICIAN I reviewed the documentation, medical decision making, and treatment plan as noted by the mid-level provider above. I agree with the findings and plan of care. Esteban Everett MD, NELLY J [employer] QUOTING OPERATOR October 17, 2024 19:18
[2024-10-17] MEDS ORDERED: DiphenhydrAMINE HCL 25 MG CAPSULE PO ONE (21:00)
[2024-10-17] MEDS: DiphenhydrAMINE HCL 25 MG CAPSULE PO SCH (21:24)
[2024-10-17] MEDS: FERROUS SULFATE 300 MG/5 ML LIQ UDCUP PO SCH (21:25)
[2024-10-18] VITALS (19 sets, daily range): BP systolic 99–149; BP diastolic 45–81; PULSE 56–76; RESP 13–22; TEMP 97.7–98.5; O2SAT 97–100
--- NOTE | 2024-10-18 09:45 | PN ---
[facility] PROGRESS NOTE Date of Service: October 18, 2024 Time of Service: 09:41 SUBJECTIVE: Mr. Preciado is a 69-year-old male that was seen and examined 10/12/2024. Patient is unable to provide health history. Patient's Liseth at bedside and able to provide the following information. Patient was brought to the emergency department with a chief complaint of shortness of breath. Onset was one week ago. also reported associated right foot pain. Patient has had gangrene since February 2024. Patient has been evaluated by Cardiology Service, Dr. Childress and was told that he was not a candidate for revascularization. Patient has a nephew who is a resaw machine operator in [place] and he recommended a resaw machine operator in [place] who attempted revascularization using a pedal approach about two months ago but this did not help. There was also a different doctor who tried a revascularization from a jugular approach but that did not help. stated that there has been a recommendation for yhtjs-tia-gccy amputation but she prefers to try and save her 's limb. In the emergency department BUN is 37 , creatinine 1.7, GFR 43, urinalysis positive for leukocyte esterase and WBCs 50 1-100 per high-powered microscopy field. Emergency room physician recommended that patient be admitted with a diagnosis of acute on chronic respiratory failure. 10/13 patient seen at bedside, no acute events overnight. Blood culture is positive in 1/2 bottles likely contaminant, we will follow up with cultures and sensitivities. Echocardiogram pending, we will follow up. Patient to be assessed for possible angiogram tomorrow by Cardiology. Continue with empiric antibiotics. Blood sugar elevated, sliding scale increased to high sensitivity and glargine increased to 20 units twice daily, we will continue to monitor blood sugars. 10/14 patient is seen and examined, BP 124/54, heart rate of 58, laboratory data shows a hemoglobin of 8.1, hematocrit 26.2. CMP with sodium 138, potassium 3.8, BUN of 41, creatinine of 1.4. Septic workup with the sputum expectorated Serratia marcescens, urine culture for E coli, blood culture positive 1/2 bottles. Gram-positive cocci, final identification still pending. 10/15 patient is seen in the ICU, remains hemodynamically stable, BP 141/58, hea rt rate of 56, on home ventilator, FiO2 28%, saturating 99%. Patient awake, following commands. Hemoglobin of 7.7 with a hematocrit 23.9, no signs of active bleeding, we will do serial CBC q.6 hours, transfuse 1 unit of PRBC if hemoglobin less than seven. Septic workup with the sputum expectorated Serratia marcescens, urine culture for E coli, blood culture positive 1/2 bottles. Likely contamination. Patient evaluated by Podiatry, patient in agreement for right [id number]-[id number] amputation to the right side. Per Podiatry, possible right rojyg-ibt-cmfa amputation Monday. 10/16 patient is seen and examined, BP 154/69, afebrile, on ventilator saturating 99%. CBC with a hemoglobin 8.1, hematocrit 25.4, WBC 10.1, platelet count 195. CMP shows a sodium 139, potassium 5.1, BUN of 40, creatinine 1.3. Bicarbonate of 20 on the CMP, ABG reviewed, pH 7.43, pCO2 31, PO2 115, bicarb of 20.7. Scheduled for right jtaps-ygq-[id number] amputation by dental director. Results of blood cultures reviewed, positive for Staphylococcus hominis, ID consultation requested, we will follow input and recommendation. 10/17 patient is seen and examined at bedside, case discussed with the RN, no acute events overnight, patient alert and oriented, following commands, he is watching TV, remains hemodynamically stable. Hemoglobin 7.5, hematocrit 23.2. The patient is status post right [id number]-[id number] amputation yesterday, tolerated the procedure well. He is currently getting IV antibiotics. 10/18 patient is seen and examined at bedside, no acute events overnight, he remains alert and oriented, following commands, BP 119/45, afebrile, saturating 99% on trach collar. Patient getting IV antibiotics during my visit. No family members at bedside, pending acceptance to [facility]. REVIEW OF SYSTEMS CONSTITUTIONAL: Denies fevers, chills, or night sweats. No unintentional weight loss reported. NEUROLOGICAL: Denies headache, amaurosis fugax, motor weakness, sensory deficit, vertigo/spinning sensation, gait abnormalities, or tremors. ENT: No hearing loss, otalgia, otorrhea, rhinitis, rhinorrhea, hoarseness, or sore throat. CARDIOVASCULAR: Denies any exertional angina, dyspnea on exertion, orthopnea, paroxysmal nocturnal dyspnea, palpitations, life-threatening arrhythmias, claudication. PULMONARY: Denies any shortness of breath, cough, phlegm/sputum, hemoptysis, pleuritic chest pain. SLEEP: Denies morning headaches, daytime somnolence or napping. Denies difficulty falling asleep, staying asleep, waking from sleep. Denies knowledge of snoring. GASTROINTESTINAL: Denies any type of dysphagia to either liquids or solids. Denies nausea, vomiting, pyrosis, early satiety, abdominal pain, diarrhea, constipation, or changes in stool consistency or caliber. Denies coffee-ground emesis, hematemesis, hematochezia, or melanotic stools. GENITOURINARY: Denies frequency, urgency, nocturia, hematuria or incontinence (Storage/Irritative symptoms.) Low urinary stream, straining to void, urinary intermittency or hesitancy, splitting of the voiding stream, terminal dribbling. ENDOCRINOLOGIC: Denies polyuria, polydipsia, polyphagia or heat/cold intolerances. HEMATOLOGIC: Denies thrombophilia/previous clots, or coagulopathy/bleeding disorders. ONCOLOGIC: Denies personal history of malignancy. DERMATOLOGIC: Denies rashes or pruritus. PSYCHIATRIC: Denies any suicidal or homicidal ideation. Denies hallucinations. PHYSICAL EXAM GENERAL APPEARANCE: No acute distress NEUROLOGICAL: Cranial nerves II-XII grossly intact. Motor is 5/5 in bilateral upper and lower extremities proximal to distal. No sensory deficits. HEENT: Face is symmetric. Pupils are equal and reactive. Extraocular movements are intact. NECK: Supple. No JVD. No thyromegaly. No submental, submandibular, pre- /postauricular, occipital or supraclavicular lymphadenopathy. CHEST: Normal chest expansion. No Telemetry. LUNGS: Absence of any rales, rhonchi or any wheezing. CARDIOVASCULAR: Regular. S1 and S2 normal. No appreciable rubs, murmurs or gallops. ABDOMEN: Soft, nontender, and nondistended. There is no rebound, voluntary guarding, or rigidity. : Deferred. No Nixon. EXTREMITIES: Non-edematous and not cyanotic. No clubbing. Good capillary refill. SKIN: No skin breakdown. Vital Signs (last 8hr) Date Time Temp Pulse Resp B/P (MAP) Pulse Ox O2 Delivery O2 Flow Rate FiO2 5/23/25 07:00 97.7 57 17 119/45 99 Trach Collar 10/18/24 06:27 56 15 10/18/24 06:23 56 28 10/18/24 03:18 98.4 60 18 99/45 100 Trach Collar 10/18/24 03:10 58 28 LABS: Laboratory: Test 10/18/24 05:09 10/17/24 19:42 10/17/24 03:27 Range/Units Whole Blood Glucose 113 #H 70-110 MG/DL Bedside Glucose Comment Notified Nurse White Blood Count 10.5 4.8-10.8 K/uL Red Blood Count 2.92 L 4.50-6.20 MIL/uL Hemoglobin 7.5 L 14.0-18.0 g/dL Hematocrit 23.2 L 42-54 % Mean Corpuscular Volume 79.5 79-99 fL Mean Corpuscular Hemoglobin 25.7 L 27.0-33.0 pg Mean Corpuscular Hemoglobin Concent 32.3 32.0-36.0 g/dL Red Cell Distribution Width 17.9 H 11.0-15.5 % Platelet Count 372 # 130-400 K/uL Mean Platelet Volume 9.9 7.5-10.5 fL Immature Granulocyte % (Auto) 3.4 H 0-1 % Neutrophils (%) (Auto) 84.7 H 40.0-77.0 % Lymphocytes (%) (Auto) 6.0 L 21.0-51.0 % Monocytes (%) (Auto) 5.8 3.0-13.0 % Eosinophils (%) (Auto) 0.0 0.0-8.0 % Basophils (%) (Auto) 0.1 0.0-5.0 % Neutrophils # (Auto) 8.9 H 1.8-7.7 K/uL Lymphocytes # (Auto) 0.6 L 1.0-4.8 K/uL Monocytes # (Auto) 0.6 0.1-1.0 K/uL Eosinophils # (Auto) 0.00 0.00-0.70 K/uL Basophils # (Auto) 0.01 0.00-0.20 K/uL Absolute Immature Granulocyte (auto 0.36 0-1 K/uL Nucleated Red Blood Cells 0.3 H 0.0-0.19 % Sodium Level 139 136-145 mmol/L Potassium Level 4.2 3.5-5.1 mmol/L Chloride Level 108 101-111 mmol/L Carbon Dioxide Level 20 L 21-32 mmol/L Blood Urea Nitrogen 40 H 7-18 mg/dL Creatinine 1.2 0.5-1.3 mg/dL Glomerular Filtration Rate Calc 65 >90 mL/min Random Glucose 211 H 70-105 mg/dL Total Calcium 7.6 L 8.5-10.1 mg/dL Magnesium Level 1.80 1.80-2.40 mg/dL Total Bilirubin 0.3 # 0.2-1.0 mg/dL Aspartate Amino Transf (AST/SGOT) 19 10-37 U/L Alanine Aminotransferase (ALT/SGPT) 33 12-78 U/L Alkaline Phosphatase 96 50-136 U/L Total Protein 5.1 L 6.0-8.3 g/dL Albumin 2.0 L 3.5-5.0 g/dL Current Medications Medications (Trade) Dose Ordered Sig/[place] Route PRN Reason Start Time Stop Time Status Last Admin Dose Admin Acetaminophen (TYLenol 325MG TAB) 650 mg Q4H PRN PO MILD PAIN (1-3) 10/12/24 01:00 11/11/24 00:59 10/18/24 02:29 650 MG Albuterol (DUOneb) 1 UDVIAL [id number] IH 10/12/24 06:00 11/11/24 05:59 10/18/24 06:22 1 UDVIAL Aspirin (Aspirin 81mg Chew Tab) 81 mg DAILY PO 10/12/24 09:00 10/14/24 11:17 DC 10/14/24 09:23 81 MG Atorvastatin Calcium (LIPItor 40MG) 40 mg HS PO 10/12/24 21:00 11/11/24 20:59 10/17/24 21:24 40 MG Calcium Gluconate (Calcium Gluc 1gm Vial) 1 gm PROTOCOL IVPB 10/15/24 05:45 10/15/24 05:46 DC Calcium Gluconate 1 gm/Sodium Chloride 100 ml @ 0 mls/hr PROTOCOL IV 10/15/24 06:00 11/14/24 05:59 Calcium Gluconate 2 gm/Sodium Chloride 100 ml @ 0 mls/hr PROTOCOL IV 10/15/24 06:00 11/14/24 05:59 10/15/24 05:51 100 MLS/HR Ceftriaxone Sodium (ROCEphine 1G INJ) 1 gm Q24H IVPB 10/12/24 09:00 10/12/24 02:17 DC Cilostazol (PLETal 100MG TAB) 50 mg BID PO 10/12/24 21:00 10/15/24 22:41 DC 10/15/24 20:22 50 MG Citalopram Hydrobromide (CeleXA 20MG TAB) 20 mg HS PO 10/12/24 21:00 11/11/24 20:59 10/17/24 21:24 20 MG Clopidogrel Bisulfate (plaVIX 75MG) 75 mg DAILY PO 10/12/24 09:00 10/14/24 11:17 DC 10/14/24 09:23 75 MG Diphenhydramine HCl (BENAdryl CAP) 25 mg HS PO 10/17/24 21:00 11/16/24 20:59 10/17/24 21:24 25 MG Doxazosin Mesylate (Doxazosin Mesylate) 2 mg BID PO 10/12/24 21:00 11/11/24 20:59 10/18/24 09:31 2 MG Doxycycline Hyclate 250 ml @ 125 mls/hr Q12H IV 10/12/24 01:00 10/22/24 00:59 10/18/24 00:11 125 MLS/HR Ferrous Sulfate (Ferrous Sulfate Liq) 300 mg BID PO 10/17/24 21:00 11/16/24 20:59 10/18/24 09:30 300 MG Finasteride (PROscar 5 MG TAB) 5 mg DAILY PO 10/13/24 09:00 11/12/24 08:59 10/18/24 09:31 5 MG Gabapentin (NEURontin 300 MG CAP) 600 mg TID PO 10/12/24 14:00 11/11/24 13:59 10/18/24 09:30 600 MG Heparin Sodium (Porcine) (HEParin 5,000 UNIT VIAL) 5,000 unit BID SQ 10/12/24 09:00 10/16/24 08:23 DC 10/15/24 20:23 5,000 UNIT Hydralazine HCl (APRESOLine 20MG INJ) 10 mg Q6H PRN IV For:SBP above 160;DBP above 90 10/12/24 01:00 11/11/24 00:59 10/15/24 23:47 10 MG Hydromorphone HCl (DiLAUDid 1MG INJ) 1 mg Q3H3 PRN IVP SEVERE PAIN (7-10) 10/14/24 20:00 10/19/24 19:59 10/18/24 03:47 1 MG Insulin Glargine (LANtus 100 UNITS/ML 10 ML VIAL) 15 units BID@0730,2100 SQ 10/12/24 07:30 10/13/24 12:31 DC 10/13/24 07:16 15 UNITS Insulin Glargine (LANtus 100 UNITS/ML 10 ML VIAL) 20 units BID@0730,2100 SQ 10/13/24 21:00 10/13/24 13:18 DC Insulin Glargine (LANtus 100 UNITS/ML 10 ML VIAL) 25 units BID@0730,2100 SQ 10/13/24 13:30 11/12/24 13:29 10/17/24 21:21 25 UNITS Insulin Human Regular (humuLIN R 100 UNIT/ML 3ML) INSULIN SLIDING SCAL... ACHS SQ 10/12/24 07:30 10/13/24 10:03 DC 10/13/24 07:15 4 UNIT Insulin Human Regular (humuLIN R 100 UNIT/ML 3ML) INSULIN SLIDING SCAL... ACHS SQ 10/13/24 11:30 10/13/24 13:18 DC 10/13/24 11:59 16 UNIT Insulin Human Regular (humuLIN R 100 UNIT/ML 3ML) INSULIN SLIDING SCAL... ACHS SQ 10/13/24 16:30 11/12/24 16:29 10/17/24 21:21 10 UNIT Lactated Ringer's 1,000 ml @ 150 mls/hr Q6H40M IV 10/12/24 01:00 10/12/24 17:01 DC 10/12/24 12:21 150 MLS/HR Lactulose (Constulose 20gm/ 30ml Udcup) 20 gm BID PRN PO CONSTIPATION 10/15/24 10:30 11/14/24 10:29 10/15/24 10:44 20 GM Magnesium Sulfate 50 ml @ 0 mls/hr PROTOCOL PRN IV MAGNESIUM PROTOCOL 10/12/24 10:00 11/11/24 09:59 10/17/24 13:52 25 MLS/HR Methylprednisolone Sodium Succinate (Solu-medROL 40MG) 40 mg Q12H IVP 10/14/24 09:00 11/11/24 07:59 10/18/24 09:32 40 MG Methylprednisolone Sodium Succinate (Solu-medROL 40MG) 40 mg Q8H IVP 10/12/24 08:00 10/13/24 16:40 DC 10/13/24 08:59 40 MG Metoprolol Succinate (TopROL XL) 25 mg DAILY PO 10/13/24 09:00 11/12/24 08:59 Hold 10/16/24 08:26 25 MG Morphine Sulfate (morPHINE 2MG SYG) 2 mg Q4H PRN IVP SEVERE PAIN (7-10) 10/12/24 01:30 10/14/24 20:00 DC 10/14/24 19:59 2 MG Ondansetron HCl (zoFRAN 4MG INJ) 4 mg Q6H PRN IV NAUSEA/VOMITING 10/12/24 01:00 11/11/24 00:59 Pantoprazole Sodium (PROTonix 40MG INJ) 40 mg DAILY IV 10/12/24 09:00 11/11/24 08:59 10/18/24 09:32 40 MG Piperacillin Sod/ Tazobactam Sod (Zosyn 3.375gm+NS 50ml) 3.375 gm Q8H IV 10/12/24 08:00 10/22/24 07:59 10/18/24 09:27 3.375 GM Polyethylene Glycol (MIRalax 3350 17 GM POWD.PACK) 17 gm DAILY PO 10/16/24 09:00 11/15/24 08:59 10/18/24 09:30 17 GM Simethicone (Mylicon) 80 mg Q8H PRN PO GI GAS 10/13/24 21:00 11/12/24 20:59 Sodium Chloride (NS 50ml) 50 ml AD IV 10/15/24 05:45 10/15/24 05:46 DC Sodium Chloride (Sodium Chloride 3% Inh) 4 ML [id number] IH 10/12/24 14:00 11/11/24 13:59 10/18/24 06:22 4 ML Wound Care/ Dressing Products (Venelex Ointment) APPLY DIRECTED TID TP 10/14/24 21:00 11/13/24 20:59 10/18/24 09:35 1 GM DIAGNOSTICS / RADIOLOGY: [ ] ASSESSMENT: Sepsis, POA, Blood culture positive for Staphylococcus hominis (contamination) Acute on chronic respiratory failure, POA Tracheostomy status, POA Sputum culture positive for Serratia marcescens of UC influenza, POA Right foot gangrene, POA Status post right evokh-yzx-fgwy amputation 10/16/2024 Peripheral artery disease, POA Urinary tract infection, secondary to E coli POA Acute kidney injury, POA on 02/12/2024 creatinine 1.1, today creatinine 1.7 Uncontrolled Diabetes mellitius type2, POA Suspected pneumonia, POA Hypertension CKD History of CVA with the right-sided hemiparesis PLAN: Patient downgraded to the PCU. Continue the patient on broad-spectrum IV antibiotics Patient with a urinary tract infection secondary to E coli, Staphylococcus hominis bacteremia which is a contaminant, pneumonia with Haemophilus influenzae and Serratia marcescens, right foot gangrene status post amputation 10/16/2024. Continue the patient on broad-spectrum IV antibiotics. Patient has been referred to [facility] for continuation of medical care. NEURO: Minimize central acting medications as possible. Fall Precautions. Well lighted room through the day and minimize interruptions through the night to prevent acute delirium. PULMONARY: Supplemental 02 as needed BiPAP as necessary, for respiratory distress Titrate Fio2 to keep Spo2 > or = 90% DuoNebs and CPT as needed IS hourly while awake for pulmonary hygiene prn Out of bed to chair as tolerated Maintain aspiration precautions at all times CARDIOVASCULAR: Follow hemodynamics. Vital signs per facility protocol GI & NUTRITION: Continue nutritional support Aspirations precautions Prokinetic agents and laxatives as needed KIDNEYS & ELECTROLYTES: Strict monitoring of intake and output Daily weights Avoid nephrotoxic agents Monitor electrolytes and replace as needed Goal urine output of 30mL/hr or 0.5mL/kg/hr Medications to be dosed according to renal function. Avoid contrast if possible ENDOCRINE: Maintain blood glucose between 100-180 at all times. Insulin sliding scale for blood glucose management Hypoglycemia and hyperglycemia protocol in place INFECTIOUS DISEASE: Trend temperature, WBC and procalcitonin level Follow cultures, deescalate antibiotics as soon as possible. Panculture if new onset fever HEMATOLOGY & COAGULATION: Monitor H&H. Keep Hgb > 7 Transfuse 1 unit of PRBC for Hgb < 7 Transfuse 1 pack of platelets of platelets < 20, 000 Watch for any signs and symptoms of bleeding SKIN: Pressure ulcer prevention per facility protocol Specialty mattress as needed ORTHO/REHAB Continue PT/OT PRN: MEDICATIONS Tylenol 650 mg po every 4 hrs for fever zofran 4 mg IV every 6 hrs for n/v Hydralazine 5 mg IV every 4 hrs systolic pressure > 160 bowel regiment: lactulose 20 gm PO BID PRN constipation Supportive measures: Continue GI and DVT prophylaxis Disposition: Pending improvement in clinical condition All questions answered time spent: > 35 min DORCAS DE LEON MD October 18, 2024 09:44
[2024-10-18 09:56] LABS: HEMATOCRIT 24.2 % (42-54); MEAN CORPUSCULAR HEMOGLOBIN 26.1 pg (27.0-33.0); MEAN CORPUSCULAR HGB CONC 31.8 g/dL (32.0-36.0); NUCLEATED RED BLOOD CELLS 0.2 % (0.0-0.19); RED BLOOD CELL COUNT(AUTO) 2.95 MIL/uL (4.50-6.20); RED CELL DISTRIBUTION WIDTH 18.9 % (11.0-15.5); WHITE BLOOD COUNT (AUTO) 9.7 K/uL (4.8-10.8)
[2024-10-18 10:08] LABS: CREATININE 1.3 mg/dL (0.5-1.3); POTASSIUM 4.7 mmol/L (3.5-5.1)
[2024-10-18 10:12] LABS: BILIRUBIN,TOTAL 0.2 mg/dL (0.2-1.0); MAGNESIUM 2.3 mg/dL (1.80-2.40); TOTAL PROTEIN, SERUM 5.1 g/dL (6.0-8.3)
--- NOTE | 2024-10-18 10:22 | PN ---
Ortho postop day two Patient reports aching type pain. Obvious muscle spasm present. Vital signs stable, afebrile Resting in bed with ventilator support Right lower extremity with knee immobilizer in place -dressing clean dry and intact -surgical incision clean dry and intact Postop day two status post right BKA doing well -dressing changed with the nursing today -dressing can be changed every other day. Needs one layer of petroleum gauze such as Xeroform or Adaptic, 4x4s, ABDs and tape versus Cullen wrap Kerlix that is NOT TIGHT -KERLIX CAN STRANGULATE THE TISSUE IF PLACED TOO TIGHT -emphasized need for knee immobilizer to PREVENT FLEXION CONTRACTURE -flexion contracture would be high RISK FOR DEHISCENCE OF BKA STUMP -follow up at [facility] in three weeks Vitals/Labs Vital Signs Date Time Temp Pulse Resp B/P (MAP) Pulse Ox O2 Delivery O2 Flow Rate FiO2 10/18/24 09:38 57 28 10/18/24 07:00 97.7 17 119/45 99 Trach Collar 10/17/24 20:00 4 Laboratory Tests 10/18/24 03:33 Medications Current Medications Sodium Chloride 1,000 ml @ 125 mls/hr ONCE ONCE IV Last administered on 10/11/24at 23:19; Start 10/11/24 at 23:00; Stop 10/12/24 at 06:59; Status DC Albuterol 1 udvial ONCE ONCE IH Last administered on 10/11/24at 22:52; Start 10/11/24 at 23:00; Stop 10/11/24 at 23:01; Status DC Methylprednisolone Sodium Succinate 125 mg ONCE ONCE IVP Last administered on 10/11/24at 23:18; Start 10/11/24 at 23:00; Stop 10/11/24 at 23:01; Status DC Hydromorphone HCl 0.5 mg ONCE ONCE IVP Last administered on 10/12/24at 00:19; Start 10/12/24 at 00:00; Stop 10/12/24 at 00:01; Status DC Piperacillin Sod/ Tazobactam Sod 3.375 gm ONCE ONCE IV Last administered on 10/12/24at 00:19; Start 10/12/24 at 00:00; Stop 10/12/24 at 00:01; Status DC Lactated Ringer's 1,000 ml @ 150 mls/hr Q6H40M IV Last administered on 10/12/24at 12:21; Start 10/12/24 at 01:00; Stop 10/12/24 at 17:01; Status DC Heparin Sodium (Porcine) 5,000 unit BID SQ Last administered on 10/15/24at 20:23; Start 10/12/24 at 09:00; Stop 10/16/24 at 08:23; Status DC Acetaminophen 650 mg Q4H PRN PO Last administered on 10/18/24at 02:29; Start 10/12/24 at 01:00; Stop 11/11/24 at 00:59 Albuterol 1 UDVIAL [id number] IH Last administered on 10/18/24at 06:22; Start 10/12/24 at 06:00; Stop 11/11/24 at 05:59 Pantoprazole Sodium 40 mg DAILY IV Last administered on 10/18/24at 09:32; Start 10/12/24 at 09:00; Stop 11/11/24 at 08:59 Ondansetron HCl 4 mg Q6H PRN IV; Start 10/12/24 at 01:00; Stop 11/11/24 at 00:59 Morphine Sulfate 2 mg Q4H PRN IVP Last administered on 10/14/24at 19:59; Start 10/12/24 at 01:30; Stop 10/14/24 at 20:00; Status DC Hydralazine HCl 10 mg Q6H PRN IV Last administered on 10/15/24at 23:47; Start 10/12/24 at 01:00; Stop 11/11/24 at 00:59 Ceftriaxone Sodium 1 gm Q24H IVPB; Start 10/12/24 at 09:00; Stop 10/12/24 at 02:17; Status DC Doxycycline Hyclate 250 ml @ 125 mls/hr Q12H IV Last administered on 10/18/24at 00:11; Start 10/12/24 at 01:00; Stop 10/22/24 at 00:59 Insulin Human Regular INSULIN SLIDING SCAL... ACHS SQ Last administered on 10/13/24at 07:15; Start 10/12/24 at 07:30; Stop 10/13/24 at 10:03; Status DC Methylprednisolone Sodium Succinate 40 mg Q8H IVP Last administered on 10/13/24at 08:59; Start 10/12/24 at 08:00; Stop 10/13/24 at 16:40; Status DC Piperacillin Sod/ Tazobactam Sod 3.375 gm Q8H IV Last administered on 10/18/24at 09:27; Start 10/12/24 at 08:00; Stop 10/22/24 at 07:59 Aspirin 81 mg DAILY PO Last administered on 10/14/24at 09:23; Start 10/12/24 at 09:00; Stop 10/14/24 at 11:17; Status DC Clopidogrel Bisulfate 75 mg DAILY PO Last administered on 10/14/24at 09:23; Start 10/12/24 at 09:00; Stop 10/14/24 at 11:17; Status DC Atorvastatin Calcium 40 mg HS PO Last administered on 10/17/24at 21:24; Start 10/12/24 at 21:00; Stop 11/11/24 at 20:59 Insulin Glargine 15 units BID@0730,2100 SQ Last administered on 10/13/24at 07:16; Start 10/12/24 at 07:30; Stop 10/13/24 at 12:31; Status DC Magnesium Sulfate 50 ml @ 0 mls/hr PROTOCOL PRN IV Last administered on 10/17/24at 13:52; Start 10/12/24 at 10:00; Stop 11/11/24 at 09:59 Citalopram Hydrobromide 20 mg HS PO Last administered on 10/17/24at 21:24; Start 10/12/24 at 21:00; Stop 11/11/24 at 20:59 Doxazosin Mesylate 2 mg BID PO Last administered on 10/18/24at 09:31; Start 10/12/24 at 21:00; Stop 11/11/24 at 20:59 Finasteride 5 mg DAILY PO Last administered on 10/18/24at 09:31; Start 10/13/24 at 09:00; Stop 11/12/24 at 08:59 Metoprolol Succinate 25 mg DAILY PO Last administered on 10/16/24at 08:26; Start 10/13/24 at 09:00; Stop 11/12/24 at 08:59; Status Hold Cilostazol 50 mg BID PO Last administered on 10/15/24at 20:22; Start 10/12/24 at 21:00; Stop 10/15/24 at 22:41; Status DC Gabapentin 600 mg TID PO Last administered on 10/18/24at 09:30; Start 10/12/24 at 14:00; Stop 11/11/24 at 13:59 Sodium Chloride 4 ML [id number] IH Last administered on 10/18/24at 06:22; Start 10/12/24 at 14:00; Stop 11/11/24 at 13:59 Insulin Human Regular INSULIN SLIDING SCAL... ACHS SQ Last administered on 10/13/24at 11:59; Start 10/13/24 at 11:30; Stop 10/13/24 at 13:18; Status DC Insulin Glargine 20 units BID@0730,2100 SQ; Start 10/13/24 at 21:00; Stop 10/13/24 at 13:18; Status DC Insulin Glargine 25 units BID@0730,2100 SQ Last administered on 10/18/24at 09:43; Start 10/13/24 at 13:30; Stop 11/12/24 at 13:29 Insulin Human Regular INSULIN SLIDING SCAL... ACHS SQ Last administered on 10/17/24at 21:21; Start 10/13/24 at 16:30; Stop 11/12/24 at 16:29 Iohexol 75 ml STK-MED ONCE IV; Start 10/13/24 at 16:17; Stop 10/13/24 at 16:17; Status DC Iohexol 50 ml STK-MED ONCE IV; Start 10/13/24 at 16:17; Stop 10/13/24 at 16:17; Status DC Methylprednisolone Sodium Succinate 40 mg Q12H IVP Last administered on 10/18/24at 09:32; Start 10/14/24 at 09:00; Stop 11/11/24 at 07:59 Simethicone 80 mg Q8H PRN PO; Start 10/13/24 at 21:00; Stop 11/12/24 at 20:59 Wound Care/ Dressing Products APPLY DIRECTED TID TP Last administered on 10/18/24at 09:35; Start 10/14/24 at 21:00; Stop 11/13/24 at 20:59 Hydromorphone HCl 1 mg Q3H3 PRN IVP Last administered on 10/18/24at 10:04; Start 10/14/24 at 20:00; Stop 10/19/24 at 19:59 Calcium Gluconate 1 gm PROTOCOL IVPB; Start 10/15/24 at 05:45; Stop 10/15/24 at 05:46; Status DC Sodium Chloride 50 ml AD IV; Start 10/15/24 at 05:45; Stop 10/15/24 at 05:46; Status DC Calcium Gluconate 2 gm/Sodium Chloride 100 ml @ 0 mls/hr PROTOCOL IV Last administered on 10/15/24at 05:51; Start 10/15/24 at 06:00; Stop 11/14/24 at 05:59 Calcium Gluconate 1 gm/Sodium Chloride 100 ml @ 0 mls/hr PROTOCOL IV; Start 10/15/24 at 06:00; Stop 11/14/24 at 05:59 Lactulose 20 gm BID PRN PO Last administered on 10/15/24at 10:44; Start 10/15/24 at 10:30; Stop 11/14/24 at 10:29 Polyethylene Glycol 17 gm DAILY PO Last administered on 10/18/24at 09:30; Start 10/16/24 at 09:00; Stop 11/15/24 at 08:59 Bisacodyl 10 mg ONCE ONCE RC Last administered on 10/15/24at 18:27; Start 10/15/24 at 17:30; Stop 10/15/24 at 17:31; Status DC Lidocaine HCl 100 mg STK-MED ONCE .ROUTE; Start 10/16/24 at 09:29; Stop 10/16/24 at 09:35; Status DC Ondansetron HCl 4 mg STK-MED ONCE .ROUTE; Start 10/16/24 at 09:29; Stop 10/16/24 at 09:35; Status DC Succinylcholine Chloride 200 mg STK-MED ONCE .ROUTE; Start 10/16/24 at 09:30; Stop 10/16/24 at 09:35; Status DC Propofol 200 mg STK-MED ONCE IV; Start 10/16/24 at 09:30; Stop 10/16/24 at 09:35; Status DC Dexamethasone Sodium Phosphate 10 mg STK-MED ONCE .ROUTE; Start 10/16/24 at 09:30; Stop 10/16/24 at 09:35; Status DC Glycopyrrolate 1 mg STK-MED ONCE .ROUTE; Start 10/16/24 at 09:30; Stop 10/16/24 at 09:35; Status DC Neostigmine Methylsulfate 10 mg STK-MED ONCE IV; Start 10/16/24 at 09:30; Stop 10/16/24 at 09:35; Status DC Rocuronium [place] 50 mg STK-MED ONCE .ROUTE; Start 10/16/24 at 09:30; Stop 10/16/24 at 09:35; Status DC Fentanyl Citrate 100 mcg STK-MED ONCE .ROUTE; Start 10/16/24 at 09:30; Stop 10/16/24 at 09:35; Status DC Midazolam HCl 2 mg STK-MED ONCE .ROUTE; Start 10/16/24 at 09:35; Stop 10/16/24 at 09:35; Status DC Norepinephrine Bitartrate 4 mg STK-MED ONCE IV; Start 10/16/24 at 09:36; Stop 10/16/24 at 09:37; Status DC Ketamine HCl 50 mg STK-MED ONCE .ROUTE; Start 10/16/24 at 09:45; Stop 10/16/24 at 09:46; Status DC Albumin Human 250 ml @ As Directed STK-MED ONCE IV; Start 10/16/24 at 09:46; Stop 10/16/24 at 09:46; Status DC Epinephrine HCl 1 mg STK-MED ONCE .ROUTE; Start 10/16/24 at 09:51; Stop 10/16/24 at 09:52; Status DC Diphenhydramine HCl 25 mg ONCE ONCE PO Last administered on 10/17/24at 03:08; Start 10/17/24 at 03:00; Stop 10/17/24 at 03:02; Status DC Diphenhydramine HCl 25 mg HS ONCE PO; Start 10/17/24 at 21:00; Stop 10/17/24 at 03:10; Status DC Diphenhydramine HCl 25 mg HS PO Last administered on 10/17/24at 21:24; Start 10/17/24 at 21:00; Stop 11/16/24 at 20:59 Ferrous Sulfate 300 mg BID PO Last administered on 10/18/24at 09:30; Start 10/17/24 at 21:00; Stop 11/16/24 at 20:59 PETRA HANSEN MD October 18, 2024 10:22
--- NOTE | 2024-10-18 11:05 | NUR ---
[facility] Follow-up: Patient re-assessed by wound healing team. Assessment and recommendations provided to primary nurse. Education provided. Wound care done. Addendum: 10/18/24 at 1359 by GIOVANNA PRESTON RN RN/ Amended: Links added.
--- NOTE | 2024-10-18 11:10 | PN ---
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 Per RN no major overnight events. She denies any pain at this time. He has been given Dilaudid PRN report is helps with the pain to right BKA. Per RN dressing was changed this morning clean dry and intact with no signs reported of infection. Reports 0 suze intact. He is hemodynamically stable and afebrile. CBC similar to yesterday with a H&H of 7.7/24.2 platelet count is 358k. Chemistry unremarkable. Pending placement at LTAC. REVIEW OF SYSTEMS: General: No malaise or fever. Neurological: No fainting episodes or seizures. HEENT: No nasal congestion or nasal secretion. Respiratory: No cough, shortness of breath, or wheezing Cardiac: No chest pain or palpitations. Gastrointestinal: No vomiting or diarrhea. Genitourinary: No dysuria hematuria. Skin: No rashes or lesions. Hematological: No bruises or bleeding. Musculoskeletalno pain to lower extremities. Psychiatric: No depression or panic attacks. PHYSICAL EXAM: GENERAL: Alert, weak, awake oriented x 3 HEENT: EOMI, Sclera non icteric, moist mucosa NECK: Supple, no JVD, trachea midline LUNGS: Diminished breath sounds bilaterally. No wheezes HEART: Regular rate and rhythm. Normal S1 and S2, without murmurs ABD: Abdomen soft, nontender. Bowel sounds present EXT:RT lower extremity s/p rt GURVINDER dressing clean dry and intact. NEURO: Alert and oriented to person, follows commands Vital Signs (last 8hr) Date Time Temp Pulse Resp B/P (MAP) Pulse Ox O2 Delivery O2 Flow Rate FiO2 10/18/24 09:38 57 28 10/18/24 07:00 97.7 57 17 119/45 99 Trach Collar 10/18/24 06:27 56 15 10/18/24 06:23 56 28 10/18/24 03:18 98.4 60 18 99/45 100 Trach Collar 10/18/24 03:10 58 28 LABS: Hematology Labs: Test 10/18/24 03:33 10/17/24 03:27 Range/Units White Blood Count 9.7 4.8-10.8 K/uL Red Blood Count 2.95 L 4.50-6.20 MIL/uL Hemoglobin 7.7 L 14.0-18.0 g/dL Hematocrit 24.2 L 42-54 % Mean Corpuscular Volume 82.0 79-99 fL Mean Corpuscular Hemoglobin 26.1 L 27.0-33.0 pg Mean Corpuscular Hemoglobin Concent 31.8 L 32.0-36.0 g/dL Red Cell Distribution Width 18.9 H 11.0-15.5 % Platelet Count 358 130-400 K/uL Mean Platelet Volume 10.4 7.5-10.5 fL Nucleated Red Blood Cells 0.2 H 0.0-0.19 % Immature Granulocyte % (Auto) 3.4 H 0-1 % Neutrophils (%) (Auto) 84.7 H 40.0-77.0 % Lymphocytes (%) (Auto) 6.0 L 21.0-51.0 % Monocytes (%) (Auto) 5.8 3.0-13.0 % Eosinophils (%) (Auto) 0.0 0.0-8.0 % Basophils (%) (Auto) 0.1 0.0-5.0 % Neutrophils # (Auto) 8.9 H 1.8-7.7 K/uL Lymphocytes # (Auto) 0.6 L 1.0-4.8 K/uL Monocytes # (Auto) 0.6 0.1-1.0 K/uL Eosinophils # (Auto) 0.00 0.00-0.70 K/uL Basophils # (Auto) 0.01 0.00-0.20 K/uL Absolute Immature Granulocyte (auto 0.36 0-1 K/uL Chemistry Labs: Test 10/18/24 05:09 10/18/24 03:33 10/17/24 19:42 Range/Units Whole Blood Glucose 113 #H 70-110 MG/DL Sodium Level 138 136-145 mmol/L Potassium Level 4.7 3.5-5.1 mmol/L Chloride Level 109 101-111 mmol/L Carbon Dioxide Level 21 21-32 mmol/L Blood Urea Nitrogen 46 H 7-18 mg/dL Creatinine 1.3 0.5-1.3 mg/dL Glomerular Filtration Rate Calc 59 >90 mL/min Random Glucose 125 H 70-105 mg/dL Total Calcium 7.6 L 8.5-10.1 mg/dL Magnesium Level 2.30 1.80-2.40 mg/dL Total Bilirubin 0.2 0.2-1.0 mg/dL Aspartate Amino Transf (AST/SGOT) 20 10-37 U/L Alanine Aminotransferase (ALT/SGPT) 32 12-78 U/L Alkaline Phosphatase 101 50-136 U/L Total Protein 5.1 L 6.0-8.3 g/dL Albumin 2.0 L 3.5-5.0 g/dL Bedside Glucose Comment Notified Nurse DIAGNOSTICS / RADIOLOGY RESULTS: [ ] PLAN Home vent ( Continue) S/P BKA ,dressing cdi wound care per RN follow ID recommendations monitor for fevers continues wound care per WC team Bowel regimen repeat blood cultures in am NEURO: Minimize central acting medications as possible. Fall Precautions. Well lighted room through the day and minimize interruptions through the night to prevent acute delirium. PULMONARY: Supplemental 02 as needed Titrate Fio2 to keep Spo2 > or = 90% DuoNebs and CPT as needed IS hourly while awake for pulmonary hygiene Out of bed to chair as tolerated VAP Bundle Vent/BIPAP Settings: Tracheostomy on home vent CARDIOVASCULAR: Follow hemodynamics. Titrate vasopressor to keep MAP >65 or systolic blood pressure >95mmHg DIPS: None LINES: PIV's GI & NUTRITION: Continue nutritional support Aspirations precautions Prokinetic agents and laxatives as needed KIDNEYS & ELECTROLYTES: Strict monitoring of intake and output Daily weights Avoid nephrotoxic agents Monitor electrolytes and replace as needed Goal urine output of 30mL/hr or 0.5mL/kg/hr Urine output: [ ] Fluid Balance: [ ] ENDOCRINE: Maintain blood glucose between 100-180 at all times. Insulin sliding scale for blood glucose management INFECTIOUS DISEASE: Trend temperature. Acosta-culture if febrile. Micro: Sputum Antibiotics: Zosyn and doxy HEMATOLOGY & COAGULATION: Monitor H&H. Keep Hgb > 7 Transfuse 1 unit of PRBC for Hgb < 7 Transfuse 1 pack of platelets of platelets < 20, 000 Watch for any signs and symptoms of bleeding SKIN: Pressure ulcer prevention per facility protocol Rehab: PT/OT Prophylaxis: GI: Pepcid DVT: Lovenox Code Status: Full Resuscitation Disposition:Case management for LTAC placement. Other: I personally spent 35 minutes of critical care time in treatment of this patient ATTESTATION BY PHYSICIAN The patient has been seen and evaluated, the case has been discussed with the [employer] , I agree with the clinical findings and plan of care. Gasper Robles MD, NELLY J ARNP October 18, 2024 11:09
--- NOTE | 2024-10-18 14:00 | NUR ---
PT follow up note: Nurse, Meena, stated patient ready for PT eval. Patient refused to do anything with PT. When asked again, patient shook his head and nodded. Nurse informed. PT team to follow. Addendum: 10/18/24 at 1426 by SUSANNAH PUGH PT Amended: Links added.
--- NOTE | 2024-10-18 14:49 | NUR ---
DC PLAN VISITED WITH PATIENT AND FAMILY. SPOKE TO ABOUT DC PLAN. SAID OKAY TO [facility]. GOT OKAY FROM DR. DE LEON. PACKET MADE AND SENT REP NOTIFIED. Addendum: 10/18/24 at 1452 by LORETO ALMONTE RN CM Amended: Links added.
--- NOTE | 2024-10-18 15:39 | PN ---
INFECTIOUS DISEASE PROGRESS NOTE Date of Service: October 18, 2024 SUBJECTIVE: This is a 69-year-old male patient who was seen and examined at bedside in room 223. Patient is resting comfortable. Patient has been referred to [facility] and pending insurance approval. No fever reported, temperature is 98.4. Will continue on Zosyn and doxycycline. We will continue to follow patient's care. PHYSICAL EXAM EYES: Anicteric. Pupils equal and reactive. HENT: No oral thrush seen, moist Oral mucosa. NECK: Supple, no JVD or thyromegaly. Tracheostomy status. LUNGS: Good air entry. No rales, no rhonchi. Tracheostomy status. CARDIOVASCULAR: S1, S2 regular. No murmur heard. ABDOMEN: Soft, non tender, bowel sounds present, no organomegaly. Peg tube status. CENTRAL NERVOUS SYSTEM: Awake, alert, oriented x 3. SKIN: No rashes, no swelling. LYMPHATICS: No peripheral lymphadenopathy. MUSCULOSKELETAL: No joint swelling, erythema or tenderness. EXTREMITIES: No cyanosis or clubbing. S/P right BKA. BACK: No deformity, no pressure ulcer. GENITOURINARY: No dysuria or hematuria. Vital Sign (Last 12 Hours) 10/18/24 10/18/24 10/18/24 10/18/24 06:23 06:27 07:00 09:00 Temp 97.7 Pulse 56 56 57 Resp 15 17 B/P (MAP) 119/45 Pulse Ox 99 100 O2 Delivery Trach Collar Ventilator+ O2 Flow Rate 4 FiO2 28 36 10/18/24 10/18/24 10/18/24 10/18/24 09:38 11:00 12:11 12:14 Temp 98.4 Pulse 57 64 62 62 Resp 18 21 B/P (MAP) 149/81 Pulse Ox 99 O2 Delivery Trach Collar FiO2 28 28 Intake & Output (last 24hrs) 10/17/24 10/17/24 10/18/24 14:59 22:59 06:59 Intake Total 411.0 ml 74.5 ml 540.0 ml Output Total 400 ml 1100 ml Balance 411.0 ml -325.5 ml -560.0 ml LABS: Laboratory: Test 10/18/24 11:08 10/18/24 03:33 10/17/24 19:42 10/17/24 03:27 Range/Units Whole Blood Glucose 108 70-110 MG/DL White Blood Count 9.7 4.8-10.8 K/uL Red Blood Count 2.95 L 4.50-6.20 MIL/uL Hemoglobin 7.7 L 14.0-18.0 g/dL Hematocrit 24.2 L 42-54 % Mean Corpuscular Volume 82.0 79-99 fL Mean Corpuscular Hemoglobin 26.1 L 27.0-33.0 pg Mean Corpuscular Hemoglobin Concent 31.8 L 32.0-36.0 g/dL Red Cell Distribution Width 18.9 H 11.0-15.5 % Platelet Count 358 130-400 K/uL Mean Platelet Volume 10.4 7.5-10.5 fL Nucleated Red Blood Cells 0.2 H 0.0-0.19 % Sodium Level 138 136-145 mmol/L Potassium Level 4.7 3.5-5.1 mmol/L Chloride Level 109 101-111 mmol/L Carbon Dioxide Level 21 21-32 mmol/L Blood Urea Nitrogen 46 H 7-18 mg/dL Creatinine 1.3 0.5-1.3 mg/dL Glomerular Filtration Rate Calc 59 >90 mL/min Random Glucose 125 H 70-105 mg/dL Total Calcium 7.6 L 8.5-10.1 mg/dL Magnesium Level 2.30 1.80-2.40 mg/dL Total Bilirubin 0.2 0.2-1.0 mg/dL Aspartate Amino Transf (AST/SGOT) 20 10-37 U/L Alanine Aminotransferase (ALT/SGPT) 32 12-78 U/L Alkaline Phosphatase 101 50-136 U/L Total Protein 5.1 L 6.0-8.3 g/dL Albumin 2.0 L 3.5-5.0 g/dL Bedside Glucose Comment Notified Nurse Immature Granulocyte % (Auto) 3.4 H 0-1 % Neutrophils (%) (Auto) 84.7 H 40.0-77.0 % Lymphocytes (%) (Auto) 6.0 L 21.0-51.0 % Monocytes (%) (Auto) 5.8 3.0-13.0 % Eosinophils (%) (Auto) 0.0 0.0-8.0 % Basophils (%) (Auto) 0.1 0.0-5.0 % Neutrophils # (Auto) 8.9 H 1.8-7.7 K/uL Lymphocytes # (Auto) 0.6 L 1.0-4.8 K/uL Monocytes # (Auto) 0.6 0.1-1.0 K/uL Eosinophils # (Auto) 0.00 0.00-0.70 K/uL Basophils # (Auto) 0.01 0.00-0.20 K/uL Absolute Immature Granulocyte (auto 0.36 0-1 K/uL DIAGNOSTICS / RADIOLOGY: PATIENT: ILANA GOFF ACCT: [id number] LOC: [facility] U: [id number] AGE/SX: 69/M ROOM: [facility] RE10/12/[address]: JESSICA LONDONO MD : 1955 BED: 1 DIS: STATUS: ADM IN TLOC: SPEC: [id number] MAINOR: 10/12/24 STATUS: COMP REQ: [id number] RECD: 10/12/24-[address] [facility] [address]: VALERIA REEVES [facility] SOURCE: [facility] ENTR: 10/12/[address] [facility] [address]: JESSICA LONDONO MD SPDESC: CLEAN CAT PRUDENCE BRINK MD, JULIO A MD ORDERED: AERO ID & SENS Procedure Result Demetri Date-Time --- --------- AEROBIC ID & SENSITIVITIES Final 10/14/24-0755 [facility] COLONY DESCRIPTION: DAY 1: COLONY COUNT: >100,000 CFU/ML GRAM NEGATIVE RODS IDENTIFICATION AND SENSITIVITY TO FOLLOW ESCHERICHIA COLI E COLI M.I.C. RX --------- ---- AMPICILLIN <=8 S AZTREONAM <=4 S CEFAZOLIN <=2 S CEFTAZIDIME/AVIBACTAM <=8 S GENTAMICIN <=2 S LEVOFLOXACIN <=0.5 S NITROFURANTOIN <=32 S MEROPENEM <=1 S PIPERACILLIN/TAZOBACTAM <=8 S TRIMETHOPRIM/SUFLAMETHOXAZOLE <=2/38 S PATIENT: ILANA GOFF ACCT: [id number] LOC: [facility] U: [id number] AGE/SX: 69/M ROOM: 217 RE10/12/[address]: JESSICA LONDONO MD : 1955 BED: 1 DIS: STATUS: ADM IN TLOC: SPEC: [id number] MAINOR: 10/12/24 STATUS: COMP REQ: [id number] RECD: 10/12/[address]: VALERIA REEVES SOURCE: [facility] ENTR: 10/12/24-[address] [facility] [address]: JESSICA LONDONO MD SPDESC: PRUDENCE CHAVEZ MD, JULIO A MD ORDERED: RESP CULTURE Procedure Result Demetri Date-Time GRAM STAIN Final 10/12/24-1144 [facility] GRAM STAIN RESULT: GOOD SPECIMEN [ <10 SEC's/LPF and >25 PMN's/LPF ] RARE GRAM POSITIVE RODS RESPIRATORY CULTURE Final 10/15/24-9441 [facility] COLONY DESCRIPTION: REPORT 1: 2+ ORAL MACKENZIE ; STUDIES TO CONTINUE 1+ GRAM NEGATIVE RODS IDENTIFICATION AND SENSITIVITY TO FOLLOW REPORT 2: STUDIES TO CONTINUE REPORT 3: 2+ GRAM NEGATIVE COCCOBACCILI POSSIBLE HAEMOPHILUS SPECIES . IDENTIFICATION AND SENSITIVITY TO FOLLOW HAEMOPHILUS INFLUENZAE I SERRATIA MARCESCENS FABIEN FLORENCE MJohnI.CJohn RX --------- ---- AZTREONAM <=4 S CEFTAZIDIME <=1 S CEFTAZIDIME/AVIBACTAM <=8 S GENTAMICIN <=2 S LEVOFLOXACIN <=0.5 S MEROPENEM >8 R PIPERACILLIN/TAZOBACTAM <=8 S TRIMETHOPRIM/SUFLAMETHOXAZOLE <=2/38 S ASSESSMENT: Urinary tract infection with E coli. Staphylococcus hominis bacteremia which is a contaminant. Pneumonia with Haemophilus influenzae and Serratia marcescens. Right foot gangrene, status post right BKA on 10/16/2024. Anemia. Acute renal failure resolving. Diabetes mellitus. PLAN: Continue Zosyn. Continue doxycycline. Continue antidiabetics. Continue GI prophylaxis. Continue steroids. Continue oxygen support. Continue nutritional support. Patient has been referred to [facility]. This case was reviewed and discussed with my supervising physician and the above assessment and plan was formulated and agreed upon. ATTESTATION BY PHYSICIAN I have seen and examined the patient. I reviewed the documentation, medical decision making, and treatment plan as noted by the mid-level provider above. I agree with the findings and plan of care. KEIRA MCCRARY MD, MIRTA L [facility] October 18, 2024 15:39
[2024-10-18] MEDS: CYCLOBENZAPRINE HCL 10 MG TABLET PO PRN (15:43)
[2024-10-19] VITALS (12 sets, daily range): BP systolic 119–140; BP diastolic 49–56; PULSE 53–70; RESP 11–21; TEMP 97.8–98.8; O2SAT 98–100
--- NOTE | 2024-10-19 09:41 | PN ---
[facility] PROGRESS NOTE Date of Service: October 19, 2024 Time of Service: 09:40 SUBJECTIVE: Mr. Preciado is a 69-year-old male that was seen and examined 10/12/2024. Patient is unable to provide health history. Patient's Liseth at bedside and able to provide the following information. Patient was brought to the emergency department with a chief complaint of shortness of breath. Onset was one week ago. also reported associated right foot pain. Patient has had gangrene since February 2024. Patient has been evaluated by Cardiology Service, Dr. Childress and was told that he was not a candidate for revascularization. Patient has a nephew who is a field service technician poultry in [place] and he recommended a field service technician poultry in [place] who attempted revascularization using a pedal approach about two months ago but this did not help. There was also a different doctor who tried a revascularization from a jugular approach but that did not help. stated that there has been a recommendation for oekag-ccv-uiqo amputation but she prefers to try and save her 's limb. In the emergency department BUN is 37 , creatinine 1.7, GFR 43, urinalysis positive for leukocyte esterase and WBCs 50 1-100 per high-powered microscopy field. Emergency room physician recommended that patient be admitted with a diagnosis of acute on chronic respiratory failure. 10/13 patient seen at bedside, no acute events overnight. Blood culture is positive in 1/2 bottles likely contaminant, we will follow up with cultures and sensitivities. Echocardiogram pending, we will follow up. Patient to be assessed for possible angiogram tomorrow by Cardiology. Continue with empiric antibiotics. Blood sugar elevated, sliding scale increased to high sensitivity and glargine increased to 20 units twice daily, we will continue to monitor blood sugars. 10/14 patient is seen and examined, BP 124/54, heart rate of 58, laboratory data shows a hemoglobin of 8.1, hematocrit 26.2. CMP with sodium 138, potassium 3.8, BUN of 41, creatinine of 1.4. Septic workup with the sputum expectorated Serratia marcescens, urine culture for E coli, blood culture positive 1/2 bottles. Gram-positive cocci, final identification still pending. 10/15 patient is seen in the ICU, remains hemodynamically stable, BP 141/58, hea rt rate of 56, on home ventilator, FiO2 28%, saturating 99%. Patient awake, following commands. Hemoglobin of 7.7 with a hematocrit 23.9, no signs of active bleeding, we will do serial CBC q.6 hours, transfuse 1 unit of PRBC if hemoglobin less than seven. Septic workup with the sputum expectorated Serratia marcescens, urine culture for E coli, blood culture positive 1/2 bottles. Likely contamination. Patient evaluated by Podiatry, patient in agreement for right iaxjh-ugs-umms amputation to the right side. Per Podiatry, possible right bqrcc-huo-wsfh amputation Monday. 10/16 patient is seen and examined, BP 154/69, afebrile, on ventilator saturating 99%. CBC with a hemoglobin 8.1, hematocrit 25.4, WBC 10.1, platelet count 195. CMP shows a sodium 139, potassium 5.1, BUN of 40, creatinine 1.3. Bicarbonate of 20 on the CMP, ABG reviewed, pH 7.43, pCO2 31, PO2 115, bicarb of 20.7. Scheduled for right uzzsf-tay-qdoh amputation by school bus attendant. Results of blood cultures reviewed, positive for Staphylococcus hominis, ID consultation requested, we will follow input and recommendation. 10/17 patient is seen and examined at bedside, case discussed with the RN, no acute events overnight, patient alert and oriented, following commands, he is watching TV, remains hemodynamically stable. Hemoglobin 7.5, hematocrit 23.2. The patient is status post right klgbn-rmg-ltup amputation yesterday, tolerated the procedure well. He is currently getting IV antibiotics. 10/18 patient is seen and examined at bedside, no acute events overnight, he remains alert and oriented, following commands, BP 119/45, afebrile, saturating 99% on trach collar. Patient getting IV antibiotics during my visit. No family members at bedside, pending acceptance to [facility]. 10/19 patient is seen and examined at bedside, no acute events overnight, he remains alert and oriented, hemodynamically stable afebrile, saturating 99% on trach collar. Patient getting IV antibiotics during my visit. No family members at bedside, pending acceptance to [facility]. During my visit the patient is awake, following commands. REVIEW OF SYSTEMS CONSTITUTIONAL: Denies fevers, chills, or night sweats. No unintentional weight loss reported. NEUROLOGICAL: Denies headache, amaurosis fugax, motor weakness, sensory deficit, vertigo/spinning sensation, gait abnormalities, or tremors. ENT: No hearing loss, otalgia, otorrhea, rhinitis, rhinorrhea, hoarseness, or sore throat. CARDIOVASCULAR: Denies any exertional angina, dyspnea on exertion, orthopnea, paroxysmal nocturnal dyspnea, palpitations, life-threatening arrhythmias, claudication. PULMONARY: Denies any shortness of breath, cough, phlegm/sputum, hemoptysis, pleuritic chest pain. SLEEP: Denies morning headaches, daytime somnolence or napping. Denies difficulty falling asleep, staying asleep, waking from sleep. Denies knowledge of snoring. GASTROINTESTINAL: Denies any type of dysphagia to either liquids or solids. Denies nausea, vomiting, pyrosis, early satiety, abdominal pain, diarrhea, constipation, or changes in stool consistency or caliber. Denies coffee-ground emesis, hematemesis, hematochezia, or melanotic stools. GENITOURINARY: Denies frequency, urgency, nocturia, hematuria or incontinence (Storage/Irritative symptoms.) Low urinary stream, straining to void, urinary intermittency or hesitancy, splitting of the voiding stream, terminal dribbling. ENDOCRINOLOGIC: Denies polyuria, polydipsia, polyphagia or heat/cold intolerances. HEMATOLOGIC: Denies thrombophilia/previous clots, or coagulopathy/bleeding disorders. ONCOLOGIC: Denies personal history of malignancy. DERMATOLOGIC: Denies rashes or pruritus. PSYCHIATRIC: Denies any suicidal or homicidal ideation. Denies hallucinations. PHYSICAL EXAM GENERAL APPEARANCE: No acute distress NEUROLOGICAL: Cranial nerves II-XII grossly intact. Motor is 5/5 in bilateral upper and lower extremities proximal to distal. No sensory deficits. HEENT: Face is symmetric. Pupils are equal and reactive. Extraocular movements are intact. NECK: Supple. No JVD. No thyromegaly. No submental, submandibular, pre- /postauricular, occipital or supraclavicular lymphadenopathy. CHEST: Normal chest expansion. No Telemetry. LUNGS: Absence of any rales, rhonchi or any wheezing. CARDIOVASCULAR: Regular. S1 and S2 normal. No appreciable rubs, murmurs or gallops. ABDOMEN: Soft, nontender, and nondistended. There is no rebound, voluntary guarding, or rigidity. : Deferred. No Nixon. EXTREMITIES: Non-edematous and not cyanotic. No clubbing. Good capillary refill. SKIN: No skin breakdown. Vital Signs (last 8hr) Date Time Temp Pulse Resp B/P (MAP) Pulse Ox O2 Delivery O2 Flow Rate FiO2 10/19/24 07:00 97.9 53 18 120/56 100 Trach Collar 10/19/24 06:28 54 11 10/19/24 06:25 54 28 10/19/24 04:26 98.8 60 18 132/55 98 Trach Collar 10/19/24 04:02 58 28 10/19/24 02:40 58 28 LABS: Laboratory: Test 10/19/24 05:37 10/18/24 03:33 10/17/24 19:42 Range/Units Whole Blood Glucose 116 H 70-110 MG/DL White Blood Count 9.7 4.8-10.8 K/uL Red Blood Count 2.95 L 4.50-6.20 MIL/uL Hemoglobin 7.7 L 14.0-18.0 g/dL Hematocrit 24.2 L 42-54 % Mean Corpuscular Volume 82.0 79-99 fL Mean Corpuscular Hemoglobin 26.1 L 27.0-33.0 pg Mean Corpuscular Hemoglobin Concent 31.8 L 32.0-36.0 g/dL Red Cell Distribution Width 18.9 H 11.0-15.5 % Platelet Count 358 130-400 K/uL Mean Platelet Volume 10.4 7.5-10.5 fL Nucleated Red Blood Cells 0.2 H 0.0-0.19 % Sodium Level 138 136-145 mmol/L Potassium Level 4.7 3.5-5.1 mmol/L Chloride Level 109 101-111 mmol/L Carbon Dioxide Level 21 21-32 mmol/L Blood Urea Nitrogen 46 H 7-18 mg/dL Creatinine 1.3 0.5-1.3 mg/dL Glomerular Filtration Rate Calc 59 >90 mL/min Random Glucose 125 H 70-105 mg/dL Total Calcium 7.6 L 8.5-10.1 mg/dL Magnesium Level 2.30 1.80-2.40 mg/dL Total Bilirubin 0.2 0.2-1.0 mg/dL Aspartate Amino Transf (AST/SGOT) 20 10-37 U/L Alanine Aminotransferase (ALT/SGPT) 32 12-78 U/L Alkaline Phosphatase 101 50-136 U/L Total Protein 5.1 L 6.0-8.3 g/dL Albumin 2.0 L 3.5-5.0 g/dL Bedside Glucose Comment Notified Nurse Current Medications Medications (Trade) Dose Ordered Sig/[place] Route PRN Reason Start Time Stop Time Status Last Admin Dose Admin Acetaminophen (TYLenol 325MG TAB) 650 mg Q4H PRN PO MILD PAIN (1-3) 10/12/24 01:00 11/11/24 00:59 10/19/24 00:00 650 MG Albuterol (DUOneb) 1 UDVIAL [id number] IH 10/12/24 06:00 11/11/24 05:59 10/19/24 06:27 1 UDVIAL Aspirin (Aspirin 81mg Chew Tab) 81 mg DAILY PO 10/12/24 09:00 10/14/24 11:17 DC 10/14/24 09:23 81 MG Atorvastatin Calcium (LIPItor 40MG) 40 mg HS PO 10/12/24 21:00 11/11/24 20:59 10/18/24 21:06 40 MG Calcium Gluconate (Calcium Gluc 1gm Vial) 1 gm PROTOCOL IVPB 10/15/24 05:45 10/15/24 05:46 DC Calcium Gluconate 1 gm/Sodium Chloride 100 ml @ 0 mls/hr PROTOCOL IV 10/15/24 06:00 11/14/24 05:59 Calcium Gluconate 2 gm/Sodium Chloride 100 ml @ 0 mls/hr PROTOCOL IV 10/15/24 06:00 11/14/24 05:59 10/15/24 05:51 100 MLS/HR Ceftriaxone Sodium (ROCEphine 1G INJ) 1 gm Q24H IVPB 10/12/24 09:00 10/12/24 02:17 DC Cilostazol (PLETal 100MG TAB) 50 mg BID PO 10/12/24 21:00 10/15/24 22:41 DC 10/15/24 20:22 50 MG Citalopram Hydrobromide (CeleXA 20MG TAB) 20 mg HS PO 10/12/24 21:00 11/11/24 20:59 10/18/24 21:06 20 MG Clopidogrel Bisulfate (plaVIX 75MG) 75 mg DAILY PO 10/12/24 09:00 10/14/24 11:17 DC 10/14/24 09:23 75 MG Cyclobenzaprine HCl (Cyclobenzaprine HCl) 5 mg Q8H5 PRN PO SEVERE PAIN (7-10) 10/18/24 15:00 11/17/24 14:59 10/19/24 00:01 5 MG Diphenhydramine HCl (BENAdryl CAP) 25 mg HS PO 10/17/24 21:00 11/16/24 20:59 10/18/24 21:06 25 MG Doxazosin Mesylate (Doxazosin Mesylate) 2 mg BID PO 10/12/24 21:00 11/11/24 20:59 10/19/24 08:23 2 MG Doxycycline Hyclate 250 ml @ 125 mls/hr Q12H IV 10/12/24 01:00 10/22/24 00:59 10/19/24 00:01 125 MLS/HR Ferrous Sulfate (Ferrous Sulfate Liq) 300 mg BID PO 10/17/24 21:00 11/16/24 20:59 10/19/24 08:23 300 MG Finasteride (PROscar 5 MG TAB) 5 mg DAILY PO 10/13/24 09:00 11/12/24 08:59 10/19/24 08:23 5 MG Gabapentin (NEURontin 300 MG CAP) 600 mg TID PO 10/12/24 14:00 11/11/24 13:59 10/19/24 08:25 600 MG Heparin Sodium (Porcine) (HEParin 5,000 UNIT VIAL) 5,000 unit BID SQ 10/12/24 09:00 10/16/24 08:23 DC 10/15/24 20:23 5,000 UNIT Hydralazine HCl (APRESOLine 20MG INJ) 10 mg Q6H PRN IV For:SBP above 160;DBP above 90 10/12/24 01:00 11/11/24 00:59 10/15/24 23:47 10 MG Hydromorphone HCl (DiLAUDid 1MG INJ) 1 mg Q3H3 PRN IVP SEVERE PAIN (7-10) 10/14/24 20:00 10/19/24 19:59 10/19/24 03:41 1 MG Insulin Glargine (LANtus 100 UNITS/ML 10 ML VIAL) 15 units BID@0730,2100 SQ 10/12/24 07:30 10/13/24 12:31 DC 10/13/24 07:16 15 UNITS Insulin Glargine (LANtus 100 UNITS/ML 10 ML VIAL) 20 units BID@0730,2100 SQ 10/13/24 21:00 10/13/24 13:18 DC Insulin Glargine (LANtus 100 UNITS/ML 10 ML VIAL) 25 units BID@0730,2100 SQ 10/13/24 13:30 11/12/24 13:29 10/19/24 06:35 25 UNITS Insulin Human Regular (humuLIN R 100 UNIT/ML 3ML) INSULIN SLIDING SCAL... ACHS SQ 10/12/24 07:30 10/13/24 10:03 DC 10/13/24 07:15 4 UNIT Insulin Human Regular (humuLIN R 100 UNIT/ML 3ML) INSULIN SLIDING SCAL... ACHS SQ 10/13/24 11:30 10/13/24 13:18 DC 10/13/24 11:59 16 UNIT Insulin Human Regular (humuLIN R 100 UNIT/ML 3ML) INSULIN SLIDING SCAL... ACHS SQ 10/13/24 16:30 11/12/24 16:29 10/17/24 21:21 10 UNIT Lactated Ringer's 1,000 ml @ 150 mls/hr Q6H40M IV 10/12/24 01:00 10/12/24 17:01 DC 10/12/24 12:21 150 MLS/HR Lactulose (Constulose 20gm/ 30ml Udcup) 20 gm BID PRN PO CONSTIPATION 10/15/24 10:30 11/14/24 10:29 10/15/24 10:44 20 GM Magnesium Sulfate 50 ml @ 0 mls/hr PROTOCOL PRN IV MAGNESIUM PROTOCOL 10/12/24 10:00 11/11/24 09:59 10/17/24 13:52 25 MLS/HR Methylprednisolone Sodium Succinate (Solu-medROL 40MG) 40 mg Q12H IVP 10/14/24 09:00 11/11/24 07:59 10/19/24 08:24 40 MG Methylprednisolone Sodium Succinate (Solu-medROL 40MG) 40 mg Q8H IVP 10/12/24 08:00 10/13/24 16:40 DC 10/13/24 08:59 40 MG Metoprolol Succinate (TopROL XL) 25 mg DAILY PO 10/13/24 09:00 11/12/24 08:59 Hold 10/16/24 08:26 25 MG Morphine Sulfate (morPHINE 2MG SYG) 2 mg Q4H PRN IVP SEVERE PAIN (7-10) 10/12/24 01:30 10/14/24 20:00 DC 10/14/24 19:59 2 MG Ondansetron HCl (zoFRAN 4MG INJ) 4 mg Q6H PRN IV NAUSEA/VOMITING 10/12/24 01:00 11/11/24 00:59 Pantoprazole Sodium (PROTonix 40MG INJ) 40 mg DAILY IV 10/12/24 09:00 11/11/24 08:59 10/18/24 09:32 40 MG Piperacillin Sod/ Tazobactam Sod (Zosyn 3.375gm+NS 50ml) 3.375 gm Q8H IV 10/12/24 08:00 10/22/24 07:59 10/19/24 08:22 3.375 GM Polyethylene Glycol (MIRalax 3350 17 GM POWD.PACK) 17 gm DAILY PO 10/16/24 09:00 11/15/24 08:59 10/18/24 09:30 17 GM Simethicone (Mylicon) 80 mg Q8H PRN PO GI GAS 10/13/24 21:00 11/12/24 20:59 Sodium Chloride (NS 50ml) 50 ml AD IV 10/15/24 05:45 10/15/24 05:46 DC Sodium Chloride (Sodium Chloride 3% Inh) 4 ML [id number] IH 10/12/24 14:00 11/11/24 13:59 10/19/24 06:27 4 ML Wound Care/ Dressing Products (Venelex Ointment) APPLY DIRECTED TID TP 10/14/24 21:00 11/13/24 20:59 10/18/24 21:06 1 GM DIAGNOSTICS / RADIOLOGY: [ ] ASSESSMENT: Sepsis, POA, Blood culture positive for Staphylococcus hominis (contamination) Acute on chronic respiratory failure, POA Tracheostomy status, POA Sputum culture positive for Serratia marcescens of UC influenza, POA Right foot gangrene, POA Status post right qqpsx-sfi-vjzi amputation 10/16/2024 Peripheral artery disease, POA Urinary tract infection, secondary to E coli POA Acute kidney injury, POA on 02/12/2024 creatinine 1.1, today creatinine 1.7 Uncontrolled Diabetes mellitius type2, POA Suspected pneumonia, POA Hypertension CKD History of CVA with the right-sided hemiparesis PLAN: Patient downgraded to the PCU. Continue the patient on broad-spectrum IV antibiotics Patient with a urinary tract infection secondary to E coli, Staphylococcus hominis bacteremia which is a contaminant, pneumonia with Haemophilus influenzae and Serratia marcescens, right foot gangrene status post amputation 10/16/2024. Continue the patient on broad-spectrum IV antibiotics. [facility]. NEURO: Minimize central acting medications as possible. Fall Precautions. Well lighted room through the day and minimize interruptions through the night to prevent acute delirium. PULMONARY: Supplemental 02 as needed BiPAP as necessary, for respiratory distress Titrate Fio2 to keep Spo2 > or = 90% DuoNebs and CPT as needed IS hourly while awake for pulmonary hygiene prn Out of bed to chair as tolerated Maintain aspiration precautions at all times CARDIOVASCULAR: Follow hemodynamics. Vital signs per facility protocol GI & NUTRITION: Continue nutritional support Aspirations precautions Prokinetic agents and laxatives as needed KIDNEYS & ELECTROLYTES: Strict monitoring of intake and output Daily weights Avoid nephrotoxic agents Monitor electrolytes and replace as needed Goal urine output of 30mL/hr or 0.5mL/kg/hr Medications to be dosed according to renal function. Avoid contrast if possible ENDOCRINE: Maintain blood glucose between 100-180 at all times. Insulin sliding scale for blood glucose management Hypoglycemia and hyperglycemia protocol in place INFECTIOUS DISEASE: Trend temperature, WBC and procalcitonin level Follow cultures, deescalate antibiotics as soon as possible. Panculture if new onset fever HEMATOLOGY & COAGULATION: Monitor H&H. Keep Hgb > 7 Transfuse 1 unit of PRBC for Hgb < 7 Transfuse 1 pack of platelets of platelets < 20, 000 Watch for any signs and symptoms of bleeding SKIN: Pressure ulcer prevention per facility protocol Specialty mattress as needed ORTHO/REHAB Continue PT/OT PRN: MEDICATIONS Tylenol 650 mg po every 4 hrs for fever zofran 4 mg IV every 6 hrs for n/v Hydralazine 5 mg IV every 4 hrs systolic pressure > 160 bowel regiment: lactulose 20 gm PO BID PRN constipation Supportive measures: Continue GI and DVT prophylaxis Disposition: Pending improvement in clinical condition All questions answered time spent: > 35 min DORCAS DE LEON MD October 19, 2024 09:41
--- NOTE | 2024-10-19 12:34 | DS ---
Discharge Summary Hospital Course Summary: Mr. Preciado is a 69-year-old male that was seen and examined 10/12/2024. Patient is unable to provide health history. Patient's Liseth at bedside and able to provide the following information. Patient was brought to the emergency department with a chief complaint of shortness of breath. Onset was one week ago. also reported associated right foot pain. Patient has had gangrene since February 2024. Patient has been evaluated by Cardiology Service, Dr. Childress and was told that he was not a candidate for revascularization. Patient has a nephew who is a steel worker in [place] and he recommended a steel worker in [place] who attempted revascularization using a pedal approach about two months ago but this did not help. There was also a different doctor who tried a revascularization from a jugular approach but that did not help. stated that there has been a recommendation for kqktx-tme-mykw amputation but she prefers to try and save her 's limb. In the emergency department BUN is 37 , creatinine 1.7, GFR 43, urinalysis positive for leukocyte esterase and WBCs 50 1-100 per high-powered microscopy field. Emergency room physician recommended that patient be admitted with a diagnosis of acute on chronic respiratory failure. 10/13 patient seen at bedside, no acute events overnight. Blood culture is positive in 1/2 bottles likely contaminant, we will follow up with cultures and sensitivities. Echocardiogram pending, we will follow up. Patient to be assessed for possible angiogram tomorrow by Cardiology. Continue with empiric antibiotics. Blood sugar elevated, sliding scale increased to high sensitivity and glargine increased to 20 units twice daily, we will continue to monitor blood sugars. 10/14 patient is seen and examined, BP 124/54, heart rate of 58, laboratory data shows a hemoglobin of 8.1, hematocrit 26.2. CMP with sodium 138, potassium 3.8, BUN of 41, creatinine of 1.4. Septic workup with the sputum expectorated Serratia marcescens, urine culture for E coli, blood culture positive 1/2 bottles. Gram-positive cocci, final identification still pending. 10/15 patient is seen in the ICU, remains hemodynamically stable, BP 141/58, heart rate of 56, on home ventilator, FiO2 28%, saturating 99%. Patient awake, following commands. Hemoglobin of 7.7 with a hematocrit 23.9, no signs of active bleeding, we will do serial CBC q.6 hours, transfuse 1 unit of PRBC if hemoglobin less than seven. Septic workup with the sputum expectorated Serratia marcescens, urine culture for E coli, blood culture positive 1/2 bottles. Likely contamination. Patient evaluated by Podiatry, patient in agreement for right ycrbk-dfw-pkjb amputation to the right side. Per Podiatry, possible right fjcah-rfw-zfju amputation Monday. 10/16 patient is seen and examined, BP 154/69, afebrile, on ventilator saturating 99%. CBC with a hemoglobin 8.1, hematocrit 25.4, WBC 10.1, platelet count 195. CMP shows a sodium 139, potassium 5.1, BUN of 40, creatinine 1.3. Bicarbonate of 20 on the CMP, ABG reviewed, pH 7.43, pCO2 31, PO2 115, bicarb of 20.7. [place] eduled for right yfpei-tev-teqw amputation by watch crystal edge grinder. Results of blood cultures reviewed, positive for Staphylococcus hominis, ID consultation requested, we will follow input and recommendation. 10/17 patient is seen and examined at bedside, case discussed with the RN, no acute events overnight, patient alert and oriented, following commands, he is watching TV, remains hemodynamically stable. Hemoglobin 7.5, hematocrit 23.2. The patient is status post right khtmj-vhg-alzv amputation yesterday, tolerated the procedure well. He is currently getting IV antibiotics. 10/18 patient is seen and examined at bedside, no acute events overnight, he remains alert and oriented, following commands, BP 119/45, afebrile, saturating 99% on trach collar. Patient getting IV antibiotics during my visit. No family members at bedside, pending acceptance to [facility]. 10/19 patient is seen and examined at bedside, no acute events overnight, he remains alert and oriented, hemodynamically stable afebrile, saturating 99% on trach collar. Patient getting IV antibiotics during my visit. No family members at bedside, pending acceptance to [facility]. During my visit the patient is awake, following commands. Assessment/Plan: FINAL DIAGNOSIS Sepsis, POA, Blood culture positive for Staphylococcus hominis (contamination) Acute on chronic respiratory failure, POA Tracheostomy status, POA Sputum culture positive for Serratia marcescens of UC influenza, POA Right foot gangrene, POA Status post right rbtqp-etz-fgws amputation 10/16/2024 Peripheral artery disease, POA Urinary tract infection, secondary to E coli POA Acute kidney injury, POA on 02/12/2024 creatinine 1.1, today creatinine 1.7 Uncontrolled Diabetes mellitius type2, POA Suspected pneumonia, POA Hypertension CKD History of CVA with the right-sided hemiparesis Discharge Instructions: PATIENT TO BE DISCHARGED TO [facility] TODAY. Home Medications: Reported Medications Diphenhydramine HCl (Benadryl) 25 Mg Capsule, 25 MG PO NOON, CAP 10/16/24 Finasteride (Finasteride) 5 Mg Tablet, 1 TAB PO DAILY for 30 Days, #30 TAB 0 Refills 10/12/24 Atorvastatin Calcium (Atorvastatin Calcium) 20 Mg Tablet, 1 TAB PO DAILY for 30 Days, #30 TAB 0 Refills 10/12/24 Magnesium Oxide (Magnesium Oxide) 400 Mg Tablet, 1 TAB PO DAILY for 30 Days, #30 TAB 0 Refills 10/12/24 Omeprazole (Omeprazole) 20 Mg Capsule.dr, 1 CAP PO DAILY for 30 Days, #30 CAP 0 Refills 10/12/24 Meloxicam (Meloxicam) 15 Mg Tablet, 1 TAB PO DAILY for 30 Days, #30 TAB 0 Refills 10/12/24 Furosemide (Furosemide) 20 Mg Tablet, 1 TAB PO DAILY for 30 Days, #30 TAB 0 Refills 10/12/24 Metoprolol Succinate (Metoprolol Succinate) 25 Mg Tab.er.24h, 1 TAB PO DAILY for 30 Days, #30 TAB 0 Refills 10/12/24 Metformin HCl (Metformin HCl) 500 Mg Tablet, 500 MG PO DAILY, TAB 10/12/24 Doxazosin Mesylate (Doxazosin Mesylate) 2 Mg Tablet, 1 TAB PO BID for 30 Days, #30 TAB 0 Refills 10/12/24 Gabapentin (Gabapentin) 600 Mg Tablet, 1 TAB PO TID for 30 Days, #90 TAB 0 Refills 10/12/24 Cilostazol (Cilostazol) 50 Mg Tablet, 50 MG PO BID, TAB 10/12/24 Citalopram Hydrobromide (Citalopram HBr) 20 Mg Tablet, 20 MG PO HS, TAB 10/12/24 Potassium Citrate (Potassium Citrate ER) 15 Meq (1620 Mg) Tablet.er, 10 MEQ PO T ID, TAB 10/12/24 Discontinued Scripts Acetaminophen with Codeine (Acetaminophen-Cod #3 Tablet) 300 Mg-30 Mg Tablet, 1 TAB PO Q4H PRN for MODERATE TO SEVERE PAIN, #15 TAB Prov:KELSIE DONATO NP 02/12/24 Clindamycin HCl (Clindamycin HCl) 300 Mg Capsule, 1 CAP PO QID for 10 Days, #40 CAP 0 Refills Prov:KELSIE DONATO NP 02/12/24 Time spent arranging discharge: 31-60 minutes DORCAS DE LEON MD October 19, 2024 12:34
--- NOTE | 2024-10-19 13:08 | PN ---
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 he is hemodynamically stable with blood pressure 140/56 heart rate in the 60s respiratory rate of 19 saturating 98% with a FiO2 of 28% on home vent. Patient has no complaints. Denies any shortness of breaths trouble breathing. He is in good spirits with family at the bedside. Patient continues afebrile. CBC unremarkable similar to yesterday. Kidneys are doing well with a creatinine 1.3. He has been cleared ortho surgeon for discharge. Likely discharge today by primary team to [facility]. REVIEW OF SYSTEMS: General: No malaise or fever. Neurological: No fainting episodes or seizures. HEENT: No nasal congestion or nasal secretion. Respiratory: No cough, shortness of breath, or wheezing Cardiac: No chest pain or palpitations. Gastrointestinal: No vomiting or diarrhea. Genitourinary: No dysuria hematuria. Skin: No rashes or lesions. Hematological: No bruises or bleeding. Musculoskeletal no pain, Psychiatric: No depression or panic attacks. PHYSICAL EXAM: GENERAL: Alert, weak, awake oriented x 3 HEENT: EOMI, Sclera non icteric, moist mucosa NECK: Supple, no JVD, trachea midline LUNGS: Diminished breath sounds bilaterally. No wheezes HEART: Regular rate and rhythm. Normal S1 and S2, without murmurs ABD: Abdomen soft, nontender. Bowel sounds present EXT:RT lower extremity s/p rt GURVINDER dressing clean dry and intact. NEURO: Alert and oriented to person, follows commands Vital Signs (last 8hr) Date Time Temp Pulse Resp B/P (MAP) Pulse Ox O2 Delivery O2 Flow Rate FiO2 10/19/24 11:02 54 21 10/19/24 11:00 98.4 62 19 140/56 98 Trach Collar 10/19/24 10:55 65 28 10/19/24 07:15 98 Ventilator+ 4 36 10/19/24 07:00 97.9 53 18 120/56 100 Trach Collar 10/19/24 06:28 54 11 10/19/24 06:25 54 28 LABS: Hematology Labs: Test 10/18/24 03:33 Range/Units White Blood Count 9.7 4.8-10.8 K/uL Red Blood Count 2.95 L 4.50-6.20 MIL/uL Hemoglobin 7.7 L 14.0-18.0 g/dL Hematocrit 24.2 L 42-54 % Mean Corpuscular Volume 82.0 79-99 fL Mean Corpuscular Hemoglobin 26.1 L 27.0-33.0 pg Mean Corpuscular Hemoglobin Concent 31.8 L 32.0-36.0 g/dL Red Cell Distribution Width 18.9 H 11.0-15.5 % Platelet Count 358 130-400 K/uL Mean Platelet Volume 10.4 7.5-10.5 fL Nucleated Red Blood Cells 0.2 H 0.0-0.19 % Chemistry Labs: Test 10/19/24 11:20 10/18/24 03:33 10/17/24 19:42 Range/Units Whole Blood Glucose 184 #H 70-110 MG/DL Sodium Level 138 136-145 mmol/L Potassium Level 4.7 3.5-5.1 mmol/L Chloride Level 109 101-111 mmol/L Carbon Dioxide Level 21 21-32 mmol/L Blood Urea Nitrogen 46 H 7-18 mg/dL Creatinine 1.3 0.5-1.3 mg/dL Glomerular Filtration Rate Calc 59 >90 mL/min Random Glucose 125 H 70-105 mg/dL Total Calcium 7.6 L 8.5-10.1 mg/dL Magnesium Level 2.30 1.80-2.40 mg/dL Total Bilirubin 0.2 0.2-1.0 mg/dL Aspartate Amino Transf (AST/SGOT) 20 10-37 U/L Alanine Aminotransferase (ALT/SGPT) 32 12-78 U/L Alkaline Phosphatase 101 50-136 U/L Total Protein 5.1 L 6.0-8.3 g/dL Albumin 2.0 L 3.5-5.0 g/dL Bedside Glucose Comment Notified Nurse DIAGNOSTICS / RADIOLOGY RESULTS: [ ] PLAN NEURO: Minimize central acting medications as possible. Maintain fall precautions, adequate lighting during the day PULMONARY: Supplemental 02 as needed. Maintain aspiration precautions at all times CARDIOVASCULAR: Follow hemodynamics. Vital signs per facility protocol GI & NUTRITION: Continue with nutritional support. Continue stool softeners and laxatives as needed. KIDNEYS & ELECTROLYTES: Strict monitoring of intake, output and overall fluid balance. Avoid nephrotoxic medications to the extent possible. Medications to be dosed according to renal function. Monitor electrolytes and replace as needed ENDOCRINE: Maintain blood glucose between 100-180 at all times. Hypoglycemia protocol in place INFECTIOUS DISEASE: Trend temperature, WBC and procalcitonin level Follow cultures, deescalate antibiotics as soon as possible. Panculture if new onset fever ONCOLOGY/HEMATOLOGY/COAGULATION: Monitor for s/s of bleeding Monitor hemoglobin, coagulation studies as needed SKIN: Pressure ulcer prevention per facility protocol Specialty mattress ORTHO/REHAB: Continue PT/OT Prophylaxis: Continue GI and DVT prophylaxis Code Status: Full Resuscitation Disposition: TBD Other: Total patient care time exceeds 35 minutes excluding all procedures. ATTESTATION BY PHYSICIAN I have evaluated the patient chart, medical records, and spoke with appropriate staff. I reviewed the documentation, medical decision making, and treatment plan as noted by the mid-level provider above. I agree with the findings and plan of care. Suhas Valencia MD, NELLY J ARNP October 19, 2024 13:08
--- NOTE | 2024-10-20 21:49 | PN ---
INFECTIOUS DISEASE FOLLOWUP NOTE DATE OF SERVICE: 10/19/2024 SUBJECTIVE: The patient is seen and examined at bedside today. No fever, no chills. Pain is well controlled. Remains on ventilatory support through the tracheostomy. No bleeding tendency. No rashes or itchiness. . The patient is tolerating antibiotics. PHYSICAL EXAMINATION: VITAL SIGNS: Temperature 97.5. EYES: No icterus. Pupils are equal and reactive. HENT: No oral thrush seen. Moist oral mucosa. NECK: Supple. Trachea is in midline. Ventilatory support. LUNGS: Good air entry. No rales, no rhonchi. CARDIOVASCULAR: S1, S2 regular. No murmur heard. ABDOMEN: Full, soft, obese. Bowel sound is present. CENTRAL NERVOUS SYSTEMS: Awake, alert, bedbound . SKIN: No rashes. No itchiness. LYMPHATIC: There is right inguinal lymphadenopathy. BACK: No deformity. No pressure ulcer. HEMATOLOGIC: No bleeding or petechial lesions seen. EXTREMITIES: Status post right below-knee amputation. No drainage is seen. ASSESSMENT: A 69-year-old male with multiple problems include: * Septic shock. * Right foot gangrene and osteomyelitis, status post below-knee amputation. * Hypoxic respiratory failure. * Pneumonia. * Peripheral vascular disease. * Obesity. * Debility. PLAN: * Continue with tracheostomy. * Continue Zosyn. * Continue . * Continue wound care. * Continue DVT prophylaxis. * Continue nutritional support. * Monitor electrolytes. * The patient will be followed up closely. TID: [id number] RECEIPT: [id number]
== END 2024-10-19 15:56 | DRG 853 ==
LOC: EDH 22:17 → EDHIP 10-12 00:16 → 2CH 10-12 02:30 → 2DH 10-17 18:15
PROVIDERS: ADMIT Internal Medicine; ATTEND Internal Medicine
PROC: 5A1955Z Respiratory Ventilation, Greater than 96 Consecutive Hours (ICD-10-PCS; 2024-10-11)
PROC: 05HY33Z Insertion of Infusion Device into Upper Vein, Percutaneous Approach (ICD-10-PCS; principal; 2024-10-12)
PROC: 0Y6H0Z1 Detachment at Right Lower Leg, High, Open Approach (ICD-10-PCS; 2024-10-16)
DX: A41.9 Sepsis, unspecified organism (principal); J11.08 Influenza due to unidentified influenza virus with specified pneumonia; J96.21 Acute and chronic respiratory failure with hypoxia; J96.22 Acute and chronic respiratory failure with hypercapnia; R65.21 Severe sepsis with septic shock; J14 Pneumonia due to Hemophilus influenzae; E11.52 Type 2 diabetes mellitus with diabetic peripheral angiopathy with gangrene; N17.9 Acute kidney failure, unspecified; I69.351 Hemiplegia and hemiparesis following cerebral infarction affecting right dominant side; M86.8X7 Other osteomyelitis, ankle and foot; N30.00 Acute cystitis without hematuria; Z99.11 Dependence on respirator [ventilator] status; Z68.41 Body mass index [BMI] 40.0-44.9, adult; E11.22 Type 2 diabetes mellitus with diabetic chronic kidney disease; E78.00 Pure hypercholesterolemia, unspecified; N18.9 Chronic kidney disease, unspecified; I12.9 Hypertensive chronic kidney disease with stage 1 through stage 4 chronic kidney disease, or unspecified chronic kidney disease; D63.1 Anemia in chronic kidney disease; E11.69 Type 2 diabetes mellitus with other specified complication; E66.9 Obesity, unspecified; I25.10 Atherosclerotic heart disease of native coronary artery without angina pectoris; K21.9 Gastro-esophageal reflux disease without esophagitis; B96.20 Unspecified Escherichia coli [E. coli] as the cause of diseases classified elsewhere; N40.0 Benign prostatic hyperplasia without lower urinary tract symptoms; Z93.0 Tracheostomy status; Z95.1 Presence of aortocoronary bypass graft; Z79.899 Other long term (current) drug therapy
CPT/HCPCS: 36415; 36556; 36600; 71045; 73620; 75635; 80048; 80053; 81001; 82435; 82550; 82570; 82803; 82947; 82948; 83036; 83605; 83735; 83880; 83935; 84100; 84132; 84295; 84300; 84484; 85018; 85025; 85027; 85610; 85730; 86850; 86900; 86901; 87040; 87071; 87086; 87186; 87205; 92610; 93005; 93306; 93356; 93925; 94640; 94664; 96374; 99285; G0378; J0171; J0330; J0360; J0612; J1100; J1171; J1644; J1815; J2003; J2250; J2270; J2405; J2470; J2543; J2704; J2710; J2919; J3010; J3475; J3490; J7030; L1830; P9045; Q0163; Q9967; A4649; A6223; A6450; C1750